=== PATIENT | male | born 1945 | race Caucasian/White ===

== ENCOUNTER 2019-11-21 10:11 | Outpatient (CLI) | payer MEDICARE, SELFPAY ==
--- NOTE | ~2019-11-21 | PE_ITS ---
EXAMINATION: PET skull to mid thigh DATE: 11/21/2019 12:42 INDICATION: Lung nodule. TECHNIQUE: 10.946 mCi of 18-fluorodeoxyglucose (18-FDG) was administered i.v. Low dose computed tomog noa (CT) images were acquired from the base of the brain to the proximal thighs for attenuation cor rection and anatomic localization. Automated exposure control was employed. Dose-length product (DLP) was 895 mGy-cm. Positron emission tomography (PET) images were acquired in the same distribution. COMPARISON: Chest 2 views 09/20/2008 FINDINGS: Head/neck: There are no pathologically enlarged lymph nodes. There is mucosal thickening in the paran adilia sinuses. Chest: There is mild emphysema. There is mild atelectasis in the lungs. There is mild elevation of le ft hemidiaphragm. A calcified left lung nodule and calcified left hilar lymph nodes are consistent wi th old granulomatous disease. There is a 12 mm nodule in left lung upper lobe with maximum SUV of 2.6 . No pleural effusion. The heart size is normal. There are coronary artery calcifications. No pericar dial effusion. Abdomen/pelvis/proximal thighs: The liver and spleen are normal. There are gallstones in the gallblad stephanie, which is normal in size. The pancreas and adrenal glands are normal. There are cysts in the kidn eys measuring up to 5.2 cm on the right. There are no dilated loops of bowel. There are no pathologic ally enlarged lymph nodes. There is no free intraperitoneal fluid. There is no osseous malignancy. IMPRESSION: 1. 12 mm nodule in left lung upper lobe with increased activity, consistent with primary bronchogenic carcinoma. Reviewed, dictated and finalized at location A. I PRACTITIONER IMPRESSION: 1. 12 mm nodule in left lung upper lobe with increased activity, consistent wit h primary bronchogenic carcinoma.
[2019-11-21 10:35] LABS: Glucose Point of Care 120 (65-105)
== END 2019-11-21 10:12 | disposition home or self-care (01) ==
LOC: ANHIMG 10:14
PROVIDERS: PCP Internal Medicine; Visit Provider Nurse Practitioner
DX: R93.89 Abnormal findings on diagnostic imaging of other specified body structures (principal); R91.8 Other nonspecific abnormal finding of lung field
CPT/HCPCS: 78815; A9552

== ENCOUNTER 2020-01-02 09:43 | Outpatient (CLI) | payer MEDICARE, SELFPAY ==
--- NOTE | 2020-01-11 15:31 | P.PCNPFT_ITS ---
PFT Interpretation PFT Interpretation: DOS: 01/02/2020 REQUESTING: Dr. Gomez REASON FOR TESTING: Non-small cell cancer left lung PULMONARY FUNCTION TESTS The patient had 2 of 3 attempts that were reproducible. Spirometry: FEV1 is mildly reduced 77% predicted. FVC is normal 101%. the FEV1/ FVC ratio is reduced consistent with airflow obstruction. No bronchodilator was given. Lung volumes: Increased TLC 141% consistent with moderate hyperinflation. increased residual volume 179% consistent with severe air trapping. Increased airway resistance 294% Diffusion: DLCO normal 88%. Flow volume loop: Scooping of the expiratory limb. IMPRESSION: Mild obstructive ventilatory impairment, moderate hyperinflation, s evere air trapping consistent without bronchodilator administration. Kat Reddy MD
== END 2020-01-02 09:44 | disposition home or self-care (01) ==
PROVIDERS: PCP Internal Medicine; Visit Provider Internal Medicine Hematology & Oncology
DX: C34.92 Malignant neoplasm of unspecified part of left bronchus or lung (principal)
CPT/HCPCS: 94375; 94726; 94729

== ENCOUNTER 2020-08-15 07:06 | Outpatient (CLI) | payer MEDICARE, SELFPAY ==
--- NOTE | ~2020-08-15 | CT_ITS ---
EXAMINATION: CT chest w con DATE: 08/15/2020 07:45 INDICATION: Non-small cell lung cancer TECHNIQUE: Computed tomography (CT) of the chest was performed without intravenous contrast. The dose -length product was 395.71 mGy-cm. Automated exposure control and iterative reconstruction technique were employed. COMPARISON: CT/PET scan dated 11/21/2019 FINDINGS: No significant pleural or pericardial effusion. Status post partial left upper lobectomy fo r removal of left upper lobe nodule. No thoracic lymphadenopathy. Fatty infiltration of the liver. There are left renal cysts. There is atherosclerosis of the aorta an d coronary arteries. There is right middle lobe atelectasis. No endobronchial lesions. No acute osseo us abnormality. IMPRESSION: 1. No evidence for residual/recurrent malignancy or metastatic disease. Reviewed, dictated and finalized at location A.
[2020-08-15 07:40] LABS: Estimated Glomerular Filt Rate > 60
[2020-08-15 09:19] LABS: Basophils Absolute Auto 0.1 K/mm3 (0.0-0.1); Basophils Percent Auto 0.6 % (0.2-1.2); Eosinophils Absolute Auto 0.2 K/mm3 (0-0.3); Eosinophils Percent Auto 1.3 % (0-4.4); Hematocrit 48.3 % (42.0-52.0); Hemoglobin 15.5 g/dL (14.0-18.0); Immature Granulocyte Absolute 0.08 K/mm3 (0.00-0.031); Immature Granulocyte Percent A 0.7 % (0-0.5); Lymphocytes Absolute Auto 1.44 K/mm3 (0.9-3.2); Lymphocytes Percent Auto 12.1 % (18.3-44.2); Mean Corpuscular HGB Conc 32.1 g/dl (32-36); Mean Corpuscular Hemoglobin 30.4 pg (26-34); Mean Corpuscular Volume 94.7 fl (80-100); Mean Platelet Volume 11.6 fl (7.4-10.4); Monocytes Absolute Auto 1.2 K/mm3 (0.1-0.6); Monocytes Percent Auto 10.3 % (2.6-8.5); Neutrophils Absolute Auto 8.9 K/mm3 (1.3-6.7); Platelet Count Result 214 k/mm3 (150-375); Red Cell Distribution Width 16.1 % (11.5-14.5); White Blood Count 11.9 K/mm3 (4.5-10.0)
[2020-08-15 09:34] LABS: Alanine Aminotransferase 30 U/L (4-50); Albumin Level 4.4 g/dL (3.5-5.1); Alkaline Phosphatase 80 U/L (38-126); Anion Gap 9 mmol/L (8-16); Aspartate Amino Transferase 28 U/L (17-59); Bilirubin,Total 0.3 mg/dL (0.2-1.3); Blood Urea Nitrogen 20 mg/dL (9-20); Calcium 9.1 mg/dL (8.4-10.2); Carbon Dioxide 28 mmol/L (22-30); Chloride 103 mmol/L (98-107); Estimated Glomerular Filt Rate > 60; Glucose 189 mg/dL (75-110); Potassium 4.3 mmol/L (3.4-5.0); Sodium 140 mmol/L (137-145)
== END 2020-08-15 07:07 | disposition home or self-care (01) ==
PROVIDERS: PCP Internal Medicine; Visit Provider Internal Medicine Hematology & Oncology
DX: C34.92 Malignant neoplasm of unspecified part of left bronchus or lung (principal)
CPT/HCPCS: 71260; 80053; 85025; Q9967

== ENCOUNTER 2021-02-10 07:17 | Outpatient (CLI) | payer MEDICARE, SELFPAY ==
--- NOTE | ~2021-02-10 | CT_ITS ---
EXAMINATION: CT diagnostic chest w con DATE: 02/10/2021 07:47 INDICATION: Lung cancer. Status post left lobectomy. Emphysema. History of smoking. TECHNIQUE: Computed tomography (CT) of the chest was performed with 75 cc Omnipaque 350 intravenous c ontrast. The dose-length product was 312.73 mGy-cm. Automated exposure control and iterative reconstr uction technique were employed. COMPARISON: CT dated 08/15/2020 and PET/CT dated 11/21/2019 FINDINGS: Status post left upper lobectomy. Developing mediastinal lymph nodes measuring up to 7 mm s hort axis, although they still do not meet CT criteria for pathologic enlargement. There is atheroscl erosis of the aorta and coronary arteries. Heart size is normal. No significant pleural or pericardia l effusion. Thyroid gland is unremarkable. There is evidence for chronic granulomatous disease. There is right middle lobe atelectasis. No endobronchial lesions. No suspicious pulmonary nodules or jossue s. Fatty infiltration of the liver. IMPRESSION: 1. Developing mediastinal lymph nodes measuring up to 7 mm short axis, although they still do not ric t CT criteria for pathologic enlargement. Recommend attention to these lymph nodes on subsequent exam ination. Reviewed, dictated and finalized at location B. IMPRESSION: 1. Developing mediastinal lymph nodes measuring up to 7 mm short axis, although they still do not meet CT criteria for pathologic enlargement. Recommend atten tion to these lymph nodes on subsequent examination.
[2021-02-10 07:40] LABS: Estimated Glomerular Filt Rate > 60
== END 2021-02-10 07:18 | disposition home or self-care (01) ==
PROVIDERS: PCP Internal Medicine; Visit Provider Internal Medicine Hematology & Oncology
DX: C34.92 Malignant neoplasm of unspecified part of left bronchus or lung (principal); R59.0 Localized enlarged lymph nodes
CPT/HCPCS: 71260; Q9967

== ENCOUNTER 2021-02-17 13:22 | Outpatient (CLI) | payer MEDICARE, SELFPAY ==
[2021-02-17 13:38] LABS: Basophils Absolute Auto 0.1 K/mm3 (0.0-0.1); Basophils Percent Auto 1.1 % (0.2-1.2); Eosinophils Absolute Auto 0.4 K/mm3 (0-0.3); Eosinophils Percent Auto 3.8 % (0-4.4); Hematocrit 47.7 % (42.0-52.0); Hemoglobin 15.5 g/dL (14.0-18.0); Immature Granulocyte Absolute 0.11 K/mm3 (0.00-0.031); Immature Granulocyte Percent A 1.2 % (0-0.5); Lymphocytes Absolute Auto 1.89 K/mm3 (0.9-3.2); Lymphocytes Percent Auto 19.9 % (18.3-44.2); Mean Corpuscular HGB Conc 32.5 g/dl (32-36); Mean Corpuscular Hemoglobin 29.7 pg (26-34); Mean Corpuscular Volume 91.4 fl (80-100); Mean Platelet Volume 11.6 fl (7.4-10.4); Monocytes Percent Auto 10.2 % (2.6-8.5); Neutrophils Absolute Auto 6.1 K/mm3 (1.3-6.7); Neutrophils Percent Auto 63.8 % (45.5-73.1); Platelet Count Result 239 k/mm3 (150-375); Red Blood Count 5.22 M/mm3 (4.6-6.20); Red Cell Distribution Width 13.9 % (11.5-14.5); White Blood Count 9.5 K/mm3 (4.5-10.0)
[2021-02-17 13:42] LABS: Blood Urea Nitrogen 19 mg/dL (8-26); Carbon Dioxide 28 mmol/L (22-30); Chloride 103 mmol/L (98-109); Estimated Glomerular Filt Rate > 60; Glucose 142 mg/dL (70-105); Potassium 4.4 mmol/L (3.5-4.9); Sodium 142 mmol/L (138-146)
[2021-02-17 16:43] LABS: Alanine Aminotransferase 29 U/L (4-50); Albumin Level 4.2 g/dL (3.5-5.1); Alkaline Phosphatase 77 U/L (38-126); Anion Gap 8 mmol/L (8-16); Aspartate Amino Transferase 29 U/L (17-59); Bilirubin,Total 0.2 mg/dL (0.2-1.3); Blood Urea Nitrogen 18 mg/dL (9-20); Calcium 9.2 mg/dL (8.4-10.2); Carbon Dioxide 25 mmol/L (22-30); Chloride 107 mmol/L (98-107); Estimated Glomerular Filt Rate > 60; Glucose 142 mg/dL (75-110); Potassium 4.7 mmol/L (3.4-5.0); Sodium 140 mmol/L (137-145)
== END 2021-02-17 13:23 | disposition home or self-care (01) ==
LOC: ANHLAB 13:24
PROVIDERS: PCP Internal Medicine; Visit Provider Internal Medicine Hematology & Oncology
DX: C34.92 Malignant neoplasm of unspecified part of left bronchus or lung (principal)
CPT/HCPCS: 36415; 80048; 80053; 85025

== ENCOUNTER 2021-05-19 08:04 | Outpatient (CLI) | payer MEDICARE, SELFPAY ==
--- NOTE | ~2021-05-19 | CT_ITS ---
EXAMINATION: CT diagnostic chest w con DATE: 05/19/2021 08:48 INDICATION: Non-small cell cancer of the left lung TECHNIQUE: Transaxial computed tomographic images of the chest were obtained after the administration of 75 cc of Omnipaque 350 intravenous contrast. The dose-length product (DLP) was 317.75 mGy-cm. Ite rative reconstruction was used. COMPARISON: 02/10/2021 FINDINGS: There is mild emphysema. Changes of left upper lobectomy are noted. There are no acute airs pace opacities. No pleural effusion or pneumothorax is identified. The heart size is normal. There ar e no pathologically enlarged thoracic lymph nodes. The previously described mediastinal lymph nodes h ave decreased in size. Calcified coronary artery atherosclerosis is noted. There are cysts of the rig ht kidney. There is mild thoracic spondylosis. IMPRESSION: 1. Changes of left upper lobectomy without evidence of recurrent or metastatic disease. No lymphadeno forrest. Reviewed, dictated and finalized at location A. IMPRESSION: 1. Changes of left upper lobectomy without evidence of recurrent or metastatic disease. No lymphadenopathy.
[2021-05-19 08:42] LABS: Estimated Glomerular Filt Rate > 60
== END 2021-05-19 08:05 | disposition home or self-care (01) ==
PROVIDERS: PCP Internal Medicine; Visit Provider Internal Medicine Hematology & Oncology
DX: C34.92 Malignant neoplasm of unspecified part of left bronchus or lung (principal); Z90.2 Acquired absence of lung [part of]
CPT/HCPCS: 71260; Q9967

== ENCOUNTER 2021-05-26 10:50 | Outpatient (CLI) | payer MEDICARE, SELFPAY ==
[2021-05-26 11:03] LABS: Basophils Absolute Auto 0.1 K/mm3 (0.0-0.1); Basophils Percent Auto 0.7 % (0.2-1.2); Eosinophils Absolute Auto 0.3 K/mm3 (0-0.3); Eosinophils Percent Auto 3.1 % (0-4.4); Hematocrit 45.9 % (42.0-52.0); Hemoglobin 14.9 g/dL (14.0-18.0); Immature Granulocyte Absolute 0.08 K/mm3 (0.00-0.031); Immature Granulocyte Percent A 0.7 % (0-0.5); Lymphocytes Absolute Auto 1.67 K/mm3 (0.9-3.2); Lymphocytes Percent Auto 15.4 % (18.3-44.2); Mean Corpuscular HGB Conc 32.5 g/dl (32-36); Mean Corpuscular Hemoglobin 29.1 pg (26-34); Mean Corpuscular Volume 89.6 fl (80-100); Mean Platelet Volume 10.7 fl (7.4-10.4); Monocytes Absolute Auto 1.1 K/mm3 (0.1-0.6); Monocytes Percent Auto 9.8 % (2.6-8.5); Neutrophils Absolute Auto 7.6 K/mm3 (1.3-6.7); Neutrophils Percent Auto 70.3 % (45.5-73.1); Platelet Count Result 253 k/mm3 (150-375); Red Blood Count 5.12 M/mm3 (4.6-6.20); Red Cell Distribution Width 13.5 % (11.5-14.5); White Blood Count 10.9 K/mm3 (4.5-10.0)
[2021-05-26 11:08] LABS: Blood Urea Nitrogen 16 mg/dL (8-26); Carbon Dioxide 25 mmol/L (22-30); Chloride 100 mmol/L (98-109); Estimated Glomerular Filt Rate > 60; Glucose 183 mg/dL (70-105); Potassium 4.3 mmol/L (3.5-4.9); Sodium 140 mmol/L (138-146)
[2021-05-26 12:38] LABS: Alanine Aminotransferase 25 U/L (4-50); Albumin Level 4.1 g/dL (3.5-5.1); Alkaline Phosphatase 70 U/L (38-126); Anion Gap 8 mmol/L (8-16); Aspartate Amino Transferase 24 U/L (17-59); Bilirubin,Total 0.4 mg/dL (0.2-1.3); Blood Urea Nitrogen 17 mg/dL (9-20); Calcium 10.1 mg/dL (8.4-10.2); Carbon Dioxide 27 mmol/L (22-30); Chloride 103 mmol/L (98-107); Estimated Glomerular Filt Rate > 60; Glucose 170 mg/dL (65-110); Potassium 4.6 mmol/L (3.4-5.0); Sodium 138 mmol/L (137-145)
== END 2021-05-26 10:51 | disposition home or self-care (01) ==
LOC: ANHLAB 10:52
PROVIDERS: PCP Internal Medicine; Visit Provider Internal Medicine Hematology & Oncology
DX: C34.92 Malignant neoplasm of unspecified part of left bronchus or lung (principal)
CPT/HCPCS: 36415; 80048; 80053; 85025

== ENCOUNTER 2021-09-24 14:23 | Outpatient (CLI) | payer MEDICARE, SELFPAY ==
--- NOTE | ~2021-09-24 | XR_ITS ---
EXAMINATION: XR chest 2V EXAM DATE: 09/24/2021 14:38 INDICATION: Non Small Cell Cancer Of Left Lung, Follow-Up. TECHNIQUE: Frontal and lateral projections of the chest obtained and reviewed. Comparison is made to prior examination from 09/20/2008. FINDINGS: Left hilar prominence likely pulmonary artery, correlating with a prior chest CT demonstrat ing partial left pneumonectomy. The lungs are clear. There are no pleural effusions. The cardiomedi astinal silhouette is within normal limits. There is no pneumothorax suspected. The bones and soft tissues are unremarkable. IMPRESSION: Partial left pneumonectomy. Reviewed, dictated and finalized at location A. S APPOINTMENT COORDINATOR IMPRESSION: Partial left pneumonectomy.
== END 2021-09-24 14:24 | disposition home or self-care (01) ==
PROVIDERS: PCP Internal Medicine; Visit Provider Internal Medicine Hematology & Oncology
DX: C34.92 Malignant neoplasm of unspecified part of left bronchus or lung (principal); Z90.2 Acquired absence of lung [part of]
CPT/HCPCS: 71046

== ENCOUNTER 2021-09-30 11:19 | Outpatient (CLI) | payer MEDICARE, SELFPAY ==
[2021-09-30 11:33] LABS: Basophils Absolute Auto 0.1 K/mm3 (0.0-0.1); Basophils Percent Auto 0.8 % (0.2-1.2); Eosinophils Absolute Auto 0.5 K/mm3 (0-0.3); Eosinophils Percent Auto 4.7 % (0-4.4); Hematocrit 47.4 % (42.0-52.0); Hemoglobin 15.2 g/dL (14.0-18.0); Immature Granulocyte Absolute 0.09 K/mm3 (0.00-0.031); Immature Granulocyte Percent A 0.9 % (0-0.5); Lymphocytes Absolute Auto 1.92 K/mm3 (0.9-3.2); Lymphocytes Percent Auto 19.9 % (18.3-44.2); Mean Corpuscular HGB Conc 32.1 g/dl (32-36); Mean Corpuscular Hemoglobin 29.5 pg (26-34); Neutrophils Absolute Auto 6.1 K/mm3 (1.3-6.7); Neutrophils Percent Auto 63.7 % (45.5-73.1); Platelet Count Result 252 k/mm3 (150-375); Red Blood Count 5.15 M/mm3 (4.6-6.20); Red Cell Distribution Width 13.8 % (11.5-14.5); White Blood Count 9.6 K/mm3 (4.5-10.0)
[2021-09-30 11:37] LABS: Blood Urea Nitrogen 17 mg/dL (8-26); Carbon Dioxide 27 mmol/L (22-30); Chloride 100 mmol/L (98-109); Estimated Glomerular Filt Rate > 60; Glucose 134 mg/dL (70-105); Potassium 4.1 mmol/L (3.5-4.9); Sodium 140 mmol/L (138-146)
[2021-09-30 12:21] LABS: Alanine Aminotransferase 30 U/L (4-50); Albumin Level 4.6 g/dL (3.5-5.1); Alkaline Phosphatase 73 U/L (38-126); Anion Gap 9 mmol/L (8-16); Aspartate Amino Transferase 55 U/L (17-59); Bilirubin,Total 0.4 mg/dL (0.2-1.3); Blood Urea Nitrogen 17 mg/dL (9-20); Carbon Dioxide 27 mmol/L (22-30); Chloride 100 mmol/L (98-107); Estimated Glomerular Filt Rate > 60; Glucose 135 mg/dL (65-110); Potassium 4.3 mmol/L (3.4-5.0); Sodium 136 mmol/L (137-145)
== END 2021-09-30 11:20 | disposition home or self-care (01) ==
LOC: ANHLAB 11:21
PROVIDERS: PCP Internal Medicine; Visit Provider Internal Medicine Hematology & Oncology
DX: C34.92 Malignant neoplasm of unspecified part of left bronchus or lung (principal)
CPT/HCPCS: 36415; 80053; 82374; 82435; 82565; 82947; 84132; 84295; 84520; 85025

== ENCOUNTER 2022-01-21 14:27 | Outpatient (CLI) | payer MEDICARE, SELFPAY ==
--- NOTE | ~2022-01-21 | CT_ITS ---
EXAMINATION:CT diagnostic chest w con DATE: 01/21/2022 14:47 INDICATION: Non-small cell lung cancer in left lung. TECHNIQUE: Computed tomography (CT) of the chest was performed with 75 mL Omnipaque 350 intravenous c ontrast. Automated exposure control and iterative reconstruction technique were employed. The dose-le ngth product (DLP) was 316.92 mGy-cm. COMPARISON: Chest CT 05/19/2021 FINDINGS: There is mild emphysema. There is mild atelectasis bilaterally. There are changes of left u pper lobectomy. Calcified left lung nodules and calcified left hilar lymph nodes are consistent with old granulomatous disease. No pleural effusion. The heart size is normal. There are coronary artery c alcifications. No pericardial effusion. Calcifications in the spleen are consistent with old granulom atous disease. There are cysts in left kidney measuring up to 3.0 cm. There is mild thoracic spondylo sis. There is mild chronic anterior wedging of T7-T10 vertebral bodies. IMPRESSION: 1. No evidence of metastatic disease. Reviewed, dictated and finalized at location A.
[2022-01-21 14:44] LABS: Estimated Glomerular Filt Rate > 60
== END 2022-01-21 14:28 | disposition home or self-care (01) ==
LOC: ANHIMG 14:29
PROVIDERS: PCP Internal Medicine; Visit Provider Internal Medicine Hematology & Oncology
DX: C34.92 Malignant neoplasm of unspecified part of left bronchus or lung (principal)
CPT/HCPCS: 71260; Q9967

== ENCOUNTER 2022-01-27 10:49 | Outpatient (CLI) | payer MEDICARE, SELFPAY ==
[2022-01-27 11:01] LABS: Basophils Absolute Auto 0.1 K/mm3 (0.0-0.1); Eosinophils Absolute Auto 0.4 K/mm3 (0-0.3); Eosinophils Percent Auto 4.7 % (0-4.4); Hematocrit 47.6 % (42.0-52.0); Hemoglobin 14.9 g/dL (14.0-18.0); Immature Granulocyte Absolute 0.08 K/mm3 (0.00-0.031); Immature Granulocyte Percent A 0.9 % (0-0.5); Lymphocytes Absolute Auto 1.89 K/mm3 (0.9-3.2); Mean Corpuscular HGB Conc 31.3 g/dl (32-36); Mean Corpuscular Hemoglobin 29.3 pg (26-34); Mean Corpuscular Volume 93.7 fl (80-100); Mean Platelet Volume 11.5 fl (7.4-10.4); Neutrophils Absolute Auto 5.6 K/mm3 (1.3-6.7); Neutrophils Percent Auto 61.4 % (45.5-73.1); Platelet Count Result 219 k/mm3 (150-375); Red Blood Count 5.08 M/mm3 (4.6-6.20); Red Cell Distribution Width 13.8 % (11.5-14.5)
[2022-01-27 11:04] LABS: Blood Urea Nitrogen 19 mg/dL (8-26); Carbon Dioxide 24 mmol/L (22-30); Chloride 103 mmol/L (98-109); Estimated Glomerular Filt Rate > 60; Glucose 131 mg/dL (70-105); Potassium 4.3 mmol/L (3.5-4.9); Sodium 140 mmol/L (138-146)
[2022-01-27 12:07] LABS: Alanine Aminotransferase 27 U/L (4-50); Albumin Level 4.5 g/dL (3.5-5.1); Alkaline Phosphatase 60 U/L (38-126); Anion Gap 9 mmol/L (8-16); Aspartate Amino Transferase 26 U/L (17-59); Bilirubin,Total 0.5 mg/dL (0.2-1.3); Blood Urea Nitrogen 18 mg/dL (9-20); Calcium 9.5 mg/dL (8.4-10.2); Carbon Dioxide 24 mmol/L (22-30); Chloride 105 mmol/L (98-107); Estimated Glomerular Filt Rate > 60; Glucose 133 mg/dL (65-110); Potassium 4.2 mmol/L (3.4-5.0); Sodium 138 mmol/L (137-145)
== END 2022-01-27 10:50 | disposition home or self-care (01) ==
LOC: ANHLAB 10:50
PROVIDERS: PCP Internal Medicine; Visit Provider Internal Medicine Hematology & Oncology
DX: C34.92 Malignant neoplasm of unspecified part of left bronchus or lung (principal)
CPT/HCPCS: 36415; 80053; 85025

== ENCOUNTER 2022-07-21 10:13 | Outpatient (CLI) | payer MEDICARE, SELFPAY ==
--- NOTE | ~2022-07-21 | CT_ITS ---
EXAMINATION:CT diagnostic chest wo con DATE: 07/21/2022 10:36 INDICATION: Non-small cell cancer of left lung. TECHNIQUE: Computed tomography (CT) of the chest was performed without intravenous contrast. Automate d exposure control and iterative reconstruction technique were employed. The dose-length product (DLP ) was 315.37 mGy-cm. COMPARISON: Chest CT 01/21/2022 FINDINGS: There are changes of left upper lobectomy. A calcified left lung nodule and calcified left hilar lymph nodes are consistent with old granulomatous disease. There is mild atelectasis in right m iddle lobe. No pleural effusion. There is mucous in the trachea. The heart size is normal. There are coronary artery calcifications. No pericardial effusion. There is diffuse hepatic steatosis. There is a 16 mm cyst in left kidney. There is mild thoracic spondylosis. There is mild chronic anterior wedg ing of multiple vertebral bodies. IMPRESSION: 1. No evidence of metastatic disease. Reviewed, dictated and finalized at location A.
== END 2022-07-21 10:14 | disposition home or self-care (01) ==
PROVIDERS: PCP Internal Medicine; Visit Provider Internal Medicine Hematology & Oncology
DX: C34.92 Malignant neoplasm of unspecified part of left bronchus or lung (principal)
CPT/HCPCS: 71250

== ENCOUNTER 2022-07-28 09:32 | Outpatient (CLI) | payer MEDICARE, SELFPAY ==
[2022-07-28 09:43] LABS: Basophils Absolute Auto 0.1 K/mm3 (0.0-0.1); Basophils Percent Auto 0.9 % (0.2-1.2); Eosinophils Absolute Auto 0.3 K/mm3 (0-0.3); Eosinophils Percent Auto 3.7 % (0-4.4); Hematocrit 46.2 % (42.0-52.0); Hemoglobin 14.7 g/dL (14.0-18.0); Immature Granulocyte Absolute 0.06 K/mm3 (0.00-0.031); Immature Granulocyte Percent A 0.7 % (0-0.5); Lymphocytes Percent Auto 16.8 % (18.3-44.2); Mean Corpuscular HGB Conc 31.8 g/dl (32-36); Mean Corpuscular Hemoglobin 29.1 pg (26-34); Mean Corpuscular Volume 91.5 fl (80-100); Mean Platelet Volume 10.8 fl (7.4-10.4); Monocytes Percent Auto 11.3 % (2.6-8.5); Neutrophils Percent Auto 66.6 % (45.5-73.1); Platelet Count Result 255 k/mm3 (150-375); Red Blood Count 5.05 M/mm3 (4.6-6.20); White Blood Count 8.9 K/mm3 (4.5-10.0)
[2022-07-28 09:46] LABS: Blood Urea Nitrogen 21 mg/dL (8-26); Carbon Dioxide 29 mmol/L (22-30); Chloride 100 mmol/L (98-109); Estimated Glomerular Filt Rate > 60; Glucose 158 mg/dL (70-105); Ionized Calcium (POC) 1.31 mmol/L (1.11-1.31); Potassium 4.3 mmol/L (3.5-4.9); Sodium 142 mmol/L (138-146)
[2022-07-28 12:05] LABS: Alanine Aminotransferase 28 U/L (6-50); Albumin Level 4.7 g/dL (3.5-5.1); Alkaline Phosphatase 71 U/L (38-126); Anion Gap 10 mmol/L (8-16); Aspartate Amino Transferase 27 U/L (17-59); Bilirubin,Total 0.4 mg/dL (0.2-1.3); Blood Urea Nitrogen 21 mg/dL (9-20); Calcium 9.6 mg/dL (8.4-10.2); Carbon Dioxide 28 mmol/L (22-30); Chloride 101 mmol/L (98-107); Estimated Glomerular Filt Rate > 60; Glucose 151 mg/dL (65-110); Potassium 4.2 mmol/L (3.4-5.0); Sodium 139 mmol/L (137-145)
== END 2022-07-28 09:33 | disposition home or self-care (01) ==
LOC: ANHLAB 09:33
PROVIDERS: PCP Internal Medicine; Visit Provider Internal Medicine Hematology & Oncology
DX: C34.92 Malignant neoplasm of unspecified part of left bronchus or lung (principal)
CPT/HCPCS: 36415; 80047; 80053; 85025

== ENCOUNTER 2022-11-06 13:10 | Outpatient (CLI) | payer MEDICARE, SELFPAY ==
--- NOTE | ~2022-11-06 | CT_ITS ---
CT Scan of the Chest without Contrast: Clinical Indication: Lung cancer Technique: Contiguous sections were acquired throughout the chest without intravenous contrast. Dose reduction technique was used on this scan by utilizing automated exposure control and iterative recon struction technique. The dose-length product (DLP) was 436.00 mGy-cm. COMPARISON: 07/21/2022 Findings: Stable mildly prominent lymph node between the origins of the right brachiocephalic and left common c arotid arteries at the superior mediastinum. Stable mildly prominent prevascular lymph nodes at the l evel of the aortic arch.. The mediastinal soft tissues appear normal. There is no evidence of pleural or pericardial effusion. Patient is status post left upper lobectomy. Stable linear scarring right middle lobe. No suspicious pulmonary nodule seen. Calcified left upper lobe granuloma present. Images through the upper abdomen reveal cholelithiasis. Impression: No evidence for active malignancy or metastatic disease. No change from prior exam. Status post left upper lobectomy. Stable linear right middle lobe scarring. Stable minimally prominent lymph nodes in the mediastinum, as above, nonspecific. Reviewed, dictated and finalized at [facility]. S COMMISSIONS ANALYST Impression: No evidence for active malignancy or metastatic disease. No change from prior e xam. Status post left upper lobectomy. Stable linear right middle lobe scarring. Stable minimally prominent lymph nodes in the mediastinum, as above, nonspecifi c.
== END 2022-11-06 13:11 | disposition home or self-care (01) ==
PROVIDERS: PCP Internal Medicine; Referring Provider Nurse Practitioner; Visit Provider Internal Medicine Hematology & Oncology
DX: C34.92 Malignant neoplasm of unspecified part of left bronchus or lung (principal); Z90.2 Acquired absence of lung [part of]
CPT/HCPCS: 71250

== ENCOUNTER 2023-01-14 10:37 | Outpatient (CLI) | payer MEDICARE, SELFPAY ==
[2023-01-14 10:49] LABS: Basophils Absolute Auto 0.1 K/mm3 (0.0-0.1); Basophils Percent Auto 0.9 % (0.2-1.2); Eosinophils Absolute Auto 0.4 K/mm3 (0-0.3); Eosinophils Percent Auto 4.5 % (0-4.4); Hematocrit 45.6 % (42.0-52.0); Hemoglobin 14.7 g/dL (14.0-18.0); Immature Granulocyte Absolute 0.05 K/mm3 (0.00-0.031); Immature Granulocyte Percent A 0.6 % (0-0.5); Lymphocytes Absolute Auto 1.87 K/mm3 (0.9-3.2); Lymphocytes Percent Auto 21.3 % (18.3-44.2); Mean Corpuscular HGB Conc 32.2 g/dl (32-36); Mean Corpuscular Hemoglobin 29.6 pg (26-34); Mean Corpuscular Volume 91.8 fl (80-100); Mean Platelet Volume 11.5 fl (7.4-10.4); Monocytes Absolute Auto 0.8 K/mm3 (0.1-0.6); Monocytes Percent Auto 9.4 % (2.6-8.5); Neutrophils Absolute Auto 5.6 K/mm3 (1.3-6.7); Neutrophils Percent Auto 63.3 % (45.5-73.1); Platelet Count Result 225 k/mm3 (150-375); Red Blood Count 4.97 M/mm3 (4.6-6.20); White Blood Count 8.8 K/mm3 (4.5-10.0)
[2023-01-14 10:54] LABS: Blood Urea Nitrogen 21 mg/dL (8-26); Carbon Dioxide 30 mmol/L (22-30); Chloride 101 mmol/L (98-109); Estimated Glomerular Filt Rate > 60; Glucose 150 mg/dL (70-105); Ionized Calcium (POC) 1.21 mmol/L (1.11-1.31); Potassium 4.3 mmol/L (3.5-4.9); Sodium 140 mmol/L (138-146)
[2023-01-14 12:40] LABS: Alanine Aminotransferase 28 U/L (6-50); Albumin Level 4.5 g/dL (3.5-5.1); Alkaline Phosphatase 66 U/L (38-126); Anion Gap 8 mmol/L (8-16); Aspartate Amino Transferase 25 U/L (17-59); Bilirubin,Total 0.5 mg/dL (0.2-1.3); Blood Urea Nitrogen 20 mg/dL (9-20); Calcium 8.9 mg/dL (8.4-10.2); Carbon Dioxide 28 mmol/L (22-30); Chloride 101 mmol/L (98-107); Estimated Glomerular Filt Rate > 60; Glucose 145 mg/dL (65-110); Potassium 4.4 mmol/L (3.4-5.0); Sodium 137 mmol/L (137-145)
== END 2023-01-14 10:38 | disposition home or self-care (01) ==
LOC: ANHLAB 10:39
PROVIDERS: PCP Internal Medicine; Visit Provider Internal Medicine Hematology & Oncology
DX: C34.92 Malignant neoplasm of unspecified part of left bronchus or lung (principal)
CPT/HCPCS: 36415; 80047; 80053; 85025

== ENCOUNTER 2023-09-21 13:13 | Outpatient (CLI) | payer MEDICARE, SELFPAY ==
[2023-09-21 13:24] LABS: Basophils Absolute Auto 0.1 K/mm3 (0.0-0.1); Basophils Percent Auto 0.7 % (0.2-1.2); Eosinophils Absolute Auto 0.4 K/mm3 (0-0.3); Eosinophils Percent Auto 3.7 % (0-4.4); Hematocrit 46.2 % (42.0-52.0); Hemoglobin 14.6 g/dL (14.0-18.0); Immature Granulocyte Absolute 0.06 K/mm3 (0.00-0.031); Immature Granulocyte Percent A 0.6 % (0-0.5); Lymphocytes Absolute Auto 1.56 K/mm3 (0.9-3.2); Lymphocytes Percent Auto 16.6 % (18.3-44.2); Mean Corpuscular HGB Conc 31.6 g/dl (32-36); Mean Corpuscular Hemoglobin 28.6 pg (26-34); Mean Corpuscular Volume 90.4 fl (80-100); Mean Platelet Volume 10.8 fl (7.4-10.4); Monocytes Absolute Auto 0.9 K/mm3 (0.1-0.6); Monocytes Percent Auto 9.7 % (2.6-8.5); Neutrophils Absolute Auto 6.4 K/mm3 (1.3-6.7); Neutrophils Percent Auto 68.7 % (45.5-73.1); Platelet Count Result 280 k/mm3 (150-375); Red Blood Count 5.11 M/mm3 (4.6-6.20); Red Cell Distribution Width 15.2 % (11.5-14.5); White Blood Count 9.4 K/mm3 (4.5-10.0)
[2023-09-21 13:50] LABS: Alanine Aminotransferase 21 U/L (6-50); Alkaline Phosphatase 72 U/L (38-126); Anion Gap 9 mmol/L (8-16); Aspartate Amino Transferase 29 U/L (17-59); Bilirubin,Total 0.4 mg/dL (0.2-1.3); Blood Urea Nitrogen 17 mg/dL (9-20); Calcium 9.2 mg/dL (8.4-10.2); Carbon Dioxide 27 mmol/L (22-30); Chloride 103 mmol/L (98-107); Estimated Glomerular Filt Rate > 60; Glucose 159 mg/dL (65-110); Potassium 4.3 mmol/L (3.4-5.0); Sodium 139 mmol/L (137-145)
== END 2023-09-21 13:14 | disposition home or self-care (01) ==
LOC: ANHLAB 13:14
PROVIDERS: PCP Internal Medicine; Visit Provider Internal Medicine Hematology & Oncology
DX: C34.92 Malignant neoplasm of unspecified part of left bronchus or lung (principal)
CPT/HCPCS: 36415; 80053; 85025

== ENCOUNTER 2023-09-28 13:14 | Outpatient (CLI) | payer MEDICARE, SELFPAY ==
--- NOTE | ~2023-09-28 | PE_ITS ---
EXAMINATION: PET skull to mid thigh DATE: 09/28/2023 15:28 INDICATION: Non-small cell cancer of the left lung TECHNIQUE: Blood glucose level was 86 mg/dL. 10.495 mCi of 18-fluorodeoxyglucose (18-FDG) was adminis tered i.v. Low dose computed tomography (CT) images were acquired from the base of the brain to the p roximal thighs for attenuation correction and anatomic localization. Positron emission tomography (PE T) images were acquired in the same distribution beginning 54 minutes after injection. The dose-lengt h product (DLP) was 1224.46 mGy-cm. COMPARISON: 11/21/2019; CT, 11/06/2022 FINDINGS: Head/neck: No abnormal FDG uptake is identified. There is mild mucosal thickening of the paranasal si nuses. Chest: There are changes of partial left pneumonectomy. There are normal-sized left hilar and aortico pulmonary window lymph nodes with increased abnormal FDG uptake. For instance, a 6 mm aortopulmonary window lymph node demonstrates an SUV max of 3.9. There is mild dependent atelectasis. The heart size is normal. There is a new 5 mm nodule of the right middle lobe. No definite associated FDG uptake is identified. No pleural effusion or pneumothorax. The heart size is normal. Calcified coronary artery atherosclerosis is noted. Abdomen/pelvis/proximal thighs: There is a 5.7 x 2.7 cm mass situated between the left scrotum and me dial left thigh with an SUV max of 28.5. There is a 1.3 cm left inguinal lymph node with SUV max of 1 8.3. There is an ill-defined soft tissue density mass involving the abdominal musculature and subcuta neous tissues of the right lower quadrant which measures approximately 4.8 x 1.9 cm and demonstrates abnormal FDG uptake and SUV max of 6.5. Punctate calcifications in an otherwise normal spleen likely represent healed granulomatous disease. The liver, pancreas, and adrenal glands are normal. Stones are present in the nondistended gallbladde r. Cysts of the kidneys measure up to 6.3 cm on the right. No free intraperitoneal gas or evidence of bowel obstruction. There is calcified atherosclerosis of the aorta and many of the other arteries. A small right hydrocele is noted. Musculoskeletal: No abnormal FDG uptake is identified. IMPRESSION: 1. Left groin mass with abnormal FDG uptake consistent with metastatic disease versus primary maligna ncy. Biopsy is recommended. 2. Left inguinal lymph node with abnormal FDG uptake consistent with metastatic disease. 3. Normal-sized left hilar and aorticopulmonary window lymph nodes with abnormal FDG uptake, consiste nt with metastatic disease. 4. New 5 mm nodule of the right middle lobe. Although no definite associated FDG uptake is identified , finding could be due to small size. Metastatic disease is a concern. 5. Ill-defined soft tissue mass of the right lower quadrant abdominal wall, consistent with metastati c disease or possibly trauma. Reviewed, dictated and finalized at location B. TIC PHYSIOTHERAPIST IMPRESSION: 1. Left groin mass with abnormal FDG uptake consistent with metastatic disease versus primary malignancy. Biopsy is recommended. 2. Left inguinal lymph node with abnormal FDG uptake consistent with metastatic disease. 3. Normal-sized left hilar and aorticopulmonary window lymph nodes with abnorma l FDG uptake, consistent with metastatic disease. 4. New 5 mm nodule of the right middle lobe. Although no definite associated FD G uptake is identified, finding could be due to small size. Metastatic disease is a concern. 5. Ill-defined soft tissue mass of the right lower quadrant abdominal wall, con sistent with metastatic disease or possibly trauma.
[2023-09-28 14:03] LABS: Glucose Point of Care 86 mg/dl (65-105)
== END 2023-09-28 13:15 | disposition home or self-care (01) ==
PROVIDERS: PCP Internal Medicine; Visit Provider Internal Medicine Hematology & Oncology
DX: C34.12 Malignant neoplasm of upper lobe, left bronchus or lung (principal); R19.03 Right lower quadrant abdominal swelling, mass and lump; R19.09 Other intra-abdominal and pelvic swelling, mass and lump; R59.0 Localized enlarged lymph nodes; R91.1 Solitary pulmonary nodule
CPT/HCPCS: 78815; A9552

== ENCOUNTER 2023-10-06 10:25 | Outpatient (CLI) | payer MEDICARE, SELFPAY ==
[2023-10-06 10:36] LABS: Kit Draw Collected
== END 2023-10-06 10:26 | disposition home or self-care (01) ==
LOC: ANHLAB 10:29
PROVIDERS: PCP Internal Medicine; Visit Provider Internal Medicine Hematology & Oncology
DX: C34.92 Malignant neoplasm of unspecified part of left bronchus or lung (principal)
CPT/HCPCS: 36415

== ENCOUNTER 2023-10-12 10:25 | Outpatient (CLI) | payer MEDICARE, SELFPAY ==
[2023-10-12 10:58] LABS: INR 0.9; Prothrombin Time 12.6 Seconds (11.1-14.7)
[2023-10-12 10:59] LABS: Partial Thromboplastin Time 36.5 SECONDS (22.3-36.8)
== END 2023-10-12 10:26 | disposition home or self-care (01) ==
LOC: ANHSURGERY 10:28
PROVIDERS: PCP Internal Medicine; Visit Provider Surgery
DX: Z01.818 Encounter for other preprocedural examination (principal); C34.90 Malignant neoplasm of unspecified part of unspecified bronchus or lung
CPT/HCPCS: 36415; 85610; 85730

== ENCOUNTER 2023-10-14 01:24 | Day surgery (SDC) | payer MEDICARE, SELFPAY ==
[2023-10-08 10:50] VITALS: BMI 29.5
--- NOTE | 2023-10-08 11:07 | PC.NURSE ---
PRE-OP INSTRUCTIONS, PLEASE READ CAREFULLY Report to the Outpatient Waiting Room, entrance under the green pavilion located off [facility], at time _1130_ on date _10/14/23_. Planned Procedure Time: _3:30 PM_. Time changes happen often and if your time is changed the preop area will call you the afternoon before. - You and your visitor will be asked to self-screen and do not enter if you have any COVID symptoms. - A mask is optional within the hospital at this time. Patients may have clear liquids (water, carbonated beverages, clear teas, apple juice) until 3 hours prior to surgery (1030 AM) with a maximum of 20 ounces. - No food from midnight until time of surgery Take the following medications with a SIP of water the morning of surgery: _METOPROLOL, INHALERS_ DO NOT STOP ANY OF YOUR OTHER PRESCRIPTION MEDICATIONS PRIOR TO SURGERY ?EXCEPT THE FOLLOWING Medications to discontinue per ANESTHESIA - _MULTIVITAMIN & SUPPLEMENTS 3 DAYS PRIOR TO SURGERY, Date to take last dose 10/10/23_ Please no make-up, nail hungarian, hairspray, perfume, deodorant, or body powder the day of surgery. No jewelry (including any body piercings) or valuables the day of surgery, leave them at home. Please take a shower or bath the night before, or the morning of, surgery with an antibacterial soap. Wear comfortable, loose fitting clothing. - Jewelry must be removed prior to entering the operating room. Rings and piercings that are not removed may be cut off. - The hospital will not accept responsibility for valuables. - Please leave all valuables, including medications, at home the day of surgery. If you are going home after surgery, a licensed tow truck driver must drive you home. - NO public transportation without another adult if you receive anesthesia. - We recommend that an adult stay with you for 24 hours following discharge. - We also recommend that you do not drive, make important decision, drink alcoholic beverages, or take any drugs that were not prescribed by your health care provider for at least 24 hours after your discharge time. Follow any additional instructions given to you from your surgeon. If you or anyone in your household have experienced Covid symptoms in the past week, please notify your surgeon or the nurse liaison at the phone number below for possible testing. Telephone instructions given to _PATIENT_and asked if any additional questions and then verbalized understanding. Patient advised to call surgeon office or pre surgery nurse liaison [phone] if any additional questions.
--- NOTE | ~2023-10-14 | XR_ITS ---
XR chest port-a-cath/central DATE: 10/14/2023 14:48 INDICATION: Port-A-Cath insertion TECHNIQUE: Portable AP chest on 10/06/2023 at 1443 hours COMPARISON: 10/06/2021 PA and lateral chest FINDINGS: Interval placement of left Port-A-Cath catheter via subclavian vein, with distal tip overly ing caudal aspect of the superior vena cava. There is no evidence of pneumothorax. Chronic left lung volume loss and bilateral pulmonary compared to 09/24/2021. No interval pulmonary in filtrate or consolidation, pleural effusion or pulmonary vascular congestion or pneumothorax is evide nt. Normal heart size. Aortic arch calcification, mild aortic unfolding. Stable prominence of the left hi lum. IMPRESSION: Interval left Port-A-Cath placement, distal tip in lower superior vena cava Reviewed, dictated and finalized at [facility]. Reviewed, dictated and finalized at location A. [facility] COMMUNITY RELATIONS COORDINATOR IMPRESSION: Interval left Port-A-Cath placement, distal tip in lower superior v david cava
--- NOTE | ~2023-10-14 | XR_ITS ---
EXAMINATION: XR fl guide central line place DATE: 10/14/2023 13:45 FACILITIES LOCATOR INDICATION: INSERT AGUSTIN CATH . TECHNIQUE: 2 fluoroscopic images of the chest were obtained during Port-A-Cath placement performed by the surgeon. I was not present in the operating room. Fluoroscopy exposure time was 1 minute and 3.6 seconds. Air Kerma 12.241 mGy. DAP 0.2427 mGym2. COMPARISON: None FINDINGS: Left chest subclavian implanted port, tip terminating in the distal SVC. IMPRESSION: Fluoroscopic documentation of Port-A-Cath placement. Please refer to the operative note for complete procedural details . Reviewed, dictated and finalized at location K. LITIES LOCATOR IMPRESSION: Fluoroscopic documentation of Port-A-Cath placement. Please refer to the operat chandu note for complete procedural details .
--- NOTE | 2023-10-14 12:02 | WPDHPUPDATE1 ---
History and Physical Update Update Date/Time: 10/14/23 12:02 History and Physical has been reviewed, including an updated exam of the patient. There are NO changes in the patient's condition. Risks, benefits, and alternatives have been discussed and questions answered. Patient agrees to proceed with procedure.
[2023-10-14 12:18] VITALS: BP 137/75; PULSE 80; RESP 18; TEMP 36.1; O2SAT 95
[2023-10-14] MEDS: LACTATED RINGERS 1,000 ML 30 ML IV CONT (12:25)
[2023-10-14 12:30] LABS: Glucose Point of Care 147 mg/dl (65-105)
[2023-10-14] MEDS: KETOROLAC 15 MG/ML VIAL (*BKC) IV PUSH (12:30)
--- NOTE | 2023-10-14 12:36 | WPDANESEPPF ---
Anes - Initial Pre Proc Eval Procedure: Operation Date: 10/14/23 13:30 Proposed Procedures p Insertion Juancarlos Cath - Tristen Baum MD Date/Time: 10/14/23 12:36 Surgeon: Tristen Baum MD Pre Op Diagnosis: non small cell Left lung cancer Patient Data Age: 77 Gender: M Height: 1.78 m Weight: 88.6 kg Last Vital Signs Temp 96.9 F L 10/14/23 12:18 Pulse 80 10/14/23 12:18 Resp 18 10/14/23 12:18 BP 137/75 10/14/23 12:18 Pulse Ox 95 10/14/23 12:18 O2 Del Method Room Air 10/14/23 12:18 Allergies Allergy/AdvReac Type Severity Reaction Status Date / Time hydrocodone [From Vicodin] AdvReac Itching Verified 10/08/23 10:45 morphine AdvReac VIOLENT Verified 10/14/23 12:29 TREMORS Home Medications Medication Instructions Recorded Confirmed Type ascorbic acid (vitamin C) 1,000 mg 1,000 mg PO DAILY 10/08/23 10/08/23 History tablet,extended release (Vitamin C ER) diphenhydramine HCl 12.5 mg/5 mL 12.5 mg PO QAM 10/08/23 10/08/23 History oral liquid (Benadryl Allergy) empagliflozin 10 mg tablet 10 mg DAILY 10/08/23 10/08/23 History (Jardiance) famotidine 20 mg tablet (Pepcid) 20 mg PO DAILY 10/08/23 10/08/23 History fenofibrate nanocrystallized 145 145 mg PO DAILY 10/08/23 10/08/23 History mg tablet fluticasone 250 mcg-salmeterol 50 1 inh inhalation Q12H 10/08/23 10/08/23 History mcg/dose blistr powdr for inhalation (Wixela Inhub) glimepiride 4 mg tablet 4 mg BID 10/08/23 10/08/23 History hydrochlorothiazide 25 mg tablet 25 mg DAILY 10/08/23 10/08/23 History metformin 500 mg tablet,extended 1,000 mg PO BID 10/08/23 10/08/23 History release 24 hr metoprolol tartrate 50 mg tablet 50 mg BID 10/08/23 10/08/23 History multivitamin 1 tablet DAILY 10/08/23 10/08/23 History simvastatin 20 mg tablet 20 mg DAILY 10/08/23 10/08/23 History tiotropium bromide 2.5 puff inhalation QAM 10/08/23 History mcg/actuation mist for inhalation (Spiriva Respimat) Laboratory Tests 10/14/23 12:07 POC Capillary Glucose 147 H mg/dl (65-105) Patient hx anesthesia problems: none Family hx anesthesia problems: none Results Review: All pre-operative results and documents have been reviewed as part of the pre-operative evaluation. [facility] Social History Social History Smoking status: Former smoker Tobacco type: cigarettes Second hand tobacco smoke exposure: No Additional smoking assessment comments: STATES SMOKED 1PK/DAY/30-40YRS/QUIT 2010~ Alcohol intake: current Alcohol use details: STATES DRINKS 3 OZ/NIGHT, (21 OZ/WEEK) Substance use: never Substance use type: does not use Living arrangements: with family Spiritual care concerns: No Anes - Eval Final PreProcedure Day of Procedure 10/14/23 12:36 Patient weight: normal Heart: regular rate and rhythm Lungs: clear to auscultation Airway: Mallampati scale class II Neurological: alert and oriented Last oral intake: >/= 8 hours ASA classification: III Emergent: no Anesthetic plan: proceed Anesthesia type and monitoring: general GIVS and standard monitoring Results Review: All pre-operative results and documents have been reviewed as part of the pre-operative evaluation. Informed Consent: The patient's anesthetic plan and its attendant risks and benefits were discussed with the patient/family/POA. Questions were solicited and answers provided to the satisfaction of the patient/family/POA.
--- NOTE | 2023-10-14 13:22 | PM.SD2 ---
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 He is in need of a Port-A-Cath for chemotherapy administration. He is taken to the operating room today for that purpose. [facility] Social History Social History Smoking status: Former smoker Tobacco type: cigarettes Second hand tobacco smoke exposure: No Additional smoking assessment comments: STATES SMOKED 1PK/DAY/30-40YRS/QUIT 2010~ Alcohol intake: current Alcohol use details: STATES DRINKS 3 OZ/NIGHT, (21 OZ/WEEK) Substance use: never Substance use type: does not use Living arrangements: with family Spiritual care concerns: No Same Day Admit/Disch: Med Pre-admit Medications Home Medications Medication Instructions Recorded Confirmed Type ascorbic acid (vitamin C) 1,000 mg 1,000 mg PO DAILY 10/08/23 10/08/23 History tablet,extended release (Vitamin C ER) diphenhydramine HCl 12.5 mg/5 mL 12.5 mg PO QAM 10/08/23 10/08/23 History oral liquid (Benadryl Allergy) empagliflozin 10 mg tablet 10 mg DAILY 10/08/23 10/08/23 History (Jardiance) famotidine 20 mg tablet (Pepcid) 20 mg PO DAILY 10/08/23 10/08/23 History fenofibrate nanocrystallized 145 145 mg PO DAILY 10/08/23 10/08/23 History mg tablet fluticasone 250 mcg-salmeterol 50 1 inh inhalation Q12H 10/08/23 10/08/23 History mcg/dose blistr powdr for inhalation (Wixela Inhub) glimepiride 4 mg tablet 4 mg BID 10/08/23 10/08/23 History hydrochlorothiazide 25 mg tablet 25 mg DAILY 10/08/23 10/08/23 History metformin 500 mg tablet,extended 1,000 mg PO BID 10/08/23 10/08/23 History release 24 hr metoprolol tartrate 50 mg tablet 50 mg BID 10/08/23 10/08/23 History multivitamin 1 tablet DAILY 10/08/23 10/08/23 History simvastatin 20 mg tablet 20 mg DAILY 10/08/23 10/08/23 History tiotropium bromide 2.5 puff inhalation QAM 10/08/23 History mcg/actuation mist for inhalation (Spiriva Respimat) ibuprofen 600 mg tablet 600 mg PO Q6H PRN pain #14 tabs 10/14/23 Rx oxycodone-acetaminophen 5 mg-325 0.5 - 1 tablet PO Q6H PRN pain #10 10/14/23 Rx mg tablet tabs Review of Systems Review of Systems All systems reviewed & are unremarkable except as noted in HPI and below (HPI and those items noted below) Constitutional Constitutional: Denies chills and Denies fever(s) Cardiovascular Cardiovascular: Denies chest pain, Denies diaphoresis, Denies dyspnea and Denies paroxysmal nocturnal dyspnea Respiratory Respiratory: Denies chest congestion, Denies cough and Denies dyspnea Integumentary/Breasts Skin/Breast: Denies lesions and Denies rash Exam Const: General: comfortable, no acute distress, alert and awake HENMT: Head: normocephalic and atraumatic Mouth: Yes Normal oral and palatal mucosa present Eyes: Conjunctivae: conjunctivae normal Pupils: Equal, round and reactive pupils present EOM: EOMs intact bilaterally Neck: Neck: normal visual inspection, no lymphadenopathy and nontender Chest: Chest palpation & inspection: normal inspection of the chest, normal palpation of entire chest wall (Left side), no masses, no tenderness and No rash Resp: Effort & Inspection: normal respiratory effort Auscultation: clear to auscultation bilaterally Cardio: Rate: regular rate Rhythm: regular rhythm Heart sounds: no gallops, no murmurs and no rubs GI: Inspection: non-distended GI Palp: Yes Soft to palpation, No Tenderness to palpation present (GI), No Hepatomegaly present and No Splenomegaly present Skin: Lesions: no lesions Rashes: no rashes Neuro: General: no focal motor deficits and CN's II-XI intact bilaterally Cranial nerves: Yes Equal, round and reactive pupils present, Yes Bilaterally intact EOM present, Yes facial symmetry and Yes Midline tongue present Spee
[2023-10-14] MEDS: ceFAZolin 2 GM/D5W 50 ML 2 GM/50 ML BAG IVPB (13:40)
[2023-10-14] MEDS: BUPIVACAINE/EPINEPHRINE 0.5% 50 ML VIAL 30 ML INFILTRATE (14:05)
[2023-10-14] MEDS: HEPARIN SODIUM 1,000 UNITS/ML VIAL 1000 UNITS IV PUSH (14:06)
[2023-10-14 14:36] VITALS: BP 102/56; PULSE 82; RESP 16; O2SAT 94
[2023-10-14 15:06] VITALS: BP 115/57; PULSE 81; RESP 16
[2023-10-14 15:30] VITALS: BP 132/63; PULSE 73; RESP 16
--- NOTE | 2023-10-15 08:57 | W.PM.PROC2 ---
Procedure Note - Detailed Date of Procedure 10/14/23 Pre-op Diagnosis Inadequate venous access, metastatic lung cancer Post-op Diagnosis Same Procedure Performed Placement left subclavian vortex Port-A-Cath under fluoroscopy Surgeon Tristen Baum MD Anesthesia MAC and Local Indications Patient is in need of a Port-A-Cath for chemotherapy Findings Tip of the Port-A-Cath was in the distal SVC right atrial junction Description of Procedure Patient was taken to surgery and placed in a supine position. The left subclavian left neck areas were prepped and draped. The proposed incision was marked under left clavicle. Local was infiltrated into the area of the anticipated incision as well as into the subcutaneous. Incision was made and dissection was carried through the subcutaneous and through the pectoralis major fascia. A subfascial pocket was created caudally from the incision for the reservoir. I infiltrated local under the left clavicle as well. A single puncture was used to cannulate the left subclavian vein. Guidewire passed readily into the superior vena cava. Fluoroscopy confirmed the position of the guidewire. I then used fluoroscopy to estimate the length of the Port-A-Cath tubing that would be needed. I cut the tubing to that length. I then placed the dilator and sheath over the guidewire and, under fluoroscopy, passed them through into the superior vena cava. I removed the guidewire and the introducer. The Port-A-Cath tubing moved through the sheath without difficulty. Before removing the sheath, I checked the position of the Port-A-Cath. It seemed to be about 1 cm too long. I then pulled the Port-A-Cath out of the sheath and cut it about 1-1.5 cm shorter. I then replaced the Port-A-Cath in the sheath. Its position looked more appropriate under fluoroscopy. I removed the sheath. We placed the Port-A-Cath in the pocket. I then cannulated the Port-A-Cath with a Joseph needle and was able to easily aspirate blood and flush it with heparin. I did this at least twice and possibly 3 times. I then used 3-0 silk to suture the Port-A-Cath securely to the pectoralis muscle. I then recheck the Port-A-Cath by aspirating blood and flushing it again. All was working nicely. The wound was closed with running layered closure of 2-0 Vicryl. The skin was closed with running subcuticular 4-0 Monocryl skin suture. The wound was dressed with Exofin surgical adhesive. Sponge needle counts were correct x2. Implants Vortex Port-A-Cath Estimated Blood Loss -5 Pathology None sent Complications No immediate complications Condition Stable Disposition Same day [facility] Billing Surgery - Charge Forward: Surgery Billing (Placement Port-A-Cath left subclavian position under fluoroscopy)
== END 2023-10-14 15:35 | disposition home or self-care (01) ==
PROVIDERS: PCP Internal Medicine; Visit Provider Surgery
PROC: (CPT 36561; principal; 2023-10-14 13:30)
DX: C34.92 Malignant neoplasm of unspecified part of left bronchus or lung (principal); Z87.891 Personal history of nicotine dependence; C79.9 Secondary malignant neoplasm of unspecified site
CPT/HCPCS: 36561; 36415; 77001; 82948; 85610; 85730; C1788; J0690; J1644; J1885; J2371; J2405; J2704; J3010; J7030; J7120

== ENCOUNTER 2023-10-22 10:27 | Outpatient (CLI) | payer MEDICARE, SELFPAY ==
[2023-10-22 17:00] LABS: Hepatitis B Surface Antigen Negative (Negative)
[2023-10-25 12:38] LABS: NIL 0.02 IU/mL; Quantiferon TB Plus, 1T NEGATIVE (NEGATIVE); TB2-NIL <0.00 IU/mL
== END 2023-10-22 10:28 | disposition home or self-care (01) ==
LOC: ANHLAB 10:29
PROVIDERS: PCP Internal Medicine; Visit Provider Internal Medicine Hematology & Oncology
DX: Z11.59 Encounter for screening for other viral diseases (principal)
CPT/HCPCS: 36415; 86480; 87340

== ENCOUNTER 2024-01-20 07:52 | Outpatient (CLI) | payer MEDICARE, SELFPAY ==
--- NOTE | ~2024-01-20 | CT_ITS ---
EXAMINATION: CT chest abdomen pelvis w con DATE: 01/20/2024 08:16 INDICATION: Non-small cell cancer of left lung restaging TECHNIQUE: Computed tomography (CT) of the chest, abdomen, and pelvis was performed with 100 CC Omnip aque 350 intravenous contrast. Automated exposure control and iterative reconstruction technique were employed. Exam dose: 634.34 mGy-cm total exam DLP. COMPARISON: The reports but not the images are available from PACS for the following prior examinatio ns: 09/28/2023 PET/CT scan 11/06/2022 CT chest FINDINGS: CHEST CT: Left Port-A-Cath catheter tip in superior vena cava near superior cavoatrial junction. Status post left partial pneumonectomy. 4 mm middle lobe nodule (series 4 image 79). Minimal discoid atelectasis or scarring. No other pulmonary mass lesion is evident. No pulmonary infiltrate or consolidation. There is old pulmonary granulomatous disease on the left benign calcified pulmonary granuloma and richard cified left hilar lymph node. There are several calcified hepatic granulomas and a couple of calcifie d splenic granulomas. No enlarged hilar or mediastinal lymph nodes. There is prominent atheromatous plaque and calcification of the thoracic aorta and great vessel calci fication in addition to prominent coronary artery calcification. Normal heart size. Trace pericardial fluid. No pleural effusion. ABDOMEN/PELVIS CT: There is prominent thickening of the gallbladder wall and multiple intraluminal gallstones. The findi ngs may be consistent with chronic or acute cholecystitis.. No hepatic space-occupying mass lesion. No pancreatic mass lesion or calcification. No bile duct or pancreatic duct dilatation. Duodenal diverticulum. Normal morphology of the adrenal glands. Numerous bilateral renal cysts, the largest situated on the right, a 7 cm. 3.4 x 6 mm calculus or contiguous calculi and lower pole of right kidney. No other urinary tract calc ulus or hydroureteronephrosis is detected. There is extensive atheromatous change and calcification of the abdominal aorta but no abdominal aort ic aneurysm. There is prominent calcification of the origin of the superior mesenteric artery calcifi cations at the origins of the renal arteries. There is extensive calcification of the iliac and femor al arteries. No intraperitoneal or retroperitoneal or pelvic mass lesion or adenopathy or ascites is detected. The urinary bladder and prostate gland are unremarkable. No bowel obstruction, bowel wall thickening, pneumatosis or intraperitoneal free air. Small fat-containing umbilical hernia. There is an approximately 1.2 cm left inguinal lymph node; a 1.3 cm FDG-positive left inguinal lymph node was noted on 09/28/2020. PET/CT examination. On the lowermost image there is an at least 1.3 x 1.9 cm soft tissue mass within the left scrotum the medial left thigh; this mass is likely larger than these measurements, as only the upper portion of this mass is included in this examination. A 5.7 x 2.7 cm FDG positive mass was reported at this loca tion on 09/28/2023 PET/CT scan. There is diminished subcutaneous adipose tissue and some apparent thickening of the abdominal wall mu sculature, possibly due to scarring, along the anterolateral lower right abdominal wall, possibly pos toperative change. FDG uptake was reported at this area on prior PET scan. Small fat-containing umbilical hernia. Prominent degenerative disc disease at C5-6 and C6-7. No suspicious osteolytic or osteoblastic lesions are noted. IMPRESSION: 4 mm middle lobe nodule, not enlarged since 09/28/2023 Stable or slightly diminished left inguinal lymph nodes since 09/28/2023 Previously reported soft tissue mass between the scrotum and medial left thigh is only partially incl uded in this examination, preventing size comparison with the 09/28/2023 examination. Consider follow -up PET/CT imaging. Reviewed, dictated and finalized at
== END 2024-01-20 07:53 | disposition home or self-care (01) ==
LOC: ANHIMG 07:53
PROVIDERS: PCP Internal Medicine; Visit Provider Internal Medicine Hematology & Oncology
DX: C34.92 Malignant neoplasm of unspecified part of left bronchus or lung (principal); M50.323 Other cervical disc degeneration at C6-C7 level
CPT/HCPCS: 71260; 74177; Q9967

== ENCOUNTER 2024-04-24 08:14 | Outpatient (CLI) | payer MEDICARE, SELFPAY ==
--- NOTE | ~2024-04-24 | CT_ITS ---
Clinical Indication: Lung cancer CT Scan of the Chest, Abdomen, and Pelvis with Contrast: Technique: Contiguous sections were acquired throughout the chest, abdomen, and pelvis after intraven ous administration of 100 cc of Omnipaque 350. Dose reduction technique was used on this scan by collin razoing automated exposure control and iterative reconstruction technique. The dose-length product (DL P) was 773.54 mGy-cm. COMPARISON: 01/20/2024, PET/CT dated 09/28/2023 Findings: There is no evidence of any significant mediastinal, hilar or axillary lymphadenopathy. There are ext ensive arthroscopic calcifications aorta and coronary arteries. No central pulmonary embolus. No aort ic aneurysm or dissection.. There is no evidence of pleural or pericardial effusion. Stable 4 mm right middle lobe pulmonary nodule (axial image 70). Status post left upper lobectomy. St able calcified granulomas in the left lung. The liver, spleen, pancreas, and adrenal glands are within normal limits. Gallbladder relatively cont racted, with small stones and pneumobilia. Multiple bilateral renal cysts are present. Small nonobstr ucting right renal stones are present, measuring 3 mm in size. There are extensive atherosclerotic ca lcifications of the aorta and iliac vessels. No retroperitoneal lymphadenopathy. No bowel obstruction or bowel wall thickening. There is no evidence to suggest acute appendicitis. Urinary bladder is unremarkable. Prostate gland and seminal vesicles are unremarkable. No ascites. 12 mm left inguinal lymph node is essentially stable from prior PET/CT (axial image 262). There is a partially imaged mass in the left scrotum measuring 7.4 x 5.2 cm in transverse dimensions, which part ially included in the [id number], but increased in size since 09/28/2023. Additional 2.5 x 2.2 cm mass in the midline in the perineum is similar to most recent prior exam (axial image 271). Probable additional small midline mass in the posterior perineum measuring 1.5 cm in diameter (axial image 287 ). Impression: 7.4 x 5.2 cm mass at the left scrotal region is only partially imaged the [id number], but definite ly increased in size since 09/28/2023, compatible with interval progression of neoplastic/metastatic lesion. Additional smaller metastatic lesions in the perineum and minimally prominent left inguinal lymph nod e (which was hypermetabolic on prior PET/CT) are essentially stable from prior PET/CT, as detailed ab ove. Stable 4 mm right middle lobe pulmonary nodule. Probable cholelithiasis and pneumobilia. Reviewed, dictated and finalized at location M. Impression: 7.4 x 5.2 cm mass at the left scrotal region is only partially imaged the field -of-view, but definitely increased in size since 09/28/2023, compatible with in terval progression of neoplastic/metastatic lesion. Additional smaller metastatic lesions in the perineum and minimally prominent l eft inguinal lymph node (which was hypermetabolic on prior PET/CT) are essentia lly stable from prior PET/CT, as detailed above. Stable 4 mm right middle lobe pulmonary nodule. Probable cholelithiasis and pneumobilia.
== END 2024-04-24 08:15 | disposition home or self-care (01) ==
LOC: ANHIMG 08:18
PROVIDERS: PCP Internal Medicine; Visit Provider Internal Medicine Hematology & Oncology
DX: C34.92 Malignant neoplasm of unspecified part of left bronchus or lung (principal); N50.89 Other specified disorders of the male genital organs; R91.1 Solitary pulmonary nodule
CPT/HCPCS: 71260; 74177; 77386; Q9967

== ENCOUNTER 2024-07-17 08:04 | Outpatient (CLI) | payer MEDICARE, SELFPAY ==
--- NOTE | ~2024-07-17 | CT_ITS ---
Clinical Indication: Lung cancer CT Scan of the Chest, Abdomen, and Pelvis with Contrast: Technique: Contiguous sections were acquired throughout the chest, abdomen, and pelvis after intraven ous administration of 100 cc of Omnipaque 350. Dose reduction technique was used on this scan by collin riggs automated exposure control and iterative reconstruction technique. The dose-length product (DL P) was 864.95 mGy-cm. Comparison: 04/24/2024 Findings: There is no evidence of any significant mediastinal, hilar or axillary lymphadenopathy. Shotty medias tinal lymph nodes are similar to prior exam. No aortic aneurysm or dissection. No pulmonary embolus e vident. There are probable extensive coronary artery calcifications. There is no evidence of pleural or pericardial effusion. Status post left upper lobectomy. There is minimal scarring/distortion bilaterally. Stable 4 mm right middle lobe pulmonary nodule (axial image 70). The liver, spleen, pancreas, and adrenal glands are within normal limits. Bilateral renal cysts are p resent. 5 mm nonobstructing right renal stone present. Small gallstones are present. There are extens chandu atherosclerotic calcifications of the aorta and iliac vessels. No lymphadenopathy. No bowel obstruction or bowel wall thickening. There is no evidence to suggest acute appendicitis. Urinary bladder is unremarkable. No pelvic mass seen. No ascites. Previously partially imaged left sc rotal region mass is nonvisualized on the current exam. Midline perineal mass seen on prior exam is m arkedly decreased, now measuring 0.9 cm. Impression: Previously identified left scrotal mass no longer visualized, possibly resolved or resected. Correlat e with physical exam. Midline perineum mass seen on prior exam is markedly decreased, as detailed abo ve. Status post left upper lobectomy. Cholelithiasis.. Stable 4 mm right middle lobe pulmonary nodule. Reviewed, dictated and finalized at location M. Impression: Previously identified left scrotal mass no longer visualized, possibly resolved or resected. Correlate with physical exam. Midline perineum mass seen on prior exam is markedly decreased, as detailed above. Status post left upper lobectomy. Cholelithiasis.. Stable 4 mm right middle lobe pulmonary nodule.
== END 2024-07-17 08:05 | disposition home or self-care (01) ==
PROVIDERS: PCP Internal Medicine; Visit Provider Internal Medicine Hematology & Oncology
DX: C34.92 Malignant neoplasm of unspecified part of left bronchus or lung (principal); Z90.2 Acquired absence of lung [part of]; R91.1 Solitary pulmonary nodule; K80.20 Calculus of gallbladder without cholecystitis without obstruction
CPT/HCPCS: 71260; 74177; Q9967

== ENCOUNTER 2024-11-22 07:58 | Outpatient (CLI) | payer MEDICARE, SELFPAY ==
--- NOTE | ~2024-11-22 | CT_ITS ---
Clinical Indication: Lung cancer CT Scan of the Chest, Abdomen, and Pelvis with Contrast: Technique: Contiguous sections were acquired throughout the chest, abdomen, and pelvis after intraven ous administration of 100 cc of Omnipaque 350. Dose reduction technique was used on this scan by uti lizing automated exposure control and iterative reconstruction technique. The dose-length product (DL P) was 982.53 mGy-cm. Comparison: 07/17/2024 Findings: Mediastinal lymphadenopathy, overall mild in degree, is however significantly progressed from prior e xam. Largest node is along the right paratracheal stripe, measuring 2.0 x 1.5 cm. Multiple superior m ediastinal lymph nodes are increased in size from prior exam (axial image 30 for example). There is no evidence of pleural or pericardial effusion. Status post left upper lobectomy. Possible mild post radiation change of the left hilar region. Right lung essentially clear. No suspicious pulmonary nodule seen. There is diffuse hepatic steatosis. Cholelithiasis present. The spleen, pancreas, and adrenal glands are within normal limits. Bilateral renal cysts are present. There are atherosclerotic calcifications of the aorta. No lymphadenopathy. No bowel obstruction or bowel wall thickening. Duodenal diverticulum present. Urinary bladder is unremarkable. No intraperitoneal pelvic mass seen. No ascites. There is a 1.8 cm o void mass in the midline at the inferior perineum, increased in size from prior exam (axial image 276 ), just anterior to the anus. Impression: Progression/increase in mediastinal lymphadenopathy, suspicious for worsening metastatic disease. 1.8 cm perineal mass, as detailed above, increased from prior exam. This could reflect metastatic/franci plastic lesion. Status post left upper lobectomy with possible posttreatment changes at the left hilar region. Additional chronic findings, including hepatic steatosis and cholelithiasis. Reviewed, dictated and finalized at location M. [facility] TECHNICIAN PROGRAM DIRECTOR Impression: Progression/increase in mediastinal lymphadenopathy, suspicious for worsening m etastatic disease. 1.8 cm perineal mass, as detailed above, increased from prior exam. This could reflect metastatic/neoplastic lesion. Status post left upper lobectomy with possible posttreatment changes at the lef t hilar region. Additional chronic findings, including hepatic steatosis and cholelithiasis.
--- OUTSIDE RECORDS SUMMARY | 2024-11-22 08:02 | XMS_ITS | Clinical Summary ---
Author Organization [facility] Address [address] [place] [address] Care Team Providers Care Typing Element Machine Operator Name Role Phone Fabiana Bergman APRN-DAVE Primary Care Prov ider Unavailable Source Comments [facility],non-owned Affiliates and Associated Physician Practices is amultiple site organization consisting of ambulatory clinics and hospital sitesin [place], [place], [place] and [place]. This disclosure is being madepursuant to the Care Everywhere program and may not contain all information available regarding this patient. Last updated 18.[facility] Allergies Active Allergy Reactions Criticality Noted Date Comments Hydrocodone-Acetaminophen Rash Medium 12/08/2019 Reports itching and rash Medications * Be aware that medications may not be up to date on this document. Alwaysverify current medications with the patient. Medication Sig Dispensed Refills Start Date End Date Status metoprolol tartrate (LOPRESSOR) 50 MG tabletIndications:Hyp ertension Take 50 mg by mouth 2 times daily Reasons: High Blood Pressure Disorder 12/12/2009 Active metFORMIN (GLUCOPHAGE) 500 MG tablet Take 500 mg by mouth 2 times daily with morning and evening meal Active glimepiride (AMARYL) 2 MG tablet Take 2 mg by mouth daily with breakfast Active glimepiride (AMARYL) 1 MG tablet Take 1 mg by mouth daily with breakfast Active fluticasone-salmetero l (ADVAIR/WIXELA) 250-50 MCG/DOSE inhaler Inhale 1 puff by mouth 2 times daily Active tiotropium (SPIRIVA) 18 MCG inhalation capsule Inhale by mouth once daily Active simvastatin (ZOCOR) 5 MG tablet Take 5 mg by mouth at bedtime Active fenofibrate micronized (LOFIBRA) 200 MG capsule Take 200 mg by mouth once daily Take with largest meal of the day. Active multivitamin daily tablet Take 1 tablet by mouth daily with food Active Social History Tobacco Use Types Packs/Day Years Used Date Smoking Tobacco: Never Assessed Sex and Gender Information Value Date Recorded Sex Assigned at Not on file Gender Identity Not on file Sexual Orientation Not on file Last Filed Vital Signs Vital Sign Reading Time Taken Comments Blood Pressure 138/67 12/12/2019 2:30 PM RADIO NEWS WRITER Pulse 84 12/12/2019 2:30 PM RADIO NEWS WRITER Temperature 36.6 ??C (97.8 ??F) 12/12/2019 9:38 AM CS T Respiratory Rate 22 12/12/2019 2:30 PM RADIO NEWS WRITER Oxygen Saturation 95% 12/12/2019 3:00 PM RADIO NEWS WRITER Inhaled Oxygen Concentration - - Weight 97.5 kg (215 lb) 12/12/2019 9:38 AM RADIO NEWS WRITER Height 177.8 cm (5' 10 ) 12/12/2019 9:54 AM RADIO NEWS WRITER Body Mass Index 30.85 12/12/2019 9:38 AM RADIO NEWS WRITER Plan of Treatment Health Maintenance Due Date Last Done Comments HEPATITIS C SCREENING 11/25/1963 DTAP/TDAP/TD VACCINES (1 - Tdap) 1965 PNEUMOCOCCAL VACCINE 50+ (1 of 1 - PCV) 1996 ZOSTER VACCINE (1 of 2) 1996 Respiratory Syncytial Virus (RSV) Vaccine Pt: or over 60 yrs (1 - 1-dose 75+ series) 2021 COVID-19 VACCINE (1 - 2023- season) 2024 INFLUENZA VACCINE (#1) 2024 0, 08/07/2019, 07/26/2019, Additional history exists DEPRESSION SCREENING 10/18/2024 HEPATITIS B VACCINE Aged Out No longe r eligible based on patient's age to complete this topic HIB VACCINE Aged Out No longer eligi ble based on patient's age to complete this topic HPV VACCINE Aged Out No longer eligi ble based on patient's age to complete this topic MENINGOCOCCAL (Group B) VACCINE Aged Out No longer eligible based on patient's age to complete this topic MENINGOCOCCAL VACCINE Aged Out No maxwell lotus eligible based on patient's age to complete this topic Care Teams Typing Element Machine Operator Relationship Specialty Start Date End Date Fabiana Bergman APRN-DAVE Update Information PCP - General Nurse Practitioner 12/12/19
--- OUTSIDE RECORDS SUMMARY | 2024-11-22 08:02 | XMS_ITS | Clinical Summary ---
Author Organization [facility] Address [address] [place] [address] Phone Care Team Providers Care Senior Resident Care Director Name Role Phone Gamaliel Hinojosa MD Primary Care Provider [phone] Allergies Active Allergy Reactions Criticality Noted Date Comments Codeine Other (see Comments) High 05/08/2022 pt reports side effect of shaking Morphine Other (see Comments) 05/13/2022 Shakes he could not control Medications fenofibrate micronized (LOFIBRA) 200 MG Capsule Take 200 mg by mouth daily. Active glimepiride (AMARYL) 4 MG Tablet Take 4 mg by mouth 2 times daily. 2 Active hydroCHLOROthiaz evelyne 25 MG Tablet Take 25 mg by mouth daily. 2 Active metFORMIN (GLUCOPHAGE) 500 MG Tablet Take 500 mg by mouth 2 times daily. Active simvastatin (ZOCOR) 20 MG Tablet Take 20 mg by mouth nightly. Active metoprolol tartrate (LOPRESSOR) 50 MG Tablet Take 50 mg by mouth 2 times daily. 0 Active fluticasone (FLONASE) 50 MCG/ACT Suspension 2 Sprays by Nasal route daily. Active tiotropium (SPIRIVA) 18 MCG Capsule take 18 mcg by inhalation daily. Active Multiple Vitamin (One Daily Multivitamin Adult) Tablet Take 1 Tablet by mouth daily. Active albuterol (PROVENTIL, VENTOLIN) (5 MG/ML) 0.5% Nebulizer Soln 0.5 mL by Nebulization route every 4 hours as needed for Wheezing or Shortness of Breath. 20 mL 2 Active ondansetron (ZOFRAN-ODT) 4 MG TABLET DISPERSIBLE Take 1 Tablet by mouth every 6 hours as needed for Nausea - 1st line. 10 Tablet 2 Active Additional Information Patient not taking.Reported on 05/13/2022 montelukast (SINGULAIR) 10 MG Tablet Take 10 mg by mouth as needed for Other (seasonal allergies). 2 Active Coenzyme Q10 100 MG Capsule Take 100 mg by mouth daily. 2 Active Misc Natural Products (NEURIVA PO) Take 100 mg by mouth daily. 2 Active fluticasone-salm eterol (ADVAIR) 250-50 MCG/ACT AEROSOL POWDER, BREATH ACTIVATED take 1 Puff by inhalation 2 times daily. 0 Active Active Problems Problem Noted Date Diagnosed Date Acute appendicitis 05/01/2022 Diabetes mellitus COPD (chronic obstructive pulmonary disease) Hypertension Family History Medical History Relation Name Comments Asthma Mother Congestive Heart Failure Mother Heart Attack Mother Hypertension Mother Seizures Mother Stroke Mother Relation Name Status Comments Father Mother Social History Tobacco Use Types Packs/Day Years Used Date Smoking Tobacco: Former Cigarettes Smokeless Tobacco: Never Alcohol Use Standard Drinks/Week Comments Yes 2 (1 standard drink = 0.6 oz pur e alcohol) Sex and Gender Information Value Date Recorded Sex Assigned at Not on file Legal Sex Male 4:47 AM CDT Gender Identity Not on file Sexual Orientation Not on file Last Filed Vital Signs Vital Sign Reading Time Taken Comments Blood Pressure 118/70 05/13/2022 12:50 PM CDT Pulse 92 05/13/2022 12:50 PM CDT Temperature 36.1 ??C (97 ??F) 05/13/2022 12:50 PM CDT Respiratory Rate 18 05/08/2022 12:14 PM CDT Oxygen Saturation 97% 05/13/2022 12:50 PM CDT Inhaled Oxygen Concentration - - Weight 86.6 kg (191 lb) 05/13/2022 12:50 PM CDT Height 177.8 cm (5' 10 ) 05/13/2022 12:50 PM CDT Body Mass Index 27.41 05/13/2022 12:50 PM CDT Plan of Treatment Health Maintenance Due Date Last Done Comments Diabetes: Eye Exam 1945 Diabetes: Foot Exam 1945 Hepatitis C Virus (HCV) Screening 1945 TdaP Immunization 1945 Zoster Immunization (2 of 3) 06/05/2013 04/10/2013 Respiratory Syncytial Virus (RSV) Immunization (Adult) (1 - 1-dose 75+ series) 2021 Diabetes: Hemoglobin A1c 11/03/2022 05/03/2022, 04/17 Diabetes: Nephropathy Screening 05/02/2023 05/02/2022, 05/01/2022, 05/01/2022 Influenza Immunization (#1) 06/18/202407/19, 08/01/2021, 07/29/2020, Additional history exists SARS-COV-2 Immunization ( season) 2024 01/16/2022, 06/03/2021, 12/27/2020, Additional history exists Pneumococcal Immunization (50+ years) Completed 03/25/2016, 07/27/2014, 03/29/2013, Additional history exists Hepatitis B Immunization Aged Out No longer eligible based on patient's age to complete this topic Meningococcal Immunization (ACWY) Aged Out No longer eligible based on patient's age to complete this topic Rotavirus Immunization Aged Out No lo nger eligible based on patient's age to complete this topic Procedures Procedure Name Priority Date/Time Associated Diagnosis Comments HEMOGLOBIN A1C W/ ESTIMATED GLUCOSE Routine 05/03/2022 4:11 AM CDT CMP (COMPREHENSIVE METABOLIC PANEL) Routine 05/02/2022 4:04 AM CDT from Last 3 Months or Most Recently Relevant to Health Maintenance Results * (ABNORMAL) Hemoglobin A1C w/ Estimated Glucose (05/03/2022 4:11 AM CDT) HGB-A1C 7.2(H) 4.0 - 6.0 % 05/03/2022 4:39 AM CDT [facility] Est Average Glucose 159.9 mg/dL 05/03/2022 4:39 AM CDT [facility] Blood Venipuncture / Unknown 05/03/2022 4:11 AM CDT 05/03/2022 4:11 AM CDT Narrative [facility] - 05/03/2022 4:39 AM CDT HEMOGLOBIN A1C: DIABETIC PATIENTS: WELL-CONTROLLED: ?? 6.2 - 7.0 INTERMEDIATE WELL-CONTROLLED: ??7.0 - 9.0 POORLY-CONTROLLED: ??>9.0 us Doretha Reeves MD CHEMISTRY ORDERABLES Final Result [facility] [address] [place] [address] * (ABNORMAL) Comprehensive Metabolic Panel (CMP) (05/02/2022 4:04 AM CDT) SODIUM 137 136 - 144 mmol/L 05/02/2022 4:34 AM CDT [facility] POTASSIUM 3.9 3.5 - 5.1 mmol/L 05/02/2022 4:34 AM CDT [facility] CHLORIDE 102 100 - 110 mmol/L 05/02/2022 4:34 AM CDT [facility] CO2, VENOUS 21(L) 22 - 32 mmol/L 05/02/2022 4:34 AM CDT [facility] ANION GAP 17.9 8.0 - 20.0 mmol/L 05/02/2022 4:34 AM CDT [facility] GLUCOSE 180(H) 70 - 99 mg/dL 05/02/2022 4:34 AM CDT [facility] BUN 21 8 - 23 mg/dL 05/02/2022 4:34 AM CDT [facility] CREATININE, BLOOD 0.90 0.80 - 1.30 mg/dL 05/02/2022 4:34 AM CDT [facility] BUN/CREATININE RATIO 23(H) 12 - 20 ratio 05/02/2022 4:34 AM CDT [facility] TOTAL PROTEIN 6.6 6.0 - 8.3 g/dL 05/02/2022 4:34 AM CDT [facility] ALBUMIN 3.6 3.5 - 5.2 g/dL 05/02/2022 4:34 AM CDT [facility] Comment: The colormetric methods used for the determination of Albumin may lead to falsely elevated test results in patients suffering from renal failure or insufficiency due to interference with other proteins. A/G RATIO 1.2 1.0 - 2.0 05/02/2022 4:34 AM CDT [facility] CALCIUM 9.0 8.9 - 10.3 mg/dL 05/02/2022 4:34 AM CDT [facility] T BILI 0.7 <=1.2 mg/dL 05/02/2022 4:34 AM CDT [facility] SGOT (AST) 17 <=40 U/L 05/02/2022 4:34 AM CDT [facility] SGPT (ALT) 16 <=41 U/L 05/02/2022 4:34 AM CDT [facility] ALKALINE PHOSPHATASE 55 40 - 130 U/L 05/02/2022 4:34 AM CDT [facility] GFR, EST. NONAFRICAN >60 >=60 05/02/2022 4:34 AM CDT [facility] GFR, EST. >60 >=60 022 4:34 AM CDT [facility] Comment: Creatinine Clearance is the preferred criteria for selecting drug dose adjustments in renally impaired patients. ??The GFR is provided as additional pertinent clinical information. GFR is reported in mL/min/1.73 sq m. Blood Venipuncture / Unknown 05/02/2022 4:04 AM CDT 05/02/2022 4:04 AM CDT us Dale Morrison MD CHEMISTRY ORDERABLES Final Result [facility] [address] [place] [address] from Last 3 Months or Most Recently Relevant to Health Maintenance Insurance MEDICARE C [employer] Advance Directives * Full Code (Latest Code Status on File) Date Activated Date Inactivated Comments 05/18/2022 12:09 PM * Full Code Date Activated Date Inactivated Comments 05/04/2022 12:17 PM 05/05/2022 4:47 PM CPR-Full Tr eatment: FULL ARREST: Attempt Resuscitation/CPR wit intubation and mechanical ventilation. PRE-ARREST: Use entire range of life support measures to stabilize the patient. * Full Code Date Activated Date Inactivated Comments 05/01/2022 9:29 AM 05/01/2022 1:33 PM CPR-Full [place] atment: FULL ARREST: Attempt Resuscitation/CPR wit intubation and mechanical ventilation. PRE-ARREST: Use entire range of life support measures to stabilize the patient. Care Teams Senior Resident Care Director Relationship Specialty Start Date End Date Gamaliel Hinojosa MD PCP - General Internal Medicine 05/01/22
--- OUTSIDE RECORDS SUMMARY | 2024-11-22 08:02 | XMS_ITS | Data Portability ---
Author Organization [facility] [employer] [employer], Main Office Address [address] [place] [address] Care Team Providers Care Pharmaceutical Representative Name Role Phone YANIRA TUCKER Primary Care Provider [phone] Assessment No assessment recorded. Plan of Treatment Reminders Order Date Submit Date Provider Last Modified By Organization Details Last Modified Time Details Appointments Any 15 2024 09:15A Lisandro Tucker MD Not available Not available Not available Medicare Wellness 15 2024 08:15A Lisandro Tucker MD Not available Not available Not available Lab PSA, total, serum or plasma 2023 024 [facility], [address] [place], [address], 06/13/2024 21:16:58 CMP, serum or plasma [email or web address] [place] [address] Outpatient Lab, [address] [place], [address], 06/20/2024 10:10:03 glycohemo globin, total, blood 2023 024 [facility], [address] [place], [address], 06/13/2024 21:06:01 microalbu min, urine 2023 024 [facility], [address] [place], [address], 06/13/2024 21:02:23 lipid panel, serum 2023 024 [facility], [address] [place], [address], 06/13/2024 20:25:09 Referral None recorded. Procedures None recorded. Surgeries None recorded. Imaging None recorded. Medication Orders None recorded. Patient TargetsNo targets recorded. Patient Instructions Encounter Date Encounter Id Patient Instructions Last Modified By Organization Details Last Modified Time 06/13/2024 [id number] dementia rating scale-2* Not available 06/13/2024 13:23:22 alcohol misuse* Not available 06/13/2024 13:23:21 depression screening* Not available 06/13/2024 13:23:21 Timed Up and Go test (TUG)* Not available 06/13/2024 13:23:22 multi-dimensiona l health assessment questionnaire* Not available 06/13/2024 13:23:22 advance care planning: care instructions Not available 06/13/2024 13:23:22 advance directiv es: care instructions Not available 06/13/2024 13:23:21 [place] Advance Directives Not available 06/13/2024 13:23:22 Personalized [facility] lt Plan and Screening Recommendations Advance Directives - Do you have one? No You have indicated that you are capable of preparing your advance care directive Advance Directives - Do we have your advance directive on file in your health record? No, please bring in a copy at your earliest convenience Primary Prevention/Interven tion (prevents or decreases the chance of common diseases from occurring) Smoking Risk: Non Smoker Alcohol Misuse Screening: Negative Weight: Appropriate Overwei ght continue your current weight loss efforts try to lose 5% of your body weight try to lose 10% of your body weight Physical activity: Need more exercise/physical activity minimum of 10-20 minutes of activity that causes mild breathlessness/day minimum of 20-30 minutes activity that causes mild breathlessness/day Nutrition: Good Average Refer to attached handout Heart-Healthy Diet: After Your Visit Refer to attached handout DASH Diet: After Your Visit Fall Risk (screened today): Low Vaccines Pneumococcal: Ordered Recommended today Recommended today, but you have declined No further needed Influenza: Your next one in the fall of this year Chronic Disease Risks Stroke: Low Risk Intermediate Risk I have no recommendations Act yina diagnosis, Continue current treatment plan Heart Attack: Low risk Intermediate Risk I have no recommendations Act yina diagnosis, Continue current treatment plan Clogging of the Arteries: Low risk Intermediate Risk I have no recommendations Act yina diagnosis, Continue current treatment plan Diabetes: Low Risk Intermediate Risk Active diagnosis, Continue current treatment plan Secondary Prevention/Interven tion (detects treatable diseases before they may cause symptoms, disability, or ) Prostate Cancer Screening: Colon Cancer Screening: Colonoscopy Date Screening Last Performed: __ Eye Disease Screening: No Eye exam necessary Dementia Risk: Low I have no recommendations Depression Screening: Negative Positive [id number] Not available 06/13/2024 12:05:44 Reason for Referral None Reported. Results Created Date Observation Date Name Description Value Unit Range Abnormal Flag Note LastModifiedBy Organization Detail LastModifiedTime 02/09/20 24 02/09/2024 COMPR EHENS YINA METAB OLIC PANEL sodium 138 mmol/ L 137-14 5 Not Available [facility] (Lab) [address] [place], [address], 02/09/2024 21:24:41 02/09/20 24 02/09/2024 COMPR EHENS YINA METAB OLIC PANEL potassium 4.2 mmol/ L 3.5-5. 1 Not Available [facility] (Lab) [address] [place], [address], 02/09/2024 21:24:41 02/09/20 24 02/09/2024 COMPR EHENS YINA METAB OLIC PANEL chloride 100 mmol/ L 98-107 Not Available [facility] (Lab) [address] [place], [address], 02/09/2024 21:24:41 02/09/20 24 02/09/2024 COMPR EHENS YINA METAB OLIC PANEL carbon dioxide 30 mmol/ L 22-30 Not Available [facility] (Lab) [address] [place], [address], 02/09/2024 21:24:41 02/09/20 24 02/09/2024 COMPR EHENS YINA METAB OLIC PANEL anion gap 12.2 mmol/ L 14-22 low Not Available [facility] (Lab) [address] [place], [address], 02/09/2024 21:24:41 02/09/20 24 02/09/2024 COMPR EHENS YINA METAB OLIC PANEL glucose 129 mg/dL 70-99 high Not Available [facility] (Lab) [address] [place], [address], 02/09/2024 21:24:41 02/09/20 24 02/09/2024 COMPR EHENS YINA METAB OLIC PANEL BUN 24 mg/dL 8-19 high Not Available [facility] (Lab) [address] [place], [address], 02/09/2024 21:24:41 02/09/20 24 02/09/2024 COMPR EHENS YINA METAB OLIC PANEL creatinine 0.80 mg/dL 0.66-1 .25 Not Available [facility] (Lab) [address] [place], [address], 02/09/2024 21:24:41 02/09/20 24 02/09/2024 COMPR EHENS YINA METAB OLIC PANEL GFR >60 Refer ence Range : [place] GFR Healt hy Adult : >60 mL/mi n/1.7 3 m2 Chron ic Kidne y Disea se: 15-60 mL/mi n/1.7 3 m2 Kidne y Failu re: <15/m L/min /1.73 m2 www.n iddk. nih.g ov The MDRD study equat ion has not been valid ated in child ysabel <18 years of age; pregn ant women ; the elder ly >85 years of age; or in some racia l or ethni c subgr oups, such as Hispa nics. Outsi de the valid ated kalia eters , estim ated GFR is less accur ate, requi ring clini richard judgm ent on a case- by-ca se basis . Clini richard inter preta tion for other races and ages must be made by the clini gloria. The MDRD study equat ion has not been valid ated for the evalu ation of serum creat inine relat ed to nutri mansi l statu s or medic ation usage . For perso ns <18 years of age, a pedia tric GFR calcu lator is avail able on the [facility] websi te: https ://ww w.kid mercedez.o rg/pr ofess ional s/kdo qi/gf r_cal culat or Not Available [facility] (Lab) [address] [place], [address], 02/09/2024 21:24:41 02/09/20 24 02/09/2024 COMPR EHENS YINA METAB OLIC PANEL alkaline phosphatase 80 U/L 38-126 Not Available [facility] (Lab) [address] [place], [address], 02/09/2024 21:24:41 02/09/20 24 02/09/2024 COMPR EHENS YINA METAB OLIC PANEL alanine aminotransfe rase 21 U/L 0-50 Not Available [facility] (Lab) [address] [place], [address], 02/09/2024 21:24:41 02/09/20 24 02/09/2024 COMPR EHENS YINA METAB OLIC PANEL aspartate aminotransfe rase 29 U/L 15-46 Not Available [facility] (Lab) [address] [place], [address], 02/09/2024 21:24:41 02/09/20 24 02/09/2024 COMPR EHENS YINA METAB OLIC PANEL bilirubin, total 0.40 mg/dL 0.20-1 .30 Not Available [facility] (Lab) [address] [place], [address], 02/09/2024 21:24:41 02/09/20 24 02/09/2024 COMPR EHENS YINA METAB OLIC PANEL calcium 9.8 mg/dL 8.4-10 .2 Not Available [facility] (Lab) [address] [place], [address], 02/09/2024 21:24:41 02/09/20 24 02/09/2024 COMPR EHENS YINA METAB OLIC PANEL total protein 6.9 g/dL 6.3-8. 2 Not Available [facility] (Lab) [address] [place], [address], 02/09/2024 21:24:41 02/09/20 24 02/09/2024 COMPR EHENS YINA METAB OLIC PANEL albumin 4.3 g/dL 3.0-4. 4 Not Available [facility] (Lab) [address] [place], [address], 02/09/2024 21:24:41 02/09/20 24 02/09/2024 COMPR EHENS YINA METAB OLIC PANEL globulin 2.6 g/dL 2.6-4. 2 Not Available [facility] (Lab) [address] [place], [address], 02/09/2024 21:24:41 02/09/20 24 02/09/2024 COMPR EHENS YINA METAB OLIC PANEL A/G ratio 1.7 ratio 1.0-2. 0 Not Available [facility] (Lab) [address] [place], [address], 02/09/2024 21:24:41 02/09/20 24 02/09/2024 HEMOG LOBIN A1C HA1C 5.7 % 4.0-6. 0 Diabe jazlyn Scree catalina Crite karol: <5.7% Consi stent with absen ce of diabe jazlyn 5.7-6 .4% Consi stent with incre ased risk for diabe jazlyn (pred iabet es) >OR=6 .5% Consi stent with diabe jazlyn REFER ENCE: Diabe jazlyn Care 2016, 39(Montesinos ppl.1 ):s13 -s22 Not Available [facility] (Lab) [address] [place], [address], 02/09/2024 22:14:22 06/13/2006/13/2024 LIPID PANEL cholesterol 106 mg/dL 140-19 9 low NIH ELYSSA NSUS RECOM MENDA TION FOR DEX STERO L: ADULT CHILD LOW RISK: <200 <170 BORDE RLINE : <200- 239 ----- HIGH RISK: >240 >200 Not Available [facility] (Lab) [address] [place], [address], 06/13/2024 20:25:09 06/13/2006/13/2024 LIPID PANEL triglyceride s 182 mg/dL 0-150 high NIH ELYSSA NSUS REPOR T RECOM MENDA TION FOR TRIGL YCERI SILVIA: ADULT CHILD LOW RISK: <150 ----- BODER LINE: 150-1 99 ----- HIGH RISK: >200 ----- Not Available [facility] (Lab) [address] [place], [address], 06/13/2024 20:25:09 06/13/2006/13/2024 LIPID PANEL HDL cholesterol 29 mg/dL 40- low Not Available [facility] (Lab) [address] [place], [address], 06/13/2024 20:25:09 06/13/2006/13/2024 LIPID PANEL LDL cholesterol, calculated 41 mg/dL 0-130 NIH ELYSSA NSUS REPOR T RECOM MENDA TIONS FOR LDL: ADULT CHILD LOW RISK <130 <110 (OPTI MAL LDL) <100 ----- BORDE RLINE : 130-1 59 ----- HIGH RISK: >160 >130 A TRIGL YCERI DE RESUL T >400 INVAL IDATE S THE CALCU LATIO N FOR LDL FRACT IONAT ION - THE LDL RESUL T WILL NOT BE REPOR AURELIA. Not Available [facility] (Lab) [address] [place], [address], 06/13/2024 20:25:09 06/13/20 24 06/13/2024 MICRO ALBUM IN RANDO M URINE microalbumin , urine 19.7 mg/L 0.0-16 .6 high Not Available [facility] (Lab) [address] [place], [address], 06/13/2024 21:02:23 06/13/20 24 06/13/2024 HEMOG LOBIN A1C HA1C 6.9 % 4.0-6. 0 high Diabe jazlyn Scree catalina Crite karol: <5.7% Consi stent with absen ce of diabe jazlyn 5.7-6 .4% Consi stent with incre ased risk for diabe jazlyn (pred iabet es) >OR=6 .5% Consi stent with diabe jazlyn REFER ENCE: Diabe jazlyn Care 2016, 39(Montesinos ppl.1 ):s13 -s22 Not Available [facility] (Lab) [address] [place], [address], 06/13/2024 21:06:01 06/13/20 24 06/13/2024 PSA SCREE N PSA medicare screen 0.90 NG/mL 0.00-4 .00 Not Available [facility] (Lab) [address] [place], [address], 06/13/2024 21:16:58 04/24/20 24 04/24/2024 CT, abdom en + pelvi s, w/ contr ast No observ ation record ed. [facility] ([facility] Sched[facility]) [address] [place], [address], 04/24/2024 17:57:10 Result Notes None recorded. Problems Name Problem SNOMED Code Status Onset Date Resolution Date Notes Provider Name and Address Organization Details Recorded Time Chronic obstructi ve pulmonary disease 84940785 Active Not Available [facility] 3 16:29:39 Hearing loss 65264817 Active 2020 Not Available [facility] 3 16:29:39 Blood glucose outside reference range 611948863 Completed Not Available [facility] 3 05:19:23 Acute exacerbat ion of chronic obstructi ve pulmonary disease 268689254 Completed 201601/10/2019 Not Available [facility] 3 05:19:23 Asthma 619052921 Active 2017 Not Available [facility] 3 16:29:39 Non-small cell lung cancer 866747960 Active 2020 Not Available [facility] 3 16:29:39 Fever with chills 069479782 Completed 202101/26/2023 BERTO Brooks null, [employer] 3 10:44:22 Acute perforate d appendici tis 727070758 Active 2021 Not Available [facility] 3 16:29:39 Hypertrig lyceridem ia 703426954 Active Not Available [facility] 3 16:29:39 Type 2 diabetes mellitus without complicat ion 212177889 Completed 202101/26/2023 Susana Haro LPN null, [employer] 3 15:08:08 Malignant tumor of lung 557987368 Active 2019 Not Available [facility] 3 16:29:40 Umbilical hernia 042109242 Completed Not Available [facility] 3 05:19:23 Former heavy tobacco smoker 03138291561 4100 Active 2017 Not Available [facility] 3 16:29:40 Chill 33992618 Completed 202101/26/2023 BERTO Brooks null, [employer] 3 10:44:31 Hyperlipi demia 91157881 Active Not Available [facility] 3 16:29:40 Essential hypertens ion 09585165 Active Not Available [facility] 3 16:29:40 Allergic rhinitis 38813910 Active Not Available [facility] 3 16:29:40 Diabetes mellitus 63947395 Active Not Available [facility] 3 16:29:40 Nodule of lung 142602063 Completed 201912/26/2019 Not Available [facility] 3 05:19:24 Ex-smoker 8272391 Active Not Available [facility] 3 16:29:40 Hernia of anterior abdominal wall 602154157 Active 2022 Not Available [facility] 3 16:29:40 Lower abdominal pain 25897166 Active 2022 Not Available [facility] 3 16:29:40 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 91581509135 386240 Active 2022 Not Available [facility] 3 16:29:39 Chronic cough 73024874 Active 2022 Not Available [facility] 3 16:29:40 Dyspnea on exertion 60290579 Active 2022 Not Available [facility] 3 16:29:40 Environme ntal allergy 242864219 Active 2022 Not Available [facility] 3 16:29:40 Incisiona l hernia 464839871 Active 2022 Not Available [facility] 3 16:29:39 Groin mass 361474896 Active 2022 Not Available [facility] 3 16:29:39 Type 2 diabetes mellitus without complicat ion 641909487 Active 2022 Not Available [facility] 3 16:29:40 Ventral incisiona l hernia 000342712 Active 2022 Not Available [facility] 3 16:29:40 Mass of soft tissue 112410646 Active 2022 Not Available [facility] 3 16:29:40 Problem Notes None recorded. Procedures Surgical History Date Name Laterality Status Provider Name and Address Organization Details Recorded Time 09/20/20 24 Medicare Wellness CPT Code, subsequent completed BERTO Sim [employer] [facility] 09/20/2024 10:17:25 09/20/20 24 Advanced Care Planning completed Bettie Perdomo [facility] 09/20/2024 10:17:25 06/13/20 24 Medicare Wellness CPT Code, subsequent completed Bettie Perdomo, [facility] 06/13/2024 10:27:30 06/13/20 24 Advanced Care Planning completed Kimmy Diana RN [facility] [employer] [facility] 06/13/2024 11:59:03 05/22/20 24 Chronic care management services completed Alyce Baker [facility] 05/22/2024 18:15:55 04/19/20 Chronic care management services completed Alyce Baker [facility] 04/19/2024 15:32:32 03/07/20 24 Chronic care management services completed Rohini Delgado, [facility] 03/07/2024 15:12:01 02/07/20 24 Medicare Wellness CPT Code, subsequent completed Bettie Perdomo [facility] 02/07/2024 14:28:19 05/25/20 23 Medicare Wellness CPT Code, subsequent completed Megan Bravo RN [facility] 05/25/2023 10:39:42 05/10/20 17 Rpr umbil debbie reduc < 5 yr completed Not Available [facility] 12/16/2022 05:14:05 lobectomy of lung completed Not Available [facility] 12/16/2022 05:14:05 other completed Not Available [facility] 10/2022 05:14:05 nasal polypectomy completed Not Available [facility] 12/16/2022 05:14:05 Imaging Results Imaging Date Name Status LastModified by Organiz ation Details LastModified Time 04/24/2024 CT, abdomen + pelvis, w/ contrast completed [facility] ([facility] Sched[facility]) [address] [place], [address], 04/24/2024 17:57:10 Procedure Notes None recorded. Medical Equipment None Reported. Allergies Allergen ID Allergen Name Allergen Category Reaction Reaction Severity Criticality Documentation Date Start Date Code Code System Note Provider Name and Address Organization Details Recorded Time 68941 fluticaso ne Not available Not available Not available Not available 05/22/2024 41568 RxNorm Other react ions and sever ities : 'Adve rse react ion to subst ance' . Alyce Baker, [facility] null, [place] [facility] [place] [employer] [facility] 4 18:12:56 9681 acetamino phen / hydrocodo ne medicatio n rash Not available Not available 12/16/2022 84857 2 RxNorm Not Available [facility] 3 05:26:56 Medications Name Sig Start Date Stop Date Status Note LastModified by Organization Details LastModified Time metformin 500 mg tablet TAKE 1 TABLET TWICE DAILY 07/15 completed Not Available Not Available Not Available megestrol 400 mg/10 mL (40 mg/mL) oral suspensio n TAKE 5 ML BY MOUTH DAILY. 03/07 completed Not Available Not Available Not Available fluticaso ne 250 mcg-salme terol 50 mcg/dose blistr powdr for inhalatio n INHALE 1 PUFF TWICE DAILY DIRECTED 2024 active Not Available Not Available Not Avai lable prednison e 10 mg tablet 5 tablets daily for 3 days, 4 tablets daily for 3 days, 3 tablets daily for 3 days, 2 tablets daily for 3 days, 1 tablet daily for 3 days. Will stay on 1 tablet daily x 2 weeks after taper active Not Available Not Available No t Available doxycycli ne hyclate 100 mg capsule Take 1 capsule twice a day by oral route for 7 days. active Not Available Not Available No t Available ipratropi um 0.5 mg-albute rol 3 mg (2.5 mg base)/3 mL nebulizat ion soln Inhale 3 mL 4 times a day by nebuliza tion route for 30 days. 01/27 completed Not Available Not Available Not Available albuterol sulfate 2.5 mg/3 mL (0.083 %) solution for nebulizat ion Inhale 3 mL 4 times a day by nebuliza tion route as directed for 90 days. 07/14 completed Fabiana Bergman Not Available Not Available Not Available azithromy elaine 250 mg tablet TAKE 2 TABLETS (500 MG) BY ORAL ROUTE ONCE DAILY FOR 1 DAY THEN 1 TABLET (250 MG) BY ORAL ROUTE ONCE DAILY FOR 4 DAYS active Not Available Not Available No t Available glyburide 5 mg tablet Take 1 tablet twice a day by oral route for 30 days. 01/28 completed Not Available Not Available Not Available prednison e 20 mg tablet Take 2 mg every day by oral route in the morning for 5 days. 11/24 completed Not Available Not Available Not Available Advair Diskus 100 mcg-50 mcg/dose powder for inhalatio n Inhale 1 puff twice a day by inhalati on route for 90 days. 08/26 completed Not Available Not Available Not Available levofloxa elaine 250 mg tablet Take 2 tablets every day by oral route as directed for 10 days. active Not Available Not Available No t Available sulfameth oxazole 800 mg-trimet hoprim 160 mg tablet TAKE 1 TABLET BY MOUTH TWICE A DAY FOR 7 DAYS 03/07 completed Not Available Not Available Not Available tramadol 50 mg tablet 11/04 completed Not Available Not Available Not Available ondansetr on 8 mg disintegr ating tablet DISSOLVE 1 TABLET BY MOUTH EVERY 8 HOURS NEEDED FOR NAUSEA OR VOMITING 04/19 completed Not Available Not Available Not Available lidocaine -prilocai ne 2.5 %-2.5 % topical cream APPLY TO AFFECTED AREA DIRCTED ON PACKAGE 03/07 completed Not Available Not Available Not Available Kenalog 40 mg/mL suspensio n for injection Take 1 mL as needed by injectio n route. 04/22 completed Not Available Not Available Not Available oxycodone -acetamin ophen 5 mg-325 mg tablet TAKE 1/2-1 TABLET BY MOUTH EVERY 6 HOURS NEEDED FOR PAIN active Not Available Not Available No t Available benzonata te 100 mg capsule TAKE 1 CAPSULE BY MOUTH ONCE EVERY 4 HOURS NEEDED FOR COUGH FOR UP TO 10 DAYS 05/26 completed Not Available Not Available Not Available simvastat in 20 mg tablet TAKE 1 TABLET EVERY DAY active Not Available Not Available No t Available dexametha sone 4 mg tablet TAKE 1 TABLET BY MOUTH TWICE A DAY, DAY BEFORE TREATMEN T, DAY OF TREATMEN T, AND DAY AFTER TREATMEN T. 03/07 completed Not Available Not Available Not Available glimepiri de 4 mg tablet TAKE 1 TABLET TWICE DAILY active Not Available Not Available No t Available triamcino lone acetonide 55 mcg nasal spray aerosol USE 2 SPRAYS NASALLY DAILY 01/27 completed Not Available Not Available Not Available metoprolo l tartrate 50 mg tablet TAKE 1 TABLET TWICE DAILY 2024 active [facility] 09/20/24 01/16/25 ok to rf Not Available Not Available Not Available monteluka st 10 mg tablet TAKE 1 TABLET BY MOUTH EVERYDAY AT BEDTIME 10/06 completed Not Available Not Available Not Available hydrochlo rothiazid e 25 mg tablet TAKE 1 TABLET EVERY DAY active Not Available Not Available No t Available ibuprofen 600 mg tablet TAKE 1 TABLET BY MOUTH EVERY 6 HOURS NEEDED FOR PAIN 04/19 completed Not Available Not Available Not Available levofloxa elaine 500 mg tablet Take 1 tablet every 24 hours by oral route for 7 days. 08/26 completed Not Available Not Available Not Available methylpre dnisolone 4 mg tablets in a dose pack take as directed 06/30 completed Not Available Not Available Not Available albuterol sulfate HFA 90 mcg/actua tion aerosol inhaler Inhale 2 puffs every 4-6 hours by inhalati on route for 30 days. active Not Available Not Available No t Available ondansetr on 4 mg disintegr ating tablet DISSOLVE 1 TABLET ON THE TONGUE ONCE EVERY 6 HOURS NEEDED FOR NAUSEA 01/26 completed Not Available Not Available Not Available fluticaso ne propionat e 50 mcg/actua tion nasal spray,umm pension USE 2 SPRAYS NASALLY TWICE A DAY DIRECTED . 2023 active MUMTAZ 09/20/24 01/16/25 ok to rf Not Available Not Available Not Available metformin ER 500 mg tablet,ex tended release 24 hr TAKE 2 TABLETS TWICE A DAY active Not Available Not Available No t Available amoxicill in 875 mg-potass ium clavulana te 125 mg tablet Take 1 tablet twice a day by oral route for 7 days. 01/27 completed Not Available Not Available Not Available oxycodone -acetamin ophen 7.5 mg-500 mg tablet 07/26 completed Not Available Not Available Not Available Spiriva with [employer] r 18 mcg and inhalatio n capsules Inhale 1 capsule every day by inhalati on route as directed for 30 days. 03/20 completed Not Available Not Available Not Available Zostavax (PF) 19,400 unit/0.65 mL subcutane ous suspensio n 11/29 completed Not Available Not Available Not Available fenofibra te nanocryst allized 145 mg tablet TAKE 1 TABLET EVERY DAY 2023 active Not Available Not Available Not Avai lable Symbicort 160 mcg-4.5 mcg/actua tion HFA aerosol inhaler 2 puffs INH BID active Not Available Not Available No t Available peg 3350-elec trolytes 236 gram-22.7 4 gram-6.74 gram-5.86 gram solution 11/24 completed Not Available Not Available Not Available Dulera 200 mcg-5 mcg/actua tion HFA aerosol inhaler Inhale 2 puffs twice a day by inhalati on route. 08/26 completed Not Available Not Available Not Available Aerochamb er Plus Flow-Vu 08/26 completed Not Available Not Available Not Available TRUEplus Lancets 33 gauge active Not Available Not Available Not Available Breo Ellipta 100 mcg-25 mcg/dose powder for inhalatio n Inhale 1 puff every day by inhalati on route for 30 days. 08/26 completed Not Available Not Available Not Available Jardiance 10 mg tablet TAKE 1 TABLET EVERY DAY 2024 active [facility] 09/20/24 NOV 01/16/25 ok to rf Not Available Not Available Not Available True Metrix Glucose Test Strip TEST BLOOD SUGAR TWICE DAILY active Not Available Not Available No t Available True Metrix Level 1 solution 05/25 completed Not Available Not Available Not Available Keytruda active Not Available Not Avai lable Not Available Spiriva Respimat 2.5 mcg/actua tion solution for inhalatio n INHALE 2 PUFFS EVERY DAY DIRECTED active Not Available Not Available No t Available Incruse Ellipta 62.5 mcg/actua tion powder for inhalatio n INHALE 1 PUFF DAILY active Not Available Not Available No t Available Spiriva Respimat 1.25 mcg/actua tion solution for inhalatio n Inhale 2 puffs every day by inhalati on route. active Not Available Not Available No t Available Fluzone High-Dose (PF) 180 mcg/0.5 mL intramusc ular syringe active Not Available Not Available Not Available Fluad Quad [id number] (65yr up)(PF) 60 mcg (15 mcg x 4)/0.5mL IM syringe PHARMACY ADMINIST ERED active Not Available Not Available No t Available True Metrix Glucose Meter kit 05/25 completed Not Available Not Available Not Available Vitals Date Recorded Body height Provider Name an d Address Organization Details Last Updated DateTime 03/07/2024 177.8 cm Rohinidouglas Delgado [facility] [employer] [facility] 03/07/2024 14:35:36 Date Recorded Body height Provider Name an d Address Organization Details Last Updated DateTime 04/19/2024 177.8 cm Alyce Baker [facility] [employer] [facility] 04/19/2024 15:28:37 Date Recorded Body height Provider Name an d Address Organization Details Last Updated DateTime 05/22/2024 177.8 cm Alyce Samuel [facility] [employer] [facility] 05/22/2024 18:12:44 Date Recorded Body height Body mass index (BMI) Body weight Body temperature Heart rate Oxygen saturation Oxygen saturation in Arterial blood by Pulse oximetry Systolic blood pressure Diastolic blood pressure Provider Name and Address Organization Details Last Updated DateTime 4 177.8 cm 28.1 kg/m2 00556.1 g 96.8 [degF] 88 /min 93 % 93 % 124 mm[Hg] 62 mm[Hg] BERTO Quinones [facility] [employer] [facility] 10:26:37 Date Recorded Pain severity - 0-10 verbal numeric rating [Score] - Reported Provider Name and Address Organization Details Last Updated DateTime 06/13/2024 0 Kimmy Diana RN [facility] [employer] [facility] 06/13/2024 11:56:09 Date Recorded Body height Body mass index (BMI) Body weight Body temperature Heart rate Oxygen saturation Oxygen saturation in Arterial blood by Pulse oximetry Systolic blood pressure Diastolic blood pressure Provider Name and Address Organization Details Last Updated DateTime 177.8 cm 28 kg/m2 65855.5 1 g 97.6 [degF] 88 /min 94 % 94 % 136 mm[Hg] 74 mm[Hg] BERTO Quinones [facility] [employer] [facility] 4 10:16:02 Social History Question Answer Notes LastModified by Organization Details LastModified Time Tobacco Smoking Status Former Smoker quit age 60 Not Available [facility] 12/16/2022 05:12:17 Do You Have An Advance Directive? Yes States Has A Living Will, Provided Papers As He Is Unsure If He And His Both Have This [email or web address] Information not available 06/13/2024 What Is Your Level Of Alcohol Consumption? Moderate Three Oz Rum Per Day [email or web address] Information not available 05/25/2023 How Many Years Have You Consumed Alcohol? 58 Since 19 Years Old [email or web address] Information not available 06/13/2024 Are You Blind Or Do You Have Difficulty Seeing? Yes States Has Focus Difficulties Since Starting Chemo [email or web address] Information not available 06/13/2024 Is Blood Transfusion Acceptable In An Emergency? Yes [email or web address] Information not available 06/13/2024 What Is Your Level Of Caffeine Consumption? Moderate Coffee Everyday One Cup Per Day MIGRATION.184 [id number] Information not available 12/16/2022 In The 14 Days Before Symptom Onset, Have You Had Close Contact With A Laboratory-conf irmed COVID-19 While That Case Was Ill? No Not Applicable [email or web address] Information not available 06/13/2024 In The 14 Days Before Symptom Onset, Have You Had Close Contact With A Person Who Is Under Investigation For COVID-19 While That Person Was Ill? No Not Applicable [email or web address] Information not available 06/13/2024 Are You Currently Employed? No Information not available 03/07/2024 Are You Deaf Or Do You Have Serious Difficulty Hearing? Yes Has Hearing Aids, Does Not Wear Them. [email or web address] Information not available 06/13/2024 What Type Of Diet Are You Following? DIABETIC Not Strictly [email or web address] Information not available 06/13/2024 Do You Or Have You Ever Used E-cigarettes Or Vape? Never Used Electronic Cigarettes MIGRATION.384 [id number] Information not available 12/16/2022 What Is The Highest Grade Or Level Of School You Have Completed Or The Highest Degree You Have Received? [id number] [email or web address] Information not available 06/13/2024 What Is Your Occupation? Retired Information not available 03/07/2024 How Many Days Of Moderate To Strenuous Exercise, Like A Brisk Walk, Did You Do In The Last 7 Days? 7 Walking Information not available 03/07/2024 On Those Days That You Engage In Moderate To Strenuous Exercise, How Many Minutes, On Average, Do You Exercise? 60 Information not available 03/07/2024 Have There Been Any Changes To Your Family Or Social Situation? No [email or web address] Information not available 03/07/2024 What Is The Fluoride Status Of Your Home? Fluoridated MIGRATION.750 [id number] Information not available 12/16/2022 When Did You Quit Smoking? 11-15yearssincelas tcigarette MIGRATION.825 [id number] Information not available 12/16/2022 Are There Any Guns Present In Your Home? No [email or web address] Information not available 03/07/2024 Do You Use Insect Repellent Routinely? No [email or web address] Information not available 03/07/2024 [email or web address] Information not available 06/13/2024 Presence Of Domestic Violence No [email or web address] Information not available 05/25/2023 Guns Present In The Home? No [email or web address] Information not available 03/07/2024 Are You Able To Care For Yourself? Yes [email or web address] Information not available 05/25/2023 Are You Blind Or Do Yo Have Difficulty Seeing? No [email or web address] Information not available 05/25/2023 Are You Deaf Or Do You Have Serious Difficulty Hearing? Yes Low Tones. Doesn't Wear Hearing Aids Often [email or web address] Information not available 05/25/2023 General Stress Level? Low [email or web address] Information not available 03/07/2024 Live Alone Of With Others? With Others [email or web address] Information not available 05/25/2023 Are You Following A Low Salt Diet? Yes [email or web address] Information not available 06/13/2024 Do You Have A Medical Power Of Tree Climber? No [email or web address] Information not available 06/13/2024 What Was The Date Of Your Most Recent Tobacco Screening? 06/13/2024 [email or web address] Information not available 06/13/2024 How Many Children Do You Have? 1 [email or web address] Information not available 06/13/2024 What Is Your Current Pack Years? 30ormorepackyears [email or web address] Information not available 06/13/2024 Have You Ever Been Counseled For Unhealthy Alcohol Use? No MIGRATION.079 [id number] Information not available 12/16/2022 Do You Have Any Pets? No Dog Passed July 2023 [email or web address] Information not available 03/07/2024 What Is Your Relationship Status? Information not available 03/07/2024 Do You Use Your Seat Belt Or Car Seat Routinely? Yes MIGRATION.422 [id number] Information not available 12/16/2022 Are You Sexually Active? No [email or web address] Information not available 06/13/2024 Do You Have Smoke And Carbon Monoxide Detectors In Your Home? Yes MIGRATION.683 [id number] Information not available 12/16/2022 At What Age Did You Start Smoking Tobacco? 13 MIGRATION.326 [id number] Information not available 12/16/2022 Are You Passively Exposed To Smoke? No [email or web address] Information not available 03/07/2024 Do You Or Have You Ever Used Smokeless Tobacco? Never Used Smokeless Tobacco MIGRATION.556 [id number] Information not available 12/16/2022 Are There Any Smokers In Your House? No [email or web address] Information not available 03/07/2024 How Much Tobacco Do You Smoke? 1 PPD MIGRATION.749 [id number] Information not available 12/16/2022 What Types Of Sporting Activities Do You Participate In? None [email or web address] Information not available 06/13/2024 Do You Feel Stressed (tense, Restless, Nervous, Or Anxious, Or Unable To Sleep At Night)? [id number] [email or web address] Information not available 05/22/2024 Do You Use Any Illicit Or Recreational Drugs? No MIGRATION.804 [id number] Information not available 12/16/2022 Do You Use Sunscreen Routinely? No MIGRATION.666 [id number] Information not available 12/16/2022 How Many Years Have You Smoked Tobacco? 50 MIGRATION.042 4953251 Information not available 12/16/2022 Have You Recently Traveled Abroad? No [email or web address] Information not available 03/07/2024 Do You Have Any Dietary Restrictions? Yes Supposed To Avoid Sugars [email or web address] Information not available 06/13/2024 Do You Or Have You Ever Used Any Other Forms Of Tobacco Or Nicotine? Yes Pipe MIGRATION.574 8198731 Information not available 12/16/2022 How Many Days In The Past Year Have You Consumed 5 Or More Drinks? 0 Never [email or web address] Information not available 06/13/2024 Sex: Unknown Functional Status Question Answer Note LastModified by Organizat ion Details LastModified Time Do you have difficulty walking or climbing stairs? Yes Chemotherapy affecting walking abilities [email or web address] Information not available 03/07/2024 Do you have transportation difficulties? No MIGRATION.04965 [id number] Information not available 12/16/2022 Are you able to walk? YESASSIST Uses cane at times [email or web address] Information not available 03/07/2024 Do you have difficulty doing errands alone? No MIGRATION.50293 97217 Information not available 12/16/2022 Are you able to care for yourself? Yes MIGRATION.25284 15790 Information not available 12/16/2022 Do you have difficulty dressing or bathing? Yes [email or web address] Information not available 03/07/2024 What is your exercise level? Moderate MIGRATION.29856 71556 Information not available 12/16/2022 Mental Status Question Answer Note LastModified by Organizat ion Details LastModified Time Do you have difficulty concentrating, remembering or making decisions? Yes states since starting chemo has more difficulty wiith memory [email or web address] Information not available 06/13/2024 Family History Relationship Description Onset Age of this Age Resolved Age Notes LastModified by Organization Details LastModified Time Brother Hypertensive disorder MIGRATION.323 [id number] Not available 12/16/2022 05:14:06 Brother Hypertensive disorder MIGRATION.078 [id number] Not available 12/16/2022 05:14:06 Brother Hypertensive disorder MIGRATION.326 [id number] Not available 12/16/2022 05:14:06 Father Hypertensive disorder MIGRATION.316 [id number] Not available 12/16/2022 05:14:06 Sister Hypertensive disorder MIGRATION.776 [id number] Not available 12/16/2022 05:14:06 Sister Hypertensive disorder MIGRATION.940 [id number] Not available 12/16/2022 05:14:06 Mother Hypertensive disorder MIGRATION.239 [id number] Not available 12/16/2022 05:14:06 Medical History Condition Response DIABETES, TYPE Y COPD Y HYPERTENSION Y HIGH CHOLESTEROL / HYPERLIPIDEMIA Y Immunizations Vaccine Type Date Status Note Provider Nam e and Address Organization Details Recorded Time Influenza, split virus, trivalent, preservative 4 completed Not Available [facility] 06/29/2023 05:27:22 Influenza, split virus, trivalent, PF 3 completed Not Available [facility] 06/29/2023 05:27:22 COVID-19, mRNA, LNP-S, PF, 30 mcg/0.3 mL dose 1 completed Not Available [facility] 06/29/2023 05:27:22 COVID-19, mRNA, LNP-S, PF, 30 mcg/0.3 mL dose 1 completed Not Available [facility] 06/29/2023 05:27:22 Influenza, high-dose, trivalent, PF 1 completed Not Available [facility] 06/29/2023 05:27:22 SARS-COV-2 (COVID-19) vaccine, UNSPECIFIED 1 completed Not Available [facility] 06/29/2023 05:27:22 Influenza, split virus, quadrivalent, preservative 0 completed Not Available [facility] 06/29/2023 05:27:22 influenza, unspecified formulation 8 completed Not Available [facility] 06/29/2023 05:27:22 Influenza, high-dose, trivalent, PF 9 completed Not Available [facility] 06/29/2023 05:27:22 zoster live 3 completed Not Available [facility] 06/29/2023 05:27:22 pneumococcal polysaccharide PPV23 3 completed Not Available [facility] 06/29/2023 05:27:22 pneumococcal conjugate PCV 7 6 completed Not Available [facility] 06/29/2023 05:27:22 Influenza, high-dose, trivalent, PF 7 completed Not Available [facility] 06/29/2023 05:27:22 Influenza, high-dose, trivalent, PF 6 completed Not Available [facility] 06/29/2023 05:27:22 Pneumococcal conjugate PCV 13 6 completed Not Available [facility] 06/29/2023 05:27:22 Influenza, split virus, trivalent, preservative 5 completed Not Available [facility] 06/29/2023 05:27:22 pneumococcal polysaccharide PPV23 4 completed Not Available [facility] 06/29/2023 05:27:22 Past Encounters Encounter ID Performer Location Encounter Start Date Encounter Closed Date Diagnosis/Indication Diagnosis SNOMED-CT Code Diagnosis ICD10 Code Diagnosis Note [id number] [facility] [address] [facility] [place] [place] [address] 03/03/2021 00:00:00 03/03/2021 10:43:41 [id number] [facility] [place] [address] [facility] [place] [address] 05/12/2021 00:00:00 05/12/2021 13:45:43 [id number] [facility] Internal Med [facility] [address] [facility] [place] [place] [address] 07/14/2021 00:00:00 07/14/2021 10:50:48 [id number] [facility] Internal Med [facility] [address] [facility] [place] [place] [address] 10/06/2021 00:00:00 10/06/2021 10:32:34 [id number] [facility] [place] [address] [place] [address] 11/10/2021 00:00:00 11/10/2021 13:33:05 [id number] [facility] [address] [facility] [place] [place] [address] 02/03/2022 00:00:00 02/03/2022 12:55:07 [id number] [facility] [place] [address] [place] [address] 04/13/2022 00:00:00 04/13/2022 10:27:08 [id number] [facility] Internal Med [address] [place] [address] 05/26/2022 00:00:00 05/26/2022 16:50:29 [id number] [facility] [place] [address] [place] [address]. [place] [address] 09/29/2022 00:00:00 09/29/2022 11:44:[id number] [facility] Pul[facility] [place] [address] [place] [address] 11/03/2022 00:00:00 11/03/2022 16:49:19 [id number] Yanira Tucker MD [facility] [address] [place] [address] 01/26/2023 10:39:28 01/26/2023 11:29:17 Essential hypertension 63688220 I10 Under control Diabetes mellitus 626504 09 E11.9 Keep watching diet, under control Chronic ob structive pulmonary disease 02155216 J44.9 Under control with meds Hyperlipidemia 37259633 E78.5 Labs good Hearing loss 50076687 H9 1.93 Hearing aids help Malignant tumor of lung 915781394 C34.90 no recurrence Adult heal th examination 515534876 Z00.00 Colonoscop y- 08/05/2016 PSA- 03/08Pneumo vax- 07/27/2014 Tepdlur08- 03/25/2016 Eye exam-yearl yInfluenza Vacc- 07/2021, 08/08COVID Vacc- 12/06/20 & 12/27/20, 06/03/21, 08/08 Hernia of anterior abdominal wall 763757565 K43.9 [id number] E[address] [facility] General Surgery [address] [address] 02/02/2023 10:46:22 02/02/2023 12:33:55 Lower abdominal pain 13273995 R10.30 [id number] Ezek[address] bridges [address] [facility] General Surgery [address] [facility] [address] [place] [address] 03/02/2023 10:24:53 03/17/2023 13:30:14 Lower abdominal pain 56060852 R10.30 [id number] Fabiana Bergman, [facility] [place] [facility] [place] [address] [place] [address] 03/09/2023 09:49:22 03/09/2023 10:29:43 Asthma-chronic obstructive pulmonary disease overlap syndrome 8678540227 8012987 J44.9 CAT 12ACT 24Overlap syndrome.P FT 09/21/17 with FEV1 55%.Flow volume loop with significan t expiratory coving.41% increase in FEV1 post-[facility] hodilator. He had repeat study prior to lung resection, I do not have these resultsOrd er to repeatChec k six minute walk testIGE 2018 = 186Eosinop hils WNL at that timeContin ue Wixela (or generic fluticason e 250 mcg-salmet bonnie 50 mcg) and Spiriva Respimat 2.5Instruc aurelia on technique todayConti nue these as they provide best clinical benefitDis cussed reportable signs and symptomsCu rrent on COVID19 vaccines and boostersCu rrent on pneumococc al vaccineRTC in 6 months, PRN for concerns Chronic cough 16199677 R 05.3 Multifacto ralLabs as above Environmental allergy 42 4669717 T78.49XD Saline nasal rinsesCont inue flonase and allergy pill Dyspnea on exertion 6084 5006 R06.09 Check labs Non-small cell lung cancer 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 C34.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 N0M0 stage 1A adenocarci noma S/P FLAQUITA lobectomy on 02/01/20Fo llows with Dr Lilly chest 01/2022 through oncology with no evidence of metastatic disease, no new nodule or mass, old granulomat ous diseaseCT chest 10/2022 reviewed, no new nodule, mass, adenopathy Ex-smoker 6358935 Z87.[address] currently through oncology - recommend at least yearly [id number] Ezekiel bridges MD [facility] General Surgery [address] [place] [address] 03/23/2023 11:25:48 04/13/2023 07:57:06 Incisional hernia 573964518 K43.2 [id number] Yanira Tucker MD [facility] Internal [address] [facility] [place] [place] [address] 05/25/2023 10:10:33 05/25/2023 11:13:06 Essential hypertension 08536125 I10 watch Diabetes mellitus 022625 09 E11.9 Keep watching diet, under control Chronic ob structive pulmonary disease 86250700 J44.9 Under control with meds Hyperlipidemia 01811337 E78.5 Labs good Hearing loss 35558545 H9 1.93 Hearing aids help Malignant tumor of lung 151887116 C34.90 no recurrence Adult heal th examination 236847586 Z00.00 Colonoscop y- 08/05/2016 PSA- 02/20/22Pne umovax- 07/27/2014 Yvsijot84- 03/25/2016 Eye exam-yearl yInfluenza Vacc- 07/2021, 08/08COVID Vacc- 12/06/20 & 12/27/20, 06/03/21, 08/08 Hernia of anterior abdominal wall 640056438 K43.9 needs surgery Screening for disorder 371964004 Z13.9 Ex-smoker 6228059 Z87.89 1 Groin mass 535587699 R19 .00 Screening for malignant neoplasm of prostate 780643622 Z12.5 [id number] E[address] [facility] General Surgery [address] [address] 06/10/2023 10:36:09 06/10/2023 14:51:20 Ventral incisional hernia 570155232 K43.2 Mass of soft tissue 4449 78680 R22.9 Left inguinal [id number] Yanira Tucker MD [facility] [address] [place] [address] 06/25/2023 10:55:06 06/25/2023 11:36:52 Diabetes mellitus 02743525 E11.9 Keep watching diet, ^ the jardianc eto 25 mg qd, samples, may not afford it [id number] Ezekiel bridges MD [facility] General Surgery [address] [address] 07/13/2023 10:21:29 07/13/2023 12:23:42 [id number] [address] [facility] General Surgery [address] [address] 07/20/2023 10:17:49 07/20/2023 14:28:17 [id number] Ezekiel bridges MD [facility] General Surgery [address] [place] [address] 07/27/2023 10:15:30 07/27/2023 16:33:47 [id number] Fabiana Madalyn, [employer] [address] [place] [address] 09/07/2023 09:52:16 09/07/2023 10:54:40 Asthma-chronic obstructive pulmonary disease overlap syndrome 1294058680 8471305 J44.9 Overlap syndrome.P FT 09/21/17 with FEV1 55%.Flow volume loop with significan t expiratory coving.41% increase in FEV1 post-bronc hodilator. He had repeat study 04/2023.Ra marlen 59%IGE 2018 = 186Eosinop hils WNL at that timeContin ue Wixela (or generic fluticason e 250 mcg-salmet bonnie 50 mcg) and Spiriva Respimat 2.5Continu e these as they provide best clinical benefitDis cussed reportable signs and symptomsAd vised vaccines this fallHe should follow up in 4-6 months Dyspnea on exertion 6084 5006 R06.09 Multifacto ralIncreas e excercise Chronic cough 96254517 R 05.3 Multifacto ralIGGS, IGE normalRast with multiple positives. Quantifero n GOLD negative Environmental allergy 42 9953922 T78.49XD Saline nasal rinsesCont inue flonase and allergy pill Non-small cell lung cancer 401505049 C34.90 T1b N0M0 stage 1A adenocarci noma S/P FLAQUITA lobectomy on 02/01/20Fo katia with Dr Lilly chest 01/2022 through oncology with no evidence of metastatic disease, no new nodule or mass, old granulomat ous diseaseCT chest 10/2022 reviewed, no new nodule, mass, adenopathy [facility] Ex-smoker 4180904 Z87.[address] currently through oncology - recommend at least yearly [id number] Yanira Tucker MD [facility] Internal [facility] [address] [facility] [place] [place] [address] 09/16/2023 16:23:18 09/16/2023 20:07:58 Groin mass 771760299 R19.[address] need to see oncology Dr Gomez soon to make planuse pieces of gauge to prevent rubbing and bleeding [id number] Yanira Tucker MD [facility] Internal [facility] [address] [place] [address] 02/07/2024 14:03:15 02/07/2024 15:07:12 Essential hypertension 83394386 I10 under control Diabetes mellitus 194436 09 E11.9 Keep watching diet, Chronic ob structive pulmonary disease 27657985 J44.9 Under control with meds Hyperlipidemia 72147985 E78.5 Labs good Hearing loss 10331696 H9 1.93 TO USE Hearing aids Malignant tumor of lung 231552592 C34.90 no recurrence Hernia of anterior abdominal wall 939339780 K43.9 s/p surgery Adult heal th examination 616510795 Z00.00 Colonoscop y- 08/05/2016 PSA- 02/20/22Pne umovax- 07/27/2014 Gpmdknt43- 03/25/2016 Eye exam-yearl yInfluenza Vacc- 07/2021, 08/08COVID Vacc- 12/06/20 & 12/27/20, 06/03/21, 08/08 Ex-smoker 3565003 Z87.[id number] [facility] Internal [facility] [address] [facility] [place] [place] [address] 03/07/2024 14:31:05 06/26/2024 13:28:04 Type 2 diabetes mellitus without complication 963821583 E11.9 Essential hypertension 93320480 I10 [id number] [address]ilee Patel [facility] Internal [facility] [address] [facility] [place] [place] [address] 04/19/2024 15:27:12 06/28/2024 17:32:16 Chronic obstructive pulmonary disease 58570417 J44.9 Type 2 graciela betes mellitus without complication 285013635 E11.9 Hyperlipidemia 65940296 E78.5 Malignant tumor of lung 287258890 C34.90 [id number] Bailee Patel [facility] Internal [address] [facility] [place] [place] [address] 05/22/2024 18:11:19 07/04/2024 12:28:49 Type 2 diabetes mellitus without complication 665699215 E11.9 Ex-smoker 3601516 Z87.89 1 Essential hypertension 95911897 I10 Hyperlipidemia 91791746 E78.5 [id number] Yanira Tucker MD [facility] Internal [address] [facility] [place] [place] [address] 06/13/2024 10:22:13 06/13/2024 11:37:35 Essential hypertension 99473151 I10 under control Diabetes mellitus 681347 09 E11.9 UNDER CONTROL Chronic ob structive pulmonary disease 87302549 J44.9 Under control with meds Hyperlipidemia 28103386 E78.5 Labs today Hearing loss 51673999 H9 1.93 TO USE Hearing aids Malignant tumor of lung 277053012 C34.90 metastatic , getting chemo Hernia of anterior abdominal wall 408803273 K43.9 s/p surgery Adult heal th examination 375975542 Z00.00 Colonoscop y- 08/05/2016 PSA- 05/25/23- DUEPneumov ax- 07/27/2014 Jdjoujl95- 03/25/2016 Eye exam-yearl y- DUEInfluen za Vacc- 07/2021, 2022 (per pt)RSV- 2022 [employer]OV ID Vacc- 12/06/20 & 12/27/20, 06/03/21, 08/08 Ex-smoker 4817315 Z87.89 1 PET- 09/28/23 Screening for malignant neoplasm of prostate 887296970 Z12.5 Groin mass 312152197 R19 .00 metastatic lung cancer, Screening for disorder 686346896 Z13.9 [id number] [facility] Internal [address] [facility] [place] [place] [address] 09/20/2024 09:49:49 09/20/2024 10:41:14 Essential hypertension 12545530 I10 under control Diabetes mellitus 211042 09 E11.9 under control Chronic ob structive pulmonary disease 84264604 J44.9 Under control with meds Hyperlipidemia 59599959 E78.5 under control Hearing loss [id number] H9 1.93 TO USE Hearing aids, discussed Malignant tumor of lung [id number] C34.90 metastatic , Hernia of anterior abdominal wall [id number] K43.9 s/p surgery Adult heal th examination [id number] Z00.00 Colonoscop y- 08/05/2016 PSA- 06/13/2024 Pneumovax- 07/27/2014 Qwweonc23- 03/25/2016 Eye exam-yearl y- DUEInfluen za Vacc- 07/2021, 08/08, 2022, 2023(per pt)RSV- 2022 [employer] ID Vacc- 12/06/20 & 12/27/20, 06/03/21, 08/08 Ex-smoker [id number] Z87.89 1 PET- 09/28/23 Groin mass [id number] R19 .00 metastatic lung cancer, on treatment and getting better Goals Section Goal Description Progress Status Start Date LastModified by Organization Details LastModified Time Blood Pressure Maintains blood pressure goal as defined by care team improving active 2023 Alyce Baker CCM Information not available 05/22/2024 22:19:11 Diet Adherenc e Follows prescribed or recommended diet worsening active 2023 Alyce Baker CCM Information not available 05/22/2024 22:19:24 Hemoglob in A1C Lowers or maintains hemoglobin A1C (HbA1c) as per care team recommendation (s) [TARGET: less than or equal to 7%] NoChange active 2023 Rohini Delgado CCM Information not available 03/07/2024 19:05:17 Blood Glucose Maintains blood glucose within target range NoChange active 2023 Rohini Delgado CCM Information not available 03/07/2024 19:05:17 Activiti es of Daily Living Performs activities of daily living independently or with minimal assistance NoChange active 2023 Rohini Delgado CCM Information not available 03/07/2024 19:04:24 Lipid Levels Maintains normal lipid levels as defined by care team NoCrebeccage active 2023 Rohini Delgado CCM Information not available 03/07/2024 19:04:24 Follow-u p Appointm ent(s) Attends referral and/or follow-up appointment(s) as per care team recommendation (s) sustaining active 2023 Alyce Baker CCM Information not available 05/22/2024 22:19:41 Recreati onal Activiti es Participates in recreational activities NoChange active 2023 Rohini Delgado CCM Information not available 03/07/2024 19:04:24 Medicati on Regimen Follows medication regimen as per care team recommendation (s) sustaining active 2023 Alyce Baker CCM Information not available 05/22/2024 22:19:51 Exercise Regularl y Follows a regular exercise regimen or instructed exercise plan as per care team recommendation (s) NoChange active 2023 Rohinidouglas Delgado CCM Information not available 03/07/2024 19:05:17 Health Concerns Section Related Observation LastModified by Organization Detai ls LastModified Time None Recorded Concern Status LastModified by Organization Details LastModified Time Essential hypertension Active Rohinidouglas Delgado CCM Not Available 03/07/2024 19 :05:34 Type 2 diabetes mellitus without complication Active Rohinidouglas Delgado CCM Not Available 03/07/2024 19 :05:17 Malignant tumor of lung Active Rohinidouglas Delgado CCM Not Available 03/07/2024 19 :05:51 Chronic obstructive pulmonary disease Active Alyce Baker CCM Not Available 04/19/2024 19 :39:15 Advance Directives Directive Y: states has a living will, provided papers as he is unsure if he and his both have this Payers Encounter Date Sequence Insurance Name Policy Number Policy Correia Covered Member ID Correia Member ID Guarantor Name 03/07/2024 1 [employer] (MEDICARE REPLACEMENT/ ADVANTAGE - PPO) Forrest Otoole [id number] Forrest Otoole 04/19/2024 1 [employer] (MEDICARE REPLACEMENT/ ADVANTAGE - PPO) Forrest Otoole [id number] Forrest Otoole 05/22/2024 1 [employer] (MEDICARE REPLACEMENT/ ADVANTAGE - PPO) Forrest Otoole [id number] Forrest Otoole 06/13/2024 1 [employer] (MEDICARE REPLACEMENT/ ADVANTAGE - PPO) Forrest Otoole [id number] Forrest Friend Xiang 09/20/2024 1 [employer] (MEDICARE REPLACEMENT/ ADVANTAGE - PPO) Forrest Friend Xiang [id number] Forrest Friend Xiang Notes Date Note Type Note Provider Name and Address Organization Details Recorded Time 06/13/2024 text/html Here for routine f/u, compliant to meds HEARING LOSS, NOT USING HEARING AIDS PT IS FASTING Left groin mass due to metastatic lung cancert- Seeing Oncology, on Keytruda, Just finished radiation about 2 weeks ago, getting chemo and getting anothe scan COPD- under control, was seeing pulm, on nebs and inhalers,Meds-Albu terol neb and Albuterol 90 inhaler 2 puffs 24-6h, Spiriva qd, Fluticasone 250 mcg/Salmeterol 50 mcg 1 puff BIDDM-under [id number] 5.7No hypoglycemia., No neuropathyDM eye exam- 03/2023 (in chart) - DUEMeds- Glimepiride 4 mg bid, Metformin 500 mg 2 tab bid, Jardiance 10 mg qdHTN- under control with meds ,Meds- Metoprolol 50 mg bid, HCTZ 25 mg qdHyperlipidemia- controlling diet, Trig were high,Meds- Fenofibrate 145 mg qd, Simvastatin 20 mg qdHearing loss- NOT using hearing aidsAll rhinitis- otc Zyrtecs/p umbilical hernia repairEx- smoker- quit few yrs agoLung Cancer metastatic - Left lobectomy done 02/01/2020, seeing oncology dr Patricia Tucker MD [address] [facility], [facility] [address], [place], [address], [place] - [facility] [employer] 06/13/2024 13:23:27 09/20/2024 text/html Here for routine f/u, compliant to medsPT IS FASTING ( [employer] ) HEARING LOSS, NOT USING HEARING AIDS Left groin mass due to metastatic lung cancer- Seeing Oncology, on Keytruda, S/P RT and chemo COPD- under control, was seeing pulm, on nebs and inhalers,Meds-Albu terol neb and Albuterol 90 inhaler 2 puffs 24-6h,Spiriva qd,Fluticasone 250 mcg/Salmeterol 50 mcg 1 puff BIDDM-under control Accu checks reviewed, under [id number] 6.9 (06/13/24)No hypoglycemia.,No neuropathyDM eye exam- 03/2023 (in chart) - DUEMeds- Glimepiride 4 mg bid, Metformin 500 mg 2 tab bid, Jardiance 10 mg qdHTN- under control with meds ,Meds- Metoprolol 50 mg bid, HCTZ 25 mg qdHyperlipidemia- controlling diet, Trig were high, lipids good 06/10Meds- Fenofibrate 145 mg qd, Simvastatin 20 mg qdHearing loss- NOT using hearing aidsAll rhinitis- otc Zyrtecs/p umbilical hernia repairEx- smoker- quit few yrs agoLung Cancer metastatic - Left lobectomy done 02/01/2020, seeing oncology dr Patricia Tucker MD [address] [facility], [facility] [address], [place], [address], [place] [facility] [employer] 09/20/2024 13:02:29
--- OUTSIDE RECORDS SUMMARY | 2024-11-22 08:02 | XMS_ITS | Patient Health Summary ---
Author Organization [facility] Address [address] [place] [address] Care Team Providers Care Photoengraving Supervisor Name Role Phone Fabiana Bergman APRN-DAVE Primary Care Prov ider Unavailable Note from [facility],non-owned Affiliates and Associated Physician Practices is amultiple site organization consisting of ambulatory clinics and hospital sitesin [place], [place], [place] and [place]. This disclosure is being madepursuant to the Care Everywhere program and may not contain all information available regarding this patient. Last updated 18.[facility] Allergies * Hydrocodone-Acetaminophen(Rash) -Medium Criticality Medications * Be aware that medications may not be up to date on this document. Alwaysverify current medications with the patient. * metoprolol tartrate (LOPRESSOR) 50 MG tablet(Started 12/12/2009) Take 50 mg by mouth 2 times daily Reasons: High Blood Pressure Disorder * metFORMIN (GLUCOPHAGE) 500 MG tablet Take 500 mg by mouth 2 times daily with morning and evening meal * glimepiride (AMARYL) 2 MG tablet Take 2 mg by mouth daily with breakfast * glimepiride (AMARYL) 1 MG tablet Take 1 mg by mouth daily with breakfast * fluticasone-salmeterol (ADVAIR/WIXELA) 250-50 MCG/DOSE inhaler Inhale 1 puff by mouth 2 times daily * tiotropium (SPIRIVA) 18 MCG inhalation capsule Inhale by mouth once daily * simvastatin (ZOCOR) 5 MG tablet Take 5 mg by mouth at bedtime * fenofibrate micronized (LOFIBRA) 200 MG capsule Take 200 mg by mouth once daily Take with largest meal of the day. * multivitamin daily tablet Take 1 tablet by mouth daily with food Social History Tobacco Use Types Packs/Day Years Used Date Smoking Tobacco: Never Assessed Sex and Gender Information Value Date Recorded Sex Assigned at Not on file Gender Identity Not on file Sexual Orientation Not on file Last Filed Vital Signs Vital Sign Reading Time Taken Comments Blood Pressure 138/67 12/12/2019 2:30 PM [employer]LYST Pulse 84 12/12/2019 2:30 PM [employer] Temperature 36.6 ??C (97.8 ??F) 12/12/2019 9:38 AM CS T Respiratory Rate 22 12/12/2019 2:30 PM [employer] Oxygen Saturation 95% 12/12/2019 3:00 PM [employer] Inhaled Oxygen Concentration - - Weight 97.5 kg (215 lb) 12/12/2019 9:38 AM [employer] Height 177.8 cm (5' 10 ) 12/12/2019 9:54 AM [employer] Body Mass Index 30.85 12/12/2019 9:38 AM [employer] Procedures * XR CHEST 2VW INSPIR EXPIRATION(Performed 12/12/2019) Performed for Nodule of upper lobe of left lung * XR CHEST 2VW INSPIR EXPIRATION(Performed 12/12/2019) Performed for Nodule of upper lobe of left lung * CT GUIDED NEEDLE PLACEMENT(Performed 12/12/2019) Performed for Nodule of upper lobe of left lung * PATHOLOGY TISSUE(Performed 12/12/2019) Performed for Lung mass, Nodule of upper lobe of left lung * BASIC METABOLIC PANEL (CALCIUM TOTAL)(Performed 12/12/2019) Performed for Lung mass, Nodule of upper lobe of left lung * PT-INR [facility](Performed 12/12/2019) Performed for Lung mass, Nodule of upper lobe of left lung * CBC W AUTO DIFFERENTIAL(Performed 12/12/2019) Performed for Lung mass, Nodule of upper lobe of left lung Results * XR CHEST 2VW INSPIR EXPIRATION (12/12/2019 2:05 PM [employer]OUSING [employer]NALYST) Only the most recent of2 resultswithin the time period is included. Anatomical Region Laterality Modality Chest Radiographic Iris ging 12/12/2019 2:05 PM [employer]LY[employer] Impressions 12/12/2019 4:18 PM [employer]NALYST FINDINGS/IMPRESSION: There is a small left apical pneumothorax. There is mild bibasilar atelectasis. There is no pleural effusion. The cardiac silhouette is normal. The aorta is atherosclerotic. Dictated by Alyce Olguin MD (vice president of advertising). Dr. LISA Elise M.D. have personally reviewed and interpreted this examination/study. This report was electronically signed by LISA FELDMAN M.D. ??on 12/12/2019 4:18 PM . Narrative 12/12/2019 4:18 PM [employer] EXAMINATION: XR CHEST 2VW INSPIR EXPIRATION HISTORY: R91.1: Nodule of upper lobe of left lung COMPARISON: Comparison is made with a portable AP chest radiograph from earlier same day 12/12/2019. Procedure Note Lisa Feldman MD - 12/12/2019 EXAMINATION: XR CHEST 2VW INSPIR EXPIRATION HISTORY: R91.1: Nodule of upper lobe of left lung COMPARISON: Comparison is made with a portable AP chest radiograph from earlier same day 12/12/2019. FINDINGS/IMPRESSION: There is a small left apical pneumothorax. There is mild bibasilar atelectasis. There is no pleural effusion. The cardiac silhouette is normal. The aorta is atherosclerotic. Dictated by Alyce Olguin MD (vice president of advertising). Dr. LISA Elise M.D. have personally reviewed and interpreted this examination/study. This report was electronically signed by LISA FELDMAN M.D. on 12/12/2019 4:18 PM . Annamarie Mckeon MD DIAGNOSTIC IMAGING O RDERABLES * CT GUIDED NEEDLE BIOPSY LUNG (11470) (12/12/2019 10:50 AM [employer]) Anatomical Region Laterality Modality Abdomen Computed Tomogra phy 12/12/2019 11:0 1 AM [employer] Impressions 12/12/2019 11:23 AM [employer] Impression: CT-guided core biopsy of left upper lobe nodule, as described above. The pathology report is pending at the time of this dictation. Dr. Henao performed/was present throughout the procedure and provided the moderate sedation service. Please see the nursing sedation flowsheet. This report was approved ??by Annamarie Mckeon M.D. ?? on 12/12/2019 11:[address] CABRERA Elise M.D. have personally reviewed and interpreted this examination/study. This report was electronically signed by CABRERA LAZARO M.D. ??on 12/12/2019 4:42 PM . Narrative 12/12/2019 11:23 AM [employer]NALY[employer] History: 74 year oldmalepatient with recent CT chest imaging performed at OSH showing a 1.4 cm left upper lobe lung lesion concerning for neoplasm. IR consulted for image guided percutaneous left upper lobe lung lesion core biopsy. Operators: 1.Dr. Henao, Attending Physician 2.Dr. Mckeon, Resident Physician Anesthesia: 1.Local anesthesia - 10 mL of 1% lidocaine Procedure: 1.Limited non-contrast CT of the chest. 2.CT-guided core biopsy of left upper lobe nodule. 3.Post-biopsy limited non-contrast CT of the chest. Procedure in detail: The procedure, risks, and possible complications were explained to the patient in detail, and informed consent was obtained. The patient was placed in a supine position on the CT table and a radio-opaque grid was placed over the region of interest. Limited non-contrast CT of the chest showed a left upper lobe nodule. A percutaneous entry site was marked on the skin to access the nodule. The marked site and skin around the region was prepped and draped in sterile fashion. Local anesthesia was provided with 1% Lidocaine. A 17-gauge co-axial needle system was advanced in stages under CT guidance. With the needle tip at the edge of the lesion, 3 core samples were acquired with an 18-gauge biopsy gun. The samples were sent to the pathology service. Post-procedure limited non-contrast CT did not show any immediate complications such as major hemorrhage. The patient tolerated the procedure well and was transferred to the holding area in stable condition. Procedure Note Cabrera Lazaro MD - 12/12/2019 History: 74 year oldmalepatient with recent CT chest imaging performedat OSH showing a 1.4 cm left upper lobe lung lesion concerning forneoplasm. IR consulted for image guided percutaneous left upper lobe lung lesion core biopsy. Operators: 1.Dr. Henao, Attending Physician 2.Dr. Mckeon, Resident Physician Anesthesia: 1.Local anesthesia - 10 mL of 1% lidocaine Procedure: 1.Limited non-contrast CT of the chest. 2.CT-guided core biopsy of left upper lobe nodule. 3.Post-biopsy limited non-contrast CT of the chest. Procedure in detail: The procedure, risks, and possible complications were explained to the patient in detail, and informed consent was obtained. The patient was placed in a supine position on the CT table and a radio-opaque grid was placed over the region of interest. Limited non-contrast CT of the chest showed a left upper lobe nodule. A percutaneous entry site was marked on the skin to access the nodule. The marked site and skin around the region was prepped and draped in sterile fashion. Local anesthesia was provided with 1% Lidocaine. A 17-gauge co-axial needle system was advanced in stages under CTguidance. With the needle tip at the edge of the lesion, 3 core samples were acquired with an 18-gauge biopsy gun. The samples were sent to the pathology service. Post-procedure limited non-contrast CT did not show any immediate complications such as major hemorrhage. The patient tolerated the procedure well and was transferred to the holding area in stable condition. Impression: CT-guided core biopsy of left upper lobe nodule, asdescribed above. The pathology report is pending at the time of this dictation. Dr. Henao performed/was present throughout the procedure and providedthe moderate sedation service. Please see the nursing sedation flowsheet. This report was approved by Annamarie Mckeon M.D. on 12/12/2019 11:03 AM. I, Dr. CABRERA LAZARO M.D. have personally reviewed and interpreted this examination/study. This report was electronically signed by CABRERA LAZARO M.D. on 12/12/2019 4:42 PM . Fabiana Bergman SODA FOUNTAIN CLERK-GENERAL SURGEON CT ORDERAB LES * PATHOLOGY TISSUE (12/12/2019 10:47 AM [employer]LY[employer]) Case Report Surgical Pathology Report ? Case: [id number] ? Authorizing Provider: ??aFbiana Bergman, ? Collected: ? 12/12/2019 10:47 AM ? SODA FOUNTAIN CLERK-GENERAL SURGEON ? Ordering Location: ? [facility] CAT SCAN ? Received: ?12/12/2019 03:34 PM ? Pathologist: ? Prashant Carver MD ? Specimen: ?Lung, Left Upper Lobe ? 12/13/2019 1:32 PM [facility] Final Diagnosis Lung, left upper lobe, percutaneous core biopsy (A): - Adenocarcinoma - Sufficient tumor cells present for molecular testing if clinically indicated 12/13/2019 1:32 PM [facility] Microscopic Description and Comment Tumor cells form glandular structures and nests with necrosis. The cells have scant to moderate amount of cytoplasm with moderate nuclear atypia. 12/13/2019 1:32 PM [facility] Clinical History 12/13/2019 1:32 PM [facility] Gross Description The requisition and specimen(s) are labeled with the patient's name, Forrest Otoole. Received in formalin, specimen A , are multiple white frazier tissue cores measuring 0.1-1.0 cm in length with a diameter of less than 0.1 cm. Submitted in toto in cassette A1. KK 12/13/2019 1:32 PM [facility] Disclaimer The performance characteristics of all immunohistochemical and indirect immunofluorescence stains (if any) cited in this report were determined by the Histopathology Laboratory of [facility]. Some of these tests were developed by our own laboratory and have not been cleared or approved by the US Food and Drug Administration. The FDA does not require this test to go through premarket FDA review. These tests are used for clinical purposes. They should not be regarded as investigational or for research. This laboratory is certified under the Clinical Laboratory Improvement Amendments (CLIA) as qualified to perform high complexity clinical laboratory testing. This case has been personally reviewed and interpreted by the attending (teaching) pathologist. 12/13/2019 1:32 PM [facility] Embedded Images 12/13/2019 1:32 PM [facility] Biopsy, Excision (Lung, Left Upper Lobe) 12/12/2019 10:47 AM [employer] 12/12/2019 3:34 PM [employer] Fabiana Bergman APRN-GENERAL SURGEON LAB - PATH OLOGY/CYTOLOGY ORDERABLES [facility] [address] [phone] * PT-INR [facility] (12/12/2019 10:10 AM [employer]LY[employer]) PT 12.1 12.1 - 14.8 Seconds 12/12/2019 10:31 AM [facility] INR 0.9 See Comment 12/12/2019 10:31 AM [facility] Comment:The suggested therap eutic range for standard coumadin (warfarin) therapy is an INR of 2.0-3.0. For high-risk patients (Mechanical Mitral Valve Prosthesis, etc.), the suggested prophylactic therapeutic range is an INR of 2.5-3.5. Blood BLOOD SPECIMEN / Unknown Venipuncture / Unknown 12/12/2019 10:10 AM [employer] 12/12/2019 10:18 AM [employer] Cabrera Lazaro MD LAB - COAGULATIO N ORDERABLES [facility] [address] [phone] * (ABNORMAL) CBC W AUTO DIFFERENTIAL (12/12/2019 10:10 AM [facility]) WBC 8.5 3.5 - 10.5 10? 3 /uL 12/12/2019 10:23 AM [facility] RBC 5.21 4.30 - 5.70 10? 6 /uL 12/12/2019 10:23 AM [facility] Hemoglobin 15.4 13.5 - 17.5 g/dL 12/12/2019 10:23 AM [facility] Hematocrit 46.9 39.0 - 50.0 % 12/12/2019 10:23 AM [facility] MCV 90.0 81.0 - 97.0 fL 12/12/2019 10:23 AM [facility] MCH 29.6 28.0 - 34.0 pg 12/12/2019 10:23 AM [facility] MCHC 32.8 32.0 - 36.0 g/dL 12/12/2019 10:23 AM [facility] Platelet Count 232 150 - 400 10? 3 /uL 12/12/2019 10:23 AM [facility] RDW-SD 45.4 36.0 - 50.0 fL 12/12/2019 10:23 AM [facility] RDW-CV 13.7 11.2 - 14.8 % 12/12/2019 10:23 AM [facility] MPV 11.4 9.3 - 12.8 fL 12/12/2019 10:23 AM [facility] nRBC Absolute 0.00 0 10? 3 /uL 12/12/2019 10:23 AM [facility] nRBC Auto 0.0 0 /100 WBC 12/12/2019 10:23 AM [facility] Neutrophils % 68.7 35.0 - 70.0 % 12/12/2019 10:23 AM [facility] Lymphocytes % 17.4(L) 19.7 - 55.1 % 12/12/2019 10:23 AM [facility] Monocytes % 9.3 3.0 - 15.0 % 12/12/2019 10:23 AM [facility] Eosinophils % 3.1 0.0 - 6.0 % 12/12/2019 10:23 AM [facility] Basophil % 0.9 0.0 - 1.5 % 12/12/2019 10:23 AM [facility] Neutrophils Absolute 5.8 1.6 - 7.0 10? 3 /uL 12/12/2019 10:23 AM [facility] Lymphocyte Absolute 1.5 0.8 - 2.9 10? 3 /uL 12/12/2019 10:23 AM [facility] Monocytes Absolute 0.79(H) 0.14 - 0.66 10? 3 /uL 12/12/2019 10:23 AM [facility] Eosinophils Absolute 0.26 0.00 - 0.45 10? 3 /uL 12/12/2019 10:23 AM [facility] Basophils Absolute 0.08(H) 0.00 - 0.06 10? 3 /uL 12/12/2019 10:23 AM [facility] Immature Granulocytes % 0.6 0.0 - 1.0 % 12/12/2019 10:23 AM [facility] Blood BLOOD SPECIMEN / Unknown Venipuncture / Unknown 12/12/2019 10:10 AM [facility] 12/12/2019 10:18 AM [facility] Cabrera Lazaro MD LAB - HEMATOLOGY ORDERABLES Performing Organization Address [facility]/State/[facility] Co de Phone Number [address] [phone] * (ABNORMAL) BASIC METABOLIC PANEL (CALCIUM TOTAL) (12/12/2019 10:10 AM [facility]) BUN 20 7 - 26 mg/dL 12/12/2019 10:48 AM [facility] Creatinine 0.9 0.6 - 1.2 mg/dL 12/12/2019 10:48 AM [facility] Sodium 138 136 - 145 mmol/L 12/12/2019 10:48 AM [facility] Potassium 4.0 3.5 - 4.5 mmol/L 12/12/2019 10:48 AM [facility] Chloride 104 98 - 107 mmol/L 12/12/2019 10:48 AM [facility] CO2 24 22 - 29 mmol/L 12/12/2019 10:48 AM [facility] Glucose 152(H) 70 - 115 mg/dL 12/12/2019 10:48 AM [facility] Calcium 9.6 8.4 - 10.2 mg/dL 12/12/2019 10:48 AM [facility] Anion Gap 14 8 - 18 12/12/2019 10:48 AM [facility] BUN/Creatinine Ratio 22 7 - 23 12/12/2019 10:48 AM [facility] Osmolality Calculated 292 270 - 300 mOsm/kg 12/12/2019 10:48 AM [facility] eGFR >60 >60 mL/min/1.7 3 m2 12/12/2019 10:48 AM [facility] Blood BLOOD SPECIMEN / Unknown Venipuncture / Unknown 12/12/2019 10:10 AM [facility] 12/12/2019 10:18 AM [facility] Cabrera Lazaro MD LAB - CHEMISTRY ORDERABLES [facility] [address] [phone] Care Teams Photoengraving Supervisor Relationship Specialty Start Date End Date Fabiana Bergman APRN-DAVE Update Information PCP - General Nurse Practitioner 12/12/19
--- OUTSIDE RECORDS SUMMARY | 2024-11-22 08:02 | XMS_ITS | Referral Summary ---
Author Organization [facility] [employer] Address [address] [place] [address] Care Team Providers Care Pressure Supervisor Name Role Phone Fabiana Bergman APRN-DAVE Primary Care Prov ider Unavailable Source Comments [facility] [employer],non-owned Affiliates and Associated Physician Practices is amultiple site organization consisting of ambulatory clinics and hospital sitesin [place], [place], [place] and [place]. This disclosure is being madepursuant to the Care Everywhere program and may not contain all information available regarding this patient. Last updated 18.[facility] [employer] Allergies Active Allergy Reactions Criticality Noted Date [...] Comments Blood Pressure 138/67 12/12/2019 2:30 PM ROOFING PLANT SUPERVISOR Pulse 84 12/12/2019 2:30 PM ROOFING PLANT SUPERVISOR Temperature 36.6 ??C (97.8 ??F) 12/12/2019 9:38 AM CS T Respiratory Rate 22 12/12/2019 2:30 PM ROOFING PLANT SUPERVISOR Oxygen Saturation 95% 12/12/2019 3:00 PM ROOFING PLANT SUPERVISOR Inhaled Oxygen Concentration - - Weight 97.5 kg (215 lb) 12/12/2019 9:38 AM ROOFING PLANT SUPERVISOR Height 177.8 cm (5' 10 ) 12/12/2019 9:54 AM ROOFING PLANT SUPERVISOR Body Mass Index 30.85 12/12/2019 9:38 AM ROOFING PLANT SUPERVISOR Plan of Treatment Not on file Care Teams Pressure Supervisor Relationship Specialty Start Date End Date Fabiana Bergman APRN-DAVE Update Information PCP - General Nurse Practitioner 12/12/19
--- OUTSIDE RECORDS SUMMARY | 2024-11-22 08:02 | XMS_ITS | CONTINUITY OF CARE DOCUMENT ---
Author Name darciechristalrosie Address Unknown Organization [facility] Address [address] [place] [address] Phone [phone] Care Team Providers Care Retail Coordinator Name Role Phone Anastasia Hilton MD Unavailable [phone] Gamaliel Hinojosa MD Unavailable Gamaliel Hinojosa MD Unavailable [phone] INSURANCE PROVIDERS Payer name Policy type / Coverage type [place] red libertarian ID HUMANA O O [id number]
== END 2024-11-22 07:59 | disposition home or self-care (01) ==
PROVIDERS: PCP Internal Medicine; Visit Provider Internal Medicine Hematology & Oncology
DX: R59.0 Localized enlarged lymph nodes (principal); Z90.2 Acquired absence of lung [part of]; K76.0 Fatty (change of) liver, not elsewhere classified; K80.20 Calculus of gallbladder without cholecystitis without obstruction
CPT/HCPCS: 71260; 74177; Q9967

== ENCOUNTER 2024-12-28 09:37 | Outpatient (CLI) | payer MEDICARE, SELFPAY ==
--- NOTE | ~2024-12-28 | CT_ITS ---
Clinical Indication: Lung cancer CT Scan of the Chest, Abdomen, and Pelvis with Contrast: Technique: Contiguous sections were acquired throughout the chest, abdomen, and pelvis after intraven ous administration of 100 cc of Omnipaque 350. Dose reduction technique was used on this scan by collin riggs automated exposure control and iterative reconstruction technique. The dose-length product (DL P) was 827.47 mGy-cm. Comparison: 11/22/2024 Findings: Mediastinal lymphadenopathy similar to prior exam, largest node at the right paratracheal region sam uring 1.5 cm in short axis.. The mediastinal soft tissues appear normal. There is no evidence of pleural or pericardial effusion. Status post left upper lobectomy with mild postoperative distortion/scarring of left lung. Calcified left lower lobe granuloma present. Right lung essentially clear aside for right middle lobe linear sc arring. There is mild diffuse hepatic steatosis. Gallbladder contracted with small gallstones present. The sp ervin, pancreas, and adrenal glands are within normal limits. Multiple bilateral renal cysts are prese nt, as well as small nonobstructing right lower pole renal stones. There is extensive atherosclerotic calcification of the aorta and iliac vessels.. No lymphadenopathy. No bowel obstruction or bowel wall thickening. There is no evidence to suggest acute appendicitis. Urinary bladder is unremarkable. Stable 1.8 cm mass at the perineum in the midline (axial image [id number]) . No ascites. Impression: Stable 1.8 cm mass at the perineum in the midline, which could reflect metastatic lesion. Stable mediastinal lymphadenopathy. Additional chronic findings, as detailed above. Reviewed, dictated and finalized at [facility]. Impression: Stable 1.8 cm mass at the perineum in the midline, which could reflect metastat ic lesion. Stable mediastinal lymphadenopathy. Additional chronic findings, as detailed above.
--- OUTSIDE RECORDS SUMMARY | 2024-12-28 11:03 | XMS_ITS | Patient Health Summary ---
Author Organization [facility] Address [address] [place] [address] Care Team Providers Care Remittance Clerk Name Role Phone Fabiana Bergman APRN-DAVE Primary Care Prov ider Unavailable Note from Formerly named [facility],non-owned Affiliates and Associated Physician Practices is amultiple site organization consisting of ambulatory clinics and hospital sitesin [place], [place], [place] and [place]. This disclosure is being madepursuant to the Care Everywhere program and may not contain all information available regarding this patient. Last updated 18.[facility] Allergies * Hydrocodone-Acetaminophen(Rash) -Medium Criticality Medications [...] Comments Blood Pressure 138/67 12/12/2019 2:30 PM BRIDGE CLUB MANAGER Pulse 84 12/12/2019 2:30 PM BRIDGE CLUB MANAGER Temperature 36.6 C (97.8 F) 12/12/2019 9:38 AM BRIDGE CLUB MANAGER Respiratory Rate 22 12/12/2019 2:30 PM BRIDGE CLUB MANAGER Oxygen Saturation 95% 12/12/2019 3:00 PM BRIDGE CLUB MANAGER Inhaled Oxygen Concentration - - Weight 97.5 kg (215 lb) 12/12/2019 9:38 AM BRIDGE CLUB MANAGER Height 177.8 cm (5' 10 ) 12/12/2019 9:54 AM BRIDGE CLUB MANAGER Body Mass Index 30.85 12/12/2019 9:38 AM BRIDGE CLUB MANAGER Procedures * XR CHEST 2VW INSPIR EXPIRATION(Performed [...] CHEST 2VW INSPIR EXPIRATION (12/12/2019 2:05 PM BRIDGE CLUB MANAGER) Only the most recent of2 resultswithin the time period is included. Anatomical Region Laterality Modality Chest Radiographic Iris ging 12/12/2019 2:05 PM BRIDGE CLUB MANAGER Impressions 12/12/2019 4:18 PM BRIDGE CLUB MANAGER FINDINGS/IMPRESSION: There is a small left apical pneumothorax. There is mild bibasilar atelectasis. There is no pleural effusion. The cardiac silhouette is normal. The aorta is atherosclerotic. Dictated by Alyce Olguin MD (orthodontist vice president). Dr. LISA Elise M.D. have personally reviewed and interpreted this examination/study. This report was electronically signed by LISA FELDMAN M.D. on 12/12/2019 4:18 PM . Narrative 12/12/2019 4:18 PM BRIDGE CLUB MANAGER EXAMINATION: XR CHEST 2VW INSPIR EXPIRATION HISTORY: [...] is atherosclerotic. Dictated by Alyce Olguin MD (orthodontist vice president). Dr. LISA Elise M.D. have personally reviewed and interpreted this examination/study. This report was electronically signed by LISA FELDMAN M.D. on 12/12/2019 4:18 PM . Annamarie Mckeon MD DIAGNOSTIC IMAGING O RDERABLES * CT GUIDED NEEDLE BIOPSY LUNG (31000) (12/12/2019 10:50 AM BRIDGE CLUB MANAGER) Anatomical Region Laterality Modality Abdomen Computed Tomogra phy 12/12/2019 11:0 1 AM BRIDGE CLUB MANAGER Impressions 12/12/2019 11:23 AM BRIDGE CLUB MANAGER Impression: CT-guided core biopsy of left upper lobe nodule, as described above. The pathology report is pending at the time of this dictation. Dr. Henao performed/was present throughout the procedure and provided the moderate sedation service. Please see the nursing sedation flowsheet. This report was approved by Annamarie Mckeon M.D. on 12/12/2019 11:[address] CABRERA Elise M.D. have personally reviewed and interpreted this examination/study. This report was electronically signed by CABRERA LAZARO M.D. on 12/12/2019 4:42 PM . Narrative 12/12/2019 11:23 AM BRIDGE CLUB MANAGER History: 74 year oldmalepatient with recent CT [...] on 12/12/2019 4:42 PM . Fabiana Bergman PAYMENT MANAGER-SENIOR RECRUITER CT ORDERAB LES * PATHOLOGY TISSUE (12/12/2019 10:47 AM BRIDGE CLUB MANAGER) Case Report Surgical Pathology Report Case: [id number] Authorizing Provider: Fabiana Bergman, Collected: 12/12/2019 10:47 AM PAYMENT MANAGER-SENIOR RECRUITER Ordering Location: [facility] CAT SCAN Received: 12/12/2019 03:34 PM Pathologist: Prashant Carver MD Specimen: Lung, Left Upper Lobe 12/13/2019 1:32 PM BRIDGE CLUB MANAGER [facility] Final Diagnosis Lung, left upper lobe, percutaneous core biopsy (A): - Adenocarcinoma - Sufficient tumor cells present for molecular testing if clinically indicated 12/13/2019 1:32 PM [facility] Microscopic Description and Comment Tumor cells form glandular structures and nests with necrosis. The cells have scant to moderate amount of cytoplasm with moderate nuclear atypia. 12/13/2019 1:32 PM [facility] Clinical History 12/13/2019 1:32 PM [facility] Gross Description The requisition and specimen(s) are labeled with the patient's name, Forrest Otoole. Received in formalin, specimen A , are multiple white frazier tissue cores measuring 0.1-1.0 cm in length with a diameter of less than 0.1 cm. Submitted in toto in cassette A1. KK 12/13/2019 1:32 PM [facility] Disclaimer The performance characteristics of all immunohistochemical and indirect immunofluorescence stains (if any) cited in this report were determined by the Histopathology Laboratory of [facility]. Some of these tests were developed by [...] the attending (teaching) pathologist. 12/13/2019 1:32 PM [facility] Embedded Images 12/13/2019 1:32 PM [facility] Biopsy, Excision (Lung, Left Upper Lobe) 12/12/2019 10:47 AM BRIDGE CLUB MANAGER 12/12/2019 3:34 PM BRIDGE CLUB MANAGER Fabiana Bergman PAYMENT MANAGER-SENIOR RECRUITER LAB - PATH OLOGY/CYTOLOGY ORDERABLES [facility] [address] [place] [address], [facility] [phone] * PT-INR [facility] (12/12/2019 10:10 AM BRIDGE CLUB MANAGER) PT 12.1 12.1 - 14.8 Seconds 12/12/2019 10:31 AM [facility] INR 0.9 See Comment 12/12/2019 10:31 AM [facility] Comment:The suggested therap eutic range for standard coumadin (warfarin) therapy is an INR of 2.0-3.0. For high-risk patients (Mechanical Mitral Valve Prosthesis, etc.), the suggested prophylactic therapeutic range is an INR of 2.5-3.5. Blood BLOOD SPECIMEN / Unknown Venipuncture / Unknown 12/12/2019 10:10 AM BRIDGE CLUB MANAGER 12/12/2019 10:18 AM [facility] Cabrera Lazaro MD LAB - COAGULATIO N ORDERABLES Performing Organization Address City/State/[facility] Co de Phone Number [facility] [address] [place] [address] * (ABNORMAL) CBC W AUTO DIFFERENTIAL (12/12/2019 10:10 AM [facility]) WBC 8.5 3.5 - 10.5 10 3/uL 12/12/2019 10:23 AM [facility] RBC 5.21 4.30 - 5.70 10 6/uL 12/12/2019 10:23 AM [facility] Hemoglobin 15.4 13.5 - 17.5 g/dL 12/12/2019 10:23 AM [facility] Hematocrit 46.9 39.0 - 50.0 % 12/12/2019 10:23 AM [facility] MCV 90.0 81.0 - 97.0 fL 12/12/2019 10:23 AM [facility] MCH 29.6 28.0 - 34.0 pg 12/12/2019 10:23 AM [facility] MCHC 32.8 32.0 - 36.0 g/dL 12/12/2019 10:23 AM [facility] Platelet Count 232 150 - 400 10 3/uL 12/12/2019 10:23 AM [facility] RDW-SD 45.4 36.0 - 50.0 fL 12/12/2019 10:23 AM [facility] RDW-CV 13.7 11.2 - 14.8 % 12/12/2019 10:23 AM [facility] MPV 11.4 9.3 - 12.8 fL 12/12/2019 10:23 AM [facility] nRBC Absolute 0.00 0 10 3/uL 12/12/2019 10:23 AM [facility] nRBC Auto 0.0 0 /100 WBC 12/12/2019 10:23 AM [facility] Neutrophils % 68.7 35.0 - 70.0 % 12/12/2019 10:23 AM [facility] Lymphocytes % 17.4(L) 19.7 - 55.1 % 12/12/2019 10:23 AM [facility] Monocytes % 9.3 3.0 - 15.0 % 12/12/2019 10:23 AM [facility] Eosinophils % 3.1 0.0 - 6.0 % 12/12/2019 10:23 AM [facility] Basophil % 0.9 0.0 - 1.5 % 12/12/2019 10:23 AM [facility] Neutrophils Absolute 5.8 1.6 - 7.0 10 3/uL 12/12/2019 10:23 AM [facility] Lymphocyte Absolute 1.5 0.8 - 2.9 10 3/uL 12/12/2019 10:23 AM [facility] Monocytes Absolute 0.79(H) 0.14 - 0.66 10 3/uL 12/12/2019 10:23 AM [facility] Eosinophils Absolute 0.26 0.00 - 0.45 10 3/uL 12/12/2019 10:23 AM [facility] Basophils Absolute 0.08(H) 0.00 - 0.06 10 3/uL 12/12/2019 10:23 AM [facility] Immature Granulocytes % 0.6 0.0 - 1.0 % 12/12/2019 10:23 AM [facility] Blood BLOOD SPECIMEN / Unknown Venipuncture / Unknown 12/12/2019 10:10 AM [facility] 12/12/2019 10:18 AM [facility] Cabrera Lazaro MD LAB - HEMATOLOGY ORDERABLES [facility] [address] [place] [address] * (ABNORMAL) BASIC METABOLIC PANEL (CALCIUM TOTAL) (12/12/2019 10:10 AM [facility]) BUN 20 7 - 26 mg/dL 12/12/2019 10:48 AM [facility] Creatinine 0.9 0.6 - 1.2 mg/dL 12/12/2019 10:48 AM [facility] Sodium 138 136 - 145 mmol/L 12/12/2019 10:48 AM [facility] Potassium 4.0 3.5 - 4.5 mmol/L 12/12/2019 10:48 AM [facility] Chloride 104 98 - 107 mmol/L 12/12/2019 10:48 AM [facility] CO2 24 22 - 29 mmol/L 12/12/2019 10:48 AM [facility] Glucose 152(H) 70 - 115 mg/dL 12/12/2019 10:48 AM [facility] Calcium 9.6 8.4 - 10.2 mg/dL 12/12/2019 10:48 AM [facility] Anion Gap 14 8 - 18 12/12/2019 10:48 AM [facility] BUN/Creatinine Ratio 22 7 - 23 12/12/2019 10:48 AM [facility] Osmolality Calculated 292 270 - 300 mOsm/kg 12/12/2019 10:48 AM [facility] eGFR >60 >60 mL/min/1.7 3 m2 12/12/2019 10:48 AM [facility] Blood BLOOD SPECIMEN / Unknown Venipuncture / Unknown 12/12/2019 10:10 AM [facility] 12/12/2019 10:18 AM [facility] Cabrera Lazaro MD LAB - CHEMISTRY ORDERABLES [address] [phone] Care Teams Remittance Clerk Relationship Specialty Start Date End Date Fabiana Bergman APRN-DAVE Update Information PCP - General Nurse Practitioner 12/12/19
--- OUTSIDE RECORDS SUMMARY | 2024-12-28 11:03 | XMS_ITS | Encounter Summary ---
Author Organization [facility] [employer] Address [address] [place] [address] Care Team Providers Care Author'S Agent Name Role Phone Gaamliel Hinojosa MD Primary Care Provider [phone] Encounter Details Date Type Department Care Team (Late Contact Info) Description 12/25/2024 Orders Only [facility] Oncology and Hematology - Chaitanya [address] [place] [address] Mario Alberto Gomez MD [facility] [employer] [address] [place] [phone] Non-small cell cancer of left lung (CMS/HCC); Benign hypertension Social History Tobacco Use Types Packs/Day Years Used Date Smoking Tobacco: Former Cigarettes 1 25 0 12/26/1980 - 12/26/2005 Smokeless Tobacco: Never Alcohol Use Standard Drinks/Week Comments Yes 0 (1 standard drink = 0.6 oz pur e alcohol) 3oz hard liquor nightly Sex and Gender Information Value Date Recorded Sex Assigned at Not on file Legal Sex Male 2:25 PM CDT Gender Identity Not on file Sexual Orientation Not on file documented as of this encounter Plan of Treatment Upcoming Encounters Date Type Department Care Team (Late Contact Info) Description 01/11/2025 8:30 AM CDT Office Visit [facility] Oncology and Hematology - Chaitanya [address] [place] [address] Mario Alberto Gomez MD [address] [place] [phone] documented as of this encounter Visit Diagnoses Diagnosis Non-small cell cancer of left lung (CMS/HCC) Benign hypertension Essential hypertension, benign documented in this encounter Care Teams Author'S Agent Relationship Specialty Start Date End Date Gamaliel Hinojosa MD [address] [address] PCP - General Internal Medicine 12/27/19 documented as of this encounter
--- OUTSIDE RECORDS SUMMARY | 2024-12-28 11:03 | XMS_ITS | Clinical Summary ---
Author Organization [facility] Address [address] [place] [address] Phone Care Team Providers Care Land Measurer Name Role Phone Gamaliel Hinojosa MD Primary Care Provider [phone] Allergies Active Allergy Reactions Criticality Noted Date [...] 92 05/13/2022 12:50 PM CDT Temperature 36.1 C (97 F) 05/13/2022 12:50 PM CDT Respiratory Rate 18 [...] 6.0 % 05/03/2022 4:39 AM CDT [facility] Est Average Glucose 159.9 mg/dL 05/03/2022 4:39 AM CDT [facility] Blood Venipuncture / Unknown 05/03/2022 4:11 AM CDT 05/03/2022 4:11 AM CDT Narrative [facility] - 05/03/2022 4:39 AM CDT HEMOGLOBIN A1C: DIABETIC PATIENTS: WELL-CONTROLLED: 6.2 - 7.0 INTERMEDIATE WELL-CONTROLLED: 7.0 - 9.0 POORLY-CONTROLLED: >9.0 us Doretha Reeves MD CHEMISTRY ORDERABLES Final Result [facility] [address] [place] [address] * (ABNORMAL) Comprehensive Metabolic Panel (CMP) (05/02/2022 4:04 AM CDT) SODIUM 137 136 - 144 mmol/L 05/02/2022 4:34 AM CDT [facility] POTASSIUM 3.9 3.5 - 5.1 mmol/L 05/02/2022 4:34 AM CDT [facility] CHLORIDE 102 100 - 110 mmol/L 05/02/2022 4:34 AM CDT [facility] CO2, VENOUS 21(L) 22 - 32 mmol/L 05/02/2022 4:34 AM CDT [facility] ANION GAP 17.9 8.0 - 20.0 mmol/L 05/02/2022 4:34 AM CDT [facility] GLUCOSE 180(H) 70 - 99 mg/dL 05/02/2022 4:34 AM CDT [facility] BUN 21 8 - 23 mg/dL 05/02/2022 4:34 AM CDT [facility] CREATININE, BLOOD 0.90 0.80 - 1.30 mg/dL 05/02/2022 4:34 AM CDT [facility] BUN/CREATININE RATIO 23(H) 12 - 20 ratio 05/02/2022 4:34 AM CDT [facility] TOTAL PROTEIN 6.6 6.0 - 8.3 g/dL 05/02/2022 4:34 AM CDT [facility] ALBUMIN 3.6 3.5 - 5.2 g/dL 05/02/2022 4:34 AM CDT [facility] Comment: The colormetric methods used for the determination of Albumin may lead to falsely elevated test results in patients suffering from renal failure or insufficiency due to interference with other proteins. A/G RATIO 1.2 1.0 - 2.0 05/02/2022 4:34 AM CDT [facility] CALCIUM 9.0 8.9 - 10.3 mg/dL 05/02/2022 4:34 AM CDT [facility] T BILI 0.7 <=1.2 mg/dL 05/02/2022 4:34 AM CDT [facility] SGOT (AST) 17 <=40 U/L 05/02/2022 4:34 AM CDT [facility] SGPT (ALT) 16 <=41 U/L 05/02/2022 4:34 AM CDT [facility] ALKALINE PHOSPHATASE 55 40 - 130 U/L 05/02/2022 4:34 AM CDT [facility] GFR, EST. NONAFRICAN >60 >=60 05/02/2022 4:34 AM CDT [facility] GFR, EST. >60 >=60 022 4:34 AM CDT [facility] Comment: Creatinine Clearance is the preferred criteria for selecting drug dose adjustments in renally impaired patients. The GFR is provided as additional pertinent clinical information. GFR is reported in mL/min/1.73 sq m. Blood Venipuncture / Unknown 05/02/2022 4:04 AM CDT 05/02/2022 4:04 AM CDT Dale Morrison MD CHEMISTRY ORDERABLES Final Result [facility] [address] [place] [address] from Last 3 Months or Most Recently [...] measures to stabilize the patient. Care Teams Land Measurer Relationship Specialty Start Date End Date Gamaliel Hinojosa MD PCP - General Internal Medicine 05/01/22
--- OUTSIDE RECORDS SUMMARY | 2024-12-28 11:03 | XMS_ITS | Clinical Summary ---
Author Organization [facility] [employer] Address [address] [place] [address] Care Team Providers Care Manager Retirement Name Role Phone Fabiana Bergman APRN-DAVE Primary Care Prov ider Unavailable Source Comments [facility] [employer],non-owned Affiliates and Associated Physician Practices is amultiple site organization consisting of ambulatory clinics and hospital sitesin [place], [place], [place] and [place]. This disclosure is being madepursuant to the Care Everywhere program and may not contain all information available regarding this patient. Last updated 18.[facility] [employer] Allergies Active Allergy Reactions Criticality Noted Date [...] Comments Blood Pressure 138/67 12/12/2019 2:30 PM FINAL CANOE INSPECTOR Pulse 84 12/12/2019 2:30 PM FINAL CANOE INSPECTOR Temperature 36.6 C (97.8 F) 12/12/2019 9:38 AM FINAL CANOE INSPECTOR Respiratory Rate 22 12/12/2019 2:30 PM FINAL CANOE INSPECTOR Oxygen Saturation 95% 12/12/2019 3:00 PM FINAL CANOE INSPECTOR Inhaled Oxygen Concentration - - Weight 97.5 kg (215 lb) 12/12/2019 9:38 AM FINAL CANOE INSPECTOR Height 177.8 cm (5' 10 ) 12/12/2019 9:54 AM FINAL CANOE INSPECTOR Body Mass Index 30.85 12/12/2019 9:38 AM FINAL CANOE INSPECTOR Plan of Treatment Health Maintenance Due Date [...] complete this topic MENINGOCOCCAL (Group B) VACCINE SHARED DECISION-MAKING Aged Out No longer eligible based on patient's age to complete this topic MENINGOCOCCAL GROUPS A/C/Y/W VACCINE Aged Out No longer eligible based on patient's age to complete this topic Care Teams Manager Retirement Relationship Specialty Start Date End Date Fabiana Bergman, BRIAN-DAVE Update Information PCP - General Nurse Practitioner 12/12/19
--- OUTSIDE RECORDS SUMMARY | 2024-12-28 11:03 | XMS_ITS | CONTINUITY OF CARE DOCUMENT ---
Author Name darciechristalrosie Address Unknown Organization [facility] Address [address] [place] [address] Phone [phone] Care Team Providers Care Women'S Soccer Coach Name Role Phone Anastasia Hilton MD Unavailable Gamaliel Hinojosa MD Unavailable Gamaliel Hinojosa MD Unavailable [phone] INSURANCE PROVIDERS Payer name Policy type / Coverage type [place] red libertarian ID HUMANA O O [id number]
--- OUTSIDE RECORDS SUMMARY | 2024-12-28 11:03 | XMS_ITS | Referral Summary ---
Author Organization [facility] [employer] Address [address] [place] [address] Care Team Providers Care Personnel Recruiter Name Role Phone Fabiana Bergman APRN-DAVE Primary Care Prov ider Unavailable Source Comments [facility] [employer],non-owned Affiliates and Associated Physician Practices is amultiple site organization consisting of ambulatory clinics and hospital sitesin [place], [place], [place] and [place]. This disclosure is being madepursuant to the Care Everywhere program and may not contain all information available regarding this patient. Last updated 18.[facility] [employer] Allergies Active Allergy Reactions Criticality Noted Date [...] Comments Blood Pressure 138/67 12/12/2019 2:30 PM LITERATURE TEACHER Pulse 84 12/12/2019 2:30 PM LITERATURE TEACHER Temperature 36.6 C (97.8 F) 12/12/2019 9:38 AM LITERATURE TEACHER Respiratory Rate 22 12/12/2019 2:30 PM LITERATURE TEACHER Oxygen Saturation 95% 12/12/2019 3:00 PM LITERATURE TEACHER Inhaled Oxygen Concentration - - Weight 97.5 kg (215 lb) 12/12/2019 9:38 AM LITERATURE TEACHER Height 177.8 cm (5' 10 ) 12/12/2019 9:54 AM LITERATURE TEACHER Body Mass Index 30.85 12/12/2019 9:38 AM LITERATURE TEACHER Plan of Treatment Not on file Care Teams Personnel Recruiter Relationship Specialty Start Date End Date Fabiana Bergman, ENGINEER ASSISTANT-DAVE Update Information PCP - General Nurse Practitioner 12/12/19
--- OUTSIDE RECORDS SUMMARY | 2024-12-28 11:04 | XMS_ITS | Data Portability ---
Author Organization 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 Plan of Treatment Reminders Order Date Submit Date Provider Last Modified By Organization Details Last Modified Time Details Appointments Any 15 2024 09:15A Lisandro Tucker MD Not available Not available Not available Medicare Wellness 15 2024 08:15A Lisandro Tucker MD Not available Not available Not available Lab PSA, total, serum or plasma 2023 024 [facility] Outpatient Lab, [address] [place], [address], 06/13/2024 21:16:58 CMP, serum or plasma [email or web address] [place] [address] Outpatient Lab, [address] [place], [address], 06/20/2024 10:10:03 glycohemo globin, total, blood 2023 024 [facility] Outpatient Lab, [address] [place], [address], 06/13/2024 21:06:01 microalbu min, urine 2023 024 [facility] Outpatient Lab, [address] [place], [address], 06/13/2024 21:02:23 lipid panel, serum 2023 024 [facility] Outpatient Lab, [address] [place], [address], 06/13/2024 20:25:09 Referral None recorded. Procedures None recorded. Surgeries None recorded. Imaging None recorded. Medication Orders None recorded. Patient TargetsNo targets recorded. Patient Instructions Encounter Date Encounter Id Patient Instructions Last Modified By Organization Details Last Modified Time 06/13/2024 [id number] dementia rating scale-2* Not available 06/13/2024 13:23:22 alcohol misuse* Not available 06/13/2024 13:23:21 depression screening* Not available 06/13/2024 13:23:21 Timed Up and Go test (TUG)* Not available 06/13/2024 13:23:22 multi-dimensiona l health assessment questionnaire* Not available 06/13/2024 13:23:22 advance care planning: care instructions Not available 06/13/2024 13:23:22 advance directiv es: care instructions Not available 06/13/2024 13:23:21 [place] Advance Directives Not available 06/13/2024 13:23:22 Personalized [facility] lt Plan and Screening Recommendations Advance Directives [...] have no recommendations Depression Screening: Negative Positive [email or web address] Not available 06/13/2024 12:05:44 Reason for Referral None Reported. Results Created Date Observation Date Name Description Value Unit Range Abnormal Flag Note LastModifiedBy Organization Detail LastModifiedTime 02/09/20 24 02/09/2024 COMPR EHENS YINA METAB OLIC PANEL sodium 138 mmol/ L 137-14 5 Not Available [facility] (Lab) [address] [place], [address], 02/09/2024 21:24:41 02/09/20 24 02/09/2024 COMPR EHENS YINA METAB OLIC PANEL potassium 4.2 mmol/ L 3.5-5. 1 Not Available [facility] (Lab) [address] [place], [address], 02/09/2024 21:24:41 02/09/20 24 02/09/2024 COMPR EHENS YINA METAB OLIC PANEL chloride 100 mmol/ L 98-107 Not Available [facility] (Lab) [address] [place], [address], 02/09/2024 21:24:41 02/09/20 24 02/09/2024 COMPR EHENS YINA METAB OLIC PANEL carbon dioxide 30 mmol/ L 22-30 Not Available [facility] (Lab) [address] [place], [address], 02/09/2024 21:24:41 02/09/20 24 02/09/2024 COMPR EHENS YINA METAB OLIC PANEL anion gap 12.2 mmol/ L 14-22 low Not Available [facility] (Lab) [address] [place], [address], 02/09/2024 21:24:41 02/09/20 24 02/09/2024 COMPR EHENS YINA METAB OLIC PANEL glucose 129 mg/dL 70-99 high Not Available [facility] (Lab) [address] [place], [address], 02/09/2024 21:24:41 02/09/20 24 02/09/2024 COMPR EHENS YINA METAB OLIC PANEL BUN 24 mg/dL 8-19 high Not Available [facility] (Lab) [address] [place], [address], 02/09/2024 21:24:41 02/09/20 24 02/09/2024 COMPR EHENS YINA METAB OLIC PANEL creatinine 0.80 mg/dL 0.66-1 .25 Not Available [facility] (Lab) [address] [place], [address], 02/09/2024 21:24:41 02/09/20 24 02/09/2024 COMPR EHENS YINA METAB OLIC PANEL GFR >60 Refer ence Range : Darien ge GFR Healt hy Adult : >60 [...] calcu lator is avail able on the [facility] websi te: https ://ww w.kid mercedez.o rg/pr ofess ional s/kdo qi/gf r_cal culat or Not Available [facility] (Lab) [address] [place], [address], 02/09/2024 21:24:41 02/09/20 24 02/09/2024 COMPR EHENS YINA METAB OLIC PANEL alkaline phosphatase 80 U/L 38-126 Not Available [facility] (Lab) [address] [place], [address], 02/09/2024 21:24:41 02/09/20 24 02/09/2024 COMPR EHENS YINA METAB OLIC PANEL alanine aminotransfe rase 21 U/L 0-[address] [facility] (Lab) [address] [place], [address], 02/09/2024 21:24:41 02/09/20 24 02/09/2024 COMPR EHENS YINA METAB OLIC PANEL aspartate aminotransfe rase 29 U/L 15-[address] [facility] (Lab) [address] [place], [address], 02/09/2024 21:24:41 02/09/20 24 02/09/2024 COMPR EHENS YINA METAB OLIC PANEL bilirubin, total 0.40 mg/dL 0.20-1 .30 Not Available [facility] (Lab) [address] [place], [address], 02/09/2024 21:24:41 02/09/20 24 02/09/2024 COMPR EHENS YINA METAB OLIC PANEL calcium 9.8 mg/dL 8.4-10 .2 Not Available [facility] (Lab) [address] [place], [address], 02/09/2024 21:24:41 02/09/20 24 02/09/2024 COMPR EHENS YINA METAB OLIC PANEL total protein 6.9 g/dL 6.3-8. 2 Not Available [facility] (Lab) [address] [place], [address], 02/09/2024 21:24:41 02/09/20 24 02/09/2024 COMPR EHENS YINA METAB OLIC PANEL albumin 4.3 g/dL 3.0-4. 4 Not Available [facility] (Lab) [address] [place], [address], 02/09/2024 21:24:41 02/09/20 24 02/09/2024 COMPR EHENS YINA METAB OLIC PANEL globulin 2.6 g/dL 2.6-4. 2 Not Available [facility] (Lab) [address] [place], [address], 02/09/2024 21:24:41 02/09/20 24 02/09/2024 COMPR EHENS YINA METAB OLIC PANEL A/G ratio 1.7 ratio 1.0-2. 0 Not Available [facility] (Lab) [address] [place], [address], 02/09/2024 21:24:41 02/09/20 24 02/09/2024 HEMOG LOBIN A1C HA1C 5.7 % 4.0-6. 0 Diabe jazlyn Scree catalina Crite karol: <5.7% Consi stent with absen ce of diabe jazlyn 5.7-6 .4% Consi stent with incre ased risk for diabe jazlyn (pred iabet es) >OR=6 .5% Consi stent with diabe jazlyn REFER ENCE: Diabe jazlyn Care 2016, 39(Montesinos ppl.1 ):s13 -s22 Not Available [facility] (Lab) [address] [place], [address], 02/09/2024 22:14:22 06/13/2006/13/2024 LIPID PANEL cholesterol 106 mg/dL 140-19 9 low NIH ELYSSA NSUS RECOM MENDA TION FOR DEX STERO L: ADULT CHILD LOW RISK: <200 <170 BORDE RLINE : <200- 239 ----- HIGH RISK: >240 >200 Not Available [facility] (Lab) [address] [place], [address], 06/13/2024 20:25:09 06/13/2006/13/2024 LIPID PANEL triglyceride s 182 mg/dL 0-150 high NIH ELYSSA NSUS REPOR T RECOM MENDA TION FOR TRIGL YCERI SILVIA: ADULT CHILD LOW RISK: <150 ----- BODER LINE: 150-1 99 ----- HIGH RISK: >200 ----- Not Available [facility] (Lab) [address] [place], [address], 06/13/2024 20:25:09 06/13/2006/13/2024 LIPID PANEL HDL cholesterol 29 mg/dL 40- low Not Available [facility] (Lab) [address] [place], [address], 06/13/2024 20:25:09 06/13/2006/13/2024 LIPID PANEL LDL cholesterol, [...] WILL NOT BE REPOR AURELIA. Not Available [facility] (Lab) [address] [place], [address], 06/13/2024 20:25:09 06/13/20 24 06/13/2024 MICRO ALBUM IN RANDO M URINE microalbumin , urine 19.7 mg/L 0.0-16 .6 high Not Available [facility] (Lab) [address] [place], [address], 06/13/2024 21:02:23 06/13/20 24 06/13/2024 HEMOG LOBIN A1C HA1C 6.9 % 4.0-6. 0 high Diabe jazlyn Scree catalina Crite karol: <5.7% Consi stent with absen ce of diabe jazlyn 5.7-6 .4% Consi stent with incre ased risk for diabe jazlyn (pred iabet es) >OR=6 .5% Consi stent with diabe jazlyn REFER ENCE: Diabe jazlyn Care 2016, 39(Montesinos ppl.1 ):s13 -s22 Not Available [facility] (Lab) [address] [place], [address], 06/13/2024 21:06:01 06/13/20 24 06/13/2024 PSA SCREE N PSA medicare screen 0.90 NG/mL 0.00-4 .00 Not Available [facility] (Lab) [address] [place], [address], 06/13/2024 21:16:58 04/24/20 24 04/24/2024 CT, abdom en + pelvi s, w/ contr ast No observ ation record ed. [facility] ([facility] Sched[facility]) [address] [place], [address], 04/24/2024 17:57:10 Result Notes None recorded. Problems Name Problem SNOMED Code Status Onset Date Resolution Date Notes Provider Name and Address Organization Details Recorded Time Chronic obstructi ve pulmonary disease 03700031 Active Not Available [facility] 3 16:29:39 Hearing loss 23574408 Active 2020 Not Available [employer] 3 16:29:39 Blood glucose outside reference range 088986574 Completed Not Available [facility] 3 05:19:23 Acute exacerbat ion of chronic obstructi ve pulmonary disease 954170112 Completed 201601/10/2019 Not Available [facility] 3 05:19:23 Asthma 957747904 Active 2017 Not Available [facility] 3 16:29:39 Non-small cell lung cancer 977749798 Active 2020 Not Available [facility] 3 16:29:39 Fever with chills 384685683 Completed 202101/26/2023 BERTO Brooks null, [employer] 3 10:44:22 Acute perforate d appendici tis 340601280 Active 2021 Not Available [facility] 3 16:29:39 Hypertrig lyceridem ia 861378274 Active Not Available [facility] 3 16:29:39 Type 2 diabetes mellitus without complicat ion 352108901 Completed 202101/26/2023 Susana Haro LPN null, [facility] 3 15:08:08 Malignant tumor of lung 206364427 Active 2019 Not Available [facility] 3 16:29:40 Umbilical hernia 281548001 Completed Not Available [facility] 3 05:19:23 Former heavy tobacco smoker 71528354629 4100 Active 2017 Not Available [facility] 3 16:29:40 Chill 22570235 Completed 202101/26/2023 BERTO Brooks null, [facility] 3 10:44:31 Hyperlipi demia 63186868 Active Not Available [facility] 3 16:29:40 Essential hypertens ion 70584392 Active Not Available [facility] 3 16:29:40 Allergic rhinitis 88805791 Active Not Available [facility] 3 16:29:40 Diabetes mellitus 80459242 Active Not Available [facility] 3 16:29:40 Nodule of lung 804091567 Completed 201912/26/2019 Not Available [facility] 3 05:19:24 Ex-smoker 1133249 Active Not Available [facility] 3 16:29:40 Hernia of anterior abdominal wall 293733929 Active 2022 Not Available [facility] 3 16:29:40 Lower abdominal pain 61831100 Active 2022 Not Available [facility] 3 16:29:40 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 77090829500 858130 Active 2022 Not Available [facility] 3 16:29:39 Chronic cough 23720966 Active 2022 Not Available [facility] 3 16:29:40 Dyspnea on exertion 42798934 Active 2022 Not Available [facility] 3 16:29:40 Environme ntal allergy 541588687 Active 2022 Not Available [facility] 3 16:29:40 Incisiona l hernia 161884913 Active 2022 Not Available [facility] 3 16:29:39 Groin mass 442291189 Active 2022 Not Available [facility] 3 16:29:39 Type 2 diabetes mellitus without complicat ion 101521731 Active 2022 Not Available [facility] 3 16:29:40 Ventral incisiona l hernia 727681407 Active 2022 Not Available [facility] 3 16:29:40 Mass of soft tissue 037225141 Active 2022 Not Available [facility] 3 16:29:40 Problem Notes None recorded. Procedures Surgical History Date Name Laterality Status Provider Name and Address Organization Details Recorded Time 09/20/20 24 Medicare Wellness CPT Code, subsequent completed BERTO Sim [facility] 09/20/2024 10:17:25 09/20/20 24 Advanced Care Planning completed Bettie Perdomo [facility] 09/20/2024 10:17:25 06/13/20 24 Medicare Wellness CPT Code, subsequent completed Bettie Perdomo, [facility] 06/13/2024 10:27:30 06/13/20 24 Advanced Care Planning completed Kimmy Diana RN [facility] 06/13/2024 11:59:03 05/22/20 24 Chronic care management services completed Alyce Baker [facility] 05/22/2024 18:15:55 04/19/20 Chronic care management services completed Alyce Baker [facility] 04/19/2024 15:32:32 03/07/20 24 Chronic care management services completed Rohini Delgado, [facility] 03/07/2024 15:12:01 02/07/20 24 Medicare Wellness CPT Code, subsequent completed Bettie Perdomo [facility] 02/07/2024 14:28:19 05/25/20 23 Medicare Wellness CPT Code, subsequent completed Megan Bravo RN [facility] 05/25/2023 10:39:42 05/10/20 17 Rpr umbil debbie reduc < 5 yr completed Not Available [facility] 12/16/2022 05:14:05 lobectomy of lung completed Not Available [facility] 12/16/2022 05:14:05 other completed Not Available [facility] 10/2022 05:14:05 nasal polypectomy completed Not Available [facility] 12/16/2022 05:14:05 Imaging Results Imaging Date Name Status LastModified by Organiz ation Details LastModified Time 04/24/2024 CT, abdomen + pelvis, w/ contrast completed [facility] ([facility] Sched[facility]) [address] [place], [address], 04/24/2024 17:57:10 Procedure Notes None recorded. Medical Equipment None Reported. Allergies Allergen ID Allergen Name Allergen Category Reaction Reaction Severity Criticality Documentation Date Start Date Code Code System Note Provider Name and Address Organization Details Recorded Time 73944 [email or web address] ne Not available Not available Not available Not available 05/22/2024 15223 RxNorm Other react ions and sever ities : 'Adve rse react ion to subst ance' . Alyce Baker, [facility] null, [place] [facility] [place] [facility] [facility] 4 18:12:56 9681 acetamino phen / hydrocodo ne medicatio n rash Not available Not available 12/16/2022 03478 2 RxNorm Not Available [facility] 3 05:26:56 Medications Name Sig Start Date [...] rf Not Available Not Available Not Available triamcino lone acetonide 55 mcg nasal spray aerosol USE 2 SPRAYS NASALLY DAILY 01/27 completed Not Available Not Available Not Available metoprolo l tartrate 50 mg tablet TAKE 1 TABLET TWICE DAILY 2024 active [facility] 09/20/24 NOV 01/16/25 ok [...] hr TAKE 2 TABLETS TWICE A DAY 2024 active [facility] 09/20/24 NOV 01/16/25 ok to rf Not Available Not Available Not Available amoxicill in 875 mg-potass ium clavulana [...] Not Available No t Available Fluzone High-Dose 2019-20 (PF) 180 mcg/0.5 mL intramusc ular syringe active Not Available Not Available Not Available Fluad Quad (65yr up)(PF) 60 mcg (15 mcg x 4)/0.5mL IM syringe PHARMACY ADMINIST ERED active Not Available Not Available No t Available True Metrix Glucose Meter kit 05/25 completed Not Available Not Available Not Available Vitals Date Recorded Body height Provider Name an d Address Organization Details Last Updated DateTime 03/07/2024 177.8 cm Rohini Delgado, [facility] 03/07/2024 14:35:36 Date Recorded Body height Provider Name an d Address Organization Details Last Updated DateTime 04/19/2024 177.8 cm Alyce Baker [facility] 04/19/2024 15:28:37 Date Recorded Body height Provider Name an d Address Organization Details Last Updated DateTime 05/22/2024 177.8 cm Alyce Baker [facility] 05/22/2024 18:12:44 Date Recorded Body height Body mass index (BMI) Body weight Body temperature Heart rate Oxygen saturation Oxygen saturation in Arterial blood by Pulse oximetry Systolic blood pressure Diastolic blood pressure Provider Name and Address Organization Details Last Updated DateTime 4 177.8 cm 28.1 kg/m2 69485.1 g 96.8 [degF] 88 /min 93 % 93 % 124 mm[Hg] 62 mm[Hg] BERTO Quinones [facility] 10:26:37 Date Recorded Pain severity - 0-10 verbal numeric rating [Score] - Reported Provider Name and Address Organization Details Last Updated DateTime 06/13/2024 0 Kimmy Diana RN [facility] I L [facility] 06/13/2024 11:56:09 Date Recorded Body height Body mass index (BMI) Body weight Body temperature Heart rate Oxygen saturation Oxygen saturation in Arterial blood by Pulse oximetry Systolic blood pressure Diastolic blood pressure Provider Name and Address Organization Details Last Updated DateTime 4 177.8 cm 28 kg/m2 88206.5 1 g 97.6 [degF] 88 /min 94 % 94 % 136 mm[Hg] 74 mm[Hg] Bettie zhu, [facility] [place] [facility] 10:16:02 Social History Question Answer Notes LastModified by Organization Details LastModified Time Tobacco Smoking Status Former Smoker quit age 60 Not Available [facility] 12/16/2022 05:12:17 Do You Have An Advance Directive? Yes States Has A Living Will, Provided Papers As He Is Unsure If He And His Both Have This [email or web address] Information not available 06/13/2024 What Is Your Level Of Alcohol Consumption? Moderate Three Oz Rum Per Day [email or web address] Information not available 05/25/2023 How Many Years Have You Consumed Alcohol? 58 Since 19 Years Old [email or web address] Information not available 06/13/2024 Are You Blind Or Do You Have Difficulty Seeing? Yes States Has Focus Difficulties Since Starting Chemo [email or web address] Information not available 06/13/2024 Is Blood Transfusion Acceptable In An Emergency? Yes [email or web address] Information not available 06/13/2024 What Is Your Level Of Caffeine Consumption? Moderate Coffee Everyday One Cup Per Day MIGRATION.823 [id number] Information not available 12/16/2022 In The 14 Days Before Symptom Onset, Have You Had Close Contact With A Laboratory-conf irmed COVID-19 While That Case Was Ill? No Not Applicable [email or web address] Information not available 06/13/2024 In The 14 Days Before Symptom Onset, Have You Had Close Contact With A Person Who Is Under Investigation For COVID-19 While That Person Was Ill? No Not Applicable [email or web address] Information not available 06/13/2024 Are You Currently Employed? No Information not available 03/07/2024 Are You Deaf Or Do You Have Serious Difficulty Hearing? Yes Has Hearing Aids, Does Not Wear Them. [email or web address] Information not available 06/13/2024 What Type Of Diet Are You Following? DIABETIC Not Strictly [email or web address] Information not available 06/13/2024 Do You Or Have You Ever Used E-cigarettes Or Vape? Never Used Electronic Cigarettes MIGRATION.962 [id number] Information not available 12/16/2022 What Is The Highest Grade Or Level Of School You Have Completed Or The Highest Degree You Have Received? BG97178-5 [email or web address] Information not available 06/13/2024 What Is Your Occupation? Retired [email or web address] Information not available 03/07/2024 How Many Days Of Moderate To Strenuous Exercise, Like A Brisk Walk, Did You Do In The Last 7 Days? 7 Walking [email or web address] Information not available 03/07/2024 On Those Days That You Engage In Moderate To Strenuous Exercise, How Many Minutes, On Average, Do You Exercise? 60 Information not available 03/07/2024 Have There Been Any Changes To Your Family Or Social Situation? No [email or web address] Information not available 03/07/2024 What Is The Fluoride Status Of Your Home? Fluoridated MIGRATION.536 [id number] Information not available 12/16/2022 When Did You Quit Smoking? 11-15yearssincelas tcigarette MIGRATION.215 [id number] Information not available 12/16/2022 Are There Any Guns Present In Your Home? No [email or web address] Information not available 03/07/2024 Do You Use Insect Repellent Routinely? No Information not available 03/07/2024 Where Do You Live? SingleLevelHouse [email or web address] Information not available 06/13/2024 Presence Of Domestic Violence No [email or web address] Information not available 05/25/2023 Guns Present In The Home? No Information not available 03/07/2024 Are You Able To Care For Yourself? Yes [email or web address] Information not available 05/25/2023 Are You Blind Or Do Yo Have Difficulty Seeing? No [email or web address] Information not available 05/25/2023 Are You Deaf Or Do You Have Serious Difficulty Hearing? Yes Low Tones. Doesn't Wear Hearing Aids Often [email or web address] Information not available 05/25/2023 General Stress Level? Low Information not available 03/07/2024 Live Alone Of With Others? With Others Information not available 05/25/2023 Are You Following A Low Salt Diet? Yes [email or web address] Information not available 06/13/2024 Do You Have A Medical Power Of Engineer/Conductor? No [email or web address] Information not available 06/13/2024 What Was The Date Of Your Most Recent Tobacco Screening? 06/13/2024 [email or web address] Information not available 06/13/2024 How Many Children Do You Have? 1 [email or web address] Information not available 06/13/2024 What Is Your Current Pack Years? [email or web address] Information not available 06/13/2024 Have You Ever Been Counseled For Unhealthy Alcohol Use? No MIGRATION.668 [id number] Information not available 12/16/2022 Do You Have Any Pets? No Dog Passed July 2023 [email or web address] Information not available 03/07/2024 What Is Your Relationship Status? [email or web address] Information not available 03/07/2024 Do You Use Your Seat Belt Or Car Seat Routinely? Yes MIGRATION.738 [id number] Information not available 12/16/2022 Are You Sexually Active? No [email or web address] Information not available 06/13/2024 Do You Have Smoke And Carbon Monoxide Detectors In Your Home? Yes MIGRATION.459 [id number] Information not available 12/16/2022 At What Age Did You Start Smoking Tobacco? 13 MIGRATION.880 [id number] Information not available 12/16/2022 Are You Passively Exposed To Smoke? No Information not available 03/07/2024 Do You Or Have You Ever Used Smokeless Tobacco? Never Used Smokeless Tobacco MIGRATION.292 [id number] Information not available 12/16/2022 Are There Any Smokers In Your House? No Information not available 03/07/2024 How Much Tobacco Do You Smoke? 1 PPD MIGRATION.897 [id number] Information not available 12/16/2022 What Types Of Sporting Activities Do You Participate In? None [email or web address] Information not available 06/13/2024 Do You Feel Stressed (tense, Restless, Nervous, Or Anxious, Or Unable To Sleep At Night)? [id number] [email or web address] Information not available 05/22/2024 Do You Use Any Illicit Or Recreational Drugs? No MIGRATION.089 [id number] Information not available 12/16/2022 Do You Use Sunscreen Routinely? No MIGRATION.694 [id number] Information not available 12/16/2022 How Many Years Have You Smoked Tobacco? 50 MIGRATION.723 [id number] Information not available 12/16/2022 Have You Recently Traveled Abroad? No [email or web address] Information not available 03/07/2024 Do You Have Any Dietary Restrictions? Yes Supposed To Avoid Sugars [email or web address] Information not available 06/13/2024 Do You Or Have You Ever Used Any Other Forms Of Tobacco Or Nicotine? Yes Pipe MIGRATION.112 [id number] Information not available 12/16/2022 How Many Days In The Past Year Have You Consumed 5 Or More Drinks? 0 Never [email or web address] Information not available 06/13/2024 Sex: Unknown Functional Status Question Answer Note LastModified by Organizat QCoefficient Details LastModified Time Do you have difficulty walking or climbing stairs? Yes Chemotherapy affecting walking abilities [email or web address] Information not available 03/07/2024 Do you have transportation difficulties? No MIGRATION.55742 93467 Information not available 12/16/2022 Are you able to walk? YESASSIST Uses cane at times [email or web address] Information not available 03/07/2024 Do you have difficulty doing errands alone? No MIGRATION.61854 19804 Information not available 12/16/2022 Are you able to care for yourself? Yes MIGRATION.41132 21905 Information not available 12/16/2022 Do you have difficulty dressing or bathing? Yes [email or web address] Information not available 03/07/2024 What is your exercise level? Moderate MIGRATION.12038 32798 Information not available 12/16/2022 Mental Status Question Answer Note LastModified by Organizat QCoefficient Details LastModified Time Do you have difficulty concentrating, remembering or making decisions? Yes states since starting chemo has more difficulty wiith memory [email or web address] Information not available 06/13/2024 Family History Relationship Description Onset Age of this Age Resolved Age Notes LastModified by Organization Details LastModified Time Brother Hypertensive disorder [id number] Not available 12/16/2022 05:14:06 Brother Hypertensive disorder [id number] Not available 12/16/2022 05:14:06 Brother Hypertensive disorder [id number] Not available 12/16/2022 05:14:06 Father Hypertensive disorder [id number] Not available 12/16/2022 05:14:06 Sister Hypertensive disorder [id number] Not available 12/16/2022 05:14:06 Sister Hypertensive disorder [id number] Not available 12/16/2022 05:14:06 Mother Hypertensive disorder [id number] Not available 12/16/2022 05:14:06 Medical History Condition Response COPD Y HIGH CHOLESTEROL / HYPERLIPIDEMIA Y DIABETES, TYPE Y HYPERTENSION Y Immunizations Vaccine Type Date Status Note Provider Nam e and Address Organization Details Recorded Time Influenza, split virus, trivalent, preservative 4 completed Not Available [facility] 06/29/2023 05:27:22 Influenza, split virus, trivalent, PF 3 completed Not Available [facility] 06/29/2023 05:27:22 COVID-19, mRNA, LNP-S, PF, 30 mcg/0.3 mL dose 1 completed Not Available [facility] 06/29/2023 05:27:22 COVID-19, mRNA, LNP-S, PF, 30 mcg/0.3 mL dose 1 completed Not Available [facility] 06/29/2023 05:27:22 Influenza, high-dose, trivalent, PF 1 completed Not Available [facility] 06/29/2023 05:27:22 SARS-COV-2 (COVID-19) vaccine, UNSPECIFIED 1 completed Not Available [facility] 06/29/2023 05:27:22 Influenza, split virus, quadrivalent, preservative 0 completed Not Available [facility] 06/29/2023 05:27:22 influenza, unspecified formulation 8 completed Not Available [facility] 06/29/2023 05:27:22 Influenza, high-dose, trivalent, PF 9 completed Not Available [facility] 06/29/2023 05:27:22 zoster live 3 completed Not Available [facility] 06/29/2023 05:27:22 pneumococcal polysaccharide PPV23 3 completed Not Available [facility] 06/29/2023 05:27:22 pneumococcal conjugate PCV 7 6 completed Not Available [facility] 06/29/2023 05:27:22 Influenza, high-dose, trivalent, PF 7 completed Not Available [facility] 06/29/2023 05:27:22 Influenza, high-dose, trivalent, PF 6 completed Not Available [facility] 06/29/2023 05:27:22 Pneumococcal conjugate PCV 13 6 completed Not Available [facility] 06/29/2023 05:27:22 Influenza, split virus, trivalent, preservative 5 completed Not Available [facility] 06/29/2023 05:27:22 pneumococcal polysaccharide PPV23 4 completed Not Available [facility] 06/29/2023 05:27:22 Past Encounters Encounter ID Performer Location Encounter Start Date Encounter Closed Date Diagnosis/Indication Diagnosis SNOMED-CT Code Diagnosis ICD10 Code Diagnosis Note [id number] [facility] [address] [facility] [place] [address] 03/03/2021 00:00:00 03/03/2021 10:43:41 [id number] [facility] [place] [address] [place] [address] 05/12/2021 00:00:00 05/12/2021 13:45:43 [id number] [facility] [address] [facility] [place] [address] 07/14/2021 00:00:00 07/14/2021 10:50:48 [id number] [facility] [address] [facility] [place] [address] 10/06/2021 00:00:00 10/06/2021 10:32:34 [id number] [facility] [place] [address] [place] [address] 11/10/2021 00:00:00 11/10/2021 13:33:05 [id number] [facility] [address] [facility] [place] [address] 02/03/2022 00:00:00 02/03/2022 12:55:07 [id number] [facility] [place] [address] [place] [address] 04/13/2022 00:00:00 04/13/2022 10:27:08 [id number] [facility] [address] [facility] [place] [address] 05/26/2022 00:00:00 05/26/2022 16:50:29 [id number] [facility] [address] [place] [address] 09/29/2022 00:00:00 09/29/2022 11:44:22 [id number] [facility] [place] [address] [place] [address] 11/03/2022 00:00:00 11/03/2022 16:49:19 [id number] Yanira Tucker MD [facility] Internal [address] [place] [address] 01/26/2023 10:39:28 01/26/2023 11:29:17 Essential hypertension 85280554 I10 Under control Diabetes mellitus 885913 09 E11.9 Keep watching diet, under control Chronic ob structive pulmonary disease 07644637 J44.9 Under control with meds Hyperlipidemia 37066073 E78.5 Labs good Hearing loss 29312321 H9 1.93 Hearing aids help Malignant tumor of lung 333328934 C34.90 no recurrence Adult heal th examination 968179894 Z00.00 Colonoscop y- 08/05/2016 PSA- 03/08Pneumo vax- 07/27/2014 Ksajnmc14- 03/25/2016 Eye exam-yearl yInfluenza Vacc- 07/2021, 08/08COVID Vacc- 12/06/20 & 12/27/20, 06/03/21, 08/08 Hernia of anterior abdominal wall 735995339 K43.9 [id number] Ezekiel bridges MD [facility] General Surgery [address] [address] 02/02/2023 10:46:22 02/02/2023 12:33:55 Lower abdominal pain 01300872 R10.30 [id number] Ezekiel bridges MD [facility] General Surgery [address] [address] 03/02/2023 10:24:53 03/17/2023 13:30:14 Lower abdominal pain 58894931 R10.30 [id number] [facility] [place] [address] [place] [address] 03/09/2023 09:49:22 03/09/2023 10:29:43 Asthma-chronic obstructive pulmonary disease overlap syndrome [id number] 2389609 J44.9 CAT 12ACT 24Overlap syndrome.P FT 09/21/17 with FEV1 55%.Flow volume loop with significan t expiratory coving.41% increase in FEV1 post-[facility] hodilator. He had repeat study prior to [...] 6 months, PRN for concerns Chronic cough 76627570 R 05.3 Multifacto ralLabs as above Environmental allergy 42 3833001 T78.49XD Saline nasal rinsesCont inue flonase and allergy pill Dyspnea on exertion 6084 5006 R06.09 Check labs Non-small cell lung cancer 564375203 C34.90 T1b N0M0 stage 1A adenocarci noma S/P FLAQUITA lobectomy on 02/01/20Fo llows with Dr Lilly chest 01/2022 through oncology with no evidence of metastatic disease, no new nodule or mass, old granulomat ous diseaseCT chest 10/2022 reviewed, no new nodule, mass, adenopathy Ex-smoker 8879481 Z87.[address] currently through oncology - recommend at least yearly [id number] Ezekiel bridges MD [facility] General Surgery [address] [place] [address] 03/23/2023 11:25:48 04/13/2023 07:57:06 Incisional hernia 299110129 K43.2 [id number] Yanira Tucker MD [facility] Internal [address] [facility] [place] [address] 05/25/2023 10:10:33 05/25/2023 11:13:06 Essential hypertension 89903403 I10 watch Diabetes mellitus 364414 09 E11.9 Keep watching diet, under control Chronic ob structive pulmonary disease 61810123 J44.9 Under control with meds Hyperlipidemia 41112552 E78.5 Labs good Hearing loss 86322980 H9 1.93 Hearing aids help Malignant tumor of lung 465828810 C34.90 no recurrence Adult heal th examination 898193027 Z00.00 Colonoscop y- 08/05/2016 PSA- 02/20/22Pne umovax- 07/27/2014 Akkfduz11- 03/25/2016 Eye exam-yearl yInfluenza Vacc- 07/2021, 08/08COVID Vacc- 12/06/20 & 12/27/20, 06/03/21, 08/08 Hernia of anterior abdominal wall 905083489 K43.9 needs surgery Screening for disorder 213430624 Z13.9 Ex-smoker 4756466 Z87.89 1 Groin mass 447820842 R19 .00 Screening for malignant neoplasm of prostate 200672491 Z12.5 [id number] Ezekiel bridges MD [facility] General Surgery [address] [address] 06/10/2023 10:36:09 06/10/2023 14:51:20 Ventral incisional hernia 195068238 K43.2 Mass of soft tissue 4449 36268 R22.9 Left inguinal [id number] Yanira Tucker MD [facility] Internal [address] [facility] [place] [address] 06/25/2023 10:55:06 06/25/2023 11:36:52 Diabetes mellitus 18713097 E11.9 Keep watching diet, ^ the jardianc eto 25 mg qd, samples, may not afford it [id number] Ezekiel bridges MD [facility] General Surgery [address] [address] 07/13/2023 10:21:29 07/13/2023 12:23:42 [id number] Ezekiel bridges MD [facility] General Surgery [address] [place] [address] 07/20/2023 10:17:49 07/20/2023 14:28:17 [id number] Ezekiel bridges MD [facility] General Surgery [address] [place] [address] 07/27/2023 10:15:30 07/27/2023 16:33:47 [id number] Fabiana Bergman, [facility] [address] [place] [address] 09/07/2023 09:52:16 09/07/2023 10:54:40 Asthma-chronic obstructive pulmonary disease overlap syndrome [id number] 2401332 J44.9 Overlap syndrome.P FT 09/21/17 with FEV1 55%.Flow volume loop with significan t expiratory coving.41% increase in FEV1 post-[facility] hodilator. He had repeat study 04/2023.Ra marlen [...] R06.09 Multifacto ralIncreas e excercise Chronic cough 95402767 R 05.3 Multifacto ralIGGS, IGE normalRast with multiple positives. Quantifero n GOLD negative Environmental allergy 42 8387418 T78.49XD Saline nasal rinsesCont inue flonase and allergy pill Non-small cell lung cancer 901245622 C34.90 T1b N0M0 stage 1A adenocarci noma S/P FLAQUITA lobectomy on 02/01/20Fo llows with Dr Lilly chest 01/2022 through oncology with no evidence of metastatic disease, no new nodule or mass, old granulomat ous diseaseCT chest 10/2022 reviewed, no new nodule, mass, adenopathy [facility]23 Ex-smoker 8245644 Z87.[address] currently through oncology - recommend at least yearly [id number] Yainra Tucker MD [facility] Internal [address] [place] [address] 09/16/2023 16:23:18 09/16/2023 20:07:58 Groin mass 078692086 R19.[address] oncology Dr Gomez soon to make planuse pieces of gauge to prevent rubbing and bleeding [id number] Yanira Tucker MD [facility] Internal [address] [place] [address] 02/07/2024 14:03:15 02/07/2024 15:07:12 Essential hypertension 27500629 I10 under control Diabetes mellitus 732760 09 E11.9 Keep watching diet, Chronic ob structive pulmonary disease 52312162 J44.9 Under control with meds Hyperlipidemia 20815869 E78.5 Labs good Hearing loss 71206165 H9 1.93 TO USE Hearing aids Malignant tumor of lung 043948370 C34.90 no recurrence Hernia of anterior abdominal wall 580822308 K43.9 s/p surgery Adult heal th examination 143453523 Z00.00 Colonoscop y- 08/05/2016 PSA- 02/20/22Pne umovax- 07/27/2014 Ntdipzm49- 03/25/2016 Eye exam-yearl yInfluenza Vacc- 07/2021, 08/08COVID Vacc- 12/06/20 & 12/27/20, 06/03/21, 08/08 Ex-smoker 4065977 Z87.89 1 [id number] Bailee Patel [facility] Internal Med [address] [facility] [place] [address] 03/07/2024 14:31:05 06/26/2024 13:28:04 Type 2 diabetes mellitus without complication 170238419 E11.9 Essential hypertension 99122553 I10 [id number] Bailee Patel [facility] Internal [address] [place] [address] 04/19/2024 15:27:12 06/28/2024 17:32:16 Chronic obstructive pulmonary disease 38828468 J44.9 Type 2 graciela betes mellitus without complication 404342792 E11.9 Hyperlipidemia 23373588 E78.5 Malignant tumor of lung 111865249 C34.90 [id number] Bailee Patel [facility] Internal Med [facility] [address] [facility] [place] [address] 05/22/2024 18:11:19 07/04/2024 12:28:49 Type 2 diabetes mellitus without complication 124708849 E11.9 Ex-smoker 8993123 Z87.89 1 Essential hypertension 41977933 I10 Hyperlipidemia 51127226 E78.5 [id number] Yanira Tucker MD [facility] Internal Med [facility] [address] [place] [address] 06/13/2024 10:22:13 06/13/2024 11:37:35 Essential hypertension 76699511 I10 under control Diabetes mellitus 073381 09 E11.9 UNDER CONTROL Chronic ob structive pulmonary disease 85654222 J44.9 Under control with meds Hyperlipidemia 86602118 E78.5 Labs today Hearing loss 26307607 H9 1.93 TO USE Hearing aids Malignant tumor of lung 547197510 C34.90 metastatic , getting chemo Hernia of anterior abdominal wall 643626431 K43.9 s/p surgery Adult heal th examination 874172366 Z00.00 Colonoscop y- 08/05/2016 PSA- 05/25/23- DUEPneumov ax- 07/27/2014 Ypauwwj69- 03/25/2016 Eye exam-yearl y- DUEInfluen za Vacc- 07/2021, 2022 (per pt)RSV- 2022 [employer] Vacc- 12/06/20 & 12/27/20, 06/03/21, 08/08 Ex-smoker 5168034 Z87.89 1 PET- 09/28/23 Screening for malignant neoplasm of prostate 272613018 Z12.5 Groin mass 373864071 R19 .00 metastatic lung cancer, Screening for disorder 633779246 Z13.9 [id number] Yanira Tucker MD [facility] Internal Med [facility] [address] [place] [address] 09/20/2024 09:49:49 09/20/2024 10:41:14 Essential hypertension 48714133 I10 under control Diabetes mellitus 986957 09 E11.9 under control Chronic ob structive pulmonary disease 14639570 J44.9 Under control with meds Hyperlipidemia 45151665 E78.5 under control Hearing loss 27953292 H9 1.93 TO USE Hearing aids, discussed Malignant tumor of lung 937853152 C34.90 metastatic , Hernia of anterior abdominal wall 633243359 K43.9 s/p surgery Adult heal th examination 341012555 Z00.00 Colonoscop y- 08/05/2016 PSA- 06/13/2024 Pneumovax- 07/27/2014 Rkgjzna45- 03/25/2016 Eye exam-yearl y- DUEInfluen za Vacc- 07/2021, 08/08, 2022, 2023(per pt)RSV- 2022 [employer]OV ID Vacc- 12/06/20 & 12/27/20, 06/03/21, 08/08 Ex-smoker 2778850 Z87.89 1 PET- 09/28/23 Groin mass 705076778 R19 .00 metastatic lung cancer, on treatment [...] with minimal assistance NoChange active 2023 Rohini Delgado, CCM Information not available 03/07/2024 19:04:24 Lipid Levels Maintains normal lipid levels as defined by care team NoClisa active 2023 Rohini Delgado CCM Information not [...] plan as per care team recommendation (s) NoClisa active 2023 Rohini Delgado CCM Information not available 03/07/2024 19:05:17 Health Concerns Section Related Observation LastModified by Organization Detai ls LastModified Time None Recorded Concern Status LastModified by Organization Details LastModified Time Essential hypertension Active Rohini Delgado CCM Not Available 03/07/2024 19 :05:34 Type 2 diabetes mellitus without complication Active Rohini Delgado CCM Not Available 03/07/2024 19 :05:17 Malignant tumor of lung Active Rohini Delgado CCM Not Available 03/07/2024 19 :05:51 [...] (MEDICARE REPLACEMENT/ ADVANTAGE - PPO) Forrest Otoole [id number] Forrest Otoole 04/19/2024 1 [employer] (MEDICARE REPLACEMENT/ ADVANTAGE - PPO) Forrest Otoole [id number] Forrest Otoole 05/22/2024 1 [employer] (MEDICARE REPLACEMENT/ ADVANTAGE - PPO) Forrest Friend Xiang [id number] Forrest Friend Xiang 06/13/2024 1 [employer] (MEDICARE REPLACEMENT/ ADVANTAGE - PPO) Forrest Friend Xiang [id number] Forrest Friend Xiang 09/20/2024 1 [employer] (MEDICARE REPLACEMENT/ ADVANTAGE - PPO) Forrest Friend Xiang [id number] Forrest Friend Xiang Notes Date Note Type [...] 250 mcg/Salmeterol 50 mcg 1 puff BIDDM-under [id number] 5.7No hypoglycemia., No neuropathyDM eye exam- 03/2023 [...] seeing oncology dr Patricia Tucker MD [address] [facility] [facility] [address], [place], [address], [place] [facility] [employer] 06/13/2024 13:23:27 09/20/2024 text/html Here for routine [...] puff BIDDM-under control Accu checks reviewed, under [id number] 6.9 (06/13/24)No hypoglycemia.,No neuropathyDM eye exam- 03/2023 [...] seeing oncology dr Patricia Tucker MD [address] [facility], [facility] [address], [place], [address], [place] [facility] [employer] [facility] 09/20/2024 13:02:29
--- OUTSIDE RECORDS SUMMARY | 2024-12-28 11:04 | XMS_ITS | Clinical Summary ---
Author Organization [facility] Conchita ly Zistephaniepreet Address [address] [place] [address] Care Team Providers Care Operating Room Specialist Name Role Phone Gamaliel Hinojosa MD Primary Care Provider [phone] Allergies Active Allergy Reactions Criticality Noted Date Comments Hydrocodone-Acetaminophe n Rash,Itching Medium 12/08/2019 Reports itching and rash Medications blood sugar diagnostic (Contour Next Test Strips) Strip Contour Next Test Strips USE 1 STRIP 3 TIMES DAILY Active Vit B Comp & C-Vit E-FA-Altagracia-Zn (Adult One Daily Multivitamin) 0.4 mg Tablet Take 1 Tablet by mouth. Active fenofibrate micronized (LOFIBRA) 200 mg Capsule Take 200 mg by mouth daily. Active fluticasone propionate (FLONASE) 50 mcg/spray [place], Suspension nasal inhaler fluticasone propionate 50 mcg/actuation nasal spray,suspension Active glimepiride (AMARYL) 4 mg tablet glimepiride 4 mg tablet TAKE 1 TABLET BY MOUTH TWICE A DAY Active hydroCHLOROthia zide 25 mg tablet hydrochlorothiazide 25 mg tablet Active metoprolol tartrate (LOPRESSOR) 50 mg tablet metoprolol tartrate 50 mg tablet TAKE 1 TABLET BY MOUTH TWICE A DAY 010 Active montelukast (SINGULAIR) 10 mg tablet Take 10 mg by mouth daily at bedtime. Active simvastatin (ZOCOR) 20 mg tablet simvastatin 20 mg tablet Active metFORMIN (GLUCOPHAGE) 500 mg tablet Take 500 mg by mouth 2 times daily with meals. Active fluticasone propion-salmete roL (ADVAIR DISKUS,WIXELA INHUB) 250-50 mcg/dose disk inhaler Take 1 Puff by inhalation 2 times daily. Active flu vaccine quadrivalent MF59C (65 yr+)(PF)(FLUAD QUAD) 60 mcg/0.5 mL IM syringe Fluad Quad (65yr up)(PF) 60 mcg (15 mcg x 4)/0.5mL IM syringe PHARMACY ADMINISTERED Act chandu tiotropium bromide (SPIRIVA RESPIMAT INHALATION) Take by inhalation. Active albuterol sulfate 90 mcg/Actuation inhaler albuterol sulfate HFA 90 mcg/actuation aerosol inhaler Active metFORMIN (GLUCOPHAGE XR) 500 mg Extended Release 24 hour tablet metformin ER 500 mg tablet,extended release 24 hr Active Jardiance 10 mg tablet Take 10 mg by mouth daily in the morning. 023 Active ondansetron (ZOFRAN ODT) 8 mg Tablet, Rapid DissolveIndicat ions:Non-small cell cancer of left lung (CMS/HCC) Dissolve 1 tablet on top of tongue then swallow with saliva every 8 hours as needed for nausea or vomiting 30 Tablet 1 024 Active lidocaine-prilo no (EMLA) 2.5-2.5 % CreamIndication s:Non-small cell cancer of left lung (CMS/HCC) Apply to affected area see administration instructions. 30 Gram 1 024 Active dexAMETHasone (DECADRON) 4 mg tabletIndicatio ns:Non-small cell cancer of left lung (CMS/HCC) Take 1 tablet by mouth BID day before treatment, day of treatment, and day after treatment. 6 Tablet 3 024 Active megestroL (MEGACE) 400 mg/10 mL (40 mg/mL) suspensionIndic ations:Non-smal l cell cancer of left lung (CMS/HCC) TAKE 5 ML BY MOUTH DAILY. 180 mL 024 Active Active Problems Problem Noted Date Diagnosed Date Non-small cell cancer of left lung 12/27/2019 Resolved Problems Problem Noted Date Diagnosed Date Resolved Date Protein-calorie malnutrition, moderate 02/08/2020 02/15/2020 Encounters Date Type Department Care Team Description 12/25/2024 Orders Only [facility] On[facility] and Hematology - [place] [address] [place] [id number] Mario Alberto Gomez MD Non-small cell cancer of left lung (CMS/HCC); Benign hypertension 12/22/2024 Orders Only [facility] On[facility] Hematology - [place] [address] [place] [address] Mario Alberto Gomez MD 12/21/2024 Orders Only [facility]ology - [place] [address] [place] [address] Mario Alberto Gomez MD 12/20/2024 External Device Data STL ABSTRACTION Provider, Abstract 12/11/2024 Orders Only [facility] On[facility] and Hematology - [place] [address] [place] [address] Mario Alberto Gomez MD Non-small cell cancer of left lung (CMS/HCC); Benign hypertension 12/06/2024 External Device Data STL ABSTRACTION Provider, Abstract 12/05/2024 External Device Data STL ABSTRACTION Provider, Abstract 2024 9:30 AM CREPE MAKER Office Visit [facility] Hematology - [place] [address] [place] [address] Mario Alberto Gomez MD Non-small cell cancer of left lung (CMS/HCC) (Primary Dx) 2024 Orders Only [facility] On[facility] and Hematology - [place] [address] [place] [address] Mario Alberto Gomez MD Non-small cell cancer of left lung (CMS/HCC) (Primary Dx); Benign hypertension 11/20/2024 Orders Only [facility] On[facility] Hematology - [place] [address] [place] [address] Mario Alberto Gomez MD 11/13/2024 Orders Only [facility] Oncology and Hematology - [place] [address] [place] [address] Mario Alberto Gomez MD Non-small cell cancer of left lung (CMS/HCC) 11/10/2024 Abstract [facility] On[facility] and Hematology - [place] [address] Mario Alberto Gomez MD 11/09/2024 8:30 AM CREPE MAKER Office Visit [facility] Oncology and Hematology - [place] [address] [place] [id number] Mario Alberto Gomez MD Non-small cell cancer of left lung (CMS/HCC) (Primary Dx) 11/07/2024 External Device Data STL ABSTRACTION Provider, Abstract 10/30/2024 Orders Only [facility] Oncology and Hematology - [place] [address] Mario Alberto Gomez MD Non-small cell cancer of left lung (CMS/HCC) 10/27/2024 Orders Only [facility] On[facility] and Hematology - [place] [address] [place] [address] Mario Alberto Gomez MD 10/23/2024 Orders Only [facility] Oncology and Hematology - [place] [address] [place] [id number] Mario Alberto Gomez MD Non-small cell cancer of left lung (CMS/HCC); Benign hypertension 10/16/2024 Orders Only [facility] Oncology and Hematology - [place] [address] [place] [id number] Mario Alberto Goemz MD Non-small cell cancer of left lung (CMS/HCC) 10/09/2024 Orders Only [facility] Oncology and Hematology - [place] [address] [place] [address] Mario Alberto Gomez MD Non-small cell cancer of left lung (CMS/HCC); Benign hypertension 10/04/2024 Orders Only [facility] Oncology and Hematology - [place] [address] [place] [address] Mario Alberto Gomez MD 10/03/2024 Orders Only [facility] Oncology and Hematology - [place] [address] [place] [address] Mario Alberto Gomez MD 10/02/2024 Orders Only [facility] Oncology and Hematology - [place] [address] [place] [address] Mario Alberto Gomez MD Non-small cell cancer of left lung (CMS/HCC) from Last 3 Months Immunizations Immunization Administration Dates Next Due Influenza Seasonal Unspecified Formulation IM Family History Medical History Relation Name Comments Diabetes Brother 1 Heart Disease Brother 1 Heart Disease Brother 2 Heart Disease Brother 3 Heart Disease Brother 4 Emphysema Father Cancer Sister 1 Relation Name Status Comments Brother 1 Alive Brother 2 Brother 3 Brother 4 Father Mother Sister 1 Alive Sister 2 Alive Son Alive Social History Tobacco Use Types Packs/Day Years Used Date Smoking Tobacco: Former Cigarettes 1 25 0 12/26/1980 - 12/26/2005 Smokeless Tobacco: Never Tobacco Cessation:Counseling Given: Not Answered Alcohol Use Standard Drinks/Week Comments Yes 0 (1 standard drink = 0.6 oz pur e alcohol) 3oz hard liquor nightly Sex and Gender Information Value Date Recorded Sex Assigned at Not on file Legal Sex Male 2:25 PM CDT Gender Identity Not on file Sexual Orientation Not on file Last Filed Vital Signs Vital Sign Reading Time Taken Comments Blood Pressure 150/81 2024 9:35 AM CREPE MAKER Pulse 82 2024 9:32 AM CREPE MAKER Temperature 35.7 C (96.2 F) 2024 9:32 AM CREPE MAKER Respiratory Rate 15 2024 9:32 AM CREPE MAKER Oxygen Saturation 94% 2024 9:32 AM CREPE MAKER Inhaled Oxygen Concentration - - Weight 88.5 kg (195 lb 3.2 oz) 2024 9:32 A M CREPE MAKER Height 177.8 cm (5' 10 ) 07/28/2022 9:55 AM CDT Body Mass Index 28.01 07/28/2022 9:55 AM CDT Plan of Treatment Upcoming Encounters Date Type Department Care Team (Late st Contact Info) Description 01/11/2025 8:30 AM CDT Office Visit [facility] Oncology and Hematology - [place] [address] [place] [address] Mario Alberto Gomez MD [address] [facility] [address] [place] [address] Health Maintenance Due Date Last Done Comments DIABETES ANNUAL FOOT EXAM 1964 DIABETES ANNUAL RETINAL EXAM 1964 DIABETES MICROALBUMIN ANNUAL SCREEN 1964 LDL CHOLESTEROL ANNUAL 1964 DTAP/TDAP/TD VACCINES (1 - Tdap) 1965 ZOSTER VACCINE (2 of 3) 06/05/2013 04/10/2013 RSV VACCINE (60+ or ) (1 - 1-dose 75+ series) 2021 DIABETES HBA1C Q 6 MONTHS 11/03/2022 05/03/2022, INFLUENZA VACCINE (#1) 2024 , 07/29/2020, 08/07/2019, Additional history exists COVID-19 Vaccine (3 - 2023-2 5 season) 2024 12/27/2020, 12/06/2020 [place] Preventative Visit/Annual Wellness Visit 10/18/2024 09/20/2024, 06/13/2024, 02/07/2024, Additional history exists PNEUMOCOCCAL VACCINE 50+ YEARS Completed 0 03/25/2016, 07/27/2014, 03/29/2013, Additional history exists Medical Devices Implanted Type Area Crop Nutrition Scientist Device Identifier Shelf Expiration Date Model / Serial / Lot Sealant Progel Pleural 4ml [id number] - [id number] Implanted:Qty : 1 on 02/01/2020 by Denis Garcia MD at [facility] Tissue Left: Lung [employer] [id number] 05/18/2021 [id number] / / [id number] Sealant Progel Pleural 4ml [id number] - [id number] Implanted:Qty : 1 on 02/01/2020 by Denis Garcia MD at [facility] Tissue Left: Lung [employer] [id number] 05/18/2021 [id number] / / [id number] Procedures Procedure Name Priority Date/Time Associated Diagnosis Comments BASIC METABOLIC PANEL Routine 12/21/2024 2:21 PM CREPE MAKER COMPREHENSIVE METABOLIC PANEL Routine 12/21/2024 8:53 AM CREPE MAKER COMPREHENSIVE METABOLIC PANEL Routine 11/09/2024 11:13 AM CREPE MAKER BASIC METABOLIC PANEL Routine 11/09/2024 10:01 AM CREPE MAKER BASIC METABOLIC PANEL Routine 10/20/2024 11:40 AM CREPE MAKER COMPREHENSIVE METABOLIC PANEL Routine 10/20/2024 11:07 AM CREPE MAKER COMPREHENSIVE METABOLIC PANEL Routine 10/20/2024 10:51 AM CREPE MAKER CBC WITH DIFFERENTIAL Routine 10/20/2024 10:23 AM CREPE MAKER QUANTIFERON TB CONFIRMATION Routine 10/03/2024 10:39 AM CREPE MAKER BASIC METABOLIC PANEL Routine 09/29/2024 11:17 AM CREPE MAKER COMPREHENSIVE METABOLIC PANEL Routine 09/29/2024 11:03 AM CREPE MAKER from Last 3 Months Results * BASIC METABOLIC PANEL (12/21/2024 2:21 PM CREPE MAKER) Only the most recent of4 resultswithin the time period is included. Blood us Mario Alberto Gomez MD CHEMISTRY ORDERABLES Final Resu lt * COMPREHENSIVE METABOLIC PANEL (12/21/2024 8:53 AM CREPE MAKER) Only the most recent of5 resultswithin the time period is included. Blood us Mario Alberto Gomez MD CHEMISTRY ORDERABLES Final Resu lt * CBC WITH DIFFERENTIAL (10/20/2024 10:23 AM CREPE MAKER) Blood us Mario Alberto Gomez MD HEMATOLOGY ORDERABLES Final Res ult * QUANTIFERON TB CONFIRMATION (10/03/2024 10:39 AM CREPE MAKER) Blood us Mario Alberto Gomez MD CHEMISTRY ORDERABLES Final Resu lt from Last 3 Months Insurance HU[employer] CHOICE PPO MCR HU[employer]NA CHOICE PPO MCR Advance Directives For more information, please contact: [phone] * Full Code (Latest Code Status on File) Date Activated Date Inactivated Comments 02/01/2020 5:32 AM 02/08/2020 6:20 PM Care Teams Operating Room Specialist Relationship Specialty Start Date End Date Gamaliel Hinojosa MD [address] [id number] PCP - General Internal Medicine 12/27/19
== END 2024-12-28 09:38 | disposition home or self-care (01) ==
PROVIDERS: PCP Internal Medicine; Visit Provider Internal Medicine Hematology & Oncology
DX: K66.8 Other specified disorders of peritoneum (principal); R59.0 Localized enlarged lymph nodes; C34.92 Malignant neoplasm of unspecified part of left bronchus or lung
CPT/HCPCS: 71260; 74177; Q9967

== ENCOUNTER 2025-03-29 08:48 | Outpatient (CLI) | payer MEDICARE, SELFPAY ==
--- NOTE | ~2025-03-29 | CT_ITS ---
Clinical Indication: Lung cancer CT Scan of the Chest, Abdomen, and Pelvis with Contrast: Technique: Contiguous sections were acquired throughout the chest, abdomen, and pelvis after intraven ous administration of 100 cc of Omnipaque 350. Dose reduction technique was used on this scan by uti lizing automated exposure control and iterative reconstruction technique. The dose-length product (DL P) was 885.17 mGy-cm. Comparison: 12/28/2024 Findings: There is been interval progression of metastatic lymphadenopathy in the superior mediastinum and righ t paratracheal stripe, largest node at the right paratracheal stripe now measuring 3.2 x 2.5 cm in si ze. Additional probable progressing adenopathy at the left hilar region (axial image 68). There is no evidence of pleural or pericardial effusion. Status post left upper lobectomy. No suspicious pulmonary lesion identified in the lungs. Calcified l eft lower lobe granuloma present. The liver, spleen, pancreas, and adrenal glands are within normal limits. Gallbladder is relatively c ontracted with small gallstones. Multiple bilateral renal cysts are present. Small nonobstructing rig ht renal stones are present. There are extensive atherosclerotic calcifications of the aorta and grace c vessels. No lymphadenopathy. No bowel obstruction or bowel wall thickening. There is no evidence to suggest acute appendicitis. Urinary bladder is unremarkable. Stable 1.7 cm mass at the perineum of the midline (axial image 277). . No ascites. Impression: Interval progression of metastatic lymphadenopathy in the mediastinum and left hilum, as detailed abo ve. Status post left upper lobectomy. Stable 1.7 cm mass in the perineum at the midline, as detailed above. Cholelithiasis. Right nephrolithiasis. Reviewed, dictated and finalized at [facility]. Impression: Interval progression of metastatic lymphadenopathy in the mediastinum and left hilum, as detailed above. Status post left upper lobectomy. Stable 1.7 cm mass in the perineum at the midline, as detailed above. Cholelithiasis. Right nephrolithiasis.
--- OUTSIDE RECORDS SUMMARY | 2025-03-29 09:09 | XMS_ITS | Clinical Summary ---
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 Phone Gamaliel Hinojosa MD Primary Care Provider [phone] Allergies Active Allergy Reactions Criticality Noted Date [...] 12:50 PM CDT Height 177.8 cm (5' 10) 05/13/2022 12:50 PM CDT Body Mass Index [...] Diabetes: Nephropathy Screening 05/02/2023 05/02/2022, 05/01/2022, 05/01/2022 SARS-COV-2 Immunization ( season) 2024 01/16/2022, 06/03/2021, 12/27/2020, Additional history exists Influenza Immunization (Season Ended) 2025 08/15/2021, 08/01/2021, 07/29/2020, Additional history exists Pneumococcal Immunization (50+ years) Completed 03/25/2016, 07/27/2014, 03/29/2013, Additional history exists Hepatitis B Immunization Aged Out No longer eligible based on patient's age to complete this topic Human Papillomavirus (HPV) Immunization Aged Out No longer eligible based [...] 6.0 % 05/03/2022 4:39 AM CDT [facility] Est Average Glucose 159.9 mg/dL 05/03/2022 4:39 AM CDT [facility] Blood Venipuncture / Unknown 05/03/2022 4:11 AM CDT 05/03/2022 4:11 AM CDT Narrative [facility] - 05/03/2022 4:39 AM CDT HEMOGLOBIN A1C: DIABETIC PATIENTS: WELL-CONTROLLED: 6.2 - 7.0 INTERMEDIATE WELL-CONTROLLED: 7.0 - 9.0 POORLY-CONTROLLED: >9.0 us Doretha Reeves MD CHEMISTRY ORDERABLES Final Result [facility] [address] [place] [address] * (ABNORMAL) Comprehensive Metabolic Panel (CMP) (05/02/2022 4:04 AM CDT) SODIUM 137 136 - 144 mmol/L 05/02/2022 4:34 AM CDT [facility] POTASSIUM 3.9 3.5 - 5.1 mmol/L 05/02/2022 4:34 AM CDT [facility] CHLORIDE 102 100 - 110 mmol/L 05/02/2022 4:34 AM CDT [facility] CO2, VENOUS 21(L) 22 - 32 mmol/L 05/02/2022 4:34 AM CDT [facility] ANION GAP 17.9 8.0 - 20.0 mmol/L 05/02/2022 4:34 AM CDT [facility] GLUCOSE 180(H) 70 - 99 mg/dL 05/02/2022 4:34 AM CDT [facility] BUN 21 8 - 23 mg/dL 05/02/2022 4:34 AM CDT [facility] CREATININE, BLOOD 0.90 0.80 - 1.30 mg/dL 05/02/2022 4:34 AM CDT [facility] BUN/CREATININE RATIO 23(H) 12 - 20 ratio 05/02/2022 4:34 AM CDT [facility] TOTAL PROTEIN 6.6 6.0 - 8.3 g/dL 05/02/2022 4:34 AM CDT [facility] ALBUMIN 3.6 3.5 - 5.2 g/dL 05/02/2022 4:34 AM CDT [facility] Comment: The colormetric methods used for the determination of Albumin may lead to falsely elevated test results in patients suffering from renal failure or insufficiency due to interference with other proteins. A/G RATIO 1.2 1.0 - 2.0 05/02/2022 4:34 AM CDT [facility] CALCIUM 9.0 8.9 - 10.3 mg/dL 05/02/2022 4:34 AM CDT [facility] T BILI 0.7 <=1.2 mg/dL 05/02/2022 4:34 AM CDT [facility] SGOT (AST) 17 <=40 U/L 05/02/2022 4:34 AM CDT [facility] SGPT (ALT) 16 <=41 U/L 05/02/2022 4:34 AM CDT [facility] ALKALINE PHOSPHATASE 55 40 - 130 U/L 05/02/2022 4:34 AM CDT [facility] GFR, EST. NONAFRICAN >60 >=60 05/02/2022 4:34 AM CDT [facility] GFR, EST. >60 >=60 022 4:34 AM CDT [facility] Comment: Creatinine Clearance is the preferred criteria for selecting drug dose adjustments in renally impaired patients. The GFR is provided as additional pertinent clinical information. GFR is reported in mL/min/1.73 sq m. Blood Venipuncture / Unknown 05/02/2022 4:04 AM CDT 05/02/2022 4:04 AM CDT Dale Morrison MD CHEMISTRY ORDERABLES Final Result [facility] [address] [place] [address] from Last 3 Months or Most Recently [...] measures to stabilize the patient. 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
--- OUTSIDE RECORDS SUMMARY | 2025-03-29 09:09 | XMS_ITS | Clinical Summary ---
Author Organization [facility] Address [address] [facility] [place] [address] Care Team Providers Care Engineering Director Name Role Phone Fabiana Bergman APRN-DAVE Primary Care Prov ider Unavailable Source Comments [facility],non-owned Affiliates and Associated Physician Practices is amultiple site organization consisting of ambulatory clinics and hospital sitesin [place], [place], [place] and [place]. This disclosure is being madepursuant to the Care Everywhere program and may not contain all information available regarding this patient. Last updated 18.[facility] Allergies Active Allergy Reactions Criticality Noted Date Comments Hydrocodone-Acetaminophen Rash Medium 12/08/2019 Reports itching and rash Medications * Be aware that medications may not be up to date on this document. Alwaysverify current medications with the patient. metoprolol tartrate (LOPRESSOR) 50 MG tabletIndicatio ns:Hypertension Take 50 mg by mouth 2 times daily Reasons: High Blood Pressure Disorder 0 Active metFORMIN (GLUCOPHAGE) 500 MG tablet Take 500 mg by mouth 2 times daily with morning and evening meal Active glimepiride (AMARYL) 2 MG tablet Take 2 mg by mouth daily with breakfast Active glimepiride (AMARYL) 1 MG tablet Take 1 mg by mouth daily with breakfast Active fluticasone-serafin meterol (ADVAIR/WIXELA) 250-50 MCG/DOSE inhaler Inhale 1 puff [...] at Not on file Legal Sex Male 3:33 PM [employer]CK [employer] Gender Identity Not on file Sexual Orientation Not on file Last Filed Vital Signs Vital Sign Reading Time Taken Comments Blood Pressure 138/67 12/12/2019 2:30 PM [employer]ING Pulse 84 12/12/2019 2:30 PM [employer] Temperature 36.6 C (97.8 F) 12/12/2019 9:38 AM [employer]ING Respiratory Rate 22 12/12/2019 2:30 PM MUCK [employer]ER [employer]ING Oxygen Saturation 95% 12/12/2019 3:00 PM [employer]ING Inhaled Oxygen Concentration - - Weight 97.5 kg (215 lb) 12/12/2019 9:38 AM [employer]ING Height 177.8 cm (5' 10) 12/12/2019 9:54 AM [employer]ING Body Mass Index 30.85 12/12/2019 9:38 AM [employer]ER BLASTING Plan of Treatment Health Maintenance Due Date Last Done Comments HEPATITIS C SCREENING 11/25/1963 DTAP/TDAP/TD VACCINES (1 - Tdap) 1965 PNEUMOCOCCAL VACCINE 50+ (1 of 1 - PCV) 1996 ZOSTER VACCINE (1 of 2) 1996 Respiratory Syncytial Virus (RSV) Vaccine Pt: or over 60 yrs (1 - 1-dose 75+ series) 2021 COVID-19 VACCINE ( - season) 2024 DEPRESSION SCREENING 10/18/2024 INFLUENZA VACCINE (Season Ended) 2025 07/29/2020, 08/07/2019, 07/26/2019, Additional history exists HEPATITIS B VACCINE Aged Out No longe [...] on patient's age to complete this topic Insurance [employer] Care Teams Engineering Director Relationship Specialty Start Date End Date Fabiana Bergman APRN-DAVE Update Information PCP - General Nurse Practitioner 12/12/19
--- OUTSIDE RECORDS SUMMARY | 2025-03-29 09:09 | XMS_ITS | Data Portability ---
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 Plan of Treatment Reminders Order Date Submit Date Provider Last Modified By Organization Details Last Modified Time Details Appointments Any 2024 09:30A Lisandro Tucker MD Not available Not available Not available Medicare Wellness 2024 08:15A Lisandro Tucker MD Not available Not available Not available Lab glycohemo globin, total, blood 2024 025 [facility], [address] [place], [address], 01/16/2025 20:55:37 CMP, serum or plasma 2024 025 [facility], [address] [place], [address], 01/16/2025 20:46:19 PSA, total, serum or plasma 2023 024 [facility], [address] [place], [address], 06/13/2024 21:16:58 CMP, serum or plasma [email or web address] [facility], [address] [place], [address], 06/20/2024 10:10:03 glycohemo globin, total, blood 2023 024 [facility], [address] [place], [address], 06/13/2024 21:06:01 microalbu min, urine 2023 024 [facility], [address] [place], [address], 06/13/2024 21:02:23 lipid panel, serum 2023 024 [facility], [address] [place], [address], 06/13/2024 20:25:09 Referral None recorded. Procedures None recorded. Surgeries None recorded. Imaging None recorded. Medication Orders None recorded. Patient TargetsNo targets recorded. Patient Instructions Encounter Date Encounter Id Patient Instructions Last Modified By Organization Details Last Modified Time 06/13/2024 [id number] dementia rating scale-2* Not available 06/13/2024 13:23:22 alcohol misuse* Not available 06/13/2024 13:23:21 depression screening* Not available 06/13/2024 13:23:21 Timed Up and Go test (TUG)* Not available 06/13/2024 13:23:22 multi-dimensiona l health assessment questionnaire* Not available 06/13/2024 13:23:22 advance care planning: care instructions Not available 06/13/2024 13:23:22 advance directiv es: care instructions Not available 06/13/2024 13:23:21 [place] Advance Directives Not available 06/13/2024 13:23:22 Personalized [place] [facility] Plan and Screening Recommendations Advance Directives - [...] Non Smoker Alcohol Misuse Screening: Negative Weight: Overweight try to lose 10% of your body weight Physical activity: Need more exercise/physical activity minimum of 20-30 minutes activity that causes mild breathlessness/day Nutrition: Average Refer to attached handout DASH Diet: After Your Visit Fall Risk (screened today): Low Vaccines Pneumococcal: No further needed Influenza: Your next one in the fall of this year Chronic Disease Risks Stroke: Intermediate Risk Active diagnosis, Continue current treatment plan Heart Attack: Intermediate Risk Active diagnosis, Continue current treatment plan Clogging of the Arteries: Intermediate Risk Active diagnosis, Continue current treatment plan Diabetes: Intermediate Risk Active diagnosis, Continue current treatment plan Secondary Prevention/Interven tion (detects treatable diseases before they may cause symptoms, disability, or ) Prostate Cancer Screening: Your next PSA ordered Colon Cancer Screening: Colonoscopy Date Screening Last Performed: __ Eye Disease Screening: No Eye exam necessary Dementia Risk: Low I have no recommendations Depression Screening: Positive I have no recommendations [email or web address] Not available 06/13/2024 12:05:44 Reason for Referral None Reported. Results Created Date Observation Date Name Description Value Unit Range Abnormal Flag Note LastModifiedBy Organization Detail LastModifiedTime 06/13/20 24 06/13/2024 LIPID PANEL cholesterol 106 mg/dL 140-19 9 low NIH ELYSSA NSUS RECOM MENDA TION FOR DEX STERO L: ADULT CHILD LOW RISK: <200 <170 BORDE RLINE : <200- 239 ----- HIGH RISK: >240 >200 Not Available [facility] (Lab) [address] [place], [address], 06/13/2024 20:25:09 06/13/20 24 06/13/2024 LIPID PANEL triglyceride s 182 mg/dL 0-150 high NIH ELYSSA NSUS REPOR T RECOM MENDA TION FOR TRIGL YCERI SILVIA: ADULT CHILD LOW RISK: <150 ----- BODER LINE: 150-1 99 ----- HIGH RISK: >200 ----- Not Available [facility] (Lab) [address] [place], [address], 06/13/2024 20:25:09 06/13/20 24 06/13/2024 LIPID PANEL HDL cholesterol 29 mg/dL 40- low Not Available [facility] (Lab) [address] [place], [address], 06/13/2024 20:25:09 06/13/20 24 06/13/2024 LIPID PANEL LDL cholesterol, calculated 41 mg/dL [...] WILL NOT BE REPOR AURELIA. Not Available [facility] (Lab) [address] [place], [address], 06/13/2024 20:25:09 06/13/20 24 06/13/2024 MICRO ALBUM IN RANDO M URINE microalbumin , urine 19.7 mg/L 0.0-16 .6 high Not Available [facility] (Lab) [address] [place], [address], 06/13/2024 21:02:23 06/13/20 24 06/13/2024 HEMOG LOBIN A1C HA1C 6.9 % 4.0-6. 0 high Diabe jazlyn Scree catalina Crite karol: <5.7% Consi stent with absen ce of diabe jazlyn 5.7-6 .4% Consi stent with incre ased risk for diabe jazlyn (pred iabet es) >OR=6 .5% Consi stent with diabe jazlyn REFER ENCE: Diabe jazlyn Care 2016, 39(Montesinos ppl.1 ):s13 -s22 Not Available [facility] (Lab) [address] [place], [address], 06/13/2024 21:06:01 06/13/20 24 06/13/2024 PSA SCREE N PSA medicare screen 0.90 NG/mL 0.00-4 .00 Not Available [facility] (Lab) [address] [place], [address], 06/13/2024 21:16:58 01/17/20 25 01/16/2025 COMPR EHENS YINA METAB OLIC PANEL sodium 138 mmol/ L 137-14 5 Not Available [facility] (Lab) [address] [place], [address], 01/16/2025 20:46:19 01/17/20 25 01/16/2025 COMPR EHENS YINA METAB OLIC PANEL potassium 4.4 mmol/ L 3.5-5. 1 Not Available [facility] (Lab) [address] [place], [address], 01/16/2025 20:46:19 01/17/20 25 01/16/2025 COMPR EHENS YINA METAB OLIC PANEL chloride 105 mmol/ L 98-107 Not Available [facility] (Lab) [address] [place], [address], 01/16/2025 20:46:19 01/17/20 25 01/16/2025 COMPR EHENS YINA METAB OLIC PANEL carbon dioxide 26 mmol/ L 22-30 Not Available [facility] (Lab) [address] [place], [address], 01/16/2025 20:46:19 01/17/20 25 01/16/2025 COMPR EHENS YINA METAB OLIC PANEL anion gap 11.4 mmol/ L 14-22 low Not Available [facility] (Lab) [address] [place], [address], 01/16/2025 20:46:19 01/17/20 25 01/16/2025 COMPR EHENS YINA METAB OLIC PANEL glucose 158 mg/dL 70-99 high Not Available [facility] (Lab) [address] [place], [address], 01/16/2025 20:46:19 01/17/20 25 01/16/2025 COMPR EHENS YINA METAB OLIC PANEL BUN 29 mg/dL 8-19 high Not Available [facility] (Lab) [address] [place], [address], 01/16/2025 20:46:19 01/17/20 25 01/16/2025 COMPR EHENS YINA METAB OLIC PANEL creatinine 0.87 mg/dL 0.66-1 .25 Not Available [facility] (Lab) [address] [place], [address], 01/16/2025 20:46:19 01/17/20 25 01/16/2025 COMPR EHENS YINA METAB OLIC PANEL GFR >60 Refer ence Range : Hunter ge GFR Healt hy Adult : >60 [...] calcu lator is avail able on the NKF websi te: https ://liz newsome.samantha reyes/pr claudia augustinal s/kdo qi/gf r_cal culat or Not Available [facility] (Lab) [address] [place], [address], 01/16/2025 20:46:19 01/17/20 25 01/16/2025 COMPR EHENS YINA METAB OLIC PANEL alkaline phosphatase 104 U/L 38-126 Not Available [facility] (Lab) [address] [place], [address], 01/16/2025 20:46:19 01/17/20 25 01/16/2025 COMPR EHENS YINA METAB OLIC PANEL alanine aminotransfe rase 27 U/L 0-50 Not Available [facility] (Lab) [address] [place], [address], 01/16/2025 20:46:19 01/17/20 25 01/16/2025 COMPR EHENS YINA METAB OLIC PANEL aspartate aminotransfe rase 32 U/L 15-46 Not Available [facility] (Lab) [address] [place], [address], 01/16/2025 20:46:19 01/17/20 25 01/16/2025 COMPR EHENS YINA METAB OLIC PANEL bilirubin, total 0.40 mg/dL 0.20-1 .30 Not Available [facility] (Lab) [address] [place], [address], 01/16/2025 20:46:19 01/17/20 25 01/16/2025 COMPR EHENS YINA METAB OLIC PANEL calcium 10.1 mg/dL 8.4-10 .2 Not Available [facility] (Lab) [address] [place], [address], 01/16/2025 20:46:19 01/17/20 25 01/16/2025 COMPR EHENS YINA METAB OLIC PANEL total protein 7.0 g/dL 6.3-8. 2 Not Available [facility] (Lab) [address] [place], [address], 01/16/2025 20:46:19 01/17/20 25 01/16/2025 COMPR EHENS YINA METAB OLIC PANEL albumin 4.5 g/dL 3.0-4. 4 high Not Available [facility] (Lab) [address] [place], [address], 01/16/2025 20:46:19 01/17/20 25 01/16/2025 COMPR EHENS IYNA METAB OLIC PANEL globulin 2.5 g/dL 2.6-4. 2 low Not Available [facility] (Lab) [address] [place], [address], 01/16/2025 20:46:19 01/17/20 25 01/16/2025 COMPR EHENS YINA METAB OLIC PANEL A/G ratio 1.8 ratio 1.0-2. 0 Not Available [facility] (Lab) [address] [place], [address], 01/16/2025 20:46:19 01/17/20 25 01/16/2025 HEMOG LOBIN A1C HA1C 6.7 % 4.0-6. 0 high Diabe jazlyn Scree catalina Crite karol: <5.7% Consi stent with absen ce of diabe jazlyn 5.7-6 .4% Consi stent with incre ased risk for diabe jazlyn (pred iabet es) >OR=6 .5% Consi stent with diabe jazlyn REFER ENCE: Diabe jazlyn Care 2016, 39(Montesinos ppl.1 ):s13 -s22 Not Available [facility] (Lab) [address] [place], [address], 01/16/2025 20:55:37 04/24/20 24 04/24/2024 CT, abdom en + pelvi s, w/ contr ast No observ ation record ed. [facility] ([facility]) [address] [place], [address], 04/24/2024 17:57:10 Result Notes None recorded. Problems Name Problem SNOMED Code Status Onset Date Resolution Date Notes Provider Name and Address Organization Details Recorded Time Chronic obstructi ve pulmonary disease 27155399 Active Not Available [facility] 3 16:29:39 Hearing loss 92193337 Active 2020 Not Available [facility] 3 16:29:39 Blood glucose outside reference range 224198296 Completed Not Available [facility] 3 05:19:23 Acute exacerbat ion of chronic obstructi ve pulmonary disease 340691928 Completed 201601/10/2019 Not Available [facility] 3 05:19:23 Asthma 164907178 Active 2017 Not Available [facility] 3 16:29:39 Non-small cell lung cancer 563841069 Active 2020 Not Available [facility] 3 16:29:39 Fever with chills 533391534 Completed 202101/26/2023 BERTO Brooks null, [facility] 3 10:44:22 Acute perforate d appendici tis 604529923 Active 2021 Not Available [facility] 3 16:29:39 Hypertrig lyceridem ia 103826849 Active Not Available [facility] 3 16:29:39 Type 2 diabetes mellitus without complicat ion 427274672 Completed 202101/26/2023 Susana Haro LPN null, [facility] 3 15:08:08 Malignant neoplasm of lung 390190767 Active 2019 Not Available [facility] 3 16:29:40 Umbilical hernia 037024161 Completed Not Available [facility] 3 05:19:23 Former heavy tobacco smoker 01401128236 4100 Active 2017 Not Available [facility] 3 16:29:40 Chill 96401095 Completed 202101/26/2023 REYES BrooksA null, [facility] 3 10:44:31 Hyperlipi demia 14294872 Active Not Available [facility] 3 16:29:40 Essential hypertens ion 49839305 Active Not Available [facility] 3 16:29:40 Allergic rhinitis 17307520 Active Not Available [facility] 3 16:29:40 Diabetes mellitus 08854475 Active Not Available [facility] 3 16:29:40 Nodule of lung 618853733 Completed 201912/26/2019 Not Available [facility] 3 05:19:24 Ex-smoker 3839537 Active Not Available [facility] 3 16:29:40 Hernia of anterior abdominal wall 228228449 Active 2022 Not Available [facility] 3 16:29:40 Lower abdominal pain 01830802 Active 2022 Not Available [facility] 3 16:29:40 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 13570765577 413055 Active 2022 Not Available [facility] 3 16:29:39 Chronic cough 74673973 Active 2022 Not Available [facility] 3 16:29:40 Dyspnea on exertion 25465815 Active 2022 Not Available [facility] 3 16:29:40 Environme ntal allergy 924841916 Active 2022 Not Available [facility] 3 16:29:40 Incisiona l hernia 206811681 Active 2022 Not Available [facility] 3 16:29:39 Groin mass 422406926 Active 2022 Not Available [facility] 3 16:29:39 Type 2 diabetes mellitus without complicat ion 429453255 Active 2022 Not Available [facility] 3 16:29:40 Ventral incisiona l hernia 999273204 Active 2022 Not Available [facility] 3 16:29:40 Mass of soft tissue 275079350 Active 2022 Not Available [facility] 3 16:29:40 Problem Notes None recorded. Procedures Surgical History Date Name Laterality Status Provider Name and Address Organization Details Recorded Time 01/17/20 Medicare Wellness CPT Code, subsequent completed Bettie Farrellleluz elena, [facility] 01/16/2025 10:05:53 01/17/20 Advanced Care Planning completed Bettei Aaronbean, [facility] 01/16/2025 10:05:53 09/20/20 Medicare Wellness CPT Code, subsequent completed Bettie Aaronbean, [facility] 09/20/2024 10:17:25 09/20/20 24 Advanced Care Planning completed Bettie Perdomo, [facility] 09/20/2024 10:17:25 06/13/20 24 Medicare Wellness CPT Code, subsequent completed Bettie Perdomo, [facility] 06/13/2024 10:27:30 06/13/20 24 Advanced Care Planning completed Kimmy Diana RN [facility] 06/13/2024 11:59:03 05/22/20 24 Chronic care management services completed Alyce Baker [facility] 05/22/2024 18:15:55 04/19/20 24 Chronic care management services completed Alyce Baker [facility] 04/19/2024 15:32:32 03/07/20 24 Chronic care management services completed Rohini Delgado [facility] 03/07/2024 15:12:01 02/07/20 24 Medicare Wellness CPT Code, subsequent completed Bettie Perdomo, [facility] 02/07/2024 14:28:19 05/25/20 23 Medicare Wellness CPT Code, subsequent completed Megan Bravo RN [facility] 05/25/2023 10:39:42 05/10/20 17 Rpr umbil debbie reduc < 5 yr completed Not Available [facility] 12/16/2022 05:14:05 lobectomy of lung completed Not Available [facility] 12/16/2022 05:14:05 other completed Not Available [facility] 10/2022 05:14:05 nasal polypectomy completed Not Available [facility] 12/16/2022 05:14:05 Imaging Results None recorded. Procedure Notes None recorded. Medical Equipment None Reported. Allergies Allergen ID Allergen Name Allergen Category Reaction Reaction Severity Criticality Documentation Date Start Date Code Code System Note Provider Name and Address Organization Details Recorded Time 35722 [email or web address] ne Not available Not available Not available Not available 05/22/2024 39997 RxNorm Other react ions and sever ities : 'Adve rse react ion to subst ance' . Alyce Baker, KATH null, [place] [facility] 4 18:12:56 9681 acetamino phen / hydrocodo ne medicatio n rash Not available Not available 12/16/2022 94828 2 RxNorm Not Available [facility] 3 05:26:56 Medications Name Sig Start Date [...] directed for 90 days. 07/14 completed Fabiana Madalyn Not Available Not Available Not Available azithromy [...] TAKE 1 TABLET TWICE DAILY 2024 active Not Available Not Available Not Avai lable triamcino lone acetonide 55 mcg nasal spray aerosol USE 2 SPRAYS NASALLY DAILY 01/27 completed Not Available Not Available Not Available metoprolo l tartrate 50 mg tablet TAKE 1 TABLET TWICE DAILY 2024 active [facility] 01/16/25 NOV 05/21/25 ok to rf Not Available Not Available Not Available monteluka st 10 mg tablet TAKE 1 TABLET BY MOUTH EVERYDAY AT BEDTIME 10/06 completed Not Available Not Available Not Available hydrochlo rothiazid e 25 mg tablet TAKE 1 TABLET EVERY DAY 2024 active [facility] 09/20/24 01/16/25 ok to rf Not Available Not Available Not Available ibuprofen 600 mg tablet TAKE 1 [...] TWICE A DAY 2024 active [facility] 09/20/24 01/16/25 ok to [...] TAKE 1 TABLET EVERY DAY 2024 active Not Available Not Available Not [...] 1 TABLET EVERY DAY 2024 active [facility] 01/16/25 NOV 05/21/25 ok to rf Not Available Not Available Not Available True Metrix Glucose Test Strip TEST BLOOD SUGAR TWICE DAILY active Not Available Not Available No t Available True Metrix Level 1 solution 05/25 completed Not Available Not Available Not Available Keytruda active Oncologi st Not Available Not Available Not Available Spiriva Respimat 2.5 mcg/actua tion solution for inhalatio n INHALE 2 PUFFS EVERY DAY DIRECTED 2024 active [facility] 09/20/24 NOV 01/16/25 ok to rf Not Available Not Available Not Available Incruse Ellipta 62.5 mcg/actua tion powder [...] Not Available Vitals Date Recorded Body height Body mass index (BMI) Body weight Body temperature Heart rate Oxygen saturation Oxygen saturation in Arterial blood by Pulse oximetry Systolic blood pressure Diastolic blood pressure Provider Name and Address Organization Details Last Updated DateTime 5 177.8 cm 28.4 kg/m2 49981.2 9 g 96.7 [degF] 81 /min 93 % 93 % 130 mm[Hg] 72 mm[Hg] BERTO Quinones [employer] 5 10:05:17 Date Recorded Body height Provider Name an d Address Organization Details Last Updated DateTime 04/19/2024 177.8 cm Alyce Baker [facility] Kwanji [facility] 04/19/2024 15:28:37 Date Recorded Body height Provider Name an d Address Organization Details Last Updated DateTime 05/22/2024 177.8 cm Alyce Baker [facility] [employer] [facility] Elance [facility] 05/22/2024 18:12:44 Date Recorded Body height Body mass index (BMI) Body weight Body temperature Heart rate Oxygen saturation Oxygen saturation in Arterial blood by Pulse oximetry Systolic blood pressure Diastolic blood pressure Provider Name and Address Organization Details Last Updated DateTime 4 177.8 cm 28.1 kg/m2 13956.1 g 96.8 [degF] 88 /min 93 % 93 % 124 mm[Hg] 62 mm[Hg] BERTO Quinones [employer] [facility] 4 10:26:37 Date Recorded Body height Body mass index (BMI) Body weight Body temperature Heart rate Oxygen saturation Oxygen saturation in Arterial blood by Pulse oximetry Systolic blood pressure Diastolic blood pressure Provider Name and Address Organization Details Last Updated DateTime 4 177.8 cm 28 kg/m2 74701.5 1 g 97.6 [degF] 88 /min 94 % 94 % 136 mm[Hg] 74 mm[Hg] BERTO Quinones [place] [facility] [place] [employer] 4 10:16:02 Social History Question Answer Notes LastModified by Organization Details LastModified Time Tobacco Smoking Status Former Smoker quit age 60 Not Available [facility] 12/16/2022 05:12:17 Do You Have An Advance Directive? Yes States Has A Living Will, Provided Papers As He Is Unsure If He And His Both Have This [email or web address] Information not available 06/13/2024 How Many Years Have You Consumed Alcohol? 59 Since 19 Years Old [email or web address] Information not available 06/13/2024 Are You Blind Or Do You Have Difficulty Seeing? Yes States Has Focus Difficulties Since Starting Chemo [email or web address] Information not available 06/13/2024 Is Blood Transfusion Acceptable In An Emergency? Yes [email or web address] Information not available 06/13/2024 What Is Your Level Of Caffeine Consumption? Moderate Coffee Everyday One Cup Per Day [id number] Information not available 12/16/2022 In The 14 Days Before Symptom Onset, Have You Had Close Contact With A Laboratory-conf irmed COVID-19 While That Case Was Ill? No Not Applicable [email or web address] Information not available 06/13/2024 In The 14 Days Before Symptom Onset, Have You Had Close Contact With A Person Who Is Under Investigation For COVID-19 While That Person Was Ill? No Not Applicable [email or web address] Information not available 06/13/2024 Are You Deaf Or Do You Have Serious Difficulty Hearing? Yes Has Hearing Aids, Does Not Wear Them. [email or web address] Information not available 06/13/2024 What Type Of Diet Are You Following? DIABETIC Not Strictly [email or web address] Information not available 06/13/2024 What Is The Highest Grade Or Level Of School You Have Completed Or The Highest Degree You Have Received? [id number] [email or web address] Information not available 06/13/2024 How Many Days Of Moderate To Strenuous Exercise, Like A Brisk Walk, Did You Do In The Last 7 Days? 7 Walking Information not available 03/07/2024 On Those Days That You Engage In Moderate To Strenuous Exercise, How Many Minutes, On Average, Do You Exercise? 60 [email or web address] Information not available 03/07/2024 Have There Been Any Changes To Your Family Or Social Situation? No [email or web address] Information not available 03/07/2024 What Is The Fluoride Status Of Your Home? Fluoridated [id number] [id number] Information not available 12/16/2022 When Did You Quit Smoking? 11-15yearssincelas tcigarette MIGRATION.592 [id number] Information not available 12/16/2022 Are There Any Guns Present In Your Home? No Information not available 03/07/2024 Do You Use Insect Repellent Routinely? No Information not available 03/07/2024 Where Do You Live? SingleLevelHouse [email or web address] Information not available 06/13/2024 Presence Of Domestic Violence No Information not available 05/25/2023 Guns Present In The Home? No [email or web address] Information not available 03/07/2024 Are You Able To Care For Yourself? Yes [email or web address] Information not available 05/25/2023 Are You Blind Or Do Yo Have Difficulty Seeing? No [email or web address] Information not available 05/25/2023 Are You Deaf Or Do You Have Serious Difficulty Hearing? Yes Low Tones. Doesn't Wear Hearing Aids Often [email or web address] Information not available 05/25/2023 General Stress Level? Low Information not available 03/07/2024 Live Alone Of With Others? With Others Information not available 05/25/2023 Are You Following A Low Salt Diet? Yes [email or web address] Information not available 06/13/2024 Do You Have A Medical Power Of Sexton Helper? No [email or web address] Information not available 06/13/2024 What Was The Date Of Your Most Recent Tobacco Screening? 06/13/2024 [email or web address] Information not available 06/13/2024 How Many Children Do You Have? 1 [email or web address] Information not available 06/13/2024 What Is Your Current Pack Years? [email or web address] Information not available 06/13/2024 Have You Ever Been Counseled For Unhealthy Alcohol Use? No [email or web address].138 [id number] Information not available 12/16/2022 Do You Have Any Pets? No Dog Passed July 2023 [email or web address] Information not available 03/07/2024 What Is Your Relationship Status? [email or web address] Information not available 03/07/2024 Do You Use Your Seat Belt Or Car Seat Routinely? Yes [email or web address].750 [id number] Information not available 12/16/2022 Are You Sexually Active? No [email or web address] Information not available 06/13/2024 Do You Have Smoke And Carbon Monoxide Detectors In Your Home? Yes [email or web address].755 [id number] Information not available 12/16/2022 At What Age Did You Start Smoking Tobacco? 13 MIGRATION.767 [id number] Information not available 12/16/2022 Are You Passively Exposed To Smoke? No Information not available 03/07/2024 Are There Any Smokers In Your House? No [email or web address] Information not available 03/07/2024 How Much Tobacco Do You Smoke? 1 PPD MIGRATION.778 [id number] Information not available 12/16/2022 What Types Of Sporting Activities Do You Participate In? None [email or web address] Information not available 06/13/2024 Do You Use Sunscreen Routinely? No [email or web address].627 [id number] Information not available 12/16/2022 How Many Years Have You Smoked Tobacco? 50 MIGRATION.671 [id number] Information not available 12/16/2022 Have You Recently Traveled Abroad? No [email or web address] Information not available 03/07/2024 Do You Have Difficulty Walking Or Climbing Stairs? Yes Chemotherapy Affecting Walking Abilities [email or web address] Information not available 03/07/2024 Do You Have Any Dietary Restrictions? Yes Supposed To Avoid Sugars [email or web address] Information not available 06/13/2024 How Many Days In The Past Year Have You Consumed 5 Or More Drinks? 0 Never [email or web address] Information not available 06/13/2024 Sex: Unknown Functional Status Question Answer Note LastModified by Organizat ion Details LastModified Time Do you or have you ever used smokeless tobacco? Never used smokeless tobacco [id number] Information not available 12/16/2022 Are you currently employed? No [email or web address] Information not available 03/07/2024 Do you have transportation difficulties? No MIGRATION.23082 [id number] Information not available 12/16/2022 Are you able to care for yourself? Yes MIGRATION.37352 [id number] Information not available 12/16/2022 Do you have difficulty dressing or bathing? Yes [email or web address] Information not available 03/07/2024 Do you or have you ever used e-cigarettes or vape? Never used electronic cigarettes MIGRATION.59107 [id number] Information not available 12/16/2022 What is your exercise level? Moderate MIGRATION.[id number] [id number] Information not available 12/16/2022 Do you use any illicit or recreational drugs? No MIGRATION.44709 19581 Information not available 12/16/2022 Do you or have you ever used any other forms of tobacco or nicotine? Yes pipe MIGRATION.04240 [id number] Information not available 12/16/2022 What is your level of alcohol consumption? Moderate three oz rum per day Information not available 05/25/2023 Are you able to walk? YESASSIST Uses cane at times Information not available 03/07/2024 Do you have difficulty doing errands alone? No MIGRATION.23918 17490 Information not available 12/16/2022 What is your occupation? Retired Information not available 03/07/2024 Mental Status Question Answer Note LastModified by Organizat ion Details LastModified Time Do you feel stressed (tense, restless, nervous, or anxious, or unable to sleep at night)? [id number] [email or web address] Information not available 05/22/2024 Do you have difficulty concentrating, remembering or making decisions? Yes states since starting chemo has more difficulty wiith memory [email or web address] Information not available 06/13/2024 Family History Relationship Description Onset Age of this Age Resolved Age Notes LastModified by Organization Details LastModified Time Brother Hypertensive disorder [id number] Not available 12/16/2022 05:14:06 Brother Hypertensive disorder [id number].786 [id number] Not available 12/16/2022 05:14:06 Brother Hypertensive disorder [id number].669 [id number] Not available 12/16/2022 05:14:06 Father Hypertensive disorder [id number].681 [id number] Not available 12/16/2022 05:14:06 Sister Hypertensive disorder MIGRATION.688 [id number] Not available 12/16/2022 05:14:06 Sister Hypertensive disorder MIGRATION.509 [id number] Not available 12/16/2022 05:14:06 Mother Hypertensive disorder [id number].259 [id number] Not available 12/16/2022 05:14:06 Medical History Condition Response DIABETES, TYPE Y COPD Y HYPERTENSION Y HIGH CHOLESTEROL / HYPERLIPIDEMIA Y Immunizations Vaccine Type Date Status Note Provider Nam e and Address Organization Details Recorded Time Influenza, split virus, trivalent, preservative 4 completed Not Available [facility] 06/29/2023 05:27:22 Influenza, split virus, trivalent, PF 3 completed Not Available [facility] 06/29/2023 05:27:22 COVID-19, mRNA, LNP-S, PF, 30 mcg/0.3 mL dose 1 completed Not Available [facility] 06/29/2023 05:27:22 COVID-19, mRNA, LNP-S, PF, 30 mcg/0.3 mL dose 1 completed Not Available [facility] 06/29/2023 05:27:22 Influenza, high-dose, trivalent, PF 1 completed Not Available [facility] 06/29/2023 05:27:22 SARS-COV-2 (COVID-19) vaccine, UNSPECIFIED 1 completed Not Available [facility] 06/29/2023 05:27:22 Influenza, split virus, quadrivalent, preservative 0 completed Not Available [facility] 06/29/2023 05:27:22 influenza, unspecified formulation 8 completed Not Available [facility] 06/29/2023 05:27:22 Influenza, high-dose, trivalent, PF 9 completed Not Available [facility] 06/29/2023 05:27:22 zoster live 3 completed Not Available [facility] 06/29/2023 05:27:22 pneumococcal polysaccharide PPV23 3 completed Not Available [facility] 06/29/2023 05:27:22 pneumococcal conjugate PCV 7 6 completed Not Available [facility] 06/29/2023 05:27:22 Influenza, high-dose, trivalent, PF 7 completed Not Available [facility] 06/29/2023 05:27:22 Influenza, high-dose, trivalent, PF 6 completed Not Available [facility] 06/29/2023 05:27:22 Pneumococcal conjugate PCV 13 6 completed Not Available [facility] 06/29/2023 05:27:22 Influenza, split virus, trivalent, preservative 5 completed Not Available [facility] 06/29/2023 05:27:22 pneumococcal polysaccharide PPV23 4 completed Not Available [facility] 06/29/2023 05:27:22 Past Encounters Encounter ID Performer Location Encounter Start Date Encounter Closed Date Diagnosis/Indication Diagnosis SNOMED-CT Code Diagnosis ICD10 Code Diagnosis Note [id number] Yanira Tucker MD S[facility] Internal Med [address] [facility] [place] [address] 03/03/2021 00:00:00 03/03/2021 10:43:41 [id number] S_[facility] Pulmon[facility] [place] [address] [place] [address] 05/12/2021 00:00:00 05/12/2021 13:45:43 [id number] Yanira Tucker MD [facility] Internal Med [address] [address] 07/14/2021 00:00:00 07/14/2021 10:50:48 [id number] Yanira Tucker MD [facility] Internal Med [address] [facility] [place] [address] 10/06/2021 00:00:00 10/06/2021 10:32:34 [id number] S_Histor ic[facility] [place] [address] [place] [address] 11/10/2021 00:00:00 11/10/2021 13:33:05 [id number] Yanira Tucker MD S[facility] Internal Med [address] [place] [address] 02/03/2022 00:00:00 02/03/2022 12:55:07 [id number] JEANINE Groves [facility] Pulmonolo gy [place] [address] [place] [address] 04/13/2022 00:00:00 04/13/2022 10:27:08 [id number] [facility] Internal Med [address] [facility] [place] [address] 05/26/2022 00:00:00 05/26/2022 16:50:29 [id number] Yanira Tucker [facility] Internal Med [address] [facility] [place] [address] 09/29/2022 00:00:00 09/29/2022 11:44:22 [id number] JEANINE Groves JanToñito Pulmonolo gy [place] [address] [place] [address] 11/03/2022 00:00:00 11/03/2022 16:49:19 [id number] Yanira Tucker [facility] Internal Med [address] [facility] [place] [address] 01/26/2023 10:39:28 01/26/2023 11:29:17 Essential hypertension 68161208 I10 Under control Diabetes mellitus 442839 09 E11.9 Keep watching diet, under control Chronic ob structive pulmonary disease 51159917 J44.9 Under control with meds Hyperlipidemia 38084134 E78.5 Labs good Hearing loss 90088417 H9 1.93 Hearing aids help Malignant neoplasm of lung 948096757 C34.90 no recurrence Adult heal th examination 176568113 Z00.00 Colonoscop y- 08/05/2016 PSA- 03/08Pneumo vax- 07/27/2014 Hmgarjw35- 03/25/2016 Eye exam-yearl yInfluenza Vacc- 07/2021, 08/08COVID Vacc- 12/06/20 & 12/27/20, 06/03/21, 08/08 Hernia of anterior abdominal wall 400132245 K43.9 [id number] E[address] [facility] General Surgery [address] [place] [address] 02/02/2023 10:46:22 02/02/2023 12:33:55 Lower abdominal pain 64310892 R10.30 [id number] Ezekile bridges MD [facility] General Surgery [address] [place] [address] 03/02/2023 10:24:53 03/17/2023 13:30:14 Lower abdominal pain 22935478 R10.30 [id number] Fabiana Madalyn, WIG COMBER-BC [facility] Pulmonolo [address] [place] [address] 03/09/2023 09:49:22 03/09/2023 10:29:43 Asthma-chronic obstructive pulmonary disease overlap syndrome 6359236222 9882731 J44.9 CAT 12ACT 24Overlap syndrome.P FT 09/21/17 with FEV1 55%.Flow volume loop with significan t expiratory coving.41% increase in FEV1 [facility] hodilator. He had repeat study prior to lung resection, I do not have these resultsOrd [facility] testIGE 2018 = [...] 6 months, PRN for concerns Chronic cough 56962651 R 05.3 Multifacto ralLabs as above Environmental allergy 42 3784797 T78.49XD Saline nasal rinsesCont inue flonase and allergy pill Dyspnea on exertion 6084 5006 R06.09 Check labs Non-small cell lung cancer 168509839 C34.90 T1b N0M0 stage 1A adenocarci noma S/P FLAQUITA lobectomy on 02/01/20Fo llows with Dr Lilly chest 01/2022 through oncology with no evidence of metastatic disease, no new nodule or mass, old granulomat ous diseaseCT chest 10/2022 reviewed, no new nodule, mass, adenopathy Ex-smoker 2101364 Z87.[address] currently through oncology - recommend at least yearly [id number] Ezekiel bridges MD [facility] General Surgery [address] [place] [address] 03/23/2023 11:25:48 04/13/2023 07:57:06 Incisional hernia 745900827 K43.2 [id number] [facility] Internal Med [address] [place] [address] 05/25/2023 10:10:33 05/25/2023 11:13:06 Essential hypertension 17965001 I10 watch Diabetes mellitus 585660 09 E11.9 Keep watching diet, under control Chronic ob structive pulmonary disease 00449541 J44.9 Under control with meds Hyperlipidemia 74885929 E78.5 Labs good Hearing loss 18467922 H9 1.93 Hearing aids help Malignant neoplasm of lung 733662684 C34.90 no recurrence Adult heal th examination 118458134 Z00.00 Colonoscop y- 08/05/2016 PSA- 02/20/22Pne umovax- 07/27/2014 Ntwlrfm16- 03/25/2016 Eye exam-yearl yInfluenza Vacc- 07/2021, 08/08COVID Vacc- 12/06/20 & 12/27/20, 06/03/21, 08/08 Hernia of anterior abdominal wall 471549365 K43.9 needs surgery Screening for disorder 324914053 Z13.9 Ex-smoker 5005205 Z87.89 1 Groin mass 147165775 R19 .00 Screening for malignant neoplasm of prostate 535251882 Z12.5 [id number] Ezekiel bridges MD [facility] General Surgery [address] [place] [address] 06/10/2023 10:36:09 06/10/2023 14:51:20 Ventral incisional hernia 405437972 K43.2 Mass of soft tissue 4449 03251 R22.9 Left inguinal [id number] Yanira Tucker MD [facility] Internal Med [address] [place] [address] 06/25/2023 10:55:06 06/25/2023 11:36:52 Diabetes mellitus 78611388 E11.9 Keep watching diet, ^ the jardianc eto 25 mg qd, samples, may not afford it [id number] Ezekiel bridges MD [facility] General Surgery [address] [address] 07/13/2023 10:21:29 07/13/2023 12:23:42 [id number] E[address] [facility] General Surgery [address] [address] 07/20/2023 10:17:49 07/20/2023 14:28:17 [id number] E[address] [facility] General Surgery [address] [address] 07/27/2023 10:15:30 07/27/2023 16:33:47 [id number] Fabiana Bergman, WIG COMBER-BC [facility] Pulmonolo gy [place] [address] [place] [address] 09/07/2023 09:52:16 09/07/2023 10:54:40 Asthma-chronic obstructive pulmonary disease overlap syndrome 7492169917 9286741 J44.9 Overlap syndrome.P FT 09/21/17 with FEV1 55%.Flow volume loop with significan t expiratory coving.41% increase in FEV1 [facility] hodilator. He had repeat study 04/2023.Ra marlen [...] R06.09 Multifacto ralIncreas e excercise Chronic cough 26835427 R 05.3 Multifacto ralIGGS, IGE normalRast with multiple positives. Quantifero n GOLD negative Environmental allergy 42 0609616 T78.49XD Saline nasal rinsesCont inue flonase and allergy pill Non-small cell lung cancer 042322464 C34.90 T1b N0M0 stage 1A adenocarci noma S/P FLAQUITA lobectomy on 02/01/20Fo llows with Dr Lilly chest 01/2022 through oncology with no evidence of metastatic disease, no new nodule or mass, old granulomat ous diseaseCT chest 10/2022 reviewed, no new nodule, mass, adenopathy [facility] is [facility] 10/2023 Ex-smoker 2078358 Z87.[address] currently through oncology - recommend at least yearly [id number] Yanira Tucker MD [facility] Internal Med [facility] [address] [facility] [place] [address] 09/16/2023 16:23:18 09/16/2023 20:07:58 Groin mass 040045338 R19.[address] oncology Dr Gomez soon to make planuse pieces of gauge to prevent rubbing and bleeding [id number] Yanira Tucker MD [facility] Internal Med [facility] [address] [facility] [place] [address] 02/07/2024 14:03:15 02/07/2024 15:07:12 Essential hypertension 17721254 I10 under control Diabetes mellitus 274014 09 E11.9 Keep watching diet, Chronic ob structive pulmonary disease 18889445 J44.9 Under control with meds Hyperlipidemia 64934222 E78.5 Labs good Hearing loss 92024202 H9 1.93 TO USE Hearing aids Malignant neoplasm of lung 363111640 C34.90 no recurrence Hernia of anterior abdominal wall 445655131 K43.9 s/p surgery Adult heal th examination 549709757 Z00.00 Colonoscop y- 08/05/2016 PSA- 02/20/22Pne umovax- 07/27/2014 Bbupkus89- 03/25/2016 Eye exam-yearl yInfluenza Vacc- 07/2021, 08/08COVID Vacc- 12/06/20 & 12/27/20, 06/03/21, 08/08 Ex-smoker 2199744 Z87.89 [id number] [facility] Internal [place] [address] [facility] [place] [address] 03/07/2024 14:31:05 06/26/2024 13:28:04 Type 2 diabetes mellitus without complication 777171349 E11.9 Essential hypertension 53248855 I10 [id number] Yanira Tucker MD [facility] Internal [place] [address] [facility] [place] [address] 04/19/2024 15:27:12 06/28/2024 17:32:16 Chronic obstructive pulmonary disease 14429897 J44.9 Type 2 graciela betes mellitus without complication 626260329 E11.9 Hyperlipidemia 67655334 E78.5 Malignant neoplasm of lung 490695004 C34.90 [id number] [facility] Internal [address] [place] [address] 05/22/2024 18:11:19 07/04/2024 12:28:49 Type 2 diabetes mellitus without complication 025105652 E11.9 Ex-smoker 6677925 Z87.89 1 Essential hypertension 91326131 I10 Hyperlipidemia 53825640 E78.5 [id number] [address] [facility] Internal [place] [address] [facility] [place] [address] 06/13/2024 10:22:13 06/13/2024 11:37:35 Essential hypertension 25995564 I10 under control Diabetes mellitus 970386 09 E11.9 UNDER CONTROL Chronic ob structive pulmonary disease 39029262 J44.9 Under control with meds Hyperlipidemia 58156571 E78.5 Labs today Hearing loss 04569599 H9 1.93 TO USE Hearing aids Malignant neoplasm of lung 027722503 C34.90 metastatic , getting chemo Hernia of anterior abdominal wall 932096983 K43.9 s/p surgery Adult heal th examination 921625950 Z00.00 Colonoscop y- 08/05/2016 PSA- 05/25/23- DUEPneumov ax- 07/27/2014 Tlehqik87- 03/25/2016 Eye exam-yearl y- DUEInfluen za Vacc- 07/2021, 2022 (per pt)RSV- 2022 [employer]OV ID Vacc- 12/06/20 & 12/27/20, 06/03/21, 08/08 Ex-smoker 9569540 Z87.89 1 PET- 09/28/23 Screening for malignant neoplasm of prostate 721639936 Z12.5 Groin mass 103723512 R19 .00 metastatic lung cancer, Screening for disorder 284235662 Z13.9 [id number] Yanira Tucker MD [facility] Internal Med [address] [facility] [place] [address] 09/20/2024 09:49:49 09/20/2024 10:41:14 Essential hypertension 89280794 I10 under control Diabetes mellitus 131299 09 E11.9 under control Chronic ob structive pulmonary disease 79008503 J44.9 Under control with meds Hyperlipidemia 37297905 E78.5 under control Hearing loss 80169557 H9 1.93 TO USE Hearing aids, discussed Malignant neoplasm of lung 293056565 C34.90 metastatic , Hernia of anterior abdominal wall 826467371 K43.9 s/p surgery Adult heal th examination 890095556 Z00.00 Colonoscop y- 08/05/2016 PSA- 06/13/2024 Pneumovax- 07/27/2014 Rdhgqau74- 03/25/2016 Eye exam-yearl y- DUEInfluen za Vacc- 07/2021, 08/08, 2022, 2023(per pt)RSV- 2022 [employer]OV ID Vacc- 12/06/20 & 12/27/20, 06/03/21, 08/08 Ex-smoker 8048632 Z87.89 1 PET- 09/28/23 Groin mass 638081648 R19 .00 metastatic lung cancer, on treatment and getting better [id number] Yanira Tucker MD [facility] Internal Med [address] [facility] [place] [address] 01/16/2025 09:58:49 01/16/2025 10:34:20 Essential hypertension 83873027 I10 under control Diabetes mellitus 677626 09 E11.9 under control Chronic ob structive pulmonary disease 29651965 J44.9 Under control with meds Hyperlipidemia 25865423 E78.5 under control Hearing loss 56405049 H9 1.93 TO USE Hearing aids, discussed Malignant neoplasm of lung 131418206 C34.90 metastatic , Hernia of anterior abdominal wall 336733615 K43.9 s/p surgery Adult heal th examination 120570605 Z00.00 Colonoscop y- 08/05/2016 PSA- 06/13/2024 Pneumovax- 07/27/2014 Rprjbmo59- 03/25/2016 Eye exam-yearl y- DUEInfluen za Vacc- 07/2021, 08/08, 2022, 2023(per pt)RSV- 2022 [employer]COV ID Vacc- 12/06/20 & 12/27/20, 06/03/21, 08/08 Ex-smoker 2094338 Z87.89 1 PET- 09/28/23 Groin mass 682857587 R19 .00 metastatic lung cancer, Goals Section Goal Description Progress Status Start [...] glucose within target range NoChange active 2023 Rohiin Delgado CCM Information not available 03/07/2024 19:05:17 [...] care team recommendation (s) NoChange active 2023 Rohini Delgado CCM Information [...] he and his both have this Payers Insurance Date Sequence Insurance Name Policy Number Policy Correia Covered Member ID Correia Member ID Guarantor Name 01/16/2025 1 [employer] (MEDICARE REPLACEMENT/ ADVANTAGE - PPO) Forrest Otoole [id number] Forrest Otoole Notes Date Note Type Note Provider Name [...] 250 mcg/Salmeterol 50 mcg 1 puff BIDDM-under hxjucxeP0w 5.7No hypoglycemia., No neuropathyDM eye exam- 03/2023 [...] seeing oncology dr Patricia Tucker MD [address] [facility], [facility] [address], [place], [address], [facility] [employer] 06/13/2024 13:23:27 09/20/2024 text/html Here for routine [...] puff BIDDM-under control Accu checks reviewed, under jdizkkiP1c 6.9 (06/13/24)No hypoglycemia.,No neuropathyDM eye exam- 03/2023 [...] seeing oncology dr Patricia Tucker MD [address] [facility], [place], [address], [facility] [employer] [facility] [employer] 09/20/2024 13:02:29 01/16/2025 text/html Here for routine f/u, compliant to medsPT IS NOT FASTING ( [employer] ) HEARING LOSS, NOT USING HEARING AIDS Left groin mass due to metastatic lung cancer- Seeing Oncology, on Keytruda, S/P RT and chemo COPD- under control, was seeing pulm, on nebs and inhalers, no symptomsMeds-Albut bonnie neb and Albuterol 90 inhaler 2 puffs 24-6h,Spiriva qd,Fluticasone 250 mcg/Salmeterol 50 mcg 1 puff BIDDM-under control Accu checks reviewed 80-140, under pxbipffD0p 6.9 (06/13/24),No hypoglycemia,No neuropathy related to DMFeet Exam-DM eye exam- 03/2023 (in chart) - DUE, discussed againMeds- Glimepiride 4 mg bid, Metformin 500 mg 2 tab bid, Jardiance 10 mg qdHTN- under control with meds ,Meds- Metoprolol 50 mg bid, HCTZ 25 mg qdHyperlipidemia- controlling diet, Trig were high 182,Meds- Fenofibrate 145 mg qd, Simvastatin 20 mg qdHearing loss- NOT using hearing aidsAll rhinitis- otc Zyrtecs/p umbilical hernia repairEx- smoker- quit few yrs agoLung Cancer metastatic - Left lobectomy done 02/01/2020, seeing oncology dr Gomez, recently had PET, no reportMeds- Keytrefrain Tucker MD [address], [place], [address], [employer] [facility] [employer] 01/16/2025 10:30:39
== END 2025-03-29 08:49 | disposition home or self-care (01) ==
PROVIDERS: PCP Internal Medicine; Visit Provider Internal Medicine Hematology & Oncology
DX: C34.92 Malignant neoplasm of unspecified part of left bronchus or lung (principal); C77.1 Secondary and unspecified malignant neoplasm of intrathoracic lymph nodes; K80.20 Calculus of gallbladder without cholecystitis without obstruction; N20.0 Calculus of kidney; K66.9 Disorder of peritoneum, unspecified
CPT/HCPCS: 71260; 74177; Q9967

== ENCOUNTER 2025-04-12 11:32 | Outpatient (CLI) | payer MEDICARE, SELFPAY ==
--- NOTE | ~2025-04-12 | PE_ITS ---
EXAMINATION: PET skull to mid thigh DATE: 04/12/2025 16:07 INDICATION: Non-small cell lung cancer in the left lung TECHNIQUE: Blood glucose level was 78 mg/dL. 10.383 mCi of 18-fluorodeoxyglucose (18-FDG) was adminis tered i.v. Low dose computed tomography (CT) images were acquired from the base of the brain to the p roximal thighs for attenuation correction and anatomic localization. Positron emission tomography (PE T) images were acquired in the same distribution beginning 61 minutes after injection. Images includi ng fused PET/CT images were reconstructed in axial, coronal, and sagittal planes. Automated exposure control technique was employed. The dose-length product was 1191.76mGy-cm. COMPARISON: None FINDINGS: Head/neck: There is symmetric increased activity in the nares, oral cavity, palatine tonsils, parotid glands, s ubmandibular glands, cervical spinal cord, laryngeal muscles and ocular muscles without CT correlate, likely physiologic. There is a focus of mild increased uptake with maximal SUV of 4.4 cm located in the soft tissues dorsal to the tip of the C6 spinous process without radiologic correlate. No patholo gically enlarged cervical lymphadenopathy or other suspicious foci of increased FDG uptake in the vis ualized head or neck. Chest: Postoperative change of prior left upper lobectomy including the lingula. There is increased FDG upta ke with maximal SUV of 8.7 associated with a 2.6 x 10 1.9 cm nodule fissuring along the suture line a t the left hilum along the inferior margin of the left lower lobar pulmonary artery suspicious for ei ther locally recurrent disease or metastatic hilar lymphadenopathy. There are multiple additional FDG avid enlarged and normal-sized left hilar and mediastinal lymph nodes consistent with metastatic dis ease. For reference the largest inferior right paratracheal lymph node measures 3.1 x 2.4 cm with max imal SUV of 8.7. Discoid atelectasis at the right middle lobe. No suspicious pulmonary nodules, pulmo nary edema or pleural effusion. Heart size normal. Atherosclerotic coronary artery calcification. No pericardial effusion. Thoracic aorta is normal in caliber. There is enlargement of the central pulmon diana arteries consistent with pulmonary arterial hypertension. Abdomen/pelvis/proximal thighs: Physiologic renal accumulation and excretion of FDG activity in the kidneys, bladder and along portio ns of ureters. There are photopenic defects associated with multiple bilateral renal cysts the larges t on the right measuring up to 7.7 cm. Normal degree and heterogenous pattern of increased uptake thr oughout the liver without radiologic correlate or dominant FDG avid lesion. Several small gallstones within the decompressed gallbladder. Pancreas, spleen and bilateral adrenal glands are normal. Extens chandu prominent uptake scattered throughout the bowels without radiologic correlate, also likely physio logic. There is a prominent uptake associated with a couple chronic FDG avid nodules situated along t he midline of the perineum the more cephalad measuring 1.6 cm with maximal SUV of 18.6 and the more c audal to the skin surface measuring 1.1 cm with maximal SUV of 21.5, both which have been present sin ce PET/CT dated 09/28/2023. A larger FDG avid mass at the junction of the medial left thigh and the b ase of the scrotum seen on the prior PET/CT and FDG avid left inguinal lymph node are no longer visua lized. No other abnormal foci of increased FDG uptake or pathologically enlarged lymphadenopathy in t he abdomen, pelvis or proximal thighs. Musculoskeletal: Mild likely physiologic synovial uptake at the bilateral chronic recurrent: Minimal joints without ra diologic correlate. No suspicious lytic, blastic or abnormally FDG avid bone lesions. IMPRESSION: 1. Enlarged and FDG avid nodule along the left hilar suture line post prior left upper lobectomy susp icious for locally recurrent disease versus metastatic left hilar lymphadenopathy. 2. Several additional FDG avid enlarged and normal-sized left hilar and mediastinal lymph nodes consi stent with metastatic disease. 3. 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 4. Indeterminate small focus of mild increased uptake in the soft tissues along the tip of the C6 spi nous process also suspicious for metastatic disease. 5. Cholelithiasis. Reviewed, dictated and finalized at location A. IMPRESSION: 1. Enlarged and FDG avid nodule along the left hilar suture line post prior lef t upper lobectomy suspicious for locally recurrent disease versus metastatic le ft hilar lymphadenopathy. 2. Several additional FDG avid enlarged and normal-sized left hilar and mediast inal lymph nodes consistent with metastatic disease. 3. Persistent FDG avid nodules along the midline of the perineum suspicious for metastatic disease with prior biopsy demonstrating metastatic squamous cell ca rcinoma of likely lung origin on prior biopsy of a left inguinal mass which is no longer visualized suggesting interval resection or treatment. 4. Indeterminate small focus of mild increased uptake in the soft tissues along the tip of the C6 spinous process also suspicious for metastatic disease. 5. Cholelithiasis.
[2025-04-12 12:24] LABS: Glucose Point of Care 78 mg/dl (65-105)
== END 2025-04-12 11:33 | disposition home or self-care (01) ==
PROVIDERS: PCP Internal Medicine; Visit Provider Internal Medicine Hematology & Oncology
DX: R91.8 Other nonspecific abnormal finding of lung field (principal); R59.0 Localized enlarged lymph nodes; K80.20 Calculus of gallbladder without cholecystitis without obstruction; Z90.2 Acquired absence of lung [part of]; C34.12 Malignant neoplasm of upper lobe, left bronchus or lung
CPT/HCPCS: 78815; A9552

== ENCOUNTER 2025-06-04 09:57 | Inpatient (IN) | payer MEDICARE, SELFPAY ==
[2025-06-04] VITALS (15 sets, daily range): BP systolic 115–149; BP diastolic 47–77; PULSE 92–134; RESP 16–26; TEMP 36.4–37.7; O2SAT 91–100; BMI 27.0
--- NOTE | ~2025-06-04 | XR_ITS ---
Exam: X-ray chest one view portable Clinical history: Shortness of breath. Lung cancer. Correlation: PET/CT 04/12/2025 TECHNIQUE: A single portable AP upright image of the chest was obtained. FINDINGS: The left hilum is prominent. Differential includes mass or adenopathy. There is a 1.2 cm nodular density projecting over the right lower lung possibly a pulmonary nodule. A left-sided Mediport catheter with its tip projecting over the right atrium. No pneumothorax. No pleural effusion. No free air in the diaphragm. Small opacities in the lower lungs. IMPRESSION: 1.The left hilum is prominent. Differential includes mass or adenopathy. A chest CT is recommended. 2.There is a 1.2 cm nodular density projecting over the right lower lung possibly a pulmonary nodule. A chest CT is recommended. 3. Small opacities in the lower lungs which represents atelectasis/scarring or infiltrates. Reviewed, dictated and finalized at location A. IMPRESSION: 1.The left hilum is prominent. Differential includes mass or adenopathy. A ches t CT is recommended. 2.There is a 1.2 cm nodular density projecting over the right lower lung possib ly a pulmonary nodule. A chest CT is recommended. 3. Small opacities in the lower lungs which represents atelectasis/scarring or infiltrates.
--- NOTE | ~2025-06-04 | CT_ITS ---
EXAMINATION: CTA chest PE protocol DATE: 06/06/2025 18:11 CDT INDICATION: A. Fib. Concern for pulmonary embolism. TECHNIQUE: Computed tomographic angiography (CTA) of the chest was performed with 100 mL Omnipaque-350 intravenous contrast. The dose-length product was 500.07 mGy-cm. Maximum intensity projection 3D-reconstructions of the aorta and other arteries were constructed by the technologist on a separate workstation. Automated exposure control and iterative reconstruction technique were employed. COMPARISON: None. FINDINGS: Enlarged pulmonary arteries consistent with pulmonary hypertension. Study technically adequate without evidence for pulmonary embolism. There is atherosclerosis and ectasia of the thoracic aorta without aneurysm or dissection. There is mediastinal lymphadenopathy, likely reactive. Patchy grou ndglass opacities. There is mucous plugging in the left lower lobe. No pneumothorax. There are gallstones. There are bilateral renal cysts. Calcified granulomas of the spleen. IMPRESSION: 1. Patchy groundglass with mucous plugging left lower lobe. Differential diagnosis includes infectious bronchiolitis or pneumonia. Consider aspiration pneumonitis 2: Mediastinal lymphadenopathy, likely reactive. 3: Gallstones. Reviewed, dictated and finalized at location A. IMPRESSION: 1. Patchy groundglass with mucous plugging left lower lobe. Differential diagno sis includes infectious bronchiolitis or pneumonia. Consider aspiration pneumon itis 2: Mediastinal lymphadenopathy, likely reactive. 3: Gallstones.
--- NOTE | ~2025-06-04 | CT_ITS ---
EXAMINATION: CT chest abdomen pelvis w con DATE: 06/04/2025 12:14 CDT INDICATION: Shortness of breath TECHNIQUE: Computed tomography (CT) of the chest, abdomen, and pelvis was performed with intravenous contrast. The dose-length product was 794.66 mGy-cm. COMPARISON: PET/CT 04/12/2025; CT chest abdomen pelvis 03/29/2025 FINDINGS: CHEST CT: Grossly stable enlarged mediastinal and left hilar lymph nodes as compared to the PET/CT study from . Heart is not enlarged. There are coronary artery calcifications. Thoracic aorta is not aneu rysmal. Moderate amount of atherosclerotic disease in the thoracic aorta. No enlarged axillary lymph nodes. Visualized tracheobronchial tree is patent. Lungs are grossly unchanged. Grossly stable left u pper lobectomy. ABDOMEN/PELVIS CT: Fatty liver. Cholelithiasis. Gallbladder is contracted. Spleen, adrenal glands and pancreas are unrem arkable. Bilateral renal cysts similar to the prior study. Abdominal aorta is not aneurysmal. Moderat e amount of this atherosclerotic disease in the abdominal aorta. Right nonobstructing renal stone, un changed No enlarged lymph nodes in the abdomen or pelvis. Bladder is grossly unchanged. Thickening of the wal ls of the descending and sigmoid colon. Osseous structures are grossly unchanged. IMPRESSION: 1. Grossly stable metastatic lymphadenopathy in the mediastinum and left hilum. 2. Status post left upper lobectomy 3. Thickening of the rivera of the descending and sigmoid colon. The findings are concerning for colit is. Reviewed, dictated and finalized at location A. IMPRESSION: 1. Grossly stable metastatic lymphadenopathy in the mediastinum and left hilum. 2. Status post left upper lobectomy 3. Thickening of the rivera of the descending and sigmoid colon. The findings ar e concerning for colitis.
--- NOTE | 2025-06-04 10:22 | ECG_ITS ---
Test Date: 2025-06-04 10:28:49 Measurements Intervals [place] Rate: 98 P: 8 OR: 148 QRS: -27 QRSD: 142 T: 38 QT: 389 QTc: 497 Interpretive Statements SINUS RHYTHM RIGHT BUNDLE BRANCH BLOCK CONSIDER INFERIOR INFARCT, AGE INDETERMINATE BASELINE ARTIFACT- I, II, III, AVR, AVL, AVF, V4-V6 ABNORMAL ECG No previous ECG available for comparison Electronically Signed On 06-04-2025 10:30:51 CDT by Cam Evans D.O.
--- NOTE | 2025-06-04 10:22 | ED.NAVMDI ---
HPI - Nausea/Vomiting/Diarrhea General Chief complaint: Nausea/Vomiting/Diarrhea <Fabiana Jacobo PA-C - Last Filed: 06/05/25 10:53> Stated complaint: n/v/d after cancer tx <Fabiana Jacobo PA-C - Last Filed: 06/05/25 10:53> Time Seen by Provider: 06/04/25 10:03 <Fabiana Jacobo PA-C - Last Filed: 06/05/25 10:53> Source: patient <Fabiana Jacobo PA-C - Last Filed: 06/05/25 10:53> Mode of arrival: ambulatory <Fabiana Jacobo PA-C - Last Filed: 06/05/25 10:53> Limitations: no limitations <Fabiana Jacobo PA-C - Last Filed: 06/05/25 10:53> History of Present Illness HPI Narrative: This is a 79 year old male that presents to the ER for nausea, vomiting, diarrhea. Reports he started a new chemo on Wednesday of last night. He had been having diarrhea since. Over the last couple of days he has also been experiencing nausea and vomiting. Reports lower abdominal pain. He also notes history of COPD, forgot to take his medication this morning. Reports wheezing, shortness of breath, cough. Denies fevers. <Fabiana Jacobo PA-C - Last Filed: 06/05/25 10:53> Related Data Home medications: Home Medications ?Medication ?Instructions ?Recorded ?Confirmed ?Last Taken ?Type ascorbic acid (vitamin C) 1,000 mg 1,000 mg PO DAILY 10/08/23 06/04/25 06/03/25 History tablet,extended release (Vitamin C ER) diphenhydramine HCl 12.5 mg/5 mL 12.5 mg PO QAM PRN allergy symptoms 10/08/23 06/04/25 Unknown History oral liquid (Benadryl Allergy) empagliflozin 10 mg tablet 10 mg PO DAILY 10/08/23 06/04/25 06/03/25 History (Jardiance) famotidine 20 mg tablet (Pepcid) 20 mg PO DAILY PRN acid reflux 10/08/23 06/04/25 Unknown History fenofibrate nanocrystallized 145 145 mg PO DAILY 10/08/23 06/04/25 06/03/25 History mg tablet fluticasone 250 mcg-salmeterol 50 1 inh inhalation Q12H 10/08/23 06/04/25 06/03/25 History mcg/dose blistr powdr for inhalation (Wixela Inhub) glimepiride 4 mg tablet 4 mg PO BID 10/08/23 06/04/25 06/03/25 History hydrochlorothiazide 25 mg tablet 25 mg PO DAILY 10/08/23 06/04/25 06/03/25 History metformin 500 mg tablet,extended 1,000 mg PO BID 10/08/23 06/04/25 06/03/25 History release 24 hr metoprolol tartrate 50 mg tablet 50 mg PO BID 10/08/23 06/04/25 06/03/25 History multivitamin 1 tablet PO DAILY 10/08/23 06/04/25 06/03/25 History simvastatin 20 mg tablet 20 mg PO DAILY 10/08/23 06/04/25 06/03/25 History tiotropium bromide 2.5 2 puff inhalation QAM 10/08/23 06/04/25 06/03/25 History mcg/actuation mist for inhalation (Spiriva Respimat) <Fabiana Jacobo PA-C - Last Filed: 06/05/25 10:53> Allergies/Adverse reactions: Allergies Allergy/AdvReac Type Severity Reaction Status Date / Time hydrocodone (From Vicodin) AdvReac Itching Verified 06/04/25 10:16 morphine AdvReac VIOLENT Verified 06/04/25 10:16 TREMORS <Fabiana Jacobo PA-C - Last Filed: 06/05/25 10:53> Review of Systems Review of Systems: Gen.: Denies fevers or chills Eyes: Denies eye pain or visual change ENT: Denies congestion Respiratory: As per HPI CV: Denies chest pain or palpitations GI: Denies abdominal pain nausea, emesis or diarrhea denies burning, urgency, frequency or hematuria Musculoskeletal: Denies back pain or muscle pain Neuro: Denies numbness, tingling, weakness or focal weakness Skin: Denies rash Except as documented, all other systems reviewed and negative <Malachi Nguyen MD - Last Filed: 06/05/25 13:31> All systems reviewed & are unremarkable except as noted in HPI and below <Fabiana Jacobo PA-C - Last Filed: 06/05/25 10:53> PMFSH Past Medical History Medical History: Medical History DM2 (diabetes mellitus, type 2) Arthritis GERD (gastroesophageal reflux disease) HLD (hyperlipidemia) HTN (hypertension) COPD (chronic obstructive pulmonary disease) 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, including hip Lung cancer <Fabiana Jacobo PA-C - Last Filed: 06/05/25 10:53> Surgical History Surgical History: Surgical History History of inguinal hernia repair History of appendectomy <Fabiana Jacobo PA-C - Last Filed: 06/05/25 10:53> Social History Social History: Social History Smoking packs per day: 1 Smoking cigarettes per day: 20.0 Years smoked: 40 Smoking pack-years: 40.00 Smoking status: Former smoker Second hand tobacco smoke exposure: No Additional smoking assessment comments: STATES SMOKED 1PK/DAY/30-40YRS/QUIT 2010~ Alcohol intake: current Drinks per week: 7 Alcohol use details: STATES DRINKS 3 OZ/NIGHT, (21 OZ/WEEK) Substance use: never Substance use type: does not use Lack of Transportation: No Lack of Food: Never True Current Housing: I Have Housing Concerned About Future Housing: No Difficulty Paying Gas/Electric Bills: No Difficulty Paying for Meds: No Currently Unemployed: No Education: High School Diploma/GED Difficulty w/ Childcare or Family Care: No Living arrangements: with family Spiritual care concerns: No <SHALOM Gee Last Filed: 06/05/25 10:53> Exam Narrative: GENERAL: Well-appearing, well-nourished, and in no acute distress. HEAD: Normocephalic, atraumatic. EYES: EOMI. ENT: Nares clear, no rhinorrhea or epistaxis. Mucous membranes moist. CHEST: No respiratory distress. Diffuse expiratory wheezing. No rales or rhonchi HEART: Regular rate and rhythm. No murmur heard. Normal peripheral pulses. ABDOMEN: Soft, nontender, nondistended, normal active bowel sounds. EXTREMITIES: Normal range of motion. No edema. SKIN: Warm, dry, no rash. NEURO: No focal deficits. Alert and oriented x3. PSYCH: Normal mood and affect <SHALOM Gee Last Filed: 06/05/25 10:53> Course Consultations Consultation #1: Spoke with hospitalist about patient and workup who accepts admission <SHALOM Gee Last Filed: 06/05/25 10:53> Date: 06/04/25 <SHALOM Gee Last Filed: 06/05/25 10:53> Vital Signs Vital signs: Vital Signs Temperature 97.6 F 06/04/25 10:07 Pulse Rate 100 06/04/25 10:07 Respiratory Rate 22 H 06/04/25 10:07 Blood Pressure 115/59 L 06/04/25 10:07 Pulse Oximetry 97 06/04/25 10:07 Oxygen Delivery Room Air 06/04/25 10:07 Temperature 98.6 F 06/05/25 08:00 Pulse Rate 98 06/05/25 08:35 Respiratory Rate 25 H 06/05/25 08:13 Blood Pressure 106/83 06/05/25 08:00 Pulse Oximetry 96 06/05/25 08:35 Oxygen Delivery Nasal Cannula 06/05/25 08:35 Oxygen Flow Rate 3 06/05/25 08:35 Fraction of Inspired Oxygen 28 06/04/25 20:45 <SHALOM Gee Last Filed: 06/05/25 10:53> Vital Signs Temperature 97.6 F 06/04/25 10:07 Pulse Rate 100 06/04/25 10:07 Respiratory Rate 22 H 06/04/25 10:07 Blood Pressure 115/59 L 06/04/25 10:07 Pulse Oximetry 97 06/04/25 10:07 Oxygen Delivery Room Air 06/04/25 10:07 Temperature 98.6 F 06/05/25 08:00 Pulse Rate 98 06/05/25 08:35 Respiratory Rate 25 H 06/05/25 08:13 Blood Pressure 106/83 06/05/25 08:00 Pulse Oximetry 96 06/05/25 08:35 Oxygen Delivery Nasal Cannula 06/05/25 08:35 Oxygen Flow Rate 3 06/05/25 08:35 Fraction of Inspired Oxygen 28 06/04/25 20:45 <Malachi Nguyen MD - Last Filed: 06/05/25 13:31> MDM - Nausea/Vomiting/Diarrhea MDM Narrative Medical decision making narrative: Patient presents the emergency department for diarrhea, abdominal discomfort after starting new chemotherapy for metastatic lung cancer. Patient is afebrile and nontoxic appearing. Noted to be short of breath with wheezing upon arrival. Does report history of COPD. Given Solu-Medrol, magnesium, nebulizer treatment with improvement. CBC with white blood cell count of 1.2 absolute neutrophils 0.3. Metabolic panel with hyponatremia with sodium of 128. Urine without evidence of infection. Influenza, RSV and COVID screens are negative. CT chest/abdomen/pelvis obtained for further evaluation. Shows grossly stable metastatic lymphadenopathy. Status post left upper lobectomy. Colitis. Patient was updated on his workup and need for admission. Spoke with hospitalist about patient and workup who accepts admission. Consult be placed to Dr. Gomez for neutropenia <Fabiana Jacobo PA-C - Last Filed: 06/05/25 10:53> Differential Diagnosis Differential diagnosis: Likely food poisoning, gastroenteritis, drug-induced nausea and vomiting, dehydration and other (chemotherapy side effect, electrolyte derangement, COPD exacerbation) <Fabiana Jacobo PA-C - Last Filed: 06/05/25 10:53> Lab Data Attestation: I reviewed the patient's lab results. <Fabiana Jacobo PA-C - Last Filed: 06/05/25 10:53> Result diagrams: 06/05/25 04:53 06/05/25 04:53 <Fabiana Jacobo PA-C - Last Filed: 06/05/25 10:53> Labs: Lab Results 06/04/25 06/04/25 06/04/25 Range/Units 10:18 10:32 12:26 WBC 1.2 L* (4.5-10.0) K/mm3 RBC 5.20 (4.6-6.20) M/mm3 Hgb 14.9 (14.0-18.0) g/dL Hct 44.7 (42.0-52.0) % MCV 86.0 D (80-100) fl MCH 28.7 (26-34) pg MCHC 33.3 (32-36) g/dl RDW 14.8 H (11.5-14.5) % Plt Count 261 (150-375) k/mm3 MPV 11.4 H (7.4-10.4) fl Immature Gran % (Auto) 0.8 H (0-0.5) % Neut % (Auto) 24.6 L (45.5-73.1) % Lymph % (Auto) 40.7 (18.3-44.2) % [place] % (Auto) 29.7 H (2.6-8.5) % Eos % (Auto) 2.5 (0-4.4) % Baso % (Auto) 1.7 H (0.2-1.2) % Lymph # (Auto) 0.48 L (0.9-3.2) K/mm3 [place] # (Auto) 0.4 (0.1-0.6) K/mm3 Eos # (Auto) 0.0 (0-0.3) K/mm3 Baso # (Auto) 0.0 (0.0-0.1) K/mm3 Abs Immat Gran (auto) 0.01 (0.00-0.031) K/mm3 Absolute Neuts (auto) 0.3 L* (1.3-6.7) K/mm3 Absolute Nucleated RBC 0.000 (0.0-0.012) K/mm3 Band Neutrophils % Not Reportable Nucleated RBC % 0.0 (0.0-0.2) % Atypical Lymphocytes Present Platelet Estimate Adequate (Adequate) Schistocytes None seen Sodium 128 L (137-145) mmol/L Potassium 4.1 (3.4-5.0) mmol/L Chloride 96 L (98-107) mmol/L Carbon Dioxide 21 L (22-30) mmol/L Anion Gap 11 (4-12) mmol/L BUN 32 H (9-20) mg/dL Creatinine 1.13 (0.7-1.3) mg/dL Estim Creat Clear Calc 49 ml/min Estimated GFR > 60 (59 - ) Glucose 176 H (65-110) mg/dL POC Capillary Glucose (65-105) mg/dl Hemoglobin A1c (<5.7) % Calcium 8.7 (8.4-10.2) mg/dL Magnesium 2.2 (1.6-2.3) mg/dL Total Bilirubin 0.9 (0.2-1.3) mg/dL AST 44 (17-59) U/L ALT 24 (6-50) U/L Alkaline Phosphatase 57 (38-126) U/L Total Protein 6.5 (6.3-8.2) g/dL Albumin 3.6 (3.5-5.1) g/dL Lipase 29 (23-300) U/L Urine Color Yellow (Yellow) Urine Appearance Clear (Clear) Urine pH 6.0 (5.0-9.0) Ur Specific [place] 1.033 (1.001-1.035) Urine Protein Negative (Negative) mg/dL Urine Glucose (UA) 3+ H (Negative) mg/dL Urine Ketones Trace H (Negative) mg/dL Ur Blood (Man) Negative (Negative) Urine Nitrate Negative (Negative) Urine Bilirubin Negative (Negative) Urine Urobilinogen 0.2 (<2.0) mg/dL Leukocyte Esterase Rfl Negative (Negative) LIZABETH/UL Nasal MRSA (PCR) (NOT DETECTE) Influenza A (RT-PCR) Negative (Negative) Influenza B (RT-PCR) Negative (Negative) RSV (RT-PCR) Negative (Negative) SARS-CoV-2 RNA (RT-PCR) Negative (Negative) 06/04/25 06/04/25 06/04/25 Range/Units 14:33 16:57 18:45 WBC (4.5-10.0) K/mm3 RBC (4.6-6.20) M/mm3 Hgb (14.0-18.0) g/dL Hct (42.0-52.0) % MCV (80-100) fl MCH (26-34) pg MCHC (32-36) g/dl RDW (11.5-14.5) % Plt Count (150-375) k/mm3 MPV (7.4-10.4) fl Immature Gran % (Auto) (0-0.5) % Neut % (Auto) (45.5-73.1) % Lymph % (Auto) (18.3-44.2) % [place] % (Auto) (2.6-8.5) % Eos % (Auto) (0-4.4) % Baso % (Auto) (0.2-1.2) % Lymph # (Auto) (0.9-3.2) K/mm3 [place] # (Auto) (0.1-0.6) K/mm3 Eos # (Auto) (0-0.3) K/mm3 Baso # (Auto) (0.0-0.1) K/mm3 Abs Immat Gran (auto) (0.00-0.031) K/mm3 Absolute Neuts (auto) (1.3-6.7) K/mm3 Absolute Nucleated RBC (0.0-0.012) K/mm3 Band Neutrophils % Nucleated RBC % (0.0-0.2) % Atypical Lymphocytes Platelet Estimate (Adequate) Schistocytes Sodium 129 L (137-145) mmol/L Potassium 4.3 (3.4-5.0) mmol/L Chloride 99 (98-107) mmol/L Carbon Dioxide 22 (22-30) mmol/L Anion Gap 8 (4-12) mmol/L BUN 24 H (9-20) mg/dL Creatinine 0.89 (0.7-1.3) mg/dL Estim Creat Clear Calc 62 ml/min Estimated GFR > 60 (59 - ) Glucose 149 H (65-110) mg/dL POC Capillary Glucose 202 H 153 H (65-105) mg/dl Hemoglobin A1c (<5.7) % Calcium 8.2 L (8.4-10.2) mg/dL Magnesium (1.6-2.3) mg/dL Total Bilirubin (0.2-1.3) mg/dL AST (17-59) U/L ALT (6-50) U/L Alkaline Phosphatase (38-126) U/L Total Protein (6.3-8.2) g/dL Albumin (3.5-5.1) g/dL Lipase (23-300) U/L Urine Color (Yellow) Urine Appearance (Clear) Urine pH (5.0-9.0) Ur Specific [place] (1.001-1.035) Urine Protein (Negative) mg/dL Urine Glucose (UA) (Negative) mg/dL Urine Ketones (Negative) mg/dL Ur Blood (Man) (Negative) Urine Nitrate (Negative) Urine Bilirubin (Negative) Urine Urobilinogen (<2.0) mg/dL Leukocyte Esterase Rfl (Negative) LIZABETH/UL Nasal MRSA (PCR) (NOT DETECTE) Influenza A (RT-PCR) (Negative) Influenza B (RT-PCR) (Negative) RSV (RT-PCR) (Negative) SARS-CoV-2 RNA (RT-PCR) (Negative) 06/04/25 06/04/25 06/05/25 Range/Units 20:20 22:55 00:34 WBC (4.5-10.0) K/mm3 RBC (4.6-6.20) M/mm3 Hgb (14.0-18.0) g/dL Hct (42.0-52.0) % MCV (80-100) fl MCH (26-34) pg MCHC (32-36) g/dl RDW (11.5-14.5) % Plt Count (150-375) k/mm3 MPV (7.4-10.4) fl Immature Gran % (Auto) (0-0.5) % Neut % (Auto) (45.5-73.1) % Lymph % (Auto) (18.3-44.2) % [place] % (Auto) (2.6-8.5) % Eos % (Auto) (0-4.4) % Baso % (Auto) (0.2-1.2) % Lymph # (Auto) (0.9-3.2) K/mm3 [place] # (Auto) (0.1-0.6) K/mm3 Eos # (Auto) (0-0.3) K/mm3 Baso # (Auto) (0.0-0.1) K/mm3 Abs Immat Gran (auto) (0.00-0.031) K/mm3 Absolute Neuts (auto) (1.3-6.7) K/mm3 Absolute Nucleated RBC (0.0-0.012) K/mm3 Band Neutrophils % Nucleated RBC % (0.0-0.2) % Atypical Lymphocytes Platelet Estimate (Adequate) Schistocytes Sodium 131 L (137-145) mmol/L Potassium 3.9 (3.4-5.0) mmol/L Chloride 99 (98-107) mmol/L Carbon Dioxide 24 (22-30) mmol/L Anion Gap 8 (4-12) mmol/L BUN 25 H (9-20) mg/dL Creatinine 1.00 (0.7-1.3) mg/dL Estim Creat Clear Calc 56 ml/min Estimated GFR > 60 (59 - ) Glucose 181 H (65-110) mg/dL POC Capillary Glucose 174 H (65-105) mg/dl Hemoglobin A1c (<5.7) % Calcium 7.7 L (8.4-10.2) mg/dL Magnesium (1.6-2.3) mg/dL Total Bilirubin (0.2-1.3) mg/dL AST (17-59) U/L ALT (6-50) U/L Alkaline Phosphatase (38-126) U/L Total Protein (6.3-8.2) g/dL Albumin (3.5-5.1) g/dL Lipase (23-300) U/L Urine Color (Yellow) Urine Appearance (Clear) Urine pH (5.0-9.0) Ur Specific [place] (1.001-1.035) Urine Protein (Negative) mg/dL Urine Glucose (UA) (Negative) mg/dL Urine Ketones (Negative) mg/dL Ur Blood (Man) (Negative) Urine Nitrate (Negative) Urine Bilirubin (Negative) Urine Urobilinogen (<2.0) mg/dL Leukocyte Esterase Rfl (Negative) LIZABETH/UL Nasal MRSA (PCR) Not detected (NOT DETECTE) Influenza A (RT-PCR) (Negative) Influenza B (RT-PCR) (Negative) RSV (RT-PCR) (Negative) SARS-CoV-2 RNA (RT-PCR) (Negative) 06/05/25 06/05/25 06/05/25 Range/Units 00:34 03:19 04:53 WBC 1.2 L* (4.5-10.0) K/mm3 RBC 4.34 L (4.6-6.20) M/mm3 Hgb 12.7 L (14.0-18.0) g/dL Hct 38.6 L (42.0-52.0) % MCV 88.9 (80-100) fl MCH 29.3 (26-34) pg MCHC 32.9 (32-36) g/dl RDW 15.1 H (11.5-14.5) % Plt Count 177 (150-375) k/mm3 MPV 11.0 H (7.4-10.4) fl Immature Gran % (Auto) 0.8 H (0-0.5) % Neut % (Auto) 18.4 L (45.5-73.1) % Lymph % (Auto) 18.3 (18.3-44.2) % [place] % (Auto) 61.7 H (2.6-8.5) % Eos % (Auto) 0.0 (0-4.4) % Baso % (Auto) 0.8 (0.2-1.2) % Lymph # (Auto) 0.22 L (0.9-3.2) K/mm3 [place] # (Auto) 0.7 H (0.1-0.6) K/mm3 Eos # (Auto) 0.0 (0-0.3) K/mm3 Baso # (Auto) 0.0 (0.0-0.1) K/mm3 Abs Immat Gran (auto) 0.01 (0.00-0.031) K/mm3 Absolute Neuts (auto) 0.2 L* (1.3-6.7) K/mm3 Absolute Nucleated RBC 0.000 (0.0-0.012) K/mm3 Band Neutrophils % Not Reportable Nucleated RBC % 0.0 (0.0-0.2) % Atypical Lymphocytes Platelet Estimate Adequate (Adequate) Schistocytes None seen Sodium 131 L 131 L (137-145) mmol/L Potassium 4.1 4.2 (3.4-5.0) mmol/L Chloride 102 102 (98-107) mmol/L Carbon Dioxide 20 L 24 (22-30) mmol/L Anion Gap 9 5 (4-12) mmol/L BUN 23 H 22 H (9-20) mg/dL Creatinine 0.92 0.94 (0.7-1.3) mg/dL Estim Creat Clear Calc 60 59 ml/min Estimated GFR > 60 > 60 (59 - ) Glucose 178 H 177 H (65-110) mg/dL POC Capillary Glucose (65-105) mg/dl Hemoglobin A1c 7.0 H (<5.7) % Calcium 7.6 L 7.8 L (8.4-10.2) mg/dL Magnesium 2.6 H (1.6-2.3) mg/dL Total Bilirubin 0.5 (0.2-1.3) mg/dL AST 32 (17-59) U/L ALT 19 (6-50) U/L Alkaline Phosphatase 48 (38-126) U/L Total Protein 5.5 L (6.3-8.2) g/dL Albumin 2.9 L (3.5-5.1) g/dL Lipase (23-300) U/L Urine Color (Yellow) Urine Appearance (Clear) Urine pH (5.0-9.0) Ur Specific [place] (1.001-1.035) Urine Protein (Negative) mg/dL Urine Glucose (UA) (Negative) mg/dL Urine Ketones (Negative) mg/dL Ur Blood (Man) (Negative) Urine Nitrate (Negative) Urine Bilirubin (Negative) Urine Urobilinogen (<2.0) mg/dL Leukocyte Esterase Rfl (Negative) LIZABETH/UL Nasal MRSA (PCR) Cancelled (NOT DETECTE) Influenza A (RT-PCR) (Negative) Influenza B (RT-PCR) (Negative) RSV (RT-PCR) (Negative) SARS-CoV-2 RNA (RT-PCR) (Negative) 06/05/25 Range/Units 08:00 WBC (4.5-10.0) K/mm3 RBC (4.6-6.20) M/mm3 Hgb (14.0-18.0) g/dL Hct (42.0-52.0) % MCV (80-100) fl MCH (26-34) pg MCHC (32-36) g/dl RDW (11.5-14.5) % Plt Count (150-375) k/mm3 MPV (7.4-10.4) fl Immature Gran % (Auto) (0-0.5) % Neut % (Auto) (45.5-73.1) % Lymph % (Auto) (18.3-44.2) % [place] % (Auto) (2.6-8.5) % Eos % (Auto) (0-4.4) % Baso % (Auto) (0.2-1.2) % Lymph # (Auto) (0.9-3.2) K/mm3 [place] # (Auto) (0.1-0.6) K/mm3 Eos # (Auto) (0-0.3) K/mm3 Baso # (Auto) (0.0-0.1) K/mm3 Abs Immat Gran (auto) (0.00-0.031) K/mm3 Absolute Neuts (auto) (1.3-6.7) K/mm3 Absolute Nucleated RBC (0.0-0.012) K/mm3 Band Neutrophils % Nucleated RBC % (0.0-0.2) % Atypical Lymphocytes Platelet Estimate (Adequate) Schistocytes Sodium (137-145) mmol/L Potassium (3.4-5.0) mmol/L Chloride (98-107) mmol/L Carbon Dioxide (22-30) mmol/L Anion Gap (4-12) mmol/L BUN (9-20) mg/dL Creatinine (0.7-1.3) mg/dL Estim Creat Clear Calc ml/min Estimated GFR (59 - ) Glucose (65-110) mg/dL POC Capillary Glucose 177 H (65-105) mg/dl Hemoglobin A1c (<5.7) % Calcium (8.4-10.2) mg/dL Magnesium (1.6-2.3) mg/dL Total Bilirubin (0.2-1.3) mg/dL AST (17-59) U/L ALT (6-50) U/L Alkaline Phosphatase (38-126) U/L Total Protein (6.3-8.2) g/dL Albumin (3.5-5.1) g/dL Lipase (23-300) U/L Urine Color (Yellow) Urine Appearance (Clear) Urine pH (5.0-9.0) Ur Specific [place] (1.001-1.035) Urine Protein (Negative) mg/dL Urine Glucose (UA) (Negative) mg/dL Urine Ketones (Negative) mg/dL Ur Blood (Man) (Negative) Urine Nitrate (Negative) Urine Bilirubin (Negative) Urine Urobilinogen (<2.0) mg/dL Leukocyte Esterase Rfl (Negative) LIZABETH/UL Nasal MRSA (PCR) (NOT DETECTE) Influenza A (RT-PCR) (Negative) Influenza B (RT-PCR) (Negative) RSV (RT-PCR) (Negative) SARS-CoV-2 RNA (RT-PCR) (Negative) <Fabiana Jacobo PA-C - Last Filed: 06/05/25 10:53> Lab Results 06/04/25 06/04/25 06/04/25 Range/Units 10:18 10:32 12:26 WBC 1.2 L* (4.5-10.0) K/mm3 RBC 5.20 (4.6-6.20) M/mm3 Hgb 14.9 (14.0-18.0) g/dL Hct 44.7 (42.0-52.0) % MCV 86.0 D (80-100) fl MCH 28.7 (26-34) pg MCHC 33.3 (32-36) g/dl RDW 14.8 H (11.5-14.5) % Plt Count 261 (150-375) k/mm3 MPV 11.4 H (7.4-10.4) fl Immature Gran % (Auto) 0.8 H (0-0.5) % Neut % (Auto) 24.6 L (45.5-73.1) % Lymph % (Auto) 40.7 (18.3-44.2) % [place] % (Auto) 29.7 H (2.6-8.5) % Eos % (Auto) 2.5 (0-4.4) % Baso % (Auto) 1.7 H (0.2-1.2) % Lymph # (Auto) 0.48 L (0.9-3.2) K/mm3 [place] # (Auto) 0.4 (0.1-0.6) K/mm3 Eos # (Auto) 0.0 (0-0.3) K/mm3 Baso # (Auto) 0.0 (0.0-0.1) K/mm3 Abs Immat Gran (auto) 0.01 (0.00-0.031) K/mm3 Absolute Neuts (auto) 0.3 L* (1.3-6.7) K/mm3 Absolute Nucleated RBC 0.000 (0.0-0.012) K/mm3 Band Neutrophils % Not Reportable Nucleated RBC % 0.0 (0.0-0.2) % Atypical Lymphocytes Present Platelet Estimate Adequate (Adequate) Schistocytes None seen Sodium 128 L (137-145) mmol/L Potassium 4.1 (3.4-5.0) mmol/L Chloride 96 L (98-107) mmol/L Carbon Dioxide 21 L (22-30) mmol/L Anion Gap 11 (4-12) mmol/L BUN 32 H (9-20) mg/dL Creatinine 1.13 (0.7-1.3) mg/dL Estim Creat Clear Calc 49 ml/min Estimated GFR > 60 (59 - ) Glucose 176 H (65-110) mg/dL POC Capillary Glucose (65-105) mg/dl Hemoglobin A1c (<5.7) % Calcium 8.7 (8.4-10.2) mg/dL Magnesium 2.2 (1.6-2.3) mg/dL Total Bilirubin 0.9 (0.2-1.3) mg/dL AST 44 (17-59) U/L ALT 24 (6-50) U/L Alkaline Phosphatase 57 (38-126) U/L Total Protein 6.5 (6.3-8.2) g/dL Albumin 3.6 (3.5-5.1) g/dL Lipase 29 (23-300) U/L Urine Color Yellow (Yellow) Urine Appearance Clear (Clear) Urine pH 6.0 (5.0-9.0) Ur Specific [place] 1.033 (1.001-1.035) Urine Protein Negative (Negative) mg/dL Urine Glucose (UA) 3+ H (Negative) mg/dL Urine Ketones Trace H (Negative) mg/dL Ur Blood (Man) Negative (Negative) Urine Nitrate Negative (Negative) Urine Bilirubin Negative (Negative) Urine Urobilinogen 0.2 (<2.0) mg/dL Leukocyte Esterase Rfl Negative (Negative) LIZABETH/UL Nasal MRSA (PCR) (NOT DETECTE) Influenza A (RT-PCR) Negative (Negative) Influenza B (RT-PCR) Negative (Negative) RSV (RT-PCR) Negative (Negative) SARS-CoV-2 RNA (RT-PCR) Negative (Negative) 06/04/25 06/04/25 06/04/25 Range/Units 14:33 16:57 18:45 WBC (4.5-10.0) K/mm3 RBC (4.6-6.20) M/mm3 Hgb (14.0-18.0) g/dL Hct (42.0-52.0) % MCV (80-100) fl MCH (26-34) pg MCHC (32-36) g/dl RDW (11.5-14.5) % Plt Count (150-375) k/mm3 MPV (7.4-10.4) fl Immature Gran % (Auto) (0-0.5) % Neut % (Auto) (45.5-73.1) % Lymph % (Auto) (18.3-44.2) % [place] % (Auto) (2.6-8.5) % Eos % (Auto) (0-4.4) % Baso % (Auto) (0.2-1.2) % Lymph # (Auto) (0.9-3.2) K/mm3 [place] # (Auto) (0.1-0.6) K/mm3 Eos # (Auto) (0-0.3) K/mm3 Baso # (Auto) (0.0-0.1) K/mm3 Abs Immat Gran (auto) (0.00-0.031) K/mm3 Absolute Neuts (auto) (1.3-6.7) K/mm3 Absolute Nucleated RBC (0.0-0.012) K/mm3 Band Neutrophils % Nucleated RBC % (0.0-0.2) % Atypical Lymphocytes Platelet Estimate (Adequate) Schistocytes Sodium 129 L (137-145) mmol/L Potassium 4.3 (3.4-5.0) mmol/L Chloride 99 (98-107) mmol/L Carbon Dioxide 22 (22-30) mmol/L Anion Gap 8 (4-12) mmol/L BUN 24 H (9-20) mg/dL Creatinine 0.89 (0.7-1.3) mg/dL Estim Creat Clear Calc 62 ml/min Estimated GFR > 60 (59 - ) Glucose 149 H (65-110) mg/dL POC Capillary Glucose 202 H 153 H (65-105) mg/dl Hemoglobin A1c (<5.7) % Calcium 8.2 L (8.4-10.2) mg/dL Magnesium (1.6-2.3) mg/dL Total Bilirubin (0.2-1.3) mg/dL AST (17-59) U/L ALT (6-50) U/L Alkaline Phosphatase (38-126) U/L Total Protein (6.3-8.2) g/dL Albumin (3.5-5.1) g/dL Lipase (23-300) U/L Urine Color (Yellow) Urine Appearance (Clear) Urine pH (5.0-9.0) Ur Specific [place] (1.001-1.035) Urine Protein (Negative) mg/dL Urine Glucose (UA) (Negative) mg/dL Urine Ketones (Negative) mg/dL Ur Blood (Man) (Negative) Urine Nitrate (Negative) Urine Bilirubin (Negative) Urine Urobilinogen (<2.0) mg/dL Leukocyte Esterase Rfl (Negative) LIZABETH/UL Nasal MRSA (PCR) (NOT DETECTE) Influenza A (RT-PCR) (Negative) Influenza B (RT-PCR) (Negative) RSV (RT-PCR) (Negative) SARS-CoV-2 RNA (RT-PCR) (Negative) 06/04/25 06/04/25 06/05/25 Range/Units 20:20 22:55 00:34 WBC (4.5-10.0) K/mm3 RBC (4.6-6.20) M/mm3 Hgb (14.0-18.0) g/dL Hct (42.0-52.0) % MCV (80-100) fl MCH (26-34) pg MCHC (32-36) g/dl RDW (11.5-14.5) % Plt Count (150-375) k/mm3 MPV (7.4-10.4) fl Immature Gran % (Auto) (0-0.5) % Neut % (Auto) (45.5-73.1) % Lymph % (Auto) (18.3-44.2) % [place] % (Auto) (2.6-8.5) % Eos % (Auto) (0-4.4) % Baso % (Auto) (0.2-1.2) % Lymph # (Auto) (0.9-3.2) K/mm3 [place] # (Auto) (0.1-0.6) K/mm3 Eos # (Auto) (0-0.3) K/mm3 Baso # (Auto) (0.0-0.1) K/mm3 Abs Immat Gran (auto) (0.00-0.031) K/mm3 Absolute Neuts (auto) (1.3-6.7) K/mm3 Absolute Nucleated RBC (0.0-0.012) K/mm3 Band Neutrophils % Nucleated RBC % (0.0-0.2) % Atypical Lymphocytes Platelet Estimate (Adequate) Schistocytes Sodium 131 L (137-145) mmol/L Potassium 3.9 (3.4-5.0) mmol/L Chloride 99 (98-107) mmol/L Carbon Dioxide 24 (22-30) mmol/L Anion Gap 8 (4-12) mmol/L BUN 25 H (9-20) mg/dL Creatinine 1.00 (0.7-1.3) mg/dL Estim Creat Clear Calc 56 ml/min Estimated GFR > 60 (59 - ) Glucose 181 H (65-110) mg/dL POC Capillary Glucose 174 H (65-105) mg/dl Hemoglobin A1c (<5.7) % Calcium 7.7 L (8.4-10.2) mg/dL Magnesium (1.6-2.3) mg/dL Total Bilirubin (0.2-1.3) mg/dL AST (17-59) U/L ALT (6-50) U/L Alkaline Phosphatase (38-126) U/L Total Protein (6.3-8.2) g/dL Albumin (3.5-5.1) g/dL Lipase (23-300) U/L Urine Color (Yellow) Urine Appearance (Clear) Urine pH (5.0-9.0) Ur Specific [place] (1.001-1.035) Urine Protein (Negative) mg/dL Urine Glucose (UA) (Negative) mg/dL Urine Ketones (Negative) mg/dL Ur Blood (Man) (Negative) Urine Nitrate (Negative) Urine Bilirubin (Negative) Urine Urobilinogen (<2.0) mg/dL Leukocyte Esterase Rfl (Negative) LIZABETH/UL Nasal MRSA (PCR) Not detected (NOT DETECTE) Influenza A (RT-PCR) (Negative) Influenza B (RT-PCR) (Negative) RSV (RT-PCR) (Negative) SARS-CoV-2 RNA (RT-PCR) (Negative) 06/05/25 06/05/25 06/05/25 Range/Units 00:34 03:19 04:53 WBC 1.2 L* (4.5-10.0) K/mm3 RBC 4.34 L (4.6-6.20) M/mm3 Hgb 12.7 L (14.0-18.0) g/dL Hct 38.6 L (42.0-52.0) % MCV 88.9 (80-100) fl MCH 29.3 (26-34) pg MCHC 32.9 (32-36) g/dl RDW 15.1 H (11.5-14.5) % Plt Count 177 (150-375) k/mm3 MPV 11.0 H (7.4-10.4) fl Immature Gran % (Auto) 0.8 H (0-0.5) % Neut % (Auto) 18.4 L (45.5-73.1) % Lymph % (Auto) 18.3 (18.3-44.2) % [place] % (Auto) 61.7 H (2.6-8.5) % Eos % (Auto) 0.0 (0-4.4) % Baso % (Auto) 0.8 (0.2-1.2) % Lymph # (Auto) 0.22 L (0.9-3.2) K/mm3 [place] # (Auto) 0.7 H (0.1-0.6) K/mm3 Eos # (Auto) 0.0 (0-0.3) K/mm3 Baso # (Auto) 0.0 (0.0-0.1) K/mm3 Abs Immat Gran (auto) 0.01 (0.00-0.031) K/mm3 Absolute Neuts (auto) 0.2 L* (1.3-6.7) K/mm3 Absolute Nucleated RBC 0.000 (0.0-0.012) K/mm3 Band Neutrophils % Not Reportable Nucleated RBC % 0.0 (0.0-0.2) % Atypical Lymphocytes Platelet Estimate Adequate (Adequate) Schistocytes None seen Sodium 131 L 131 L (137-145) mmol/L Potassium 4.1 4.2 (3.4-5.0) mmol/L Chloride 102 102 (98-107) mmol/L Carbon Dioxide 20 L 24 (22-30) mmol/L Anion Gap 9 5 (4-12) mmol/L BUN 23 H 22 H (9-20) mg/dL Creatinine 0.92 0.94 (0.7-1.3) mg/dL Estim Creat Clear Calc 60 59 ml/min Estimated GFR > 60 > 60 (59 - ) Glucose 178 H 177 H (65-110) mg/dL POC Capillary Glucose (65-105) mg/dl Hemoglobin A1c 7.0 H (<5.7) % Calcium 7.6 L 7.8 L (8.4-10.2) mg/dL Magnesium 2.6 H (1.6-2.3) mg/dL Total Bilirubin 0.5 (0.2-1.3) mg/dL AST 32 (17-59) U/L ALT 19 (6-50) U/L Alkaline Phosphatase 48 (38-126) U/L Total Protein 5.5 L (6.3-8.2) g/dL Albumin 2.9 L (3.5-5.1) g/dL Lipase (23-300) U/L Urine Color (Yellow) Urine Appearance (Clear) Urine pH (5.0-9.0) Ur Specific [place] (1.001-1.035) Urine Protein (Negative) mg/dL Urine Glucose (UA) (Negative) mg/dL Urine Ketones (Negative) mg/dL Ur Blood (Man) (Negative) Urine Nitrate (Negative) Urine Bilirubin (Negative) Urine Urobilinogen (<2.0) mg/dL Leukocyte Esterase Rfl (Negative) LIZABETH/UL Nasal MRSA (PCR) Cancelled (NOT DETECTE) Influenza A (RT-PCR) (Negative) Influenza B (RT-PCR) (Negative) RSV (RT-PCR) (Negative) SARS-CoV-2 RNA (RT-PCR) (Negative) 06/05/25 Range/Units 08:00 WBC (4.5-10.0) K/mm3 RBC (4.6-6.20) M/mm3 Hgb (14.0-18.0) g/dL Hct (42.0-52.0) % MCV (80-100) fl MCH (26-34) pg MCHC (32-36) g/dl RDW (11.5-14.5) % Plt Count (150-375) k/mm3 MPV (7.4-10.4) fl Immature Gran % (Auto) (0-0.5) % Neut % (Auto) (45.5-73.1) % Lymph % (Auto) (18.3-44.2) % [place] % (Auto) (2.6-8.5) % Eos % (Auto) (0-4.4) % Baso % (Auto) (0.2-1.2) % Lymph # (Auto) (0.9-3.2) K/mm3 [place] # (Auto) (0.1-0.6) K/mm3 Eos # (Auto) (0-0.3) K/mm3 Baso # (Auto) (0.0-0.1) K/mm3 Abs Immat Gran (auto) (0.00-0.031) K/mm3 Absolute Neuts (auto) (1.3-6.7) K/mm3 Absolute Nucleated RBC (0.0-0.012) K/mm3 Band Neutrophils % Nucleated RBC % (0.0-0.2) % Atypical Lymphocytes Platelet Estimate (Adequate) Schistocytes Sodium (137-145) mmol/L Potassium (3.4-5.0) mmol/L Chloride (98-107) mmol/L Carbon Dioxide (22-30) mmol/L Anion Gap (4-12) mmol/L BUN (9-20) mg/dL Creatinine (0.7-1.3) mg/dL Estim Creat Clear Calc ml/min Estimated GFR (59 - ) Glucose (65-110) mg/dL POC Capillary Glucose 177 H (65-105) mg/dl Hemoglobin A1c (<5.7) % Calcium (8.4-10.2) mg/dL Magnesium (1.6-2.3) mg/dL Total Bilirubin (0.2-1.3) mg/dL AST (17-59) U/L ALT (6-50) U/L Alkaline Phosphatase (38-126) U/L Total Protein (6.3-8.2) g/dL Albumin (3.5-5.1) g/dL Lipase (23-300) U/L Urine Color (Yellow) Urine Appearance (Clear) Urine pH (5.0-9.0) Ur Specific [place] (1.001-1.035) Urine Protein (Negative) mg/dL Urine Glucose (UA) (Negative) mg/dL Urine Ketones (Negative) mg/dL Ur Blood (Man) (Negative) Urine Nitrate (Negative) Urine Bilirubin (Negative) Urine Urobilinogen (<2.0) mg/dL Leukocyte Esterase Rfl (Negative) ILZABETH/UL Nasal MRSA (PCR) (NOT DETECTE) Influenza A (RT-PCR) (Negative) Influenza B (RT-PCR) (Negative) RSV (RT-PCR) (Negative) SARS-CoV-2 RNA (RT-PCR) (Negative) <Malachi Nguyen MD - Last Filed: 06/05/25 13:31> ABG Data ABG results: 06/04/25 19:54 Puncture Site Right radial ABG pH 7.492 H ABG pCO2 26.7 L ABG pO2 67.7 L ABG PO2/FiO2 Ratio 2.42 ABG HCO3 20.0 L ABG O2 Saturation 95.1 ABG O2 Content 18.3 ABG Base Excess -1.8 A-a Gradient 100.4 Oxyhemoglobin 93.0 Total Hemoglobin 14.0 O2 Delivery Device Nasal cannula O2 Liters/Min 2.0 FiO2 28 <Fabiana Jacobo PA-C - Last Filed: 06/05/25 10:53> 06/04/25 19:54 Puncture Site Right radial ABG pH 7.492 H ABG pCO2 26.7 L ABG pO2 67.7 L ABG PO2/FiO2 Ratio 2.42 ABG HCO3 20.0 L ABG O2 Saturation 95.1 ABG O2 Content 18.3 ABG Base Excess -1.8 A-a Gradient 100.4 Oxyhemoglobin 93.0 Total Hemoglobin 14.0 O2 Delivery Device Nasal cannula O2 Liters/Min 2.0 FiO2 28 <Malachi Nguyen MD - Last Filed: 06/05/25 13:31> Imaging Data Radiologist's impression: ITS Impressions Chest X-Ray 06/04/25 11:28 IMPRESSION: 1.The left hilum is prominent. Differential includes mass or adenopathy. A chest CT is recommended. 2.There is a 1.2 cm nodular density projecting over the right lower lung possibly a pulmonary nodule. A chest CT is recommended. 3. Small opacities in the lower lungs which represents atelectasis/scarring or infiltrates. Chest/Abdomen/Pelvis CT 06/04/25 12:13 IMPRESSION: 1. Grossly stable metastatic lymphadenopathy in the mediastinum and left hilum. 2. Status post left upper lobectomy 3. Thickening of the rivera of the descending and sigmoid colon. The findings are concerning for colitis. <Fabiana Jacobo PA-C - Last Filed: 06/05/25 10:53> ECG Data EKG #1: ECG completion date: 06/04/25 <Fabiana Jacobo PA-C - Last Filed: 06/05/25 10:53> EKG Interpretation: normal rate, sinus rhythm, RBBB and normal QT <SHALOM Gee Last Filed: 06/05/25 10:53> Critical Care Time Critical Care Time Critical Care Time: No <SHALOM Gee Last Filed: 06/05/25 10:53> Discharge Plan Discharge Clinical Impression: Colitis, COPD exacerbation, Acute hyponatremia Neutropenia Qualifiers: Neutropenia type: secondary to cancer chemotherapy Qualified Code(s): D70.1 - Agranulocytosis secondary to cancer chemotherapy Metastatic primary lung cancer Qualifiers: Laterality: unspecified laterality Qualified Code(s): C34.90 - Malignant neoplasm of unspecified part of unspecified bronchus or lung <Fabiana Jacobo PA-C - Last Filed: 06/05/25 10:53> Patient Disposition: Still a Patient <SHALOM Gee Last Filed: 06/05/25 10:53> Condition: Serious <SHALOM Gee Last Filed: 06/05/25 10:53>
[2025-06-04 10:24] LABS: Hematocrit 44.7 % (42.0-52.0); Hemoglobin 14.9 g/dL (14.0-18.0); Immature Granulocyte Percent A 0.8 % (0-0.5); Lymphocytes Absolute Auto 0.48 K/mm3 (0.9-3.2); Mean Corpuscular HGB Conc 33.3 g/dl (32-36); Mean Corpuscular Hemoglobin 28.7 pg (26-34); Mean Corpuscular Volume 86.0 fl (80-100); Nucleated Red Blood Cells Absolute Auto 0.000 K/mm3 (0.0-0.012); Nucleated Red Blood Cells Perc 0.0 % (0.0-0.2); Platelet Count Result 261 k/mm3 (150-375); Red Blood Count 5.20 M/mm3 (4.6-6.20)
[2025-06-04] MEDS: SODIUM CHLORIDE 0.9% IV 500 ML 999 ML IV CONT (10:34)
[2025-06-04] MEDS: FAMOTIDINE 20 MG/2 ML VIAL IV PUSH (10:35)
[2025-06-04] MEDS: ONDANSETRON INJ 4 MG/2 ML VIAL IV PUSH (10:35)
[2025-06-04 10:41] LABS: White Blood Count 1.2 K/mm3 (4.5-10.0)
[2025-06-04] MEDS: IPRATROPIUM 0.5 MG/ALBUTEROL SULFATE 2.5 MG AMPUL.NEB 3 ML INHALATION ×2 (10:43→19:03)
[2025-06-04] MEDS: MAGNESIUM SULF 2 GM/WATER 50ML 2 GM/50 ML BAG IVPB (10:46)
[2025-06-04 10:47] LABS: Alanine Aminotransferase 24 U/L (6-50); Albumin Level 3.6 g/dL (3.5-5.1); Alkaline Phosphatase 57 U/L (38-126); Anion Gap 11 mmol/L (4-12); Aspartate Amino Transferase 44 U/L (17-59); Bilirubin,Total 0.9 mg/dL (0.2-1.3); Blood Urea Nitrogen 32 mg/dL (9-20); Calcium 8.7 mg/dL (8.4-10.2); Carbon Dioxide 21 mmol/L (22-30); Chloride 96 mmol/L (98-107); Estimated CRCL calculation 49 ml/min; Estimated Glomerular Filt Rate > 60; Glucose 176 mg/dL (65-110); Lipase 29 U/L (23-300); Potassium 4.1 mmol/L (3.4-5.0); Sodium 128 mmol/L (137-145); Total Protein 6.5 g/dL (6.3-8.2)
--- OUTSIDE RECORDS SUMMARY | 2025-06-04 10:47 | XMS_ITS | Encounter Summary ---
Author Organization [facility] [employer] Address [address] [place] [address] Care Team Providers Care Battery Starter Name Role Phone Gamaliel Hinojosa MD Primary Care Provider Reason for Visit * Reason Onset Date Comments Vomiting 06/04/2025 Encounter Details Date Type Department Care Team (Late st Contact Info) Description 06/04/2025 Telephone [facility] - Chaitanya [address] [facility] [address] [place] [address] Mario Alberto Gomez MD [address] [facility] [employer] [address] [place] [address] Vomiting Social History Tobacco Use Types Packs/Day Years [...] on file documented as of this encounter Miscellaneous Notes * Telephone Encounter - Marry Lamb - 06/04/2025 9:14 AM CDT Patient called because he started a new chemotherapy on Wednesday and has not been feeling good since. He has been having diarrhea and vomiting. He said that he has been unable to keep anything down. He has tried antidiarrhea's with no help. He sounded pretty short of breath when speaking with him. Ilet him know that he really need to go to the ER for further evaluation since this has been going on 7 days and that he was most likely dehydrated. He agreed with the plan. No further questions at this time. documented in this encounter Plan of Treatment Upcoming Encounters Date Type Department Care Team (Late st Contact Info) Description 06/22/2025 8:30 AM CDT Office Visit [facility] - Chaitanya [address] [place] [address] Destiny Alaniz MD [address] [place] [address] documented as of this encounter Visit Diagnoses Not on filedocumented in this encounter Care Teams Battery Starter Relationship Specialty Start Date End Date Gamaliel Hinojosa MD [address] [facility] [address] [place] [id number] PCP - General Internal Medicine 12/27/19 documented as of this encounter
--- OUTSIDE RECORDS SUMMARY | 2025-06-04 10:48 | XMS_ITS | Clinical Summary ---
Author Organization [facility] Address [address] [place] [address] Phone Care Team Providers Care Physical Meteorologist Name Role Phone Gamaliel Hinojosa MD Primary Care Provider [phone] Allergies Active Allergy Reactions Criticality Noted Date [...] 06/03/2021, 12/27/2020, Additional history exists Influenza Immunization (#1) 06/18/202507/19, 08/01/2021, 07/29/2020, Additional history exists Pneumococcal Immunization [...] Relevant to Health Maintenance Results * (ABNORMAL) HEMOGLOBIN A1C W/ ESTIMATED GLUCOSE (05/03/2022 4:11 AM CDT) HGB-A1C 7.2(H) 4.0 - 6.0 % 05/03/2022 4:39 AM CDT [facility] Est Average Glucose 159.9 mg/dL 05/03/2022 4:39 AM CDT [facility] Blood Venipuncture / Unknown 05/03/2022 4:11 AM CDT 05/03/2022 4:11 AM CDT Narrative [facility] - 05/03/2022 4:39 AM CDT HEMOGLOBIN A1C: DIABETIC PATIENTS: WELL-CONTROLLED: 6.2 - 7.0 INTERMEDIATE WELL-CONTROLLED: 7.0 - 9.0 POORLY-CONTROLLED: >9.0 us Doretha Reeves MD CHEMISTRY ORDERABLES Final Result [facility] [address] [place] [address] * (ABNORMAL) CMP (COMPREHENSIVE METABOLIC PANEL) (05/02/2022 4:04 AM CDT) SODIUM 137 136 - 144 mmol/L 05/02/2022 4:34 AM CDT [facility] POTASSIUM 3.9 3.5 - 5.1 mmol/L 05/02/2022 4:34 AM CDT [facility] CHLORIDE 102 100 - 110 mmol/L 05/02/2022 4:34 AM CDT [facility] CO2, VENOUS 21(L) 22 - 32 mmol/L 05/02/2022 4:34 AM CDT [facility] ANION GAP 17.9 8.0 - 20.0 mmol/L 05/02/2022 4:34 AM CDT [facility] GLUCOSE 180(H) 70 - 99 mg/dL 05/02/2022 4:34 AM CDT [facility] BUN 21 8 - 23 mg/dL 05/02/2022 4:34 AM CDT [facility] CREATININE, BLOOD 0.90 0.80 - 1.30 mg/dL 05/02/2022 4:34 AM CDT [facility] BUN/CREATININE RATIO 23(H) 12 - 20 ratio 05/02/2022 4:34 AM CDT [facility] TOTAL PROTEIN 6.6 6.0 - 8.3 g/dL 05/02/2022 4:34 AM CDT [facility] ALBUMIN 3.6 3.5 - 5.2 g/dL 05/02/2022 4:34 AM CDT [facility] Comment: The colormetric methods used for the determination of Albumin may lead to falsely elevated test results in patients suffering from renal failure or insufficiency due to interference with other proteins. A/G RATIO 1.2 1.0 - 2.0 05/02/2022 4:34 AM CDT [facility] CALCIUM 9.0 8.9 - 10.3 mg/dL 05/02/2022 4:34 AM CDT [facility] T BILI 0.7 <=1.2 mg/dL 05/02/2022 4:34 AM CDT [facility] SGOT (AST) 17 <=40 U/L 05/02/2022 4:34 AM CDT [facility] SGPT (ALT) 16 <=41 U/L 05/02/2022 4:34 AM CDT [facility] ALKALINE PHOSPHATASE 55 40 - 130 U/L 05/02/2022 4:34 AM CDT [facility] GFR, EST. NONAFRICAN >60 >=60 05/02/2022 4:34 AM CDT [facility] GFR, EST. >60 >=60 022 4:34 AM CDT [facility] Comment: Creatinine Clearance is the preferred criteria for selecting drug dose adjustments in renally impaired patients. The GFR is provided as additional pertinent clinical information. GFR is reported in mL/min/1.73 sq m. Blood Venipuncture / Unknown 05/02/2022 4:04 AM CDT 05/02/2022 4:04 AM CDT Dale Morrison MD CHEMISTRY ORDERABLES Final Result [facility] [address] [place] [address] from Last 3 Months or Most Recently [...] measures to stabilize the patient. Care Teams Physical Meteorologist Relationship Specialty Start Date End Date Gamaliel Hinojosa MD PCP - General Internal Medicine 05/01/22
--- OUTSIDE RECORDS SUMMARY | 2025-06-04 10:48 | XMS_ITS | Clinical Summary ---
Author Organization [facility] [employer] Address [address] [place] [address] Care Team Providers Care Legal Process Specialist Name Role Phone Fabiana Bergman APRN-DAVE Primary Care Prov ider Unavailable Source Comments [facility] [employer],non-owned Affiliates and Associated Physician Practices is amultiple site organization consisting of ambulatory clinics and hospital sitesin [place], [place], [place] and [place]. This disclosure is being madepursuant to the Care Everywhere program and may not contain all information available regarding this patient. Last updated 18.[facility] [employer] Allergies Active Allergy Reactions Criticality Noted Date [...] on file Legal Sex Male 3:33 PM GLOBAL LOGISTICS ANALYST Gender Identity Not on file Sexual Orientation Not on file Last Filed Vital Signs Vital Sign Reading Time Taken Comments Blood Pressure 138/67 12/12/2019 2:30 PM GLOBAL LOGISTICS ANALYST Pulse 84 12/12/2019 2:30 PM GLOBAL LOGISTICS ANALYST Temperature 36.6 C (97.8 F) 12/12/2019 9:38 AM GLOBAL LOGISTICS ANALYST Respiratory Rate 22 12/12/2019 2:30 PM GLOBAL LOGISTICS ANALYST Oxygen Saturation 95% 12/12/2019 3:00 PM GLOBAL LOGISTICS ANALYST Inhaled Oxygen Concentration - - Weight 97.5 kg (215 lb) 12/12/2019 9:38 AM GLOBAL LOGISTICS ANALYST Height 177.8 cm (5' 10) 12/12/2019 9:54 AM GLOBAL LOGISTICS ANALYST Body Mass Index 30.85 12/12/2019 9:38 AM GLOBAL LOGISTICS ANALYST Plan of Treatment Health Maintenance Due Date Last Done Comments HEPATITIS C SCREENING 11/25/1963 DTAP/TDAP/TD VACCINES (1 - Tdap) 1965 PNEUMOCOCCAL VACCINE 50+ (1 of 1 - PCV) 1996 ZOSTER VACCINE (1 of 2) 1996 Respiratory Syncytial Virus (RSV) Vaccine Pt: or over 60 yrs (1 - 1-dose 75+ series) 2021 COVID-19 VACCINE (1 - 2023- season) 2024 DEPRESSION SCREENING 10/18/2024 INFLUENZA VACCINE (#1) 2025 0, 08/07/2019, 07/26/2019, Additional history exists HEPATITIS B [...] complete this topic Insurance [employer] Care Teams Legal Process Specialist Relationship Specialty Start Date End Date Fabiana Bergman APRN-DAVE Update Information PCP - General Nurse Practitioner 12/12/19
--- OUTSIDE RECORDS SUMMARY | 2025-06-04 10:49 | XMS_ITS | Clinical Summary ---
Author Organization [facility] Conchita ly Zistephaniepreet Address [address] [place] [address] Care Team Providers Care Deposition Operator Name Role Phone Gamaliel Hinojosa MD Primary Care Provider [phone] Allergies Active Allergy Reactions Criticality Noted Date [...] daily. Active fluticasone propionate (FLONASE) 50 mcg/spray [place], Suspension nasal inhaler fluticasone propionate 50 mcg/actuation [...] mouth daily in the morning. 023 Active megestroL (MEGACE) 400 mg/10 mL (40 mg/mL) suspensionIndic ations:Non-smal l cell cancer of left lung (CMS/HCC) TAKE 5 ML BY MOUTH DAILY. 180 mL 024 Active ondansetron (ZOFRAN ODT) 8 mg Tablet, Rapid DissolveIndicat ions:Non-small cell cancer of left lung (CMS/HCC) Dissolve 1 tablet on top of tongue then swallow with saliva every 8 hours as needed for nausea or vomiting 30 Tablet 1 025 Active lidocaine-prilo no (EMLA) 2.5-2.5 % CreamIndication s:Non-small cell cancer of left lung (CMS/HCC) Apply a quarter size amount to port site 30 minutes before access. 30 Gram 1 025 Active dexAMETHasone (DECADRON) 4 mg tabletIndicatio ns:Non-small cell cancer of left lung (CMS/HCC) Take 1 tablet by mouth BID day before treatment, day of treatment, and day after treatment with Docetaxel. 6 Tablet 3 025 Active ondansetron (ZOFRAN ODT) 8 mg Tablet, Rapid DissolveIndicat ions:Non-small cell cancer of left lung (CMS/HCC) Dissolve 1 tablet on top of tongue then swallow with saliva every 8 hours as needed for nausea or vomiting 30 Tablet 1 024 2024 Disconti nued(Reo rder) lidocaine-prilo no (EMLA) 2.5-2.5 % CreamIndication s:Non-small cell cancer of left lung (CMS/HCC) Apply to affected area see administration instructions. 30 Gram 1 024 2024 Disconti nued(Reo rder) dexAMETHasone (DECADRON) 4 mg tabletIndicatio ns:Non-small cell cancer of left lung (CMS/HCC) Take 1 tablet by mouth BID day before treatment, day of treatment, and day after treatment. 6 Tablet 3 024 2024 Disconti nued(Reo rder) Active Problems Problem Noted Date Diagnosed Date Non-small cell cancer of left lung 12/27/2019 Resolved Problems Problem Noted Date Diagnosed Date Resolved Date Protein-calorie malnutrition, moderate 02/08/2020 02/15/2020 Encounters Date Type Department Care Team Description 06/04/2025 Telephone [facility] Oncology and Hematology [facility] [address] [place] [phone] Mario Alberto Gomez MD Vomiting 05/29/2025 8:30 AM CDT Office Visit [facility] Oncology and Hematology [facility] [address] [place] [address] Mario Alberto Gomez MD Non-small cell cancer of left lung (CMS/HCC) (Primary Dx) 05/29/2025 External Device Data STL ABSTRACTION Provider, Abstract 05/29/2025 Orders Only [facility] Oncology and Hematology [facility] [address] [place] [address] Mario Alberto Gomez MD Non-small cell cancer of left lung (CMS/HCC) (Primary Dx) 05/28/2025 Orders Only [facility] Oncology and Hematology [facility] [address] [place] [address] Mario Alberto Gomez MD Non-small cell cancer of left lung (CMS/HCC); Benign hypertension 05/22/2025 Refill [facility] Oncology and Hematology [facility] [address] [place] [address] Mario Alberto Gomez MD Non-small cell cancer of left lung (CMS/HCC) 05/14/2025 Orders Only [facility] Oncology and Hematology - [place] [address] Mario Alberto Gomez MD Non-small cell cancer of left lung (CMS/HCC); Benign hypertension 05/02/2025 External Device Data STL ABSTRACTION Provider, Abstract 05/01/2025 External Device Data STL ABSTRACTION Provider, Abstract 04/30/2025 Orders Only [facility] Oncology and Hematology - [place] [address] [place] [phone] Mario Alberto Gomez MD Non-small cell cancer of left lung (CMS/HCC); Benign hypertension 04/27/2025 Abstract [facility] Oncology and Hematology [facility] [address] [place] [address] Mario Alberto Gomez MD 04/26/2025 10:00 AM CDT Office Visit [facility] Oncology and Hematology [facility] [address] [place] [address] Mario Alberto Gomez MD Non-small cell cancer of left lung (CMS/HCC) (Primary Dx) 04/16/2025 Orders Only [facility] Oncology and Hematology - [place] [address] [place] [address] Mario Alberto Gomez MD Non-small cell cancer of left lung (CMS/HCC); Benign hypertension 04/13/2025 Orders Only [facility] Oncology and Hematology - [place] [address] [place] [address] Mario Alberto Gomez MD 04/05/2025 9:15 AM CDT Office Visit [facility] Oncology and Hematology [facility] [address] [place] [address] Mario Alberto Gomez MD Non-small cell cancer of left lung (CMS/HCC) (Primary Dx) 04/05/2025 Orders Only [facility] Oncology and Hematology - [place] [address] [place] [address] Mario Alberto Gomez MD Non-small cell cancer of left lung (CMS/HCC) (Primary Dx) 04/02/2025 Orders Only [facility] Oncology and Hematology - [place] [address] [place] [address] Mario Alberto Gomez MD Non-small cell cancer of left lung (CMS/HCC); Benign hypertension 03/29/2025 Orders Only [facility] Oncology and Hematology - [place] [address] [place] [address] Mario Alberto Gomez MD 03/19/2025 Orders Only [facility] Oncology and Hematology - [place] [address] [place] [address] Mario Alberto Gomez MD Non-small cell cancer of left lung (CMS/HCC); Benign hypertension 03/15/2025 Orders Only [facility] Oncology and Hematology - [place] [address] [place] [address] Mario Alberto Gomez MD 03/06/2025 External Device Data STL ABSTRACTION Provider, Abstract 03/05/2025 Orders Only [facility] Oncology and Hematology - [place] [address] [place] [address] Mario Alberto Gomez MD Non-small cell cancer of left lung (CMS/HCC); Benign hypertension from Last 3 Months Immunizations Immunization Administration [...] Sign Reading Time Taken Comments Blood Pressure 146/75 05/29/2025 8:42 AM CDT Pulse 79 05/29/2025 8:39 AM CDT Temperature 36.3 C (97.4 F) 05/29/2025 8:39 AM CDT Respiratory Rate 16 05/29/2025 8:39 AM CDT Oxygen Saturation 96% 05/29/2025 8:39 AM CDT Inhaled Oxygen Concentration - - Weight 88.1 kg (194 lb 3.2 oz) 05/29/2025 8:39 A M CDT Height 177.8 cm (5' 10) 07/28/2022 9:55 AM CDT Body Mass Index 27.86 07/28/2022 9:55 AM CDT Plan of Treatment Upcoming Encounters Date Type Department Care Team (Late st Contact Info) Description 06/22/2025 8:30 AM CDT Office Visit [facility] Oncology and Hematology - [place] [address] [place] [address] Destiny Alaniz MD [address] [place] [address] Health Maintenance Due Date Last Done Comments DIABETES ANNUAL FOOT EXAM 1964 DIABETES ANNUAL RETINAL EXAM 1964 DIABETES MICROALBUMIN ANNUAL SCREEN 1964 LDL CHOLESTEROL ANNUAL 1964 DTAP/TDAP/TD VACCINES (1 - Tdap) 1965 ZOSTER VACCINE (2 of 3) 06/05/2013 04/10/2013 RSV VACCINE (60+ or ) (1 - 1-dose 75+ series) 2021 COVID-19 Vaccine (2023-2 5 season) 2024 06/15/2024, 07/15/2023, 07/27/2022, Additional history exists INFLUENZA VACCINE (#1) 2025 4, 07/30/2023, 07/27/2022, Additional history exists DIABETES HBA1C Q 6 MONTHS 11/21/20252024, 05/03/2022, 05/01/2022 PNEUMOCOCCAL VACCINE 50+ YEARS Completed 0 03/25/2016, 07/27/2014, 03/29/2013, Additional history exists [place] ([place]) Preventative Visit/Annual Wellness Visit Completed 01/16/2025, 09/20/2024, 06/13/2024, Additional history exists Medical Devices Implanted Type Area Terrazzo Worker Helper Device Identifier Shelf Expiration Date Model / Serial / Lot Sealant Progel Pleural 4ml [id number] - [id number] Implanted:Qty : 1 on 02/01/2020 by Denis Garcia MD at [facility] Tissue Left: Lung [employer] [id number] 05/18/2021 [id number] / / [id number] Sealant Progel Pleural 4ml [id number] - [id number] Implanted:Qty : 1 on 02/01/2020 by Denis Garcai MD at [facility] Tissue Left: Lung [employer] [id number] 05/18/2021 [id number] / / [id number] Procedures Procedure Name Priority Date/Time Associated Diagnosis Comments COMPREHENSIVE METABOLIC PANEL Routine 05/29/2025 1:09 PM CDT BASIC METABOLIC PANEL Routine 05/29/2025 1:08 PM CDT PET BONE IMG W CT SKL BSE MID THG Routine 04/12/2025 8:39 AM CDT GLUCOSE LEVEL Routine 04/12/2025 7:[address] CHEST ABDOMEN PELVIS W CONT Routine 03/29/2025 10:01 AM CDT COMPREHENSIVE METABOLIC PANEL Routine 03/15/2025 4:25 PM CDT BASIC METABOLIC PANEL Routine 03/15/2025 4:23 PM CDT COMPREHENSIVE METABOLIC PANEL Routine 03/15/2025 4:20 PM CDT from Last 3 Months Results * COMPREHENSIVE METABOLIC PANEL (05/29/2025 1:09 PM CDT) Only the most recent of3 resultswithin the time period is included. Blood us Mario Alberto Gomez MD CHEMISTRY ORDERABLES Final Resu lt * BASIC METABOLIC PANEL (05/29/2025 1:08 PM CDT) Only the most recent of2 resultswithin the time period is included. Blood us Mario Alberto Gomez MD CHEMISTRY ORDERABLES Final Resu lt * PET BONE IMG W CT SKB MDTH (04/12/2025 8:39 AM CDT) Anatomical Region Laterality Modality Positron Emissio n Tomography (PET) us Mario Alberto Gomez MD PE ORDERABLES Final Result * GLUCOSE LEVEL (04/12/2025 7:56 AM CDT) Blood us Mario Alberto Gomez MD CHEMISTRY ORDERABLES Final Resu lt * CT CHEST ABDOMEN PELVIS W CONT (03/29/2025 10:01 AM CDT) Anatomical Region Laterality Modality Chest Computed Tomogra phy us Mario Alberto Gomez MD CT ORDERABLES Final Result from Last 3 Months Insurance [facility] PPO MCR Advance Directives For more information, please contact: [phone] * Full Code (Latest Code Status on File) Date Activated Date Inactivated Comments 02/01/2020 5:32 AM 02/08/2020 6:20 PM Care Teams Deposition Operator Relationship Specialty Start Date End Date Gamaliel Hinojosa MD [address] [address] PCP - General Internal Medicine 12/27/19
[2025-06-04 10:51] LABS: Schistocytes None Seen
--- OUTSIDE RECORDS SUMMARY | 2025-06-04 11:14 | XMS_ITS | Encounter Summary ---
Author Organization [facility] Address [address] [place] [address] Care Team Providers Care Blintze Roller Name Role Phone Gamaliel Hinojosa MD Primary Care Provider [phone] Reason for Visit * Reason Onset Date Comments Vomiting 06/04/2025 Encounter Details Date Type Department Care Team (Late st Contact Info) Description 06/04/2025 Telephone [facility] Oncology and Hematology - [place] [address] [facility] [address] [place] [address] Mario Alberto Gomez MD [address] [facility] [address] [place] [address] Vomiting Social History Tobacco Use [...] Description 06/22/2025 8:30 AM CDT Office Visit [facility] Oncology and Hematology - [place] [address] [place] [address] Destiny Alaniz MD [address] [place] [address] documented as of this encounter Visit Diagnoses Not on filedocumented in this encounter Care Teams Blintze Roller Relationship Specialty Start Date End Date Gamaliel Hinojosa MD [address] [facility] [address] [place] [address] PCP - General Internal Medicine 12/27/19 documented as of this encounter
--- OUTSIDE RECORDS SUMMARY | 2025-06-04 11:14 | XMS_ITS | Clinical Summary ---
Author Organization [facility] Conchita ly Zistephaniepreet Address [address] [address] Care Team Providers Care Commercial Light Fixture Assembler Name Role Phone Gamaliel Hinojosa MD Primary Care Provider [phone] Allergies Active Allergy Reactions Criticality Noted Date [...] daily. Active fluticasone propionate (FLONASE) 50 mcg/spray [place], Suspension nasal inhaler fluticasone propionate 50 mcg/actuation [...] Type Department Care Team Description 06/04/2025 Telephone [facility] Oncology and Hematology [facility] [address] [place] [address] Mario Alberto Gomez MD Vomiting 05/29/2025 8:30 AM CDT Office Visit [facility] Oncology and Hematology [facility] [address] [place] [address] Mario Alberto Gomez MD Non-small cell cancer of left lung (CMS/HCC) (Primary Dx) 05/29/2025 External Device Data STL ABSTRACTION Provider, Abstract 05/29/2025 Orders Only [facility] Oncology and Hematology [facility] [address] [place] [address] Mario Alberto Gomez MD Non-small cell cancer of left lung (CMS/HCC) (Primary Dx) 05/28/2025 Orders Only [facility] Oncology and Hematology [facility] [address] [place] [address] Mario Alberto Gomez MD Non-small cell cancer of left lung (CMS/HCC); Benign hypertension 05/22/2025 Refill [facility] Oncology and Hematology [facility] [address] [place] [address] Mario Alberto Gomez MD Non-small cell cancer of left lung (CMS/HCC) 05/14/2025 Orders Only [facility] Oncology and Hematology - [place] [address] Mario Alberto Gomez MD Non-small cell cancer of left lung (CMS/HCC); Benign hypertension 05/02/2025 External Device Data STL ABSTRACTION Provider, Abstract 05/01/2025 External Device Data STL ABSTRACTION Provider, Abstract 04/30/2025 Orders Only [facility] Oncology and Hematology - [place] [address] [place] [address] Mario Alberto Gomez MD Non-small cell cancer of left lung (CMS/HCC); Benign hypertension 04/27/2025 Abstract [facility] Oncology and Hematology [facility] [address] [place] [address] Mario Alberto Gomez MD 04/26/2025 10:00 AM CDT Office Visit [facility] Oncology and Hematology [facility] [address] [place] [address] Mario Alberto Gomez MD Non-small cell cancer of left lung (CMS/HCC) (Primary Dx) 04/16/2025 Orders Only [facility] Oncology and Hematology - [place] [address] [place] [address] Mario Alberto Gomez MD Non-small cell cancer of left lung (CMS/HCC); Benign hypertension 04/13/2025 Orders Only [facility] Oncology and Hematology - [place] [address] [place] [address] Mario Alberto Gomez MD 04/05/2025 9:15 AM CDT Office Visit [facility] Oncology and Hematology [facility] [address] [place] [address] Mario Alberto Gomez MD Non-small cell cancer of left lung (CMS/HCC) (Primary Dx) 04/05/2025 Orders Only [facility] Oncology and Hematology - [place] [address] [place] [address] Mario Alberto Gomez MD Non-small cell cancer of left lung (CMS/HCC) (Primary Dx) 04/02/2025 Orders Only [facility] Oncology and Hematology - [place] [address] [place] [address] Mario Alberto Gomez MD Non-small cell cancer of left lung (CMS/HCC); Benign hypertension 03/29/2025 Orders Only [facility] Oncology and Hematology - [place] [address] [place] [address] Mario Alberto Gomez MD 03/19/2025 Orders Only [facility] Oncology and Hematology - [place] [address] [place] [address] Mario Alberto Gomez MD Non-small cell cancer of left lung (CMS/HCC); Benign hypertension 03/15/2025 Orders Only [facility] Oncology and Hematology - [place] [address] [place] [address] Mario Alberto Gomez MD 03/06/2025 External Device Data STL ABSTRACTION Provider, Abstract 03/05/2025 Orders Only [facility] Oncology and Hematology - [place] [address] [place] [address] Mario Alberto Gomez MD Non-small cell cancer [...] Description 06/22/2025 8:30 AM CDT Office Visit [facility] Oncology and Hematology - [place] [address] [place] [address] Destiny Alaniz MD [address] [place] [address] Health Maintenance Due Date Last [...] history exists Medical Devices Implanted Type Area Supervisor Painting Shipyard Device Identifier Shelf Expiration Date Model / Serial / Lot Sealant Progel Pleural 4ml [id number] - [id number] Implanted:Qty : 1 on 02/01/2020 by Denis Garcia MD at [facility] Tissue Left: Lung [employer] [id number] 05/18/2021 [id number] / / [id number] Sealant Progel Pleural 4ml [id number] - [id number] Implanted:Qty : 1 on 02/01/2020 by Denis Garcia MD at [facility] Tissue Left: Lung [employer] [id number] 05/18/2021 [id number] / / [id number] Procedures Procedure Name Priority Date/Time Associated Diagnosis [...] Final Result from Last 3 Months Insurance [facility] PPO MCR Advance Directives For more information, please contact: [phone] * Full Code (Latest Code Status on File) Date Activated Date Inactivated Comments 02/01/2020 5:32 AM 02/08/2020 6:20 PM Care Teams Commercial Light Fixture Assembler Relationship Specialty Start Date End Date Gamaliel Hinojosa MD [address] [address] PCP - General Internal Medicine 12/27/19
--- OUTSIDE RECORDS SUMMARY | 2025-06-04 11:14 | XMS_ITS | Clinical Summary ---
Author Organization [facility] Address [address] [place] [address] Phone Care Team Providers Care Community Health Nurse Supervisor Name Role Phone Gamaliel Hinojosa MD Primary Care Provider [phone] Allergies Active Allergy Reactions Criticality Noted Date [...] 6.0 % 05/03/2022 4:39 AM CDT [facility] Est Average Glucose 159.9 mg/dL 05/03/2022 4:39 AM CDT [facility] Blood Venipuncture / Unknown 05/03/2022 4:11 AM CDT 05/03/2022 4:11 AM CDT Narrative [facility] - 05/03/2022 4:39 AM CDT HEMOGLOBIN A1C: DIABETIC PATIENTS: WELL-CONTROLLED: 6.2 - 7.0 INTERMEDIATE WELL-CONTROLLED: 7.0 - 9.0 POORLY-CONTROLLED: >9.0 us Doretha Reeves MD CHEMISTRY ORDERABLES Final Result [facility] [address] [place] [address] * (ABNORMAL) CMP (COMPREHENSIVE METABOLIC PANEL) (05/02/2022 4:04 AM CDT) SODIUM 137 136 - 144 mmol/L 05/02/2022 4:34 AM CDT [facility] POTASSIUM 3.9 3.5 - 5.1 mmol/L 05/02/2022 4:34 AM CDT [facility] CHLORIDE 102 100 - 110 mmol/L 05/02/2022 4:34 AM CDT [facility] CO2, VENOUS 21(L) 22 - 32 mmol/L 05/02/2022 4:34 AM CDT [facility] ANION GAP 17.9 8.0 - 20.0 mmol/L 05/02/2022 4:34 AM CDT [facility] GLUCOSE 180(H) 70 - 99 mg/dL 05/02/2022 4:34 AM CDT [facility] BUN 21 8 - 23 mg/dL 05/02/2022 4:34 AM CDT [facility] CREATININE, BLOOD 0.90 0.80 - 1.30 mg/dL 05/02/2022 4:34 AM CDT [facility] BUN/CREATININE RATIO 23(H) 12 - 20 ratio 05/02/2022 4:34 AM CDT [facility] TOTAL PROTEIN 6.6 6.0 - 8.3 g/dL 05/02/2022 4:34 AM CDT [facility] ALBUMIN 3.6 3.5 - 5.2 g/dL 05/02/2022 4:34 AM CDT [facility] Comment: The colormetric methods used for the determination of Albumin may lead to falsely elevated test results in patients suffering from renal failure or insufficiency due to interference with other proteins. A/G RATIO 1.2 1.0 - 2.0 05/02/2022 4:34 AM CDT [facility] CALCIUM 9.0 8.9 - 10.3 mg/dL 05/02/2022 4:34 AM CDT [facility] T BILI 0.7 <=1.2 mg/dL 05/02/2022 4:34 AM CDT [facility] SGOT (AST) 17 <=40 U/L 05/02/2022 4:34 AM CDT [facility] SGPT (ALT) 16 <=41 U/L 05/02/2022 4:34 AM CDT [facility] ALKALINE PHOSPHATASE 55 40 - 130 U/L 05/02/2022 4:34 AM CDT [facility] GFR, EST. NONAFRICAN >60 >=60 05/02/2022 4:34 AM CDT [facility] GFR, EST. >60 >=60 022 4:34 AM CDT [facility] Comment: Creatinine Clearance is the preferred criteria for selecting drug dose adjustments in renally impaired patients. The GFR is provided as additional pertinent clinical information. GFR is reported in mL/min/1.73 sq m. Blood Venipuncture / Unknown 05/02/2022 4:04 AM CDT 05/02/2022 4:04 AM CDT Dale Morrison MD CHEMISTRY ORDERABLES Final Result [facility] [address] [place] [address] from Last 3 Months or Most Recently [...] measures to stabilize the patient. Care Teams Community Health Nurse Supervisor Relationship Specialty Start Date End Date Gamaliel Hinojosa MD PCP - General Internal Medicine 05/01/22
--- OUTSIDE RECORDS SUMMARY | 2025-06-04 11:14 | XMS_ITS | Clinical Summary ---
Author Organization [facility] Address [address] [facility] [place] [address] Care Team Providers Care Linoleum Tile Floor Layer Name Role Phone Fabiana Bergman APRN-DAVE Primary Care Prov ider Unavailable Source Comments [facility],non-owned Affiliates and Associated Physician Practices is amultiple site organization consisting of ambulatory clinics and hospital sitesin [place], [place], [place] and [place]. This disclosure is being madepursuant to the Care Everywhere program and may not contain all information available regarding this patient. Last updated 18.[facility] Allergies Active Allergy Reactions Criticality Noted Date [...] on file Legal Sex Male 3:33 PM AUTOMOTIVE ENGINEER Gender Identity Not on file Sexual Orientation Not on file Last Filed Vital Signs Vital Sign Reading Time Taken Comments Blood Pressure 138/67 12/12/2019 2:30 PM AUTOMOTIVE ENGINEER Pulse 84 12/12/2019 2:30 PM AUTOMOTIVE ENGINEER Temperature 36.6 C (97.8 F) 12/12/2019 9:38 AM AUTOMOTIVE ENGINEER Respiratory Rate 22 12/12/2019 2:30 PM AUTOMOTIVE ENGINEER Oxygen Saturation 95% 12/12/2019 3:00 PM AUTOMOTIVE ENGINEER Inhaled Oxygen Concentration - - Weight 97.5 kg (215 lb) 12/12/2019 9:38 AM AUTOMOTIVE ENGINEER Height 177.8 cm (5' 10) 12/12/2019 9:54 AM AUTOMOTIVE ENGINEER Body Mass Index 30.85 12/12/2019 9:38 AM AUTOMOTIVE ENGINEER Plan of Treatment Health Maintenance Due Date [...] complete this topic Insurance [employer] Care Teams Linoleum Tile Floor Layer Relationship Specialty Start Date End Date Fabiana Bergman APRN-DAVE Update Information PCP - General Nurse Practitioner 12/12/19
[2025-06-04] MEDS: SODIUM CHLORIDE 0.9% IV 1,000 ML 999 ML IV CONT (11:26)
[2025-06-04 11:59] LABS: Influenza A QL RT-PCR Negative (Negative); Influenza B QL RT-PCR Negative (Negative); RSV RNA, RT-PCR Negative (Negative); SARS-CoV-2 RNA PCR Negative (Negative)
[2025-06-04 12:37] LABS: Magnesium 2.2 mg/dL (1.6-2.3)
[2025-06-04 12:46] LABS: Add Urine Microscopic? NO; Appearance Urine Clear (Clear); Glucose Urine UA 3+ mg/dL (Negative); Leukocyte Esterase Ur Negative LEU/UL (Negative); Nitrate Urine Negative (Negative); Specific Grav Ur 1.033 (1.001-1.035)
[2025-06-04] MEDS: BELLADONNA ALK/PHENOB ELIX 10 ML, MAG HYDROX/ALUMINUM HYD/SIMETH 30 ML, LIDOCAINE 2% VI... PO (13:19)
[2025-06-04] MEDS: PIPERACILLIN/TAZOBACTAM SOD 3.375 GM in SODIUM CHLORIDE 0.9% IV 50 ML 100 ML IVPB ×2 (13:42→20:45)
--- NOTE | 2025-06-04 14:03 | P.HP_ITS ---
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 The patient presents here from home on 06/04 for further evaluation of generalized weakness, nausea, vomiting and diarrhea. He reports onset of sympto ms approximately 6 days ago. Patient has a hx of lung cancer with a soft tissue mass in the left groin/inguinal region that has been definitively treated with cancer and stable x3 months and immunotherapy. He follows with Patricia MOSES for his oncology care. Patient reports his symptoms were precipitated by a change in his immunotherapy on Wednesday (05/29) which he believed has caused his nausea, vomiti ng, and diarrhea. He reports he has been taking Lomotil for the diarrhea but it has not been effective. He contacted his oncologist today who advised him to come to the emergency department for further evaluation. He reports accompanying XX. Denies XX. He additionally reports mild shortness of breath and wheezing. He does have a history of COPD and reports he forgot to take his medications this AM. He reports/denies accompanying increased sputum production, fever, chills, or body aches? Initial VS at presentation: 97.6? F, HR 100, R 22, 115/59, and 97% on RA. ED workup showed: WBC 1.2, hemoglobin 14.9, platelet count within normal limits, who absolute neutrophils 0.3, sodium 128, creatinine 1.13 and GFR >60, glucose 176, normal LFTs and lipase. UA showed 3+ glucose and trace ketones otherwise unremarkable. Viral PCR negative. CXR showed a prominent left hilum, 1.2 cm nodular density projecting over the right lower lung, and small opacities in the lower lungs which could represent atelectasis/scarring or infiltrate. CT chest/abdomen/pelvis showed grossly stable metastatic lymphadenopathy in the mediastinum and left hilum, s/p left upper lobectomy, thickening of the rivera of the descending and sigmoid colon (findings concerning for colitis). 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, including hip Lung cancer Surgical History Surgical History (Updated 06/04/25 @ 14:34 by Jodie Ross APRN) History of inguinal hernia repair History of appendectomy Social History Social History Smoking packs per day: 1 Smoking cigarettes per day: 20.0 Years smoked: 40 Smoking pack-years: 40.00 Smoking status: Former smoker Second hand tobacco smoke exposure: No Additional smoking assessment comments: STATES SMOKED 1PK/DAY/30-40YRS/QUIT 2010~ Alcohol intake: current Drinks per week: 7 Alcohol use details: STATES DRINKS 3 OZ/NIGHT, (21 OZ/WEEK) Substance use: never Substance use type: does not use Lack of Transportation: No Lack of Food: Never True Current Housing: I Have Housing Concerned About Future Housing: No Difficulty Paying Gas/Electric Bills: No Difficulty Paying for Meds: No Currently Unemployed: No Education: High School Diploma/GED Difficulty w/ Childcare or Family Care: No Living arrangements: with family Spiritual care concerns: No Meds Home Medications and Allergies Home Medications ?Medication ?Instructions ?Recorded ?Confirmed ?Type ascorbic acid (vitamin C) 1,000 mg 1,000 mg PO DAILY 10/08/23 06/04/25 History tablet,extended release (Vitamin C ER) diphenhydramine HCl 12.5 mg/5 mL 12.5 mg PO QAM PRN allergy symptoms 10/08/23 06/04/25 History oral liquid (Benadryl Allergy) empagliflozin 10 mg tablet 10 mg PO DAILY 10/08/23 06/04/25 History (Jardiance) famotidine 20 mg tablet (Pepcid) 20 mg PO DAILY PRN acid reflux 10/08/23 06/04/25 History fenofibrate nanocrystallized 145 145 mg PO DAILY 10/08/23 06/04/25 History mg tablet fluticasone 250 mcg-salmeterol 50 1 inh inhalation Q12H 10/08/23 06/04/25 History mcg/dose blistr powdr for inhalation (Wixela Inhub) glimepiride 4 mg tablet 4 mg PO BID 10/08/23 06/04/25 History hydrochlorothiazide 25 mg tablet 25 mg PO DAILY 10/08/23 06/04/25 History metformin 500 mg tablet,extended 1,000 mg PO BID 10/08/23 06/04/25 History release 24 hr metoprolol tartrate 50 mg tablet 50 mg PO BID 10/08/23 06/04/25 History multivitamin 1 tablet PO DAILY 10/08/23 06/04/25 History simvastatin 20 mg tablet 20 mg PO DAILY 10/08/23 06/04/25 History tiotropium bromide 2.5 2 puff inhalation QAM 10/08/23 06/04/25 History mcg/actuation mist for inhalation (Spiriva Respimat) ibuprofen 600 mg tablet 600 mg PO Q6H PRN pain #14 tabs 10/14/23 06/04/25 Rx oxycodone-acetaminophen 5 mg-325 0.5 - 1 tablet PO Q6H PRN pain #10 10/14/23 06/04/25 Rx mg tablet tabs Allergies Allergy/AdvReac Type Severity Reaction Status Date / Time hydrocodone (From Vicodin) AdvReac Itching Verified 06/04/25 10:16 morphine AdvReac VIOLENT Verified 06/04/25 10:16 TREMORS Vital Signs Vital Signs - 24 hr 06/04/25 10:07 06/04/25 10:43 06/04/25 10:50 Temperature 97.6 F Pulse Rate 100 94 92 Respiratory Rate 22 H 22 H 16 Blood Pressure 115/59 L 133/61 Pulse Oximetry 97 100 Oxygen Delivery Room Air 06/04/25 10:55 Temperature Pulse Rate 96 Respiratory Rate 24 H Blood Pressure Pulse Oximetry Oxygen Delivery Exam Const: Other: Who mild discomfort noted and mild respiratory distress noted. Male, elderly, acute on chronic ill appearance. HENMT: Face/Nose/Sinus: Normal nares present Mouth: Yes moist mucous membranes Eyes: General: appearance normal, both eyes and all related structures Sclera: sclerae normal Pupils: Equal, round and reactive pupils present EOM: EOMs intact bilaterally Resp: Other: Tachypneic with accessory muscle use. Wheezing audible bilaterally, more coarse on the left. Cardio: Rate: tachycardic Rhythm: regular rhythm Other: S1-S2 present without murmur, rub, ectopy GI: Other: Abdomen soft and nondistended. Tender in the lower quadrants, primarily in the left lower quadrant. Normoactive bowel sounds in all quadrants. Skin: General skin exam: normal color and no rashes or lesions noted Wounds: no wounds Neuro: Speech: normal speech Motor exam (neuro): 5/5 motor strength present throughout Sensory Exam: normal sensation Other: Generalized weakness, A&O x4 Extrem: General: normal to inspection Psych: Mental Status: mental status grossly normal Affect: normal affect Other: Good insight and judgment, very pleasant H&P: Results Labs Labs: Short CBC 06/04/25 Range/Units 10:18 WBC 1.2 L* (4.5-10.0) K/mm3 Hgb 14.9 (14.0-18.0) g/dL Hct 44.7 (42.0-52.0) % Plt Count 261 (150-375) k/mm3 BMP 06/04/25 10:18 Sodium 128 L Potassium 4.1 Chloride 96 L Carbon Dioxide 21 L BUN 32 H Creatinine 1.13 Glucose 176 H Calcium 8.7 Liver Function 06/04/25 Range/Units 10:18 Total Bilirubin 0.9 (0.2-1.3) mg/dL AST 44 (17-59) U/L ALT 24 (6-50) U/L Alkaline Phosphatase 57 (38-126) U/L Albumin 3.6 (3.5-5.1) g/dL Urine 06/04/25 Range/Units 12:26 Urine Color Yellow (Yellow) Urine Appearance Clear (Clear) Urine pH 6.0 (5.0-9.0) Ur Specific [place] 1.033 (1.001-1.035) Urine Protein Negative (Negative) mg/dL Urine Glucose (UA) 3+ H (Negative) mg/dL Assessment and Plan Assessment and plan (1) Nausea vomiting and diarrhea: Code(s): R11.2 - Nausea with vomiting, unspecified; R19.7 - Diarrhea, unspecified Status: Acute Assessment and Plan: New immunotherapy prescribed on Wednesday, 05/29, which precipitated nausea, vomiting, diarrhea for the past 6 days (presentation on 06/04). CT also concerning for colitis, see plan below. - IV fluids: 2L -> 125 mL/hr - monitor electrolytes, correct as needed. Hyponatremia noted upon admission, see below. - started on antibiotics for colitis - check C diff and stool culture - blood cultures obtained on 06/04, follow - oncology consulted - antiemetics p.r.n. (2) Colitis: Code(s): K52.9 - Noninfective gastroenteritis and colitis, unspecified Status: Acute Assessment and Plan: - CT chest/abdomen/pelvis, 06/04: 1. Grossly stable metastatic lymphadenopathy in the mediastinum and left hilum. 2. Status post left upper lobectomy 3. Thickening of the rivera of the descending and sigmoid colon. The findings are concerning for colitis. - started on Zosyn on 06/04 - IV fluids: 2L bolus, now on 125 mL/hr - clear liquid diet - pain medication prn - daily clinical reassessment for improvement (3) Hyponatremia: Code(s): E87.1 - Hypo-osmolality and hyponatremia Status: Acute Assessment and Plan: Likely secondary to acute dehydration and N/V/D. - Na 128 - check serum osmolality, urine osmolality, urine sodium, protein to creatinine ratio, urine creatinine - bmp Q3H - trend renal function - no current alteration in mental status, monitor (4) COPD (chronic obstructive pulmonary disease): Code(s): J44.9 - Chronic obstructive pulmonary disease, unspecified Status: Acute Assessment and Plan: - arrived with wheezing and shortness of breath on 06/04, precipitated by missed AM meds. Given 2G of magnesium, Solu-Medrol, and a DuoNeb in the ED with improvement. - DuoNebs austyn - given Solu-Medrol in the ED, will continue as prednisone 40 mg daily - started on Zosyn due to concurrent colitis Despite additional DuoNeb treatment, Solu-Medrol, and home Wixela inhaler this evening the patient remains significantly dyspneic. Will start BiPAP and her reassess. Stat ABG. May need transfer to IMU for continuous BiPAP. 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 Seealiyah Gomez for his oncology care and previously saw Cr MOSES for radiation (now transitioned to PRN basis) - oncology consulted - reverse isolation in place (6) DM2 (diabetes mellitus, type 2): Qualifiers: Diabetes mellitus long filler cigar roller machine insulin use: without chcf use Diabetes mellitus complication status: without complication Qualified Code(s): E11.9 - Type 2 diabetes mellitus without complications Code(s): E11.9 - Type 2 diabetes mellitus without complications Status: Chronic Assessment and Plan: - hypoglycemia protocol - POC blood glucose ACHS - home medication: Continue Jardiance. Hold metformin and glimepiride. - correct regimen ordered - moderate dose TIDWM, based off BMI - A1C ordered (7) HTN (hypertension): Qualifiers: Hypertension type: primary hypertension Qualified Code(s): I10 - Essential (primary) hypertension Code(s): I10 - Essential (primary) hypertension Status: Chronic Assessment and Plan: - chronic, currently 142/64 - continue home medications: HCTZ, metoprolol - monitor Plan Diet: clear liquid GI Prophylaxis: PPI IV DVT Prophylaxis: Lovenox IV fluids: 2L -> 125 mL/hr Lines/Tubes: Peripheral IV Code Status: Full code Quality VTE Prophylaxis VTE prophylaxis: pharmacologic ordered Hospitalist [facility] Advance Care Plan I have confirmed that the patient's Advanced Care Plan is present, code status is documented, or surrogate decision maker is listed in patient medical record.: Yes Medication Reconciliation I have utilized all available resources to obtain, update and review the patients current medications (includes all prescriptions, OTC, herbals, cannabis, and nutritional supplements).: Yes
[2025-06-04] MEDS: SODIUM CHLORIDE 0.9% IV 1,000 ML 125 ML IV CONT ×2 (14:36→20:44)
--- NOTE | 2025-06-04 15:19 | ADMGEN ---
This patient, Forrest Otoole, was admitted to Medical Room 260-01. Patient/family oriented to hospital policies and general routines including ID bracelet, bed and alarms, visiting hours, pain management, procedures, bathroom and other care routines, personal items, smoking policy, room service/diet, and visiting hours. Information on how to activate the Rapid Response Team has been discussed. Patient/Family are encouraged to report perceived risks to care and to ask questions if they do not understand what they are told or what they should do.
[2025-06-04 19:09] LABS: Anion Gap 8 mmol/L (4-12); Blood Urea Nitrogen 24 mg/dL (9-20); Calcium 8.2 mg/dL (8.4-10.2); Carbon Dioxide 22 mmol/L (22-30); Chloride 99 mmol/L (98-107); Estimated CRCL calculation 62 ml/min; Estimated Glomerular Filt Rate > 60; Glucose 149 mg/dL (65-110); Potassium 4.3 mmol/L (3.4-5.0); Sodium 129 mmol/L (137-145)
--- NOTE | 2025-06-04 19:09 | P.CONONC_ITS ---
Assessment and Plan Assessment and plan (1) Non-small cell lung cancer: Code(s): C34.90 - Malignant neoplasm of unspecified part of unspecified bronchus or lung Status: Acute Assessment and Plan: Patient was diagnosed with metastatic stage I A lung cancer in February 01, 2020 and then subsequently diagnosed with metastatic lung cancer when found to have large groin mass. He was recently started on chemotherapy with site of the Taxotere on May 29 due to progressive disease on maintenance immunotherapy with Keytruda. I have reviewed the labs. We will start him on Neupogen for chemotherapy-induced neutropenia. He is already on antibiotics for colitis and possible pneumonia. Due to his significant shortness of breath I will give 1 time order of Solu-Medrol while waiting for breathing treatment. He will follow-up with us in the office for continuation of treatment once he recovered from this flare-up of COPD and colitis. HPI Data of Consult Date/Time: 06/04/25 19:09 Requesting Physician: Deborah Tyson MD Primary Care Provider: Gamaliel HinojosaMD Consult Narrative Narrative: Forrest Otoole is a 79 year old male with history of metastatic non-small cell lung cancer status post left inguinal soft tissue mass excision and biopsy done that came back compatible with lung cancer. He was initially diagnosed with stage IA cancer and had left upper lobe lobectomy done in January of 2020. Patient was on maintenance treatment with Keytruda until recently when due to progressive disease he was started on Taxotere and Cyramza and received chemotherapy on May 29 with cycle 1. He came into the hospital with generalized weakness nausea vomiting and diarrhea. He is quite short of breath during my examination today. Patient has a history of COPD. Chest x-ray showed prominent left hilar area with 1.2 cm nodular density over the right lower lung consistent with dense scarring/infiltrate. CT chest abdomen pelvis showed metastatic lymphadenopathy in the mediastinum and the left hilum. He was also diagnosed with colitis with diarrhea. He was started on IV fluid along with Zosyn. Labs showed hyponatremia and leukopenia. WBC was 1.2 with ANC of 300. No other new complaints. 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, including hip Lung cancer Surgical History Surgical History (Updated 06/04/25 @ 14:34 by Jodie Ross APRN) History of inguinal hernia repair History of appendectomy Social History Social History Smoking packs per day: 1 Smoking cigarettes per day: 20.0 Years smoked: 40 Smoking pack-years: 40.00 Smoking status: Former smoker Second hand tobacco smoke exposure: No Additional smoking assessment comments: STATES SMOKED 1PK/DAY/30-40YRS/QUIT 2010~ Alcohol intake: current Drinks per week: 7 Alcohol use details: STATES DRINKS 3 OZ/NIGHT, (21 OZ/WEEK) Substance use: never Substance use type: does not use Lack of Transportation: No Lack of Food: Never True Current Housing: I Have Housing Concerned About Future Housing: No Difficulty Paying Gas/Electric Bills: No Difficulty Paying for Meds: No Currently Unemployed: No Education: High School Diploma/GED Difficulty w/ Childcare or Family Care: No Living arrangements: with family Spiritual care concerns: No Meds Home Medications and Allergies Home Medications ?Medication ?Instructions ?Recorded ?Confirmed ?Type ascorbic acid (vitamin C) 1,000 mg 1,000 mg PO DAILY 10/08/23 06/04/25 History tablet,extended release (Vitamin C ER) diphenhydramine HCl 12.5 mg/5 mL 12.5 mg PO QAM PRN allergy symptoms 10/08/23 06/04/25 History oral liquid (Benadryl Allergy) empagliflozin 10 mg tablet 10 mg PO DAILY 10/08/23 06/04/25 History (Jardiance) famotidine 20 mg tablet (Pepcid) 20 mg PO DAILY PRN acid reflux 10/08/23 06/04/25 History fenofibrate nanocrystallized 145 145 mg PO DAILY 10/08/23 06/04/25 History mg tablet fluticasone 250 mcg-salmeterol 50 1 inh inhalation Q12H 10/08/23 06/04/25 History mcg/dose blistr powdr for inhalation (Wixela Inhub) glimepiride 4 mg tablet 4 mg PO BID 10/08/23 06/04/25 History hydrochlorothiazide 25 mg tablet 25 mg PO DAILY 10/08/23 06/04/25 History metformin 500 mg tablet,extended 1,000 mg PO BID 10/08/23 06/04/25 History release 24 hr metoprolol tartrate 50 mg tablet 50 mg PO BID 10/08/23 06/04/25 History multivitamin 1 tablet PO DAILY 10/08/23 06/04/25 History simvastatin 20 mg tablet 20 mg PO DAILY 10/08/23 06/04/25 History tiotropium bromide 2.5 2 puff inhalation QAM 10/08/23 06/04/25 History mcg/actuation mist for inhalation (Spiriva Respimat) ibuprofen 600 mg tablet 600 mg PO Q6H PRN pain #14 tabs 10/14/23 06/04/25 Rx oxycodone-acetaminophen 5 mg-325 0.5 - 1 tablet PO Q6H PRN pain #10 10/14/23 06/04/25 Rx mg tablet tabs Allergies Allergy/AdvReac Type Severity Reaction Status Date / Time hydrocodone (From Vicodin) AdvReac Itching Verified 06/04/25 10:16 morphine AdvReac VIOLENT Verified 06/04/25 10:16 TREMORS Vital Signs Vital Signs - 24 hr 06/04/25 10:07 06/04/25 10:43 06/04/25 10:50 Temperature 36.4 C Pulse Rate 100 94 92 Respiratory Rate 22 H 22 H 16 Blood Pressure 115/59 L 133/61 Pulse Oximetry 97 100 Oxygen Delivery Room Air Oxygen Flow Rate Fraction of Inspired Oxygen 06/04/25 10:55 06/04/25 11:00 06/04/25 11:30 Temperature Pulse Rate 96 98 99 Respiratory Rate 24 H 26 H 22 H Blood Pressure 129/50 L 135/77 Pulse Oximetry 99 97 Oxygen Delivery Oxygen Flow Rate Fraction of Inspired Oxygen 06/04/25 12:51 06/04/25 13:00 06/04/25 15:34 Temperature Pulse Rate 100 98 95 Respiratory Rate 18 18 20 Blood Pressure 136/63 142/64 H 149/51 H Pulse Oximetry 95 95 91 Oxygen Delivery Oxygen Flow Rate Fraction of Inspired Oxygen 06/04/25 15:49 06/04/25 19:04 06/04/25 19:04 Temperature Pulse Rate 114 H 120 H Respiratory Rate 20 20 Blood Pressure Pulse Oximetry 91 92 Oxygen Delivery Nasal Cannula Nasal Cannula Oxygen Flow Rate 3 2 Fraction of Inspired Oxygen 28 Exam 2 Narrative: Lungs patient has generalized bronchitis and wheezing and he looks quite short of breath Cardiovascular regular rate rhythm no murmurs Abdomen nontender nondistended bowel sounds are positive Extremities no edema Results Labs 06/04/25 10:18 06/04/25 10:18 Labs: Short CBC 06/04/25 Range/Units 10:18 WBC 1.2 L* (4.5-10.0) K/mm3 Hgb 14.9 (14.0-18.0) g/dL Hct 44.7 (42.0-52.0) % Plt Count 261 (150-375) k/mm3 BMP 06/04/25 10:18 Sodium 128 L Potassium 4.1 Chloride 96 L Carbon Dioxide 21 L BUN 32 H Creatinine 1.13 Glucose 176 H Calcium 8.7 Liver Function 06/04/25 Range/Units 10:18 Total Bilirubin 0.9 (0.2-1.3) mg/dL AST 44 (17-59) U/L ALT 24 (6-50) U/L Alkaline Phosphatase 57 (38-126) U/L Albumin 3.6 (3.5-5.1) g/dL Urine 06/04/25 Range/Units 12:26 Urine Color Yellow (Yellow) Urine Appearance Clear (Clear) Urine pH 6.0 (5.0-9.0) Ur Specific [place] 1.033 (1.001-1.035) Urine Protein Negative (Negative) mg/dL Urine Glucose (UA) 3+ H (Negative) mg/dL
[2025-06-04 20:10] LABS: Alveolar/Arterial O2 Gradient 100.4 mmHg; Fractional Inspired Oxygen 28 %; HCO3 ABG 20.0 mEq/l (22.0-26.0); Oxygen Content ABG 18.3 %vol (16.0-22.0); Oxygen Saturation ABG 95.1 % (95.0-100.0); PCO2 ABG 26.7 mmHg (35.0-45.0); PO2 ABG 67.7 mmHg (80.0-100.0); PO2 FiO2 Ratio Arterial Blood 2.42 %
[2025-06-04 20:18] LABS: Liters per Minute 2.0 LPM; Modified Allen's Test Pass; Site Drawn RIGHT RADIAL
--- NOTE | 2025-06-04 20:28 | PHAR ---
PT'S HOME MED WIXELA 250/50 MCG METERED DOSE INHALER VERIFIED BY PHARMACY
[2025-06-04] MEDS: SALMETEROL XINAFOATE INHALATION (20:30)
[2025-06-04] MEDS: [UNRECOGNIZED DRUG - OTHER] INHALATION (20:30)
[2025-06-04] MEDS: FLUTICASONE PROPIONATE INHALATION (20:30)
[2025-06-04] MEDS: METOPROLOL TARTRATE 50 MG TAB PO (20:43)
[2025-06-05] VITALS (20 sets, daily range): BP systolic 104–124; BP diastolic 43–83; PULSE 88–110; RESP 19–28; TEMP 36.4–37.2; O2SAT 94–100; BMI 27.0
[2025-06-05 00:12] LABS: Anion Gap 8 mmol/L (4-12); Blood Urea Nitrogen 25 mg/dL (9-20); Calcium 7.7 mg/dL (8.4-10.2); Carbon Dioxide 24 mmol/L (22-30); Chloride 99 mmol/L (98-107); Estimated CRCL calculation 56 ml/min; Estimated Glomerular Filt Rate > 60; Glucose 181 mg/dL (65-110); Potassium 3.9 mmol/L (3.4-5.0); Sodium 131 mmol/L (137-145)
[2025-06-05] MEDS: VANCOMYCIN 1,250 MG/NS 250 ML 1,250 MG/250 ML BAG 166.67 MG IVPB (00:35)
[2025-06-05] MEDS: IPRATROPIUM 0.5 MG/ALBUTEROL SULFATE 2.5 MG AMPUL.NEB 3 ML INHALATION ×4 (01:32→20:49)
[2025-06-05] MEDS: VANCOMYCIN HCL 1,000 MG in SODIUM CHLORIDE 0.9% IV 250 ML 250 MG IVPB (01:49)
[2025-06-05 02:07] LABS: MRSA (PCR) NOT DETECTED (NOT DETECTE)
[2025-06-05] MEDS: PIPERACILLIN/TAZOBACTAM SOD 3.375 GM in SODIUM CHLORIDE 0.9% IV 50 ML 100 ML IVPB ×4 (02:37→20:31)
[2025-06-05 05:14] LABS: Hematocrit 38.6 % (42.0-52.0); Hemoglobin 12.7 g/dL (14.0-18.0); Immature Granulocyte Percent A 0.8 % (0-0.5); Lymphocytes Absolute Auto 0.22 K/mm3 (0.9-3.2); Mean Corpuscular HGB Conc 32.9 g/dl (32-36); Mean Corpuscular Hemoglobin 29.3 pg (26-34); Mean Corpuscular Volume 88.9 fl (80-100); Nucleated Red Blood Cells Absolute Auto 0.000 K/mm3 (0.0-0.012); Nucleated Red Blood Cells Perc 0.0 % (0.0-0.2); Platelet Count Result 177 k/mm3 (150-375); Red Blood Count 4.34 M/mm3 (4.6-6.20)
[2025-06-05 05:34] LABS: Hemoglobin A1C 7.0 % (<5.7)
[2025-06-05 05:47] LABS: Anion Gap 9 mmol/L (4-12); Blood Urea Nitrogen 23 mg/dL (9-20); Calcium 7.6 mg/dL (8.4-10.2); Carbon Dioxide 20 mmol/L (22-30); Chloride 102 mmol/L (98-107); Estimated CRCL calculation 60 ml/min; Estimated Glomerular Filt Rate > 60; Glucose 178 mg/dL (65-110); Potassium 4.1 mmol/L (3.4-5.0); Sodium 131 mmol/L (137-145)
[2025-06-05 05:54] LABS: Alanine Aminotransferase 19 U/L (6-50); Albumin Level 2.9 g/dL (3.5-5.1); Alkaline Phosphatase 48 U/L (38-126); Anion Gap 5 mmol/L (4-12); Aspartate Amino Transferase 32 U/L (17-59); Bilirubin,Total 0.5 mg/dL (0.2-1.3); Blood Urea Nitrogen 22 mg/dL (9-20); Calcium 7.8 mg/dL (8.4-10.2); Carbon Dioxide 24 mmol/L (22-30); Chloride 102 mmol/L (98-107); Estimated CRCL calculation 59 ml/min; Estimated Glomerular Filt Rate > 60; Glucose 177 mg/dL (65-110); Magnesium 2.6 mg/dL (1.6-2.3); Potassium 4.2 mmol/L (3.4-5.0); Sodium 131 mmol/L (137-145); Total Protein 5.5 g/dL (6.3-8.2)
[2025-06-05 06:53] LABS: White Blood Count 1.2 K/mm3 (4.5-10.0)
[2025-06-05 06:55] LABS: Schistocytes None Seen
[2025-06-05] MEDS: MULTIVITAMINS THERAPEUTIC TAB (*BKC) 1 TABLET PO (08:34)
[2025-06-05] MEDS: ASCORBIC ACID 500 MG TABLET 1000 MG PO (08:34)
[2025-06-05] MEDS: METOPROLOL TARTRATE 50 MG TAB PO ×2 (08:35→20:29)
[2025-06-05] MEDS: EMPAGLIFLOZIN 10 MG TABLET PO (08:35)
[2025-06-05] MEDS: SIMVASTATIN 20 MG TABLET PO (08:35)
[2025-06-05] MEDS: FENOFIBRATE NANOCRYSTALLIZED 145 MG TABLET PO (08:35)
[2025-06-05] MEDS: ENOXAPARIN 40 MG/0.4 ML SYRINGE SUB-Q (08:37)
[2025-06-05] MEDS: PANTOPRAZOLE SODIUM IV 40 MG VIAL IV PUSH (08:37)
[2025-06-05] MEDS: FLUTICASONE PROPIONATE INHALATION ×2 (08:37→20:50)
[2025-06-05] MEDS: [UNRECOGNIZED DRUG - OTHER] INHALATION ×2 (08:37→20:50)
[2025-06-05] MEDS: SALMETEROL XINAFOATE INHALATION ×2 (08:37→20:50)
[2025-06-05] MEDS: FILGRASTIM-SNDZ 480 MCG/0.8 ML SYRINGE SUB-Q (08:39)
[2025-06-05] MEDS: DOXYCYCLINE IV 100 MG in SODIUM CHLORIDE 0.9% IV 100 ML IVPB ×2 (12:21→20:31)
[2025-06-05] MEDS: SODIUM CHLORIDE 0.9% IV 1,000 ML 125 ML IV CONT ×2 (12:24→20:41)
[2025-06-05] MEDS: CENTRAL LINE FLUSH 10 ML IV PUSH ×2 (14:03→20:35)
--- NOTE | 2025-06-05 14:39 | PM.IMPN ---
Progress Note: A&P Assessment and Plan (1) Nausea vomiting and diarrhea: Code(s): R11.2 - Nausea with vomiting, unspecified; R19.7 - Diarrhea, unspecified Status: Acute Assessment and Plan: New immunotherapy prescribed on Wednesday, 05/29, which precipitated nausea, vomiting, diarrhea for the past 6 days (presentation on 06/04). CT also concerning for colitis, see plan below. - IV fluids: 2L -> 125 mL/hr - monitor electrolytes, correct as needed. Hyponatremia noted upon admission, see below. - started on antibiotics for colitis - check C diff and stool culture - blood cultures obtained on 06/04, follow - oncology consulted - antiemetics p.r.n. (2) Colitis: Code(s): K52.9 - Noninfective gastroenteritis and colitis, unspecified Status: Acute Assessment and Plan: - CT chest/abdomen/pelvis, 06/04: 1. Grossly stable metastatic lymphadenopathy in the mediastinum and left hilum. 2. Status post left upper lobectomy 3. Thickening of the rivera of the descending and sigmoid colon. The findings are concerning for colitis. - started on Zosyn on 06/04 - IV fluids: 2L bolus, now on 125 mL/hr - clear liquid diet - pain medication prn - daily clinical reassessment for improvement (3) Hyponatremia: Code(s): E87.1 - Hypo-osmolality and hyponatremia Status: Acute Assessment and Plan: Likely secondary to acute dehydration and N/V/D. - Na 128 - check serum osmolality, urine osmolality, urine sodium, protein to creatinine ratio, urine creatinine - bmp Q3H - trend renal function - no current alteration in mental status, monitor (4) COPD (chronic obstructive pulmonary disease): Code(s): J44.9 - Chronic obstructive pulmonary disease, unspecified Status: Acute Assessment and Plan: - arrived with wheezing and shortness of breath on 06/04, precipitated by missed AM meds. Given 2G of magnesium, Solu-Medrol, and a DuoNeb in the ED with improvement. - DuoNebs austyn - given Solu-Medrol in the ED, will continue as prednisone 40 mg daily - started on Zosyn due to concurrent colitis Despite additional DuoNeb treatment, Solu-Medrol, and home Wixela inhaler this evening the patient remains significantly dyspneic. Will start BiPAP and reassess. Stat ABG. May need transfer to IMU for continuous BiPAP. 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 Seealiyah Gomez for his oncology care and previously saw Cr MOSES for radiation (now transitioned to PRN basis) - oncology consulted - reverse isolation in place (6) DM2 (diabetes mellitus, type 2): Qualifiers: Diabetes mellitus salvage determiner insulin use: without usp use Diabetes mellitus complication status: without complication Qualified Code(s): E11.9 - Type 2 diabetes mellitus without complications Code(s): E11.9 - Type 2 diabetes mellitus without complications Status: Chronic Assessment and Plan: - hypoglycemia protocol - POC blood glucose ACHS - home medication: Continue Jardiance. Hold metformin and glimepiride. - correct regimen ordered - moderate dose TIDWM, based off BMI - A1C -7 06/05/25 (7) HTN (hypertension): Qualifiers: Hypertension type: primary hypertension Qualified Code(s): I10 - Essential (primary) hypertension Code(s): I10 - Essential (primary) hypertension Status: Chronic Assessment and Plan: - chronic, currently 142/64 - continue home medications: HCTZ, metoprolol - monitor Plan Diet: clear liquid GI Prophylaxis: PPI IV DVT Prophylaxis: Lovenox IV fluids: 2L -> 125 mL/hr Lines/Tubes: Peripheral IV Code Status: Full code Time Spent With Patient Time with patient: 25 - 35 minutes Subjective Date/time seen: 06/05/25 14:39 Interval history: 79 y/o M with PMH of non-small cell lung cancer (adenocarcinoma, left upper lobe) s/p resection in 2019 with a soft tissue mass in the left groin/inguinal region (biopsy in 2022 -> 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 Oncology consulted. Pt was started on neupogen, antibiotics for colitis and possible pneumonia. Pt is on reverse iso Review of Systems Review of Systems: All systems reviewed & are unremarkable except as noted in HPI and below Exam Const: General: comfortable HENMT: Face/Nose/Sinus: Normal nares present Mouth: Yes moist mucous membranes Eyes: General: appearance normal, both eyes and all related structures Sclera: sclerae normal Pupils: Equal, round and reactive pupils present EOM: EOMs intact bilaterally Resp: Other: Tachypneic with accessory muscle use. Wheezing audible bilaterally, more coarse on the left. Cardio: Rate: tachycardic Rhythm: regular rhythm Other: S1-S2 present without murmur, rub, ectopy GI: Other: Abdomen soft and nondistended. Tender in the lower quadrants, primarily in the left lower quadrant. Normoactive bowel sounds in all quadrants. Skin: General skin exam: normal color and no rashes or lesions noted Wounds: no wounds Neuro: Cranial nerves: Yes Equal, round and reactive pupils present Speech: normal speech Motor exam (neuro): 5/5 motor strength present throughout Sensory Exam: normal sensation Other: Generalized weakness, A&O x4 Extrem: General: normal to inspection Psych: Mental Status: mental status grossly normal Affect: normal affect Other: Good insight and judgment, very pleasant Objective Data Vital Signs Vital Signs: Vital Signs - 24 hr 06/04/25 15:34 06/04/25 15:49 06/04/25 19:04 Temperature Pulse Rate 95 114 H Respiratory Rate 20 20 Blood Pressure 149/51 H Pulse Oximetry 91 91 Oxygen Delivery Nasal Cannula Oxygen Flow Rate 3 Fraction of Inspired Oxygen 06/04/25 19:04 06/04/25 20:00 06/04/25 20:05 Temperature 99.9 F H Pulse Rate 120 H 134 H 130 H Respiratory Rate 20 22 H 26 H Blood Pressure 118/47 L Pulse Oximetry 92 95 94 Oxygen Delivery Nasal Cannula BiPAP Oxygen Flow Rate 2 Fraction of Inspired Oxygen 28 06/04/25 20:43 06/04/25 20:45 06/05/25 00:00 Temperature 97.6 F Pulse Rate 134 H 134 H 98 Respiratory Rate 26 H 20 Blood Pressure 114/54 L Pulse Oximetry 94 96 Oxygen Delivery BiPAP Oxygen Flow Rate Fraction of Inspired Oxygen 06/05/25 01:32 06/05/25 01:36 06/05/25 04:00 Temperature 97.7 F Pulse Rate 100 110 H 110 H Respiratory Rate 25 H 25 H 20 Blood Pressure 124/56 L Pulse Oximetry 95 100 Oxygen Delivery BiPAP Oxygen Flow Rate Fraction of Inspired Oxygen 06/05/25 05:42 06/05/25 08:00 06/05/25 08:01 Temperature 98.6 F Pulse Rate 97 92 100 Respiratory Rate 28 H 19 25 H Blood Pressure 106/83 Pulse Oximetry 96 95 Oxygen Delivery BiPAP Oxygen Flow Rate Fraction of Inspired Oxygen 06/05/25 08:10 06/05/25 08:13 06/05/25 08:35 Temperature Pulse Rate 96 98 98 Respiratory Rate 25 H 25 H Blood Pressure Pulse Oximetry 97 Oxygen Delivery BiPAP Oxygen Flow Rate Fraction of Inspired Oxygen 06/05/25 08:35 06/05/25 12:00 Temperature 98.9 F Pulse Rate 93 Respiratory Rate 19 Blood Pressure 105/43 L Pulse Oximetry 96 94 Oxygen Delivery Nasal Cannula Oxygen Flow Rate 3 Fraction of Inspired Oxygen Intake/Output Intake/Output: Intake & Output 06/02/25 06/03/25 06/04/25 06/05/25 23:59 23:59 23:59 23:59 Intake Total 2706.7 2600 Output Total 75 Balance 2631.7 2600 Meds/Results Medications: Active Medications Generic Name Dose Route Start Last Admin Trade Name Freq PRN Reason Stop Dose Admin Acetaminophen 650 mg 06/04/25 14:29 Acetaminophen 325 Mg Tablet PO Q6H PRN Mild Pain (1-3) or Fever Albuterol/Ipratropium 3 ml 06/04/25 18:35 06/05/25 07:57 Ipratropium 0.5 Mg/Albuterol Sulfate 2.5 Mg Ampul.Neb 3 Ml INHALATION 3 ml Q6HRT AUSTYN Administration Ascorbic Acid 1,000 mg 06/05/25 09:00 06/05/25 08:34 Ascorbic Acid 500 Mg Tablet PO 1,000 mg DAILY AUSTYN Administration Dextrose 12.5 gm 06/04/25 14:36 Dextrose 50% 25 Gm/50 Ml Syringe IV PUSH PRN PRN Hypoglycemia Protocol Dicyclomine HCl 20 mg 06/04/25 14:28 Dicyclomine Hcl 10 Mg Capsule PO QID PRN Abdominal Cramping Diphenhydramine HCl 12.5 mg 06/04/25 18:18 Diphenhydramine Hcl Elixir 12.5 Mg/5 Ml Udc PO QAM PRN allergy symptoms Empagliflozin 10 mg 06/05/25 09:00 06/05/25 08:35 Empagliflozin 10 Mg Tablet PO 10 mg DAILY AUSTYN Administration Enoxaparin Sodium 40 mg 06/05/25 09:00 06/05/25 08:37 Enoxaparin 40 Mg/0.4 Ml Syringe SUB-Q 40 mg DAILY AUSTYN Administration Famotidine 20 mg 06/04/25 18:18 Famotidine 20 Mg Tablet PO DAILY PRN acid reflux Fenofibrate 145 mg 06/05/25 09:00 06/05/25 08:35 Fenofibrate Nanocrystallized 145 Mg Tablet PO 145 mg DAILY AUSTYN Administration Filgrastim-Sndz 480 mcg 06/05/25 09:00 06/05/25 08:39 Filgrastim-Sndz 480 Mcg/0.8 Ml Syringe SUB-Q 480 mcg DAILY AUSTYN Administration Glucagon 1 mg 06/04/25 14:36 Glucagon For Inj 1 Mg Vial IM PRN PRN Hypoglycemia Protocol Glucose 15 gm 06/04/25 14:36 Glucose Oral Gel 15 Gm Of Glucse In 37.5 Gm Tube PO PRN PRN Hypoglycemia Protocol Heparin Sodium (Porcine) 500 units 06/05/25 07:36 Heparin Sodium Lock Flush 500 Units/5 Ml Syringe IV PUSH PRN PRN see comments below Hydrochlorothiazide 25 mg 06/05/25 09:00 06/05/25 08:35 Hydrochlorothiazide 25 Mg Tablet PO 25 mg DAILY AUSTYN Administration Sodium Chloride 1,000 mls @ 125 mls/hr 06/04/25 14:10 06/05/25 12:24 Normal Saline Iv IV CONT 125 mls/hr .Q8H AUSTYN Administration Piperacillin Sod/Tazobactam 50 mls @ 100 mls/hr 06/04/25 20:00 06/05/25 14:03 Sod 3.375 gm/ Sodium Chloride IVPB 100 mls/hr Q6H [facility]YN Administration Dextrose 1,000 mls @ 100 mls/hr 06/04/25 14:36 Dextrose 5% 1,000 Ml IVPB PRN PRN Hypoglycemia Protocol Doxycycline Hyclate 100 mg/ 100 mls @ 100 mls/hr 06/05/25 11:30 06/05/25 13:41 Sodium Chloride IVPB 06/09/25 21:59 Infused Q12HR AUSTYN Infusion Ibuprofen 600 mg 06/04/25 14:29 Ibuprofen 600 Mg Tablet PO Q6H PRN Pain Rated 4-6 Insulin Aspart 3 - 6 units 06/04/25 17:00 06/05/25 12:12 Insulin Aspart (*Bkc) 100 Units/Ml SUB-Q Not Given TIDWM [facility] Protocol Metoprolol Tartrate 50 mg 06/04/25 21:00 06/05/25 08:35 Metoprolol Tartrate 50 Mg Tab PO 50 mg Q12HR [facility] Administration Multivitamins Therapeutic 1 tablet 06/05/25 09:00 06/05/25 08:34 Multivitamins Therapeutic Tab (*Bkc) PO 1 tablet DAILY A[facility]YN Administration Non-Formulary ( 0 each 06/04/25 20:30 06/05/25 08:37 Fluticasone INHALATION 07/04/25 20:29 1 each Propionate/ Q12HRT [facility]YN Administration Salmeterol Xinafoate 250 Mcg-50 Mcg/Dose Inh...) Ondansetron HCl 4 mg 06/04/25 14:29 Ondansetron Inj 4 Mg/2 Ml Vial IV PUSH Q4H PRN Nausea And Vomiting Pantoprazole Sodium 40 mg 06/05/25 09:00 06/05/25 08:37 Pantoprazole Sodium Iv 40 Mg Vial IV PUSH 40 mg QAM AUSTYN Administration Prednisone 40 mg 06/05/25 08:00 06/05/25 08:34 Prednisone 20 Mg Tablet PO 06/10/25 07:59 40 mg DAILY@0800 A[facility]YN Administration Simvastatin 20 mg 06/05/25 09:00 06/05/25 08:35 Simvastatin 20 Mg Tablet PO 20 mg DAILY [facility] Administration Sodium Chloride 10 ml 06/05/25 14:00 06/05/25 14:03 Central Line Flush IV PUSH 10 ml Q8HR [facility]YN Administration Umeclidinium Axtell 1 puff 06/05/25 09:00 Umeclidinium Axtell 62.5 Mcg Ellipta INHALATION DAILY [facility] Radiology Results: ITS Impressions Chest X-Ray 06/04/25 11:28 IMPRESSION: 1.The left hilum is prominent. Differential includes mass or adenopathy. A chest CT is recommended. 2.There is a 1.2 cm nodular density projecting over the right lower lung possibly a pulmonary nodule. A chest CT is recommended. 3. Small opacities in the lower lungs which represents atelectasis/scarring or infiltrates. Chest/Abdomen/Pelvis CT 06/04/25 12:13 IMPRESSION: 1. Grossly stable metastatic lymphadenopathy in the mediastinum and left hilum. 2. Status post left upper lobectomy 3. Thickening of the rivera of the descending and sigmoid colon. The findings are concerning for colitis. Labs Labs: Laboratory Results - last 24 hr 06/04/25 06/04/25 06/04/25 16:57 18:45 19:54 WBC RBC Hgb Hct MCV MCH MCHC RDW Plt Count MPV Immature Gran % (Auto) Neut % (Auto) Lymph % (Auto) [place] % (Auto) Eos % (Auto) Baso % (Auto) Lymph # (Auto) [place] # (Auto) Eos # (Auto) Baso # (Auto) Abs Immat Gran (auto) Absolute Neuts (auto) Absolute Nucleated RBC Band Neutrophils % Nucleated RBC % Platelet Estimate Schistocytes Puncture Site Right radial ABG pH 7.492 H ABG pCO2 26.7 L ABG pO2 67.7 L ABG PO2/FiO2 Ratio 2.42 ABG HCO3 20.0 L ABG O2 Saturation 95.1 ABG O2 Content 18.3 ABG Base Excess -1.8 A-a Gradient 100.4 Oxyhemoglobin 93.0 Total Hemoglobin 14.0 O2 Delivery Device Nasal cannula O2 Liters/Min 2.0 FiO2 28 Sodium 129 L Potassium 4.3 Chloride 99 Carbon Dioxide 22 Anion Gap 8 BUN 24 H Creatinine 0.89 Estim Creat Clear Calc 62 Estimated GFR > 60 Glucose 149 H POC Capillary Glucose 153 H Hemoglobin A1c Calcium 8.2 L Magnesium Total Bilirubin AST ALT Alkaline Phosphatase Total Protein Albumin Nasal MRSA (PCR) 06/04/25 06/04/25 06/05/25 20:20 22:55 00:34 WBC RBC Hgb Hct MCV MCH MCHC RDW Plt Count MPV Immature Gran % (Auto) Neut % (Auto) Lymph % (Auto) [place] % (Auto) Eos % (Auto) Baso % (Auto) Lymph # (Auto) [place] # (Auto) Eos # (Auto) Baso # (Auto) Abs Immat Gran (auto) Absolute Neuts (auto) Absolute Nucleated RBC Band Neutrophils % Nucleated RBC % Platelet Estimate Schistocytes Puncture Site ABG pH ABG pCO2 ABG pO2 ABG PO2/FiO2 Ratio ABG HCO3 ABG O2 Saturation ABG O2 Content ABG Base Excess A-a Gradient Oxyhemoglobin Total Hemoglobin O2 Delivery Device O2 Liters/Min FiO2 Sodium 131 L Potassium 3.9 Chloride 99 Carbon Dioxide 24 Anion Gap 8 BUN 25 H Creatinine 1.00 Estim Creat Clear Calc 56 Estimated GFR > 60 Glucose 181 H POC Capillary Glucose 174 H Hemoglobin A1c Calcium 7.7 L Magnesium Total Bilirubin AST ALT Alkaline Phosphatase Total Protein Albumin Nasal MRSA (PCR) Not detected 06/05/25 06/05/25 06/05/25 00:34 03:19 04:53 WBC 1.2 L* RBC 4.34 L Hgb 12.7 L Hct 38.6 L MCV 88.9 MCH 29.3 MCHC 32.9 RDW 15.1 H Plt Count 177 MPV 11.0 H Immature Gran % (Auto) 0.8 H Neut % (Auto) 18.4 L Lymph % (Auto) 18.3 [place] % (Auto) 61.7 H Eos % (Auto) 0.0 Baso % (Auto) 0.8 Lymph # (Auto) 0.22 L [place] # (Auto) 0.7 H Eos # (Auto) 0.0 Baso # (Auto) 0.0 Abs Immat Gran (auto) 0.01 Absolute Neuts (auto) 0.2 L* Absolute Nucleated RBC 0.000 Band Neutrophils % Not Reportable Nucleated RBC % 0.0 Platelet Estimate Adequate Schistocytes None seen Puncture Site ABG pH ABG pCO2 ABG pO2 ABG PO2/FiO2 Ratio ABG HCO3 ABG O2 Saturation ABG O2 Content ABG Base Excess A-a Gradient Oxyhemoglobin Total Hemoglobin O2 Delivery Device O2 Liters/Min FiO2 Sodium 131 L 131 L Potassium 4.1 4.2 Chloride 102 102 Carbon Dioxide 20 L 24 Anion Gap 9 5 BUN 23 H 22 H Creatinine 0.92 0.94 Estim Creat Clear Calc 60 59 Estimated GFR > 60 > 60 Glucose 178 H 177 H POC Capillary Glucose Hemoglobin A1c 7.0 H Calcium 7.6 L 7.8 L Magnesium 2.6 H Total Bilirubin 0.5 AST 32 ALT 19 Alkaline Phosphatase 48 Total Protein 5.5 L Albumin 2.9 L Nasal MRSA (PCR) Cancelled 06/05/25 06/05/25 08:00 12:00 WBC RBC Hgb Hct MCV MCH MCHC RDW Plt Count MPV Immature Gran % (Auto) Neut % (Auto) Lymph % (Auto) [place] % (Auto) Eos % (Auto) Baso % (Auto) Lymph # (Auto) [place] # (Auto) Eos # (Auto) Baso # (Auto) Abs Immat Gran (auto) Absolute Neuts (auto) Absolute Nucleated RBC Band Neutrophils % Nucleated RBC % Platelet Estimate Schistocytes Puncture Site ABG pH ABG pCO2 ABG pO2 ABG PO2/FiO2 Ratio ABG HCO3 ABG O2 Saturation ABG O2 Content ABG Base Excess A-a Gradient Oxyhemoglobin Total Hemoglobin O2 Delivery Device O2 Liters/Min FiO2 Sodium Potassium Chloride Carbon Dioxide Anion Gap BUN Creatinine Estim Creat Clear Calc Estimated GFR Glucose POC Capillary Glucose 177 H 198 H Hemoglobin A1c Calcium Magnesium Total Bilirubin AST ALT Alkaline Phosphatase Total Protein Albumin Nasal MRSA (PCR) Quality VTE Prophylaxis VTE prophylaxis: pharmacologic ordered
[2025-06-06] VITALS (26 sets, daily range): BP systolic 92–126; BP diastolic 50–95; PULSE 14–149; RESP 18–27; TEMP 36.4; O2SAT 93–99; BMI 28.3
[2025-06-06] MEDS: PIPERACILLIN/TAZOBACTAM SOD 3.375 GM in SODIUM CHLORIDE 0.9% IV 50 ML 100 ML IVPB ×4 (01:51→19:50)
[2025-06-06] MEDS: IPRATROPIUM 0.5 MG/ALBUTEROL SULFATE 2.5 MG AMPUL.NEB 3 ML INHALATION ×4 (02:20→20:17)
[2025-06-06] MEDS: CENTRAL LINE FLUSH 10 ML IV PUSH ×3 (05:03→20:57)
[2025-06-06] MEDS: SODIUM CHLORIDE 0.9% IV 1,000 ML 125 ML IV CONT (05:03)
--- NOTE | 2025-06-06 07:59 | P.PNIM_ITS ---
Progress Note: A&P Assessment and Plan (1) Atrial fibrillation with rapid ventricular response: Code(s): I48.91 - Unspecified atrial fibrillation Status: Acute Assessment and Plan: - Remains asymptomatic - TSH ordered to rule out metabolic cause for tachyarrhythmia - EKG: Afib RVR on 06/06 - Chadsvasc Score: 4 Anticoagulation: Eliquis 5 mg BID. Discussed the pros/cons and he is agreeable with this medication. - Given cancer history, new afib dx, and prior bipap requirement will obtain a CTA chest to rule out PE - Echo ordered - Telemetry - Cardiology consulted Call made to cardiology Dr. Roberson who recommended diltiazem however blood pressure was 101/[address] Roberson then recommended digoxin 500 mcg IV, given Per RN Dr. Roberson cardiology now starting patient on an amiodarone drip, confirmed on the DEC. (2) Nausea vomiting and diarrhea: Code(s): R11.2 - Nausea with vomiting, unspecified; R19.7 - Diarrhea, unspecified Status: Acute Assessment and Plan: New immunotherapy prescribed on Wednesday, 05/29, which precipitated nausea, vomiti ng, diarrhea for the past 6 days (presentation on 06/04). CT also concerning for colitis, see plan below. - monitor electrolytes, correct as needed. Hyponatremia noted upon admission, see below. - started on antibiotics for colitis - check C diff and stool culture - blood cultures obtained on 06/04, NGTD - oncology consulted, see lung cancer below - antiemetics p.r.n. Resolved. (3) Colitis: Code(s): K52.9 - Noninfective gastroenteritis and colitis, unspecified Status: Acute Assessment and Plan: - CT chest/abdomen/pelvis, 06/04: 1. Grossly stable metastatic lymphadenopathy in the mediastinum and left hilum. 2. Status post left upper lobectomy 3. Thickening of the rivera of the descending and sigmoid colon. The findings are concerning for colitis. - started on Zosyn on 06/04 - tolerating clear liquid diet, advance to low fiber - pain medication prn - Monitor vital signs, I&Os, track stool output, watch for bloody stools, neuro status and patient is a fall risk - Monitor serum electrolytes and CBC Denies nausea/vomiting/diarrhea and abdominal pain. Tolerating clear liquid diet. Will advance to low fiber at dinner. (4) COPD (chronic obstructive pulmonary disease): Code(s): J44.9 - Chronic obstructive pulmonary disease, unspecified Status: Acute Assessment and Plan: Arrived with wheezing and shortness of breath on 06/04, precipitated by missed AM meds. Given 2G of magnesium, Solu-Medrol, and a DuoNeb in the ED with improvement. - DuoNebs austyn - given Solu-Medrol in the ED, will continue as prednisone 40 mg daily - started on Zosyn due to concurrent colitis - stopped vanc (mrsa negative) and add doxy for atypical coverage Despite additional DuoNeb treatment, Solu-Medrol, and home Wixela inhaler this evening the patient remains significantly dyspneic. 06/04: ABG showed pH 7.493, pCO2 26.7, pO2 67.7, and HCO3 20. Placed on Bipap. 06/06: Patient was weaned back to baseline room air with stable oxygen saturations. He continues to endorse slight SOB but significantly improved. Continue treatment as above. (5) Hyponatremia: Code(s): E87.1 - Hypo-osmolality and hyponatremia Status: Acute Assessment and Plan: Likely secondary to acute dehydration secibdary to N/V/D. - Na 128 on admission. Improving on am labs, Na 133. 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 Seealiyah Gomez for his oncology care and previously saw Cr MOSES for radiation (now transitioned to PRN basis) - reverse isolation in place - oncology consulted Start him on Neupogen for chemotherapy-induced neutropenia. WBC improving on am labs. Continue antibiotics for colitis and possible pneumonia. Due to his significant shortness of breath given 1x order of Solu-Medrol while waiting for breathing treatment. He will follow-up with us in the office for continuation of treatment once he recovered from this flare-up of COPD and colitis. 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 Hold metformin and glimepiride. - correct regimen ordered - moderate dose TIDWM, based off BMI - A1C -7 06/05/25 Glucose levels remain stable. Continue to monitor. (8) HTN (hypertension): Qualifiers: Hypertension type: primary hypertension Qualified Code(s): I10 - Essential (primary) hypertension Code(s): I10 - Essential (primary) hypertension Status: Chronic Assessment and Plan: - chronic, continue home medications: HCTZ 25 mg daily and metoprolol 50 mg BID - blood pressures remain stable, continue to monitor Time Spent With Patient Time with patient: Greater than 35 minutes Subjective Date/time seen: 06/06/25 07:59 Interval history: 79 y/o M with PMH of non-small cell lung cancer (adenocarcinoma, left upper lobe) s/p resection in 2019 with a soft tissue mass in the left groin/inguinal region (biopsy in 2022 -> 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 Patient is pleasant sitting up comfortably in bed. He continues to endorse slight shortness of breath but notes that this has improved since admission. During assessment was able to wean patient back to baseline room air with spo2 93%. While patient was being weaned noted that patient would intermittently become tachycardic into the 140s during which time he remained asymptomatic denying chest pain and palpitations. Patient denies any history of arrhythmias. EKG obtained and showing sinus tachycardia. Patient placed on tele. Cardiology consulted. Patient remains on home metoprolol. Patient has no other complaints denying nausea/vomiting and abdominal pain. Received call from patients RN that he is now maintaining in the 140s on telemetry with tele reading afib. He again remains asymptomatic denying chest pain and palpitations. Repeat EKG confirms afib RVR. Given metoprolol 5 mg IV x1 without resolution of afib rvr. Call made to cardiology Dr. Roberson who recommended diltiazem however blood pressure was 101/[address] Roberson then recommended digoxin 500 mcg IV. Patient also started on eliquis 5 mg BID for anticoagulation, discussed the pros/cons and he is agreeable with this medication. Returned to patients room and HR remains in the 140s. Per RN Dr. Roberson cardiology now starting patient on an amiodarone drip, confirmed on the DEC. Patient remains asymptomatic denying chest pain and palpitations. Review of Systems Review of Systems: All systems reviewed & are unremarkable except as noted in HPI and below Exam Narrative: AF HR 97 RR 20 Spo2 93 RA BP 126/53 General: male in no acute respiratory distress who is nontoxic appearing, sitting up comfortably in bed. HEENT: Normocephalic. Atraumatic. Extraocular movement intact. Sclera clear and anicteric. No facial asymmetry. Chest: Lungs are diminished to auscultation bilaterally. CV: Heart was tachycardic with irregular rate. No murmurs, gallops, or rubs. Abd: Abdomen was soft. Nontender. Nondistended. Positive bowel sounds. Ext: No clubbing, cyanosis, or edema. DP pulses bilaterally. Neuro: Patient is alert and oriented x4. Speech is clear. Objective Data Vital Signs Vital Signs: Vital Signs - 24 hr 06/05/25 08:00 06/05/25 08:01 06/05/25 08:10 Temperature 98.6 F Pulse Rate 92 100 96 Respiratory Rate 19 25 H 25 H Blood Pressure 106/83 Pulse Oximetry 95 97 Oxygen Delivery BiPAP Oxygen Flow Rate Fraction of Inspired Oxygen 06/05/25 08:13 06/05/25 08:35 06/05/25 08:35 Temperature Pulse Rate 98 98 Respiratory Rate 25 H Blood Pressure Pulse Oximetry 96 Oxygen Delivery Nasal Cannula Oxygen Flow Rate 3 Fraction of Inspired Oxygen 06/05/25 12:00 06/05/25 14:42 06/05/25 14:50 Temperature 98.9 F Pulse Rate 93 99 101 H Respiratory Rate 19 23 H 23 H Blood Pressure 105/43 L Pulse Oximetry 94 Oxygen Delivery Oxygen Flow Rate Fraction of Inspired Oxygen 06/05/25 16:00 06/05/25 20:00 06/05/25 20:29 Temperature 97.8 F 98.1 F Pulse Rate 89 88 88 Respiratory Rate 19 20 Blood Pressure 108/68 111/59 L Pulse Oximetry 98 95 Oxygen Delivery Oxygen Flow Rate Fraction of Inspired Oxygen 06/05/25 20:52 06/05/25 20:52 06/05/25 20:52 Temperature Pulse Rate 106 H 106 H Respiratory Rate 26 H 26 H Blood Pressure Pulse Oximetry 98 97 Oxygen Delivery BiPAP BiPAP Oxygen Flow Rate Fraction of Inspired Oxygen 45 06/05/25 20:57 06/05/25 21:32 06/05/25 23:15 Temperature 98.4 F Pulse Rate 100 100 100 Respiratory Rate 28 H 20 20 Blood Pressure 104/48 L Pulse Oximetry 99 99 Oxygen Delivery BiPAP Oxygen Flow Rate Fraction of Inspired Oxygen 45 06/06/25 02:21 06/06/25 02:21 06/06/25 02:28 Temperature Pulse Rate 103 H 103 H 98 Respiratory Rate 22 H 22 H Blood Pressure Pulse Oximetry 95 Oxygen Delivery Nasal Cannula Oxygen Flow Rate Fraction of Inspired Oxygen 06/06/25 04:00 Temperature 97.6 F Pulse Rate 97 Respiratory Rate 18 Blood Pressure 110/60 Pulse Oximetry 96 Oxygen Delivery Oxygen Flow Rate Fraction of Inspired Oxygen Intake/Output Intake/Output: Intake & Output 06/03/25 06/04/25 06/05/25 06/06/25 23:59 23:59 23:59 23:59 Intake Total 2706.7 4900 1540 Output Total 75 1800 1 Balance 2631.7 3100 1539 Meds/Results Medications: Active Medications Generic Name Dose Route Start Last Admin Trade Name Freq PRN Reason Stop Dose Admin Acetaminophen 650 mg 06/04/25 14:29 Acetaminophen 325 Mg Tablet PO Q6H PRN Mild Pain (1-3) or Fever Albuterol/Ipratropium 3 ml 06/04/25 18:35 06/06/25 02:20 Ipratropium 0.5 Mg/Albuterol Sulfate 2.5 Mg Ampul.Neb 3 Ml INHALATION 3 ml Q6HRT AUSTYN Administration Ascorbic Acid 1,000 mg 06/05/25 09:00 06/05/25 08:34 Ascorbic Acid 500 Mg Tablet PO 1,000 mg DAILY AUSTYN Administration Dextrose 12.5 gm 06/04/25 14:36 Dextrose 50% 25 Gm/50 Ml Syringe IV PUSH PRN PRN Hypoglycemia Protocol Dicyclomine HCl 20 mg 06/04/25 14:28 Dicyclomine Hcl 10 Mg Capsule PO QID PRN Abdominal Cramping Diphenhydramine HCl 12.5 mg 06/04/25 18:18 Diphenhydramine Hcl Elixir 12.5 Mg/5 Ml Udc PO QAM PRN allergy symptoms Empagliflozin 10 mg 06/05/25 09:00 06/05/25 08:35 Empagliflozin 10 Mg Tablet PO 10 mg DAILY AUSTYN Administration Enoxaparin Sodium 40 mg 06/05/25 09:00 06/05/25 08:37 Enoxaparin 40 Mg/0.4 Ml Syringe SUB-Q 40 mg DAILY AUSTYN Administration Famotidine 20 mg 06/04/25 18:18 Famotidine 20 Mg Tablet PO DAILY PRN acid reflux Fenofibrate 145 mg 06/05/25 09:00 06/05/25 08:35 Fenofibrate Nanocrystallized 145 Mg Tablet PO 145 mg DAILY AUSTYN Administration Filgrastim-Sndz 480 mcg 06/05/25 09:00 06/05/25 08:39 Filgrastim-Sndz 480 Mcg/0.8 Ml Syringe SUB-Q 480 mcg DAILY AUSTYN Administration Glucagon 1 mg 06/04/25 14:36 Glucagon For Inj 1 Mg Vial IM PRN PRN Hypoglycemia Protocol Glucose 15 gm 06/04/25 14:36 Glucose Oral Gel 15 Gm Of Glucse In 37.5 Gm Tube PO PRN PRN Hypoglycemia Protocol Heparin Sodium (Porcine) 500 units 06/05/25 07:36 Heparin Sodium Lock Flush 500 Units/5 Ml Syringe IV PUSH PRN PRN see comments below Hydrochlorothiazide 25 mg 06/05/25 09:00 06/05/25 08:35 Hydrochlorothiazide 25 Mg Tablet PO 25 mg DAILY AUSTYN Administration Sodium Chloride 1,000 mls @ 125 mls/hr 06/04/25 14:10 06/06/25 05:03 Normal Saline Iv IV CONT 125 mls/hr .Q8H AUSTYN Administration Piperacillin Sod/Tazobactam 50 mls @ 100 mls/hr 06/04/25 20:00 06/06/25 01:51 Sod 3.375 gm/ Sodium Chloride IVPB 100 mls/hr Q6H AUSTYN Administration Dextrose 1,000 mls @ 100 mls/hr 06/04/25 14:36 Dextrose 5% 1,000 Ml IVPB PRN PRN Hypoglycemia Protocol Doxycycline Hyclate 100 mg/ 100 mls @ 100 mls/hr 06/05/25 11:30 06/05/25 21:36 Sodium Chloride IVPB 06/09/25 21:59 Infused Q12HR AUSTYN Infusion Ibuprofen 600 mg 06/04/25 14:29 Ibuprofen 600 Mg Tablet PO Q6H PRN Pain Rated 4-6 Insulin Aspart 3 - 6 units 06/04/25 17:00 06/05/25 17:34 Insulin Aspart (*Bkc) 100 Units/Ml SUB-Q Not Given TIDWM AUTSYN Protocol Metoprolol Tartrate 50 mg 06/04/25 21:00 06/05/25 20:29 Metoprolol Tartrate 50 Mg Tab PO 50 mg Q12HR AUSTYN Administration Multivitamins Therapeutic 1 tablet 06/05/25 09:00 06/05/25 08:34 Multivitamins Therapeutic Tab (*Bkc) PO 1 tablet DAILY AUSTYN Administration Non-Formulary ( 0 each 06/04/25 20:30 06/05/25 20:50 Fluticasone INHALATION 07/04/25 20:29 1 each Propionate/ Q12HRT AUSTYN Administration Salmeterol Xinafoate 250 Mcg-50 Mcg/Dose Inh...) Ondansetron HCl 4 mg 06/04/25 14:29 Ondansetron Inj 4 Mg/2 Ml Vial IV PUSH Q4H PRN Nausea And Vomiting Pantoprazole Sodium 40 mg 06/05/25 09:00 06/05/25 08:37 Pantoprazole Sodium Iv 40 Mg Vial IV PUSH 40 mg QAM AUSTYN Administration Prednisone 40 mg 06/05/25 08:00 06/05/25 08:34 Prednisone 20 Mg Tablet PO 06/10/25 07:59 40 mg DAILY@0800 AUSTYN Administration Simvastatin 20 mg 06/05/25 09:00 06/05/25 08:35 Simvastatin 20 Mg Tablet PO 20 mg DAILY AUSTYN Administration Sodium Chloride 10 ml 06/05/25 14:00 06/06/25 05:03 Central Line Flush IV PUSH 10 ml Q8HR AUSTYN Administration Umeclidinium [place] 1 puff 06/05/25 09:00 Umeclidinium [place] 62.5 Mcg Ellipta INHALATION DAILY AUSTYN Radiology Results: ITS Impressions Chest X-Ray 06/04/25 11:28 IMPRESSION: 1.The left hilum is prominent. Differential includes mass or adenopathy. A chest CT is recommended. 2.There is a 1.2 cm nodular density projecting over the right lower lung possibly a pulmonary nodule. A chest CT is recommended. 3. Small opacities in the lower lungs which represents atelectasis/scarring or infiltrates. Chest/Abdomen/Pelvis CT 06/04/25 12:13 IMPRESSION: 1. Grossly stable metastatic lymphadenopathy in the mediastinum and left hilum. 2. Status post left upper lobectomy 3. Thickening of the rivera of the descending and sigmoid colon. The findings are concerning for colitis. Labs Labs: Laboratory Results - last 24 hr 06/05/25 06/05/25 06/05/25 00:34 08:00 12:00 POC Capillary Glucose 177 H 198 H Nasal MRSA (PCR) Cancelled 06/05/25 06/05/25 06/06/25 17:32 20:33 07:52 POC Capillary Glucose 158 H 145 H 111 H Nasal MRSA (PCR) Quality VTE Prophylaxis VTE prophylaxis: pharmacologic ordered
[2025-06-06] MEDS: [UNRECOGNIZED DRUG - OTHER] INHALATION ×2 (08:10→20:17)
[2025-06-06] MEDS: SALMETEROL XINAFOATE INHALATION ×2 (08:10→20:17)
[2025-06-06] MEDS: FLUTICASONE PROPIONATE INHALATION ×2 (08:10→20:17)
[2025-06-06 08:32] LABS: Hematocrit 40.0 % (42.0-52.0); Hemoglobin 12.7 g/dL (14.0-18.0); Immature Granulocyte Percent A 1.1 % (0-0.5); Lymphocytes Absolute Auto 0.46 K/mm3 (0.9-3.2); Mean Corpuscular HGB Conc 31.8 g/dl (32-36); Mean Corpuscular Hemoglobin 28.9 pg (26-34); Mean Corpuscular Volume 91.1 fl (80-100); Nucleated Red Blood Cells Absolute Auto 0.000 K/mm3 (0.0-0.012); Nucleated Red Blood Cells Perc 0.0 % (0.0-0.2); Platelet Count Result 180 k/mm3 (150-375); Red Blood Count 4.39 M/mm3 (4.6-6.20); White Blood Count 4.4 K/mm3 (4.5-10.0)
[2025-06-06 08:56] LABS: Burr Cells 1+; Schistocytes None Seen
[2025-06-06 09:03] LABS: Alanine Aminotransferase 19 U/L (6-50); Albumin Level 2.7 g/dL (3.5-5.1); Alkaline Phosphatase 56 U/L (38-126); Anion Gap 7 mmol/L (4-12); Aspartate Amino Transferase 34 U/L (17-59); Bilirubin,Total 0.3 mg/dL (0.2-1.3); Blood Urea Nitrogen 26 mg/dL (9-20); Calcium 8.0 mg/dL (8.4-10.2); Carbon Dioxide 23 mmol/L (22-30); Chloride 103 mmol/L (98-107); Estimated CRCL calculation 53 ml/min; Estimated Glomerular Filt Rate > 60; Glucose 102 mg/dL (65-110); Potassium 3.9 mmol/L (3.4-5.0); Sodium 133 mmol/L (137-145); Total Protein 5.4 g/dL (6.3-8.2)
[2025-06-06] MEDS: PANTOPRAZOLE SODIUM IV 40 MG VIAL IV PUSH (09:26)
[2025-06-06] MEDS: ENOXAPARIN 40 MG/0.4 ML SYRINGE SUB-Q (09:26)
[2025-06-06] MEDS: FILGRASTIM-SNDZ 480 MCG/0.8 ML SYRINGE SUB-Q (09:27)
[2025-06-06] MEDS: MULTIVITAMINS THERAPEUTIC TAB (*BKC) 1 TABLET PO (09:28)
[2025-06-06] MEDS: SIMVASTATIN 20 MG TABLET PO (09:28)
[2025-06-06] MEDS: FENOFIBRATE NANOCRYSTALLIZED 145 MG TABLET PO (09:28)
[2025-06-06] MEDS: EMPAGLIFLOZIN 10 MG TABLET PO (09:28)
[2025-06-06] MEDS: ASCORBIC ACID 500 MG TABLET 1000 MG PO (09:29)
[2025-06-06] MEDS: METOPROLOL TARTRATE 50 MG TAB PO ×2 (09:29→20:03)
--- NOTE | 2025-06-06 10:39 | ECG_ITS ---
Test Date: 2025-06-06 10:58:43 Measurements Intervals [place] Rate: 103 P: 56 [place]: 146 QRS: 89 QRSD: 148 T: 12 QT: 333 QTc: 437 Interpretive Statements SINUS TACHYCARDIA WITH FREQUENT SUPRAVENTRICULAR PREMATURE COMPLEXES RIGHT BUNDLE BRANCH BLOCK BASELINE ARTIFACT- I, II, III, AVR, AVL, V3-V6 ABNORMAL ECG Compared to ECG 06/04/2025 10:28:49 ATRIAL PREMATURE COMPLEXES NOW PRESENT Electronically Signed On 06-06-2025 11:15:23 CDT by Cam Evans D.O.
[2025-06-06] MEDS: DOXYCYCLINE IV 100 MG in SODIUM CHLORIDE 0.9% IV 100 ML IVPB ×2 (10:47→20:52)
--- NOTE | 2025-06-06 13:39 | ECG_ITS ---
Test Date: 2025-06-06 13:53:00 Measurements Intervals [place] Rate: 138 P: 0 [place]: 0 QRS: 99 QRSD: 150 T: -9 QT: 346 QTc: 525 Interpretive Statements ATRIAL FIBRILLATION WITH RAPID VENTRICULAR RESPONSE RIGHT BUNDLE BRANCH BLOCK BASELINE ARTIFACT- I, II, III, AVF ABNORMAL ECG Compared to ECG 06/06/2025 10:58:43 Sinus tachycardia no longer present Electronically Signed On 06-06-2025 14:07:08 CDT by Cam Evans D.O.
[2025-06-06] MEDS: METOPROLOL TARTRATE INJ 5 MG/5 ML VIAL IV PUSH (14:01)
[2025-06-06] MEDS: DIGOXIN INJ 250 MCG/ML 2 ML AMP (*BKC) 500 MCG IV PUSH (15:35)
[2025-06-06 16:32] LABS: Thyroid Stimulating Hormone Reflex 0.501 uIU/mL (0.465-4.68)
--- NOTE | 2025-06-06 17:02 | PM.CNCAR ---
Assessment and Plan Assessment and plan (1) HTN (hypertension): Qualifiers: Hypertension type: primary hypertension Qualified Code(s): I10 - Essential (primary) hypertension Code(s): I10 - Essential (primary) hypertension Status: Chronic (2) Atrial fibrillation with rapid ventricular response: Code(s): I48.91 - Unspecified atrial fibrillation Status: Acute Plan 1. PAF -- CHADSVASC 4 2. HTN 3. HLD 4. COPD 5. NSCLC 6. DM - Difficult to control rate, soft BP. Discussed with the patient regarding initiation of amiodarone. Discussed the small but increased risk fo stroke while on amio. 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 Cardiology consulted for new onset atrial fibrillation. She was given AV sarah agents by the primary team,s till remains in Afib, BP soft b stable no recent bleeding from any where No prior CVA Review of Systems Review of Systems: Gen.: Denies fevers or chills Eyes: Denies eye pain or visual change ENT: Denies congestion Respiratory: As per HPI CV: Denies chest pain or palpitations GI: Denies abdominal pain nausea, emesis or diarrhea denies burning, urgency, frequency or hematuria Musculoskeletal: Denies back pain or muscle pain Neuro: Denies numbness, tingling, weakness or focal weakness Skin: Denies rash Except as documented, all other systems reviewed and negative All systems reviewed & are unremarkable except as noted in HPI and below PMFSH Past Medical History Medical History DM2 (diabetes mellitus, type 2) Arthritis GERD (gastroesophageal reflux disease) HLD (hyperlipidemia) HTN (hypertension) COPD (chronic obstructive pulmonary disease) 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, including hip Lung cancer Surgical History Surgical History History of inguinal hernia repair History of appendectomy Social History Social History Smoking packs per day: 1 Smoking cigarettes per day: 20.0 Years smoked: 40 Smoking pack-years: 40.00 Smoking status: Former smoker Second hand tobacco smoke exposure: No Additional smoking assessment comments: STATES SMOKED 1PK/DAY/30-40YRS/QUIT 2010~ Alcohol intake: current Drinks per week: 7 Alcohol use details: STATES DRINKS 3 OZ/NIGHT, (21 OZ/WEEK) Substance use: never Substance use type: does not use Lack of Transportation: No Lack of Food: Never True Current Housing: I Have Housing Concerned About Future Housing: No Difficulty Paying Gas/Electric Bills: No Difficulty Paying for Meds: No Currently Unemployed: No Education: High School Diploma/GED Difficulty w/ Childcare or Family Care: No Living arrangements: with family Spiritual care concerns: No Meds Home Medications and Allergies Home Medications ?Medication ?Instructions ?Recorded ?Confirmed ?Type ascorbic acid (vitamin C) 1,000 mg 1,000 mg PO DAILY 10/08/23 06/04/25 History tablet,extended release (Vitamin C ER) diphenhydramine HCl 12.5 mg/5 mL 12.5 mg PO QAM PRN allergy symptoms 10/08/23 06/04/25 History oral liquid (Benadryl Allergy) empagliflozin 10 mg tablet 10 mg PO DAILY 10/08/23 06/04/25 History (Jardiance) famotidine 20 mg tablet (Pepcid) 20 mg PO DAILY PRN acid reflux 10/08/23 06/04/25 History fenofibrate nanocrystallized 145 145 mg PO DAILY 10/08/23 06/04/25 History mg tablet fluticasone 250 mcg-salmeterol 50 1 inh inhalation Q12H 10/08/23 06/04/25 History mcg/dose blistr powdr for inhalation (Wixela Inhub) glimepiride 4 mg tablet 4 mg PO BID 10/08/23 06/04/25 History hydrochlorothiazide 25 mg tablet 25 mg PO DAILY 10/08/23 06/04/25 History metformin 500 mg tablet,extended 1,000 mg PO BID 10/08/23 06/04/25 History release 24 hr metoprolol tartrate 50 mg tablet 50 mg PO BID 10/08/23 06/04/25 History multivitamin 1 tablet PO DAILY 10/08/23 06/04/25 History simvastatin 20 mg tablet 20 mg PO DAILY 10/08/23 06/04/25 History tiotropium bromide 2.5 2 puff inhalation QAM 10/08/23 06/04/25 History mcg/actuation mist for inhalation (Spiriva Respimat) ibuprofen 600 mg tablet 600 mg PO Q6H PRN pain #14 tabs 10/14/23 06/04/25 Rx oxycodone-acetaminophen 5 mg-325 0.5 - 1 tablet PO Q6H PRN pain #10 10/14/23 06/04/25 Rx mg tablet tabs Held on 06/04/25. Instructions: Patient no longer taking Allergies Allergy/AdvReac Type Severity Reaction Status Date / Time hydrocodone (From Vicodin) AdvReac Itching Verified 06/04/25 10:16 morphine AdvReac VIOLENT Verified 06/04/25 10:16 TREMORS Vital Signs Vital Signs - 24 hr 06/05/25 20:00 06/05/25 20:29 06/05/25 20:52 Temperature 36.7 C Pulse Rate 88 88 106 H Respiratory Rate 20 26 H Blood Pressure 111/59 L Pulse Oximetry 95 98 Oxygen Delivery BiPAP Oxygen Flow Rate Fraction of Inspired Oxygen 06/05/25 20:52 06/05/25 20:52 06/05/25 20:57 Temperature Pulse Rate 106 H 100 Respiratory Rate 26 H 28 H Blood Pressure Pulse Oximetry 97 Oxygen Delivery BiPAP Oxygen Flow Rate Fraction of Inspired Oxygen 45 06/05/25 21:32 06/05/25 23:15 06/06/25 02:21 Temperature 36.9 C Pulse Rate 100 100 103 H Respiratory Rate 20 20 Blood Pressure 104/48 L Pulse Oximetry 99 99 95 Oxygen Delivery BiPAP Nasal Cannula Oxygen Flow Rate Fraction of Inspired Oxygen 45 06/06/25 02:21 06/06/25 02:28 06/06/25 04:00 Temperature 36.4 C Pulse Rate 103 H 98 97 Respiratory Rate 22 H 22 H 18 Blood Pressure 110/60 Pulse Oximetry 96 Oxygen Delivery Oxygen Flow Rate Fraction of Inspired Oxygen 06/06/25 08:00 06/06/25 08:34 06/06/25 08:38 Temperature 36.4 C Pulse Rate 102 H 97 Respiratory Rate 18 20 20 Blood Pressure 126/53 L Pulse Oximetry 96 97 Oxygen Delivery Nasal Cannula Oxygen Flow Rate 2 Fraction of Inspired Oxygen 28 06/06/25 09:29 06/06/25 10:50 06/06/25 12:00 Temperature 36.4 C Pulse Rate 97 144 H Respiratory Rate 18 Blood Pressure 116/56 L Pulse Oximetry 93 93 Oxygen Delivery Room Air Oxygen Flow Rate Fraction of Inspired Oxygen 06/06/25 13:45 06/06/25 13:45 06/06/25 14:01 Temperature Pulse Rate 103 H 14 L 149 H Respiratory Rate 20 Blood Pressure Pulse Oximetry 95 Oxygen Delivery Nasal Cannula Oxygen Flow Rate Fraction of Inspired Oxygen 06/06/25 15:21 06/06/25 15:35 06/06/25 16:00 Temperature 36.4 C Pulse Rate 148 H 139 H 139 H Respiratory Rate 20 Blood Pressure 92/57 L Pulse Oximetry 98 Oxygen Delivery Oxygen Flow Rate Fraction of Inspired Oxygen 06/06/25 16:00 Temperature Pulse Rate 139 H Respiratory Rate 20 Blood Pressure Pulse Oximetry 98 Oxygen Delivery Room Air Oxygen Flow Rate Fraction of Inspired Oxygen 28 Exam Narrative: AF HR 97 RR 20 Spo2 93 RA BP 126/53 General: male in no acute respiratory distress who is nontoxic appearing, sitting up comfortably in bed. HEENT: Normocephalic. Atraumatic. Extraocular movement intact. Sclera clear and anicteric. No facial asymmetry. Chest: Lungs are diminished to auscultation bilaterally. CV: Heart was tachycardic with irregular rate. No murmurs, gallops, or rubs. Abd: Abdomen was soft. Nontender. Nondistended. Positive bowel sounds. Ext: No clubbing, cyanosis, or edema. DP pulses bilaterally. Neuro: Patient is alert and oriented x4. Speech is clear. Const: General: comfortable Other: Who mild discomfort noted and mild respiratory distress noted. Male, elderly, acute on chronic ill appearance. HENMT: Face/Nose/Sinus: Normal nares present Mouth: Yes moist mucous membranes Eyes: General: appearance normal, both eyes and all related structures Sclera: sclerae normal Pupils: Equal, round and reactive pupils present EOM: EOMs intact bilaterally Resp: Other: Tachypneic with accessory muscle use. Wheezing audible bilaterally, more coarse on the left. Cardio: Rate: tachycardic Rhythm: regular rhythm Other: S1-S2 present without murmur, rub, ectopy GI: Other: Abdomen soft and nondistended. Tender in the lower quadrants, primarily in the left lower quadrant. Normoactive bowel sounds in all quadrants. Skin: General skin exam: normal color and no rashes or lesions noted Wounds: no wounds Neuro: Cranial nerves: Yes Equal, round and reactive pupils present Speech: normal speech Motor exam (neuro): 5/5 motor strength present throughout Sensory Exam: normal sensation Other: Generalized weakness, A&O x4 Extrem: General: normal to inspection Psych: Mental Status: mental status grossly normal Affect: normal affect Other: Good insight and judgment, very pleasant Results Labs and Meds 06/07/25 04:24 06/07/25 04:24 Lab results: Cardiac Enzymes 06/06/25 Range/Units 07:55 AST 34 (17-59) U/L CBC 06/06/25 Range/Units 07:55 WBC 4.4 L (4.5-10.0) K/mm3 RBC 4.39 L (4.6-6.20) M/mm3 Hgb 12.7 L (14.0-18.0) g/dL Hct 40.0 L (42.0-52.0) % Plt Count 180 (150-375) k/mm3 Lymph # (Auto) 0.46 L (0.9-3.2) K/mm3 [place] # (Auto) 1.2 H (0.1-0.6) K/mm3 Eos # (Auto) 0.0 (0-0.3) K/mm3 Baso # (Auto) 0.1 (0.0-0.1) K/mm3 Comprehensive Metabolic Panel 06/06/25 Range/Units 07:55 Sodium 133 L (137-145) mmol/L Potassium 3.9 (3.4-5.0) mmol/L Chloride 103 (98-107) mmol/L Carbon Dioxide 23 (22-30) mmol/L BUN 26 H (9-20) mg/dL Creatinine 1.05 (0.7-1.3) mg/dL Glucose 102 (65-110) mg/dL Calcium 8.0 L (8.4-10.2) mg/dL AST 34 (17-59) U/L ALT 19 (6-50) U/L Alkaline Phosphatase 56 (38-126) U/L Total Protein 5.4 L (6.3-8.2) g/dL Albumin 2.7 L (3.5-5.1) g/dL Intake and Output 06/06/25 06/06/25 06/06/25 07:59 15:59 23:59 Intake Total 1590 1870 Output Total 1 650 Balance 1589 1220 Intake: IV 1050 150 Sodium Chloride 0.9% IV 1,000 1000 ml @ 125 mls/hr IV CONT .Q8H PRECIOUS Rx#:[id number] Doxycycline IV 100 mg In Sodium 100 Chloride 0.9% IV 100 ml @ 100 mls/hr IVPB Q12HR [facility] Rx#: [id number] Piperacillin/Tazobactam Sod 3. 50 50 375 gm In Sodium Chloride 0.9% IV 50 ml @ 100 mls/hr IVPB Q6H PRECIOUS Rx#:[id number] Oral 540 1720 Output: Urine 650 Output, Urine/Stool Mix Amount 1 Other: Number of Bowel Movements Today 1 2 Patient Weight 06/06/25 23:59 Weight 89.5 kg
[2025-06-06] MEDS: APIXABAN 5 MG TABLET PO (20:03)
[2025-06-07] VITALS (31 sets, daily range): BP systolic 90–134; BP diastolic 47–61; PULSE 70–124; RESP 18–28; TEMP 36.3–36.7; O2SAT 93–100
--- NOTE | 2025-06-07 | ECHO_ITS ---
Patient Info Name: Forrest Otoole Age: 79 years : 1945 Gender: Male Ht: 70 in Wt: 197 lbs BSA: 2.12 m2 HR: 78 bpm BP: 101 / 55 mmHg Technical Quality: Good Exam Date: 06/07/2025 10:20 AM Patient Status: I Admit Date: 06/05/2025 Exam Type: CA echo doppler color flow Complete two-dimensional, color flow and Doppler transthoracic echocardiogram is performed. Staff Referring Physician: Delmi Su [employer]orer [employer]: Stephanie Ruano Attending Provider: Deborah Tyson MD Summary 1. Complete two-dimensional, color flow and Doppler transthoracic echocardiogram is performed. 2. Left ventricular systolic function is hyperdynamic, estimated at 65-70. 3. There is mildly increased left ventricular wall thickness. 4. The left ventricular diastolic function is indeterminate. 5. Left atrial chamber dimension is mildly enlarged. 6. There is trace tricuspid valve regurgitation. 7. Mild pulmonary hypertension, estimated pulmonary arterial systolic pressure is 38 mmHg. Left Ventricle Left ventricular chamber dimension is normal. Left ventricular systolic function is hyperdynamic, estimated at 65-70. There is mildly increased left ventricular wall thickness. Left ventricular septal wall motion is normal. The left ventricular diastolic function is indeterminate. Right Ventricle Right ventricular chamber dimension is normal. Right ventricular systolic function is normal. Left Atria Left atrial chamber dimension is mildly enlarged. Right Atria Right atrial chamber dimension is normal. Aortic Valve The aortic valve is trileaflet. There is mild aortic valve sclerosis. There is no aortic valve stenosis. There is no aortic valve regurgitation. Pulmonic Valve The pulmonic valve is normal. There is no pulmonic valve stenosis. There is no pulmonic regurgitation. Mitral Valve The mitral valve has normal leaflets. There is no mitral valve stenosis. There is trace mitral valve regurgitation. Tricuspid Valve The tricuspid valve leaflets are normal. There is no significant tricuspid valve stenosis. There is trace tricuspid valve regurgitation. Mild pulmonary hypertension, estimated pulmonary arterial systolic pressure is 38 mmHg. Pericardium/Pleural The pericardium appears normal. There is no pericardial effusion. Inferior Vena Cava Normal inferior vena cava with >50% collapse upon inspiration consistent with normal right atrial pressure, 5 mmHg. Aorta The aortic root size at the sinus of Valsalva is normal. The prox ascending aorta size is normal. Left Ventricular Outflow Tract Name Value Normal LVOT 2D LVOT Diameter 1.9 cm LVOT Doppler LVOT Peak Velocity 152 cm/s LVOT Peak Gradient 9 mmHg LVOT Mean Gradient 4 mmHg LVOT VTI 30 cm LVOT Stroke Volume 86 ml LVOT CO 6.7 l/min LVOT CI 3.2 l/min/m2 Pulmonic Valve Name Value Normal RVOT Doppler RVOT Peak Velocity 94 cm/s RVOT Peak Gradient 4 mmHg PV Doppler PV Peak Velocity 120 cm/s PV Peak Gradient 6 mmHg Mitral Valve Name Value Normal MV Diastolic Function MV E Peak Velocity 103 cm/s MV A Peak Velocity 77 cm/s MV E/A 1.3 MV Decel Time (PW) 251 ms MV Annular TDI MV E/e' (Septal) 11.3 MV E/e' (Lateral) 8.8 MV E/e' (Average) 10.1 Tricuspid Valve Name Value Normal TV Regurgitation Doppler TR Peak Velocity 288 cm/s TR Peak Gradient 33 mmHg Estimated PAP/RSVP RA Pressure 5 mmHg <=5 PA Systolic Pressure 38 mmHg <36 RV Systolic Pressure 38 mmHg <36 Aortic Valve Name Value Normal AV Doppler AV Peak Velocity 190 cm/s AV Peak Gradient 15 mmHg AV Area (Cont Eq Av) 2.3 cm2 AV DI (Av) 0.80 AV Regurgitation 2D LVOT Area 2.9 cm2 Ventricles Name Value Normal LV Dimensions 2D/MM IVS Diastolic Thickness (2D) 1.0 cm 0.6-1.0 LVID Diastole (2D) 4.2 cm 4.2-5.8 LVIW Diastolic Thickness (2D) 1.1 cm 0.6-1.0 LVID Systole (2D) 2.6 cm 2.5-4.0 LVOT Diameter 1.9 cm LV Mass (2D Cubed) 148.28 g 88.00-224.00 LV Mass Index (2D Cubed) 70 g/m2 49-115 Relative Wall Thickness (2D) 0.52 <=0.42 LV Fractional Shortening/Ejection Fraction 2D/MM LV Fractional Shortening (2D) 37 % 25-43 LV EF (2D Teichholz) 68 % LV Diastolic Volume (4C MOD) 109 ml LV EF (4C MOD) 62 % LV Diastolic Volume (2C MOD) 82 ml LV EF (2C MOD) 57 % LV Diastolic Volume (BP MOD) 94 ml 62-150 LV Diastolic Volume Index (BP MOD) 45 ml/m2 34-74 LV Systolic Volume (BP MOD) 39 ml 21-61 LV Systolic Volume Index (BP MOD) 18 ml/m2 11-31 LV EF (BP MOD) 59 % 52-72 LV Diastolic Length (4C) 8.3 cm LV Systolic Length (4C) 7.3 cm LV Stroke Volume (4C MOD) 67 ml Atria Name Value Normal LA Dimensions LA Volume (4C A-L) 63 ml LA Volume (BP A-L) 58 ml RA Dimensions RA Systolic Major [place] Length (4C) 6.0 cm 2.1-2.7 RA Area (4C) 19.2 cm2 <=18.0 Report Signatures
[2025-06-07] MEDS: IPRATROPIUM 0.5 MG/ALBUTEROL SULFATE 2.5 MG AMPUL.NEB 3 ML INHALATION ×4 (01:43→20:44)
[2025-06-07] MEDS: PIPERACILLIN/TAZOBACTAM SOD 3.375 GM in SODIUM CHLORIDE 0.9% IV 50 ML 100 ML IVPB ×4 (01:59→20:42)
[2025-06-07 04:28] LABS: Hematocrit 40.3 % (42.0-52.0); Hemoglobin 13.1 g/dL (14.0-18.0); Immature Granulocyte Percent A 4.4 % (0-0.5); Lymphocytes Absolute Auto 0.72 K/mm3 (0.9-3.2); Mean Corpuscular HGB Conc 32.5 g/dl (32-36); Mean Corpuscular Hemoglobin 28.7 pg (26-34); Mean Corpuscular Volume 88.4 fl (80-100); Nucleated Red Blood Cells Absolute Auto 0.030 K/mm3 (0.0-0.012); Nucleated Red Blood Cells Perc 0.2 % (0.0-0.2); Platelet Count Result 223 k/mm3 (150-375); Red Blood Count 4.56 M/mm3 (4.6-6.20); White Blood Count 17.0 K/mm3 (4.5-10.0)
[2025-06-07 04:57] LABS: Band Neutrophils Percent 0 % (0-6); Toxic Granulation Present
[2025-06-07 04:58] LABS: Schistocytes None Seen
[2025-06-07 05:00] LABS: Alanine Aminotransferase 26 U/L (6-50); Albumin Level 2.6 g/dL (3.5-5.1); Alkaline Phosphatase 85 U/L (38-126); Anion Gap 8 mmol/L (4-12); Aspartate Amino Transferase 37 U/L (17-59); Bilirubin,Total 0.4 mg/dL (0.2-1.3); Blood Urea Nitrogen 29 mg/dL (9-20); Calcium 8.1 mg/dL (8.4-10.2); Carbon Dioxide 23 mmol/L (22-30); Chloride 101 mmol/L (98-107); Estimated CRCL calculation 62 ml/min; Estimated Glomerular Filt Rate > 60; Glucose 121 mg/dL (65-110); Potassium 3.6 mmol/L (3.4-5.0); Sodium 132 mmol/L (137-145); Total Protein 5.2 g/dL (6.3-8.2)
[2025-06-07] MEDS: CENTRAL LINE FLUSH 10 ML IV PUSH ×3 (06:34→20:57)
--- NOTE | 2025-06-07 06:51 | P.PNIM_ITS ---
Progress Note: A&P Assessment and Plan (1) Atrial fibrillation with rapid ventricular response: Code(s): I48.91 - Unspecified atrial fibrillation Status: Acute Assessment and Plan: - Remains asymptomatic - TSH ordered to rule out metabolic cause for tachyarrhythmia - EKG: Afib RVR on 06/06 - Chadsvasc Score: 4 Anticoagulation: Eliquis 5 mg BID. Discussed the pros/cons and he is agreeable with this medication. - Given cancer history, new afib dx, and prior bipap requirement will obtain a CTA chest to rule out PE. Negative for PE. - Echo: LVEF 65-70% mild pulmonary htn - Telemetry - Cardiology consulted 06/06: Patient received metoprolol 5 mg IV x1 without resolution Call made to cardiology Dr. Roberson who recommended diltiazem however blood pressure was 101/[address] Roberson then recommended digoxin 500 mcg IV x1, again without resolution Per RN Dr. Roberson cardiology now starting patient on an amiodarone drip, confirmed on the DEC. 06/07: Patient has converted back to sinus rhythm and rate controlled. Transitioned per cardiology to amiodarone 200 mg PO BID. (2) Pneumonia: Code(s): J18.9 - Pneumonia, unspecified organism Status: Acute Assessment and Plan: Chest CTA: Patchy groundglass with mucous plugging left lower lobe. Differential diagnosis includes infectious bronchiolitis or pneumonia. Consider aspiration pneumonitis - Complicating Factors: COPD exacerbation - started on zosyn on 06/04 - Viral PCR: negative for Flu/COVID/RSV - Consider ordering legionella, mycoplasma and pneumococcal - no supplemental O2 requirement - Monitor vital signs, I&Os, neuro status and patient is a fall risk - Follow WBC, serum electrolytes, temperature curves and cultures - Speech consulted for bedside swallow study Bedside swallow unremarkable, no dietary changes recommended (3) Nausea vomiting and diarrhea: Code(s): R11.2 - Nausea with vomiting, unspecified; R19.7 - Diarrhea, unspecified Status: Acute Assessment and Plan: New immunotherapy prescribed on Wednesday, 05/29, which precipitated nausea, vomiting, diarrhea for the past 6 days (presentation on 06/04). CT also concerning for colitis, see plan below. - monitor electrolytes, correct as needed. Hyponatremia noted upon admission, see below. - started on antibiotics for colitis - check C diff and stool culture - blood cultures obtained on 06/04, NGTD - oncology consulted, see lung cancer below - antiemetics p.r.n. Resolved. (4) Colitis: Code(s): K52.9 - Noninfective gastroenteritis and colitis, unspecified Status: Acute Assessment and Plan: - CT chest/abdomen/pelvis, 06/04: 1. Grossly stable metastatic lymphadenopathy in the mediastinum and left hilum. 2. Status post left upper lobectomy 3. Thickening of the rivera of the descending and sigmoid colon. The findings are concerning for colitis. - started on Zosyn on 06/04 - tolerating clear liquid diet, advance to low fiber - pain medication prn - Monitor vital signs, I&Os, track stool output, watch for bloody stools, neuro status and patient is a fall risk - Monitor serum electrolytes and CBC Denies nausea/vomiting/diarrhea and abdominal pain. (5) COPD (chronic obstructive pulmonary disease): Code(s): J44.9 - Chronic obstructive pulmonary disease, unspecified Status: Acute Assessment and Plan: Arrived with wheezing and shortness of breath on 06/04, precipitated by missed AM meds. Given 2G of magnesium, Solu-Medrol, and a DuoNeb in the ED with improvement. - DuoNebs austyn - given Solu-Medrol in the ED, will continue as prednisone 40 mg daily - started on Zosyn due to concurrent colitis - stopped vanc (mrsa negative) and add doxy for atypical coverage Despite additional DuoNeb treatment, Solu-Medrol, and home Wixela inhaler this evening the patient remains significantly dyspneic. 06/04: ABG showed pH 7.493, pCO2 26.7, pO2 67.7, and HCO3 20. Placed on Bipap. Remains on room air. Slight shortness of breath and cough but continues to improve. (6) Hyponatremia: Code(s): E87.1 - Hypo-osmolality and hyponatremia Status: Acute Assessment and Plan: Likely secondary to acute dehydration secondary to N/V/D. - Na 128 on admission. Improving on am labs, Na remains stable in the lower 130s. 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 Sees Patricia for his oncology care and previously saw Cr MOSES for radiation (now transitioned to PRN basis) - reverse isolation in place - oncology consulted Start him on Neupogen for chemotherapy-induced neutropenia. WBC improving on am labs. Continue antibiotics for colitis and possible pneumonia. Due to his significant shortness of breath given 1x order of Solu-Medrol while waiting for breathing treatment. He will follow-up with us in the office for continuation of treatment once he recovered from this flare-up of COPD and colitis. (8) DM2 (diabetes mellitus, type 2): Qualifiers: Diabetes mellitus complication status: without complication Diabetes mellitus terminal make up operator insulin use: without terminal make up operator use Qualified Code(s): E11.9 - Type 2 diabetes mellitus without complications Code(s): E11.9 - Type 2 diabetes mellitus without complications Status: Chronic Assessment and Plan: - hypoglycemia protocol - POC blood glucose ACHS - home medication: Continue Jardiance. Hold metformin and glimepiride. - correct regimen ordered - moderate dose TIDWM, based off BMI - A1C -7 06/05/25 Glucose levels remain stable. Continue to monitor. (9) HTN (hypertension): Qualifiers: Hypertension type: primary hypertension Qualified Code(s): I10 - Essential (primary) hypertension Code(s): I10 - Essential (primary) hypertension Status: Chronic Assessment and Plan: - chronic, continue home medications: HCTZ 25 mg daily and metoprolol 50 mg BID - blood pressures remain stable, continue to monitor Time Spent With Patient Time with patient: 25 - 35 minutes Subjective Date/time seen: 06/07/25 06:51 Interval history: 79 y/o M with PMH of non-small cell lung cancer (adenocarcinoma, left upper lobe) s/p resection in 2019 with a soft tissue mass in the left groin/inguinal region (biopsy in 2022 -> 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 Patient is pleasant sitting up in bed. He continues to endorse slight shortness of breath and a cough but notes that this has much improved since admission. He has had a headache denies chest pain, palpitations, nausea/vomiting, abdominal pain, and dizziness/lightheadedness/weakness. Review of Systems Review of Systems: All systems reviewed & are unremarkable except as noted in HPI and below Exam Narrative: AF HR 75 RR 18 SpO2 98 BP 130/57 General: male in no acute respiratory distress who is nontoxic appearing, sitting up comfortably in bed. HEENT: Normocephalic. Atraumatic. Extraocular movement intact. Sclera clear and anicteric. No facial asymmetry. Chest: Lungs are slightly diminished to the bases on auscultation bilaterally. CV: Heart with regular rhythm and rate. No murmurs, gallops, or rubs. Abd: Abdomen was soft. Nontender. Nondistended. Positive bowel sounds. Ext: No clubbing, cyanosis, or edema. DP pulses bilaterally. Neuro: Patient is alert and oriented x4. Speech is clear. Objective Data Vital Signs Vital Signs: Vital Signs - 24 hr 06/06/25 08:00 06/06/25 08:34 06/06/25 08:38 Temperature 97.6 F Pulse Rate 102 H 97 Respiratory Rate 18 20 20 Blood Pressure 126/53 L Pulse Oximetry 96 97 Oxygen Delivery Nasal Cannula Oxygen Flow Rate 2 Fraction of Inspired Oxygen 28 06/06/25 09:29 06/06/25 10:50 06/06/25 12:00 Temperature 97.6 F Pulse Rate 97 144 H Respiratory Rate 18 Blood Pressure 116/56 L Pulse Oximetry 93 93 Oxygen Delivery Room Air Oxygen Flow Rate Fraction of Inspired Oxygen 06/06/25 12:00 06/06/25 13:45 06/06/25 13:45 Temperature Pulse Rate 129 H 103 H 14 L Respiratory Rate 20 Blood Pressure Pulse Oximetry 95 Oxygen Delivery Nasal Cannula Oxygen Flow Rate Fraction of Inspired Oxygen 06/06/25 14:01 06/06/25 15:21 06/06/25 15:35 Temperature 97.6 F Pulse Rate 149 H 148 H 139 H Respiratory Rate 20 Blood Pressure 92/57 L Pulse Oximetry 98 Oxygen Delivery Oxygen Flow Rate Fraction of Inspired Oxygen 06/06/25 16:00 06/06/25 16:00 06/06/25 17:07 Temperature Pulse Rate 139 H 139 H 130 H Respiratory Rate 20 Blood Pressure 112/95 H Pulse Oximetry 98 Oxygen Delivery Room Air Oxygen Flow Rate Fraction of Inspired Oxygen 28 06/06/25 17:07 06/06/25 18:00 06/06/25 19:32 Temperature 97.6 F Pulse Rate 129 H 112 H 131 H Respiratory Rate 20 Blood Pressure 112/95 H 95/51 L Pulse Oximetry 94 Oxygen Delivery Oxygen Flow Rate Fraction of Inspired Oxygen 06/06/25 20:00 06/06/25 20:00 06/06/25 20:03 Temperature Pulse Rate 137 H 126 H Respiratory Rate Blood Pressure Pulse Oximetry Oxygen Delivery Room Air Oxygen Flow Rate Fraction of Inspired Oxygen 06/06/25 20:19 06/06/25 20:20 06/06/25 20:29 Temperature Pulse Rate 91 99 92 Respiratory Rate 20 20 20 Blood Pressure Pulse Oximetry 99 Oxygen Delivery Room Air Oxygen Flow Rate Fraction of Inspired Oxygen 21 06/06/25 21:37 06/06/25 21:55 06/06/25 22:00 Temperature Pulse Rate 147 H 117 H 130 H Respiratory Rate Blood Pressure 112/50 L 106/57 L Pulse Oximetry Oxygen Delivery Oxygen Flow Rate Fraction of Inspired Oxygen 06/06/25 22:36 06/07/25 00:00 06/07/25 00:00 Temperature 97.6 F Pulse Rate 101 H 118 H Respiratory Rate 27 H 20 Blood Pressure 90/47 L Pulse Oximetry 95 100 Oxygen Delivery BiPAP Room Air Oxygen Flow Rate Fraction of Inspired Oxygen 06/07/25 00:00 06/07/25 00:00 06/07/25 01:43 Temperature Pulse Rate 118 H 124 H 123 H Respiratory Rate 25 H Blood Pressure 90/47 L Pulse Oximetry Oxygen Delivery Oxygen Flow Rate Fraction of Inspired Oxygen 06/07/25 01:44 06/07/25 02:04 06/07/25 02:39 Temperature Pulse Rate 120 H 117 H 104 H Respiratory Rate 25 H Blood Pressure 104/59 L Pulse Oximetry 95 Oxygen Delivery BiPAP Oxygen Flow Rate Fraction of Inspired Oxygen 06/07/25 03:53 06/07/25 04:00 06/07/25 04:00 Temperature 97.4 F L Pulse Rate 108 H Respiratory Rate 20 Blood Pressure 101/55 L Pulse Oximetry 95 99 Oxygen Delivery Room Air Oxygen Flow Rate Fraction of Inspired Oxygen 06/07/25 04:00 06/07/25 04:00 06/07/25 06:28 Temperature Pulse Rate 108 H 115 H 87 Respiratory Rate Blood Pressure 101/55 L 110/52 L Pulse Oximetry Oxygen Delivery Oxygen Flow Rate Fraction of Inspired Oxygen 06/07/25 06:28 06/07/25 06:30 Temperature Pulse Rate 83 83 Respiratory Rate Blood Pressure 110/52 L Pulse Oximetry Oxygen Delivery Oxygen Flow Rate Fraction of Inspired Oxygen Intake/Output Intake/Output: Intake & Output 06/04/25 06/05/25 06/06/25 06/07/25 23:59 23:59 23:59 23:59 Intake Total 2706.7 4900 3860 193.1 Output Total 75 1800 1301 700 Balance 2631.7 3100 2559 -506.9 Meds/Results Medications: Active Medications Generic Name Dose Route Start Last Admin Trade Name Freq PRN Reason Stop Dose Admin Acetaminophen 650 mg 06/04/25 14:29 Acetaminophen 325 Mg Tablet PO Q6H PRN Mild Pain (1-3) or Fever Albuterol/Ipratropium 3 ml 06/04/25 18:35 06/07/25 01:43 Ipratropium 0.5 Mg/Albuterol Sulfate 2.5 Mg Ampul.Neb 3 Ml INHALATION 3 ml Q6HRT AUSTYN Administration Apixaban 5 mg 06/06/25 21:00 06/06/25 20:03 Apixaban 5 Mg Tablet PO 5 mg Q12HR AUSTYN Administration Ascorbic Acid 1,000 mg 06/05/25 09:00 06/06/25 09:29 Ascorbic Acid 500 Mg Tablet PO 1,000 mg DAILY AUSTYN Administration Dextrose 12.5 gm 06/04/25 14:36 Dextrose 50% 25 Gm/50 Ml Syringe IV PUSH PRN PRN Hypoglycemia Protocol Dicyclomine HCl 20 mg 06/04/25 14:28 Dicyclomine Hcl 10 Mg Capsule PO QID PRN Abdominal Cramping Diphenhydramine HCl 12.5 mg 06/04/25 18:18 Diphenhydramine Hcl Elixir 12.5 Mg/5 Ml Udc PO QAM PRN allergy symptoms Empagliflozin 10 mg 06/05/25 09:00 06/06/25 09:28 Empagliflozin 10 Mg Tablet PO 10 mg DAILY AUSTYN Administration Famotidine 20 mg 06/04/25 18:18 Famotidine 20 Mg Tablet PO DAILY PRN acid reflux Fenofibrate 145 mg 06/05/25 09:00 06/06/25 09:28 Fenofibrate Nanocrystallized 145 Mg Tablet PO 145 mg DAILY AUSTYN Administration Filgrastim-Sndz 480 mcg 06/05/25 09:00 06/06/25 09:27 Filgrastim-Sndz 480 Mcg/0.8 Ml Syringe SUB-Q 480 mcg DAILY AUSTYN Administration Glucagon 1 mg 06/04/25 14:36 Glucagon For Inj 1 Mg Vial IM PRN PRN Hypoglycemia Protocol Glucose 15 gm 06/04/25 14:36 Glucose Oral Gel 15 Gm Of Glucse In 37.5 Gm Tube PO PRN PRN Hypoglycemia Protocol Heparin Sodium (Porcine) 500 units 06/05/25 07:36 Heparin Sodium Lock Flush 500 Units/5 Ml Syringe IV PUSH PRN PRN see comments below Hydrochlorothiazide 25 mg 06/05/25 09:00 06/06/25 09:28 Hydrochlorothiazide 25 Mg Tablet PO 25 mg DAILY AUSTYN Administration Piperacillin Sod/Tazobactam 50 mls @ 100 mls/hr 06/04/25 20:00 06/07/25 06:35 Sod 3.375 gm/ Sodium Chloride IVPB Infused Q6H AUSTYN Infusion Dextrose 1,000 mls @ 100 mls/hr 06/04/25 14:36 Dextrose 5% 1,000 Ml IVPB PRN PRN Hypoglycemia Protocol Doxycycline Hyclate 100 mg/ 100 mls @ 100 mls/hr 06/05/25 11:30 06/06/25 20:52 Sodium Chloride IVPB 06/09/25 21:59 100 mls/hr Q12HR A[place] Administration Amiodarone HCl/Dextrose 360 mg in 200 mls @ 16.667 mls/hr 06/06/25 22:08 06/07/25 06:30 Nexterone 360 Mg/D5w 200 Ml IV CONT 06/07/25 22:07 0.5 mg/min .Q12H AUSTYN 16.67 mls/hr Protocol Infusion 0.5 MG/MIN Ibuprofen 600 mg 06/04/25 14:29 Ibuprofen 600 Mg Tablet PO Q6H PRN Pain Rated 4-6 Insulin Aspart 3 - 6 units 06/04/25 17:00 06/06/25 16:28 Insulin Aspart (*Bkc) 100 Units/Ml SUB-Q Not Given TIDWM [facility] Protocol Metoprolol Tartrate 50 mg 06/04/25 21:00 06/06/25 20:03 Metoprolol Tartrate 50 Mg Tab PO 50 mg Q12HR AUSTYN Administration Multivitamins Therapeutic 1 tablet 06/05/25 09:00 06/06/25 09:28 Multivitamins Therapeutic Tab (*Bkc) PO 1 tablet DAILY AUSTYN Administration Non-Formulary ( 0 each 06/04/25 20:30 06/06/25 20:17 Fluticasone INHALATION 07/04/25 20:29 1 each Propionate/ Q12HRT AUSTYN Administration Salmeterol Xinafoate 250 Mcg-50 Mcg/Dose Inh...) Ondansetron HCl 4 mg 06/04/25 14:29 Ondansetron Inj 4 Mg/2 Ml Vial IV PUSH Q4H PRN Nausea And Vomiting Pantoprazole Sodium 40 mg 06/05/25 09:00 06/06/25 09:26 Pantoprazole Sodium Iv 40 Mg Vial IV PUSH 40 mg QAM AUSTYN Administration Perflutren Lipid Microsphere 0 ml 06/06/25 15:45 Perflutren Lipid Microspheres 1.5 Ml Vial Diluted To 10 Ml Total Volume IV PUSH 06/09/25 15:45 ONCE PRN adequate visualization Protocol Prednisone 40 mg 06/05/25 08:00 06/06/25 09:28 Prednisone 20 Mg Tablet PO 06/10/25 07:59 40 mg DAILY@0800 A[facility]YN Administration Simvastatin 20 mg 06/05/25 09:00 06/06/25 09:28 Simvastatin 20 Mg Tablet PO 20 mg DAILY A[place] Administration Sodium Chloride 10 ml 06/05/25 14:00 06/07/25 06:34 Central Line Flush IV PUSH 10 ml Q8HR AUSTYN Administration Umeclidinium [place] 1 puff 06/05/25 09:00 Umeclidinium [place] 62.5 Mcg Ellipta INHALATION DAILY [facility] Radiology Results: ITS Impressions Chest X-Ray 06/04/25 11:28 IMPRESSION: 1.The left hilum is prominent. Differential includes mass or adenopathy. A chest CT is recommended. 2.There is a 1.2 cm nodular density projecting over the right lower lung possibly a pulmonary nodule. A chest CT is recommended. 3. Small opacities in the lower lungs which represents atelectasis/scarring or infiltrates. Chest/Abdomen/Pelvis CT 06/04/25 12:13 IMPRESSION: 1. Grossly stable metastatic lymphadenopathy in the mediastinum and left hilum. 2. Status post left upper lobectomy 3. Thickening of the rivera of the descending and sigmoid colon. The findings are concerning for colitis. Chest CTA 06/06/25 18:11 IMPRESSION: 1. Patchy groundglass with mucous plugging left lower lobe. Differential diagnosis includes infectious bronchiolitis or pneumonia. Consider aspiration pneumonitis 2: Mediastinal lymphadenopathy, likely reactive. 3: Gallstones. Labs Labs: Laboratory Results - last 24 hr 06/06/25 06/06/25 06/06/25 07:52 07:55 11:32 WBC 4.4 L RBC 4.39 L Hgb 12.7 L Hct 40.0 L MCV 91.1 MCH 28.9 MCHC 31.8 L RDW 15.7 H Plt Count 180 MPV 11.5 H Immature Gran % (Auto) 1.1 H Neut % (Auto) 58.7 Lymph % (Auto) 10.4 L [place] % (Auto) 27.8 H Eos % (Auto) 0.0 Baso % (Auto) 2.0 H Lymph # (Auto) 0.46 L [place] # (Auto) 1.2 H Eos # (Auto) 0.0 Baso # (Auto) 0.1 Abs Immat Gran (auto) 0.05 H Absolute Neuts (auto) 2.6 Absolute Nucleated RBC 0.000 Band Neutrophils % Not Reportable Nucleated RBC % 0.0 Toxic Granulation Platelet Estimate Adequate [place] Cells 1+ Schistocytes None seen Sodium 133 L Potassium 3.9 Chloride 103 Carbon Dioxide 23 Anion Gap 7 BUN 26 H Creatinine 1.05 Estim Creat Clear Calc 53 Estimated GFR > 60 Glucose 102 POC Capillary Glucose 111 H 122 H Calcium 8.0 L Total Bilirubin 0.3 AST 34 ALT 19 Alkaline Phosphatase 56 Total Protein 5.4 L Albumin 2.7 L TSH (Reflex) 0.501 06/06/25 06/06/25 06/07/25 16:12 19:56 04:24 WBC 17.0 H RBC 4.56 L Hgb 13.1 L Hct 40.3 L MCV 88.4 MCH 28.7 MCHC 32.5 RDW 15.8 H Plt Count 223 MPV 11.1 H Immature Gran % (Auto) 4.4 H Neut % (Auto) 79.9 H Lymph % (Auto) 4.2 L [place] % (Auto) 11.1 H Eos % (Auto) 0.1 Baso % (Auto) 0.3 Lymph # (Auto) 0.72 L [place] # (Auto) 1.9 H Eos # (Auto) 0.0 Baso # (Auto) 0.1 Abs Immat Gran (auto) 0.74 H Absolute Neuts (auto) 13.6 H Absolute Nucleated RBC 0.030 H Band Neutrophils % 0 Nucleated RBC % 0.2 Toxic Granulation Present Platelet Estimate Adequate [place] Cells Schistocytes None seen Sodium 132 L Potassium 3.6 Chloride 101 Carbon Dioxide 23 Anion Gap 8 BUN 29 H Creatinine 0.89 Estim Creat Clear Calc 62 Estimated GFR > 60 Glucose 121 H POC Capillary Glucose 166 H 151 H Calcium 8.1 L Total Bilirubin 0.4 AST 37 ALT 26 Alkaline Phosphatase 85 Total Protein 5.2 L Albumin 2.6 L TSH (Reflex) Quality VTE Prophylaxis VTE prophylaxis: pharmacologic ordered
[2025-06-07] MEDS: DOXYCYCLINE IV 100 MG in SODIUM CHLORIDE 0.9% IV 100 ML IVPB (08:20)
[2025-06-07] MEDS: PANTOPRAZOLE SODIUM IV 40 MG VIAL IV PUSH (08:22)
[2025-06-07] MEDS: EMPAGLIFLOZIN 10 MG TABLET PO (08:23)
[2025-06-07] MEDS: SIMVASTATIN 20 MG TABLET PO (08:23)
[2025-06-07] MEDS: ASCORBIC ACID 500 MG TABLET 1000 MG PO (08:23)
[2025-06-07] MEDS: FENOFIBRATE NANOCRYSTALLIZED 145 MG TABLET PO (08:23)
[2025-06-07] MEDS: APIXABAN 5 MG TABLET PO ×2 (08:24→20:42)
[2025-06-07] MEDS: MULTIVITAMINS THERAPEUTIC TAB (*BKC) 1 TABLET PO (08:24)
[2025-06-07] MEDS: METOPROLOL TARTRATE 50 MG TAB PO ×2 (08:29→20:42)
[2025-06-07] MEDS: UMECLIDINIUM BROMIDE 62.5 MCG ELLIPTA 1 PUFF INHALATION (08:29)
--- NOTE | 2025-06-07 08:33 | PCSTNOTE ---
Please refer to the Bedside Swallow Evaluation in the EMR. Please note, silent aspiration cannot be ruled out at bedside. The patient is a 79 year old male admitted with the diagnosis COPD, Dehydration, and pneumonia. Orders received from physician to complete a BSE due to pneumonia diagnosis. The patient was seated at the edge of the bed and assessed with his morning meal. Regular diet and thin liquid consistencies. Oral Stage: The patient was viewed to have timely oral preparation and transit for all consistencies. Pharyngeal stage: The patient was viewed to have a timely swallow with good laryngeal elevation and no outward CSA for all consistencies presented. Recommend 1. Regular Diet / Level 7 and 2. Thin Liquid / Level 0
--- NOTE | 2025-06-07 10:08 | PM.PNCARD ---
Progress Note: A&P Assessment and Plan (1) HTN (hypertension): Qualifiers: Hypertension type: primary hypertension Qualified Code(s): I10 - Essential (primary) hypertension Code(s): I10 - Essential (primary) hypertension Status: Chronic (2) Atrial fibrillation with rapid ventricular response: Code(s): I48.91 - Unspecified atrial fibrillation Status: Acute Plan 1. PAF -- CHADSVASC 4 2. HTN 3. HLD 4. COPD 5. NSCLC 6. DM - Switch to oral amiodarone 200 mg PO BID for a week. then can take 200 mg PO OD - Amiodarone for a month, then can be discontinued in the cardiology clinic - Continue therapeutic anticoagulation Subjective Date/time seen: 06/07/25 10:08 Interval history: Currently in NSR On amio infusion Review of Systems Review of Systems: Gen.: Denies fevers or chills Eyes: Denies eye pain or visual change ENT: Denies congestion Respiratory: As per HPI CV: Denies chest pain or palpitations GI: Denies abdominal pain nausea, emesis or diarrhea denies burning, urgency, frequency or hematuria Musculoskeletal: Denies back pain or muscle pain Neuro: Denies numbness, tingling, weakness or focal weakness Skin: Denies rash Except as documented, all other systems reviewed and negative All systems reviewed & are unremarkable except as noted in HPI and below Exam Narrative: AF HR 97 RR 20 Spo2 93 RA BP 126/53 General: male in no acute respiratory distress who is nontoxic appearing, sitting up comfortably in bed. HEENT: Normocephalic. Atraumatic. Extraocular movement intact. Sclera clear and anicteric. No facial asymmetry. Chest: Lungs are diminished to auscultation bilaterally. CV: Heart was tachycardic with irregular rate. No murmurs, gallops, or rubs. Abd: Abdomen was soft. Nontender. Nondistended. Positive bowel sounds. Ext: No clubbing, cyanosis, or edema. DP pulses bilaterally. Neuro: Patient is alert and oriented x4. Speech is clear. Const: General: comfortable Other: Who mild discomfort noted and mild respiratory distress noted. Male, elderly, acute on chronic ill appearance. HENMT: Face/Nose/Sinus: Normal nares present Mouth: Yes moist mucous membranes Eyes: General: appearance normal, both eyes and all related structures Sclera: sclerae normal Pupils: Equal, round and reactive pupils present EOM: EOMs intact bilaterally Resp: Other: Tachypneic with accessory muscle use. Wheezing audible bilaterally, more coarse on the left. Cardio: Rate: tachycardic Rhythm: regular rhythm Other: S1-S2 present without murmur, rub, ectopy GI: Other: Abdomen soft and nondistended. Tender in the lower quadrants, primarily in the left lower quadrant. Normoactive bowel sounds in all quadrants. Skin: General skin exam: normal color and no rashes or lesions noted Wounds: no wounds Neuro: Cranial nerves: Yes Equal, round and reactive pupils present Speech: normal speech Motor exam (neuro): 5/5 motor strength present throughout Sensory Exam: normal sensation Other: Generalized weakness, A&O x4 Extrem: General: normal to inspection Psych: Mental Status: mental status grossly normal Affect: normal affect Other: Good insight and judgment, very pleasant Objective Data Vital Signs Vital Signs: Vital Signs - 24 hr 06/06/25 10:50 06/06/25 12:00 06/06/25 12:00 Temperature 36.4 C Pulse Rate 144 H 129 H Respiratory Rate 18 Blood Pressure 116/56 L Pulse Oximetry 93 93 Oxygen Delivery Room Air Fraction of Inspired Oxygen 06/06/25 13:45 06/06/25 13:45 06/06/25 14:01 Temperature Pulse Rate 103 H 14 L 149 H Respiratory Rate 20 Blood Pressure Pulse Oximetry 95 Oxygen Delivery Nasal Cannula Fraction of Inspired Oxygen 06/06/25 15:21 06/06/25 15:35 06/06/25 16:00 Temperature 36.4 C Pulse Rate 148 H 139 H 139 H Respiratory Rate 20 Blood Pressure 92/57 L Pulse Oximetry 98 Oxygen Delivery Fraction of Inspired Oxygen 06/06/25 16:00 06/06/25 17:07 06/06/25 17:07 Temperature Pulse Rate 139 H 130 H 129 H Respiratory Rate 20 Blood Pressure 112/95 H 112/95 H Pulse Oximetry 98 Oxygen Delivery Room Air Fraction of Inspired Oxygen 28 06/06/25 18:00 06/06/25 19:32 06/06/25 20:00 Temperature 36.4 C Pulse Rate 112 H 131 H Respiratory Rate 20 Blood Pressure 95/51 L Pulse Oximetry 94 Oxygen Delivery Room Air Fraction of Inspired Oxygen 06/06/25 20:00 06/06/25 20:03 06/06/25 20:19 Temperature Pulse Rate 137 H 126 H 91 Respiratory Rate 20 Blood Pressure Pulse Oximetry Oxygen Delivery Fraction of Inspired Oxygen 06/06/25 20:20 06/06/25 20:29 06/06/25 21:37 Temperature Pulse Rate 99 92 147 H Respiratory Rate 20 20 Blood Pressure 112/50 L Pulse Oximetry 99 Oxygen Delivery Room Air Fraction of Inspired Oxygen 21 06/06/25 21:55 06/06/25 22:00 06/06/25 22:36 Temperature Pulse Rate 117 H 130 H 101 H Respiratory Rate 27 H Blood Pressure 106/57 L Pulse Oximetry 95 Oxygen Delivery BiPAP Fraction of Inspired Oxygen 06/07/25 00:00 06/07/25 00:00 06/07/25 00:00 Temperature 36.4 C Pulse Rate 118 H 118 H Respiratory Rate 20 Blood Pressure 90/47 L 90/47 L Pulse Oximetry 100 Oxygen Delivery Room Air Fraction of Inspired Oxygen 06/07/25 00:00 06/07/25 01:43 06/07/25 01:44 Temperature Pulse Rate 124 H 123 H 120 H Respiratory Rate 25 H 25 H Blood Pressure Pulse Oximetry 95 Oxygen Delivery BiPAP Fraction of Inspired Oxygen 06/07/25 02:04 06/07/25 02:39 06/07/25 03:53 Temperature Pulse Rate 117 H 104 H Respiratory Rate Blood Pressure 104/59 L Pulse Oximetry 95 Oxygen Delivery Fraction of Inspired Oxygen 06/07/25 04:00 06/07/25 04:00 06/07/25 04:00 Temperature 36.3 C L Pulse Rate 108 H 108 H Respiratory Rate 20 Blood Pressure 101/55 L 101/55 L Pulse Oximetry 99 Oxygen Delivery Room Air Fraction of Inspired Oxygen 06/07/25 04:00 06/07/25 06:28 06/07/25 06:28 Temperature Pulse Rate 115 H 87 83 Respiratory Rate Blood Pressure 110/52 L Pulse Oximetry Oxygen Delivery Fraction of Inspired Oxygen 06/07/25 06:30 06/07/25 07:30 06/07/25 08:24 Temperature 36.6 C Pulse Rate 83 79 83 Respiratory Rate 20 20 Blood Pressure 110/52 L 118/52 L Pulse Oximetry 94 Oxygen Delivery Fraction of Inspired Oxygen 06/07/25 08:25 06/07/25 08:28 06/07/25 08:29 Temperature Pulse Rate 87 85 Respiratory Rate 20 Blood Pressure Pulse Oximetry 93 Oxygen Delivery Room Air Fraction of Inspired Oxygen Intake/Output Intake/Output: Intake & Output 06/04/25 06/05/25 06/06/25 06/07/25 23:59 23:59 23:59 23:59 Intake Total 2706.7 4900 3960 433.1 Output Total 75 1800 1301 700 Balance 2631.7 3100 2659 -266.9 Meds/Results Medications: Active Medications Generic Name Dose Route Start Last Admin Trade Name Freq PRN Reason Stop Dose Admin Acetaminophen 650 mg 06/04/25 14:29 Acetaminophen 325 Mg Tablet PO Q6H PRN Mild Pain (1-3) or Fever Albuterol/Ipratropium 3 ml 06/04/25 18:35 06/07/25 08:24 Ipratropium 0.5 Mg/Albuterol Sulfate 2.5 Mg Ampul.Neb 3 Ml INHALATION 3 ml Q6HRT PRECIOUS Administration Apixaban 5 mg 06/06/25 21:00 06/07/25 08:24 Apixaban 5 Mg Tablet PO 5 mg Q12HR PRECIOUS Administration Ascorbic Acid 1,000 mg 06/05/25 09:00 06/07/25 08:23 Ascorbic Acid 500 Mg Tablet PO 1,000 mg DAILY PRECIOUS Administration Dextrose 12.5 gm 06/04/25 14:36 Dextrose 50% 25 Gm/50 Ml Syringe IV PUSH PRN PRN Hypoglycemia Protocol Dicyclomine HCl 20 mg 06/04/25 14:28 Dicyclomine Hcl 10 Mg Capsule PO QID PRN Abdominal Cramping Diphenhydramine HCl 12.5 mg 06/04/25 18:18 Diphenhydramine Hcl Elixir 12.5 Mg/5 Ml Udc PO QAM PRN allergy symptoms Empagliflozin 10 mg 06/05/25 09:00 06/07/25 08:23 Empagliflozin 10 Mg Tablet PO 10 mg DAILY PRECIOUS Administration Famotidine 20 mg 06/04/25 18:18 Famotidine 20 Mg Tablet PO DAILY PRN acid reflux Fenofibrate 145 mg 06/05/25 09:00 06/07/25 08:23 Fenofibrate Nanocrystallized 145 Mg Tablet PO 145 mg DAILY PRECIOUS Administration Glucagon 1 mg 06/04/25 14:36 Glucagon For Inj 1 Mg Vial IM PRN PRN Hypoglycemia Protocol Glucose 15 gm 06/04/25 14:36 Glucose Oral Gel 15 Gm Of Glucse In 37.5 Gm Tube PO PRN PRN Hypoglycemia Protocol Heparin Sodium (Porcine) 500 units 06/05/25 07:36 Heparin Sodium Lock Flush 500 Units/5 Ml Syringe IV PUSH PRN PRN see comments below Hydrochlorothiazide 25 mg 06/05/25 09:00 06/07/25 08:21 Hydrochlorothiazide 25 Mg Tablet PO 25 mg DAILY PRECIOUS Administration Piperacillin Sod/Tazobactam 50 mls @ 100 mls/hr 06/04/25 20:00 06/07/25 08:22 Sod 3.375 gm/ Sodium Chloride IVPB 100 mls/hr Q6H PRECIOUS Administration Dextrose 1,000 mls @ 100 mls/hr 06/04/25 14:36 Dextrose 5% 1,000 Ml IVPB PRN PRN Hypoglycemia Protocol Doxycycline Hyclate 100 mg/ 100 mls @ 100 mls/hr 06/05/25 11:30 06/07/25 08:20 Sodium Chloride IVPB 06/09/25 21:59 100 mls/hr Q12HR PRECIOUS Administration Amiodarone HCl/Dextrose 360 mg in 200 mls @ 16.667 mls/hr 06/06/25 22:08 06/07/25 06:30 Nexterone 360 Mg/D5w 200 Ml IV CONT 06/07/25 22:07 0.5 mg/min .Q12H PRECIOUS 16.67 mls/hr Protocol Infusion 0.5 MG/MIN Ibuprofen 600 mg 06/04/25 14:29 Ibuprofen 600 Mg Tablet PO Q6H PRN Pain Rated 4-6 Insulin Aspart 3 - 6 units 06/04/25 17:00 06/07/25 08:43 Insulin Aspart (*Bkc) 100 Units/Ml SUB-Q Not Given TIDWM PRECIOUS Protocol Metoprolol Tartrate 50 mg 06/04/25 21:00 06/07/25 08:29 Metoprolol Tartrate 50 Mg Tab PO 50 mg Q12HR PRECIOUS Administration Multivitamins Therapeutic 1 tablet 06/05/25 09:00 06/07/25 08:24 Multivitamins Therapeutic Tab (*Bkc) PO 1 tablet DAILY PRECIOUS Administration Non-Formulary ( 0 each 06/04/25 20:30 06/06/25 20:17 Fluticasone INHALATION 07/04/25 20:29 1 each Propionate/ Q12HRT PRECIOUS Administration Salmeterol Xinafoate 250 Mcg-50 Mcg/Dose Inh...) Ondansetron HCl 4 mg 06/04/25 14:29 Ondansetron Inj 4 Mg/2 Ml Vial IV PUSH Q4H PRN Nausea And Vomiting Pantoprazole Sodium 40 mg 06/05/25 09:00 06/07/25 08:22 Pantoprazole Sodium Iv 40 Mg Vial IV PUSH 40 mg QAM PRECIOUS Administration Perflutren Lipid Microsphere 0 ml 06/06/25 15:45 Perflutren Lipid Microspheres 1.5 Ml Vial Diluted To 10 Ml Total Volume IV PUSH 06/09/25 15:45 ONCE PRN adequate visualization Protocol Prednisone 40 mg 06/05/25 08:00 06/07/25 08:23 Prednisone 20 Mg Tablet PO 06/10/25 07:59 40 mg DAILY@0800 PRECIOUS Administration Simvastatin 20 mg 06/05/25 09:00 06/07/25 08:23 Simvastatin 20 Mg Tablet PO 20 mg DAILY PRECIOUS Administration Sodium Chloride 10 ml 06/05/25 14:00 06/07/25 06:34 Central Line Flush IV PUSH 10 ml Q8HR PRECIOUS Administration Umeclidinium [place] 1 puff 06/05/25 09:00 06/07/25 08:29 Umeclidinium [place] 62.5 Mcg Ellipta INHALATION 1 puff DAILY PRECIOUS Administration Radiology Results: ITS Impressions Chest X-Ray 06/04/25 11:28 IMPRESSION: 1.The left hilum is prominent. Differential includes mass or adenopathy. A chest CT is recommended. 2.There is a 1.2 cm nodular density projecting over the right lower lung possibly a pulmonary nodule. A chest CT is recommended. 3. Small opacities in the lower lungs which represents atelectasis/scarring or infiltrates. Chest/Abdomen/Pelvis CT 06/04/25 12:13 IMPRESSION: 1. Grossly stable metastatic lymphadenopathy in the mediastinum and left hilum. 2. Status post left upper lobectomy 3. Thickening of the [place] of the descending and sigmoid colon. The findings are concerning for colitis. Chest CTA 06/06/25 18:11 IMPRESSION: 1. Patchy groundglass with mucous plugging left lower lobe. Differential diagnosis includes infectious bronchiolitis or pneumonia. Consider aspiration pneumonitis 2: Mediastinal lymphadenopathy, likely reactive. 3: Gallstones. Labs Labs: Laboratory Results - last 24 hr 06/06/25 06/06/25 06/06/25 07:55 11:32 16:12 WBC RBC Hgb Hct MCV MCH MCHC RDW Plt Count MPV Immature Gran % (Auto) Neut % (Auto) Lymph % (Auto) Barren % (Auto) Eos % (Auto) Baso % (Auto) Lymph # (Auto) Barren # (Auto) Eos # (Auto) Baso # (Auto) Abs Immat Gran (auto) Absolute Neuts (auto) Absolute Nucleated RBC Band Neutrophils % Nucleated RBC % Toxic Granulation Platelet Estimate Schistocytes Sodium Potassium Chloride Carbon Dioxide Anion Gap BUN Creatinine Estim Creat Clear Calc Estimated GFR Glucose POC Capillary Glucose 122 H 166 H Calcium Total Bilirubin AST ALT Alkaline Phosphatase Total Protein Albumin TSH (Reflex) 0.501 06/06/25 06/07/25 06/07/25 19:56 04:24 07:23 WBC 17.0 H RBC 4.56 L Hgb 13.1 L Hct 40.3 L MCV 88.4 MCH 28.7 MCHC 32.5 RDW 15.8 H Plt Count 223 MPV 11.1 H Immature Gran % (Auto) 4.4 H Neut % (Auto) 79.9 H Lymph % (Auto) 4.2 L Barren % (Auto) 11.1 H Eos % (Auto) 0.1 Baso % (Auto) 0.3 Lymph # (Auto) 0.72 L Barren # (Auto) 1.9 H Eos # (Auto) 0.0 Baso # (Auto) 0.1 Abs Immat Gran (auto) 0.74 H Absolute Neuts (auto) 13.6 H Absolute Nucleated RBC 0.030 H Band Neutrophils % 0 Nucleated RBC % 0.2 Toxic Granulation Present Platelet Estimate Adequate Schistocytes None seen Sodium 132 L Potassium 3.6 Chloride 101 Carbon Dioxide 23 Anion Gap 8 BUN 29 H Creatinine 0.89 Estim Creat Clear Calc 62 Estimated GFR > 60 Glucose 121 H POC Capillary Glucose 151 H 119 H Calcium 8.1 L Total Bilirubin 0.4 AST 37 ALT 26 Alkaline Phosphatase 85 Total Protein 5.2 L Albumin 2.6 L TSH (Reflex)
[2025-06-07 15:20] LABS: Toxigenic C. Diff POSITIVE (NEGATIVE)
[2025-06-07] MEDS: AMIODARONE HCL 200 MG TABLET PO (16:03)
[2025-06-07] MEDS: FIDAXOMICIN 200 MG TABLET PO (20:42)
[2025-06-07] MEDS: DOXYCYCLINE HYCLATE 100 MG TABLET PO (20:42)
[2025-06-08] VITALS (25 sets, daily range): BP systolic 114–132; BP diastolic 49–57; PULSE 79–96; RESP 16–26; TEMP 36.4–36.6; O2SAT 91–96
[2025-06-08] MEDS: PIPERACILLIN/TAZOBACTAM SOD 3.375 GM in SODIUM CHLORIDE 0.9% IV 50 ML 100 ML IVPB ×2 (02:33→08:20)
[2025-06-08] MEDS: IPRATROPIUM 0.5 MG/ALBUTEROL SULFATE 2.5 MG AMPUL.NEB 3 ML INHALATION ×4 (02:37→20:15)
[2025-06-08 03:26] LABS: Hematocrit 38.4 % (42.0-52.0); Hemoglobin 12.7 g/dL (14.0-18.0); Mean Corpuscular HGB Conc 33.1 g/dl (32-36); Mean Corpuscular Hemoglobin 29.1 pg (26-34); Mean Corpuscular Volume 87.9 fl (80-100); Platelet Count Result 234 k/mm3 (150-375); Red Blood Count 4.37 M/mm3 (4.6-6.20); White Blood Count 22.7 K/mm3 (4.5-10.0)
[2025-06-08 03:47] LABS: Alanine Aminotransferase 33 U/L (6-50); Albumin Level 2.6 g/dL (3.5-5.1); Alkaline Phosphatase 102 U/L (38-126); Anion Gap 4 mmol/L (4-12); Anisocytosis 1+; Aspartate Amino Transferase 40 U/L (17-59); Band Neutrophils Percent 3 % (0-6); Bilirubin,Total 0.4 mg/dL (0.2-1.3); Blood Urea Nitrogen 32 mg/dL (9-20); Calcium 7.7 mg/dL (8.4-10.2); Carbon Dioxide 25 mmol/L (22-30); Chloride 101 mmol/L (98-107); Estimated CRCL calculation 76 ml/min; Estimated Glomerular Filt Rate > 60; Glucose 124 mg/dL (65-110); Lymphocytes Absolute Manual 2.04 K/mm3 (1.1-4.5); Lymphocytes Percent Manual 9.0 % (18-44); Monocytes Absolute Manual 1.36 K/mm3 (0.1-0.90); Monocytes Percent Manual 6 % (3-9); Myelocytes Percent 1 %; Neutrophils Absolute Manual 19.06 K/mm3 (1.3-6.7); Neutrophils Percent Manual 81 % (46-73); Potassium 3.4 mmol/L (3.4-5.0); Sodium 130 mmol/L (137-145); Total Cells Counted 100; Total Protein 4.9 g/dL (6.3-8.2)
[2025-06-08 03:48] LABS: Hypochromasia 1+; Schistocytes None Seen
[2025-06-08] MEDS: CENTRAL LINE FLUSH 10 ML IV PUSH ×3 (04:27→20:32)
--- NOTE | 2025-06-08 07:39 | PM.IMPN ---
Progress Note: A&P Assessment and Plan (1) Atrial fibrillation with rapid ventricular response: Code(s): I48.91 - Unspecified atrial fibrillation Status: Acute Assessment and Plan: - Remains asymptomatic - TSH ordered to rule out metabolic cause for tachyarrhythmia - EKG: Afib RVR on 06/06 - Chadsvasc Score: 4 Anticoagulation: Eliquis 5 mg BID. Discussed the pros/cons and he is agreeable with this medication. - Given cancer history, new afib dx, and prior bipap requirement will obtain a CTA chest to rule out PE. Negative for PE. - Echo: LVEF 65-70% mild pulmonary htn - Telemetry - Cardiology consulted 06/06: Patient received metoprolol 5 mg IV x1 without resolution Call made to cardiology Dr. Roberson who recommended diltiazem however blood pressure was 101/[address] Roberson then recommended digoxin 500 mcg IV x1, again without resolution Per RN Dr. Roberson cardiology now starting patient on an amiodarone drip, confirmed on the DEC. 06/07: Patient has converted back to sinus rhythm and rate controlled. Transitioned per cardiology to amiodarone 200 mg PO BID. 06/08: cardiology is consulted. NOtes reviewed: Switch to oral amiodarone 200 mg PO BID for a week. then can take 200 mg PO OD - Amiodarone for a month, then can be discontinued in the cardiology clinic - Continue therapeutic anticoagulation (2) Pneumonia: Code(s): J18.9 - Pneumonia, unspecified organism Status: Acute Assessment and Plan: Chest CTA: Patchy groundglass with mucous plugging left lower lobe. Differential diagnosis includes infectious bronchiolitis or pneumonia. Consider aspiration pneumonitis - Complicating Factors: COPD exacerbation - started on zosyn on 06/04 - Viral PCR: negative for Flu/COVID/RSV - Consider ordering legionella, mycoplasma and pneumococcal - no supplemental O2 requirement - Monitor vital signs, I&Os, neuro status and patient is a fall risk - Follow WBC, serum electrolytes, temperature curves and cultures - Speech consulted for bedside swallow study Bedside swallow unremarkable, no dietary changes recommended -will stop zosyn ans pt positive for cdiff change to cefdinir 300 mg q12h 6 more doses - last date 06/10 (3) Nausea vomiting and diarrhea: Code(s): R11.2 - Nausea with vomiting, unspecified; R19.7 - Diarrhea, unspecified Status: Acute Assessment and Plan: New immunotherapy prescribed on Wednesday, 05/29, which precipitated nausea, vomiting, diarrhea for the past 6 days (presentation on 06/04). CT also concerning for colitis, see plan below. - monitor electrolytes, correct as needed. Hyponatremia noted upon admission, see below. - started on antibiotics for colitis - check C diff and stool culture - blood cultures obtained on 06/04, NGTD - oncology consulted, see lung cancer below - antiemetics p.r.n. Resolved. (4) Colitis: Code(s): K52.9 - Noninfective gastroenteritis and colitis, unspecified Status: Acute Assessment and Plan: - CT chest/abdomen/pelvis, 06/04: 1. Grossly stable metastatic lymphadenopathy in the mediastinum and left hilum. 2. Status post left upper lobectomy 3. Thickening of the rivera of the descending and sigmoid colon. The findings are concerning for colitis. - started on Zosyn on 06/04 - tolerating clear liquid diet, advance to low fiber - pain medication prn - Monitor vital signs, I&Os, track stool output, watch for bloody stools, neuro status and patient is a fall risk - Monitor serum electrolytes and CBC Denies nausea/vomiting/diarrhea and abdominal pain. Improving c diff colitis- will stop zosyn and change it to cefdinir no diarrheal stools so far (5) COPD (chronic obstructive pulmonary disease): Code(s): J44.9 - Chronic obstructive pulmonary disease, unspecified Status: Acute Assessment and Plan: Arrived with wheezing and shortness of breath on 06/04, precipitated by missed AM meds. Given 2G of magnesium, Solu-Medrol, and a DuoNeb in the ED with improvement. - DuoNebs austyn - given Solu-Medrol in the ED, will continue as prednisone 40 mg daily - started on Zosyn due to concurrent colitis - stopped vanc (mrsa negative) and add doxy for atypical coverage Despite additional DuoNeb treatment, Solu-Medrol, and home Wixela inhaler this evening the patient remains significantly dyspneic. 06/04: ABG showed pH 7.493, pCO2 26.7, pO2 67.7, and HCO3 20. Placed on Bipap. Remains on room air. Slight shortness of breath and cough but continues to improve. pt may need bipap - will consult pulm (6) Hyponatremia: Code(s): E87.1 - Hypo-osmolality and hyponatremia Status: Acute Assessment and Plan: Likely secondary to acute dehydration secondary to N/V/D. - Na 128 on admission. Improving on am labs, Na remains stable in the lower 130s. - trend renal function - no current alteration in mental status, monitor trends labs. 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 Seealiyah Gomez for his oncology care and previously saw Cr MOSES for radiation (now transitioned to PRN basis) - reverse isolation in place - oncology consulted Start him on Neupogen for chemotherapy-induced neutropenia. WBC improving on am labs. Continue antibiotics for colitis and possible pneumonia. Due to his significant shortness of breath given 1x order of Solu-Medrol while waiting for breathing treatment. He will follow-up with us in the office for continuation of treatment once he recovered from this flare-up of COPD and colitis. (8) DM2 (diabetes mellitus, type 2): Qualifiers: Diabetes mellitus complication status: without complication Diabetes mellitus halfway insulin use: without buttermaker helper use Qualified Code(s): E11.9 - Type 2 diabetes mellitus without complications Code(s): E11.9 - Type 2 diabetes mellitus without complications Status: Chronic Assessment and Plan: - hypoglycemia protocol - POC blood glucose ACHS - home medication: Continue Jardiance. Hold metformin and glimepiride. - correct regimen ordered - moderate dose TIDWM, based off BMI - A1C -7 06/05/25 Glucose levels remain stable. Continue to monitor. (9) HTN (hypertension): Qualifiers: Hypertension type: primary hypertension Qualified Code(s): I10 - Essential (primary) hypertension Code(s): I10 - Essential (primary) hypertension Status: Chronic Assessment and Plan: - chronic, continue home medications: HCTZ 25 mg daily and metoprolol 50 mg BID - blood pressures remain stable, continue to monitor reviewed-124/49 Time Spent With Patient Time with patient: 25 - 35 minutes Subjective Date/time seen: 06/08/25 07:39 Interval history: 79 y/o M with PMH of non-small cell lung cancer (adenocarcinoma, left upper lobe) s/p resection in 2019 with a soft tissue mass in the left groin/inguinal region (biopsy in 2022 -> 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 Assuming care. Pt is seen and examined. On iso for C diff. Pt reports some sob and cough, he used to follow with pulm at [place] but she left. She might be possibly be able to start seeing him at [place] but for now, he is following with noone. He reports no chest pain. Review of Systems Review of Systems: All systems reviewed & are unremarkable except as noted in HPI and below Exam Narrative: General: male in no acute respiratory distress who is nontoxic appearing, sitting up comfortably in bed. HEENT: Normocephalic. Atraumatic. Extraocular movement intact. Sclera clear and anicteric. No facial asymmetry. Chest: Lungs are slightly diminished to the bases on auscultation bilaterally. CV: Heart with regular rhythm and rate. No murmurs, gallops, or rubs. Abd: Abdomen was soft. Nontender. Nondistended. Positive bowel sounds. Ext: No clubbing, cyanosis, or edema. DP pulses bilaterally. Neuro: Patient is alert and oriented x4. Speech is clear. Const: General: comfortable Other: Who mild discomfort noted and mild respiratory distress noted. Male, elderly, acute on chronic ill appearance. HENMT: Face/Nose/Sinus: Normal nares present Mouth: Yes moist mucous membranes Eyes: General: appearance normal, both eyes and all related structures Sclera: sclerae normal Pupils: Equal, round and reactive pupils present EOM: EOMs intact bilaterally Resp: Other: Tachypneic with accessory muscle use. Wheezing audible bilaterally, more coarse on the left. Cardio: Rate: tachycardic Rhythm: regular rhythm Other: S1-S2 present without murmur, rub, ectopy GI: Other: Abdomen soft and nondistended. Tender in the lower quadrants, primarily in the left lower quadrant. Normoactive bowel sounds in all quadrants. Skin: General skin exam: normal color and no rashes or lesions noted Wounds: no wounds Neuro: Cranial nerves: Yes Equal, round and reactive pupils present Speech: normal speech Motor exam (neuro): 5/5 motor strength present throughout Sensory Exam: normal sensation Other: Generalized weakness, A&O x4 Extrem: General: normal to inspection Psych: Mental Status: mental status grossly normal Affect: normal affect Other: Good insight and judgment, very pleasant Objective Data Vital Signs Vital Signs: Vital Signs - 24 hr 06/07/25 08:00 06/07/25 08:00 06/07/25 08:24 Temperature Pulse Rate 79 83 83 Respiratory Rate 20 Blood Pressure 118/52 L Pulse Oximetry Oxygen Delivery 06/07/25 08:25 06/07/25 08:28 06/07/25 08:29 Temperature Pulse Rate 87 85 Respiratory Rate 20 Blood Pressure Pulse Oximetry 93 Oxygen Delivery Room Air 06/07/25 09:55 06/07/25 10:00 06/07/25 10:04 Temperature Pulse Rate 84 85 84 Respiratory Rate Blood Pressure 110/53 L 110/53 L Pulse Oximetry Oxygen Delivery 06/07/25 11:33 06/07/25 12:00 06/07/25 12:00 Temperature 98.1 F Pulse Rate 87 85 87 Respiratory Rate 20 Blood Pressure 130/57 L 130/57 L Pulse Oximetry 98 Oxygen Delivery 06/07/25 13:00 06/07/25 13:35 06/07/25 14:00 Temperature Pulse Rate 70 75 Respiratory Rate 18 18 Blood Pressure 110/54 L Pulse Oximetry Oxygen Delivery 06/07/25 14:00 06/07/25 14:00 06/07/25 15:34 Temperature Pulse Rate 85 82 Respiratory Rate Blood Pressure 110/54 L Pulse Oximetry Oxygen Delivery Room Air 06/07/25 16:00 06/07/25 16:00 06/07/25 16:03 Temperature 97.9 F Pulse Rate 83 87 85 Respiratory Rate 20 Blood Pressure 123/49 L Pulse Oximetry 96 Oxygen Delivery 06/07/25 18:00 06/07/25 20:00 06/07/25 20:00 Temperature 97.8 F Pulse Rate 80 90 Respiratory Rate 18 Blood Pressure 114/52 L Pulse Oximetry 96 Oxygen Delivery Room Air 06/07/25 20:00 06/07/25 20:42 06/07/25 20:44 Temperature Pulse Rate 90 83 92 Respiratory Rate 28 H Blood Pressure Pulse Oximetry Oxygen Delivery 06/07/25 22:00 06/07/25 23:28 06/07/25 23:55 Temperature 98.1 F Pulse Rate 90 88 Respiratory Rate 18 Blood Pressure 134/61 Pulse Oximetry 93 Oxygen Delivery Room Air 06/08/25 00:00 06/08/25 02:00 06/08/25 02:37 Temperature Pulse Rate 86 83 87 Respiratory Rate 16 Blood Pressure Pulse Oximetry Oxygen Delivery 06/08/25 02:46 06/08/25 03:30 06/08/25 03:52 Temperature 97.9 F Pulse Rate 80 81 Respiratory Rate 16 16 Blood Pressure 124/49 L Pulse Oximetry 91 Oxygen Delivery Room Air 06/08/25 04:00 06/08/25 05:50 Temperature Pulse Rate 79 81 Respiratory Rate Blood Pressure Pulse Oximetry Oxygen Delivery Intake/Output Intake/Output: Intake & Output 06/05/25 06/06/25 06/07/25 06/08/25 23:59 23:59 23:59 23:59 Intake Total 4900 3960 1615.5 600 Output Total 1800 1301 700 2 Balance 3100 2659 915.5 598 Meds/Results Medications: Active Medications Generic Name Dose Route Start Last Admin Trade Name Freq PRN Reason Stop Dose Admin Acetaminophen 650 mg 06/04/25 14:29 Acetaminophen 325 Mg Tablet PO Q6H PRN Mild Pain (1-3) or Fever Albuterol/Ipratropium 3 ml 06/04/25 18:35 06/08/25 02:37 Ipratropium 0.5 Mg/Albuterol Sulfate 2.5 Mg Ampul.Neb 3 Ml INHALATION 3 ml Q6HRT AUSTYN Administration Amiodarone HCl 200 mg 06/07/25 17:00 06/07/25 16:03 Amiodarone Hcl 200 Mg Tablet PO 200 mg BID AUSTYN Administration Apixaban 5 mg 06/06/25 21:00 06/07/25 20:42 Apixaban 5 Mg Tablet PO 5 mg Q12HR AUSTYN Administration Ascorbic Acid 1,000 mg 06/05/25 09:00 06/07/25 08:23 Ascorbic Acid 500 Mg Tablet PO 1,000 mg DAILY AUSTYN Administration Dextrose 12.5 gm 06/04/25 14:36 Dextrose 50% 25 Gm/50 Ml Syringe IV PUSH PRN PRN Hypoglycemia Protocol Dicyclomine HCl 20 mg 06/04/25 14:28 Dicyclomine Hcl 10 Mg Capsule PO QID PRN Abdominal Cramping Diphenhydramine HCl 12.5 mg 06/04/25 18:18 Diphenhydramine Hcl Elixir 12.5 Mg/5 Ml Udc PO QAM PRN allergy symptoms Doxycycline Hyclate 100 mg 06/07/25 21:00 06/07/25 20:42 Doxycycline Hyclate 100 Mg Tablet PO 06/09/25 21:01 100 mg Q12HR AUSTYN Administration Empagliflozin 10 mg 06/05/25 09:00 06/07/25 08:23 Empagliflozin 10 Mg Tablet PO 10 mg DAILY AUSTYN Administration Famotidine 20 mg 06/04/25 18:18 Famotidine 20 Mg Tablet PO DAILY PRN acid reflux Fenofibrate 145 mg 06/05/25 09:00 06/07/25 08:23 Fenofibrate Nanocrystallized 145 Mg Tablet PO 145 mg DAILY AUSTYN Administration Fidaxomicin 200 mg 06/07/25 21:00 06/07/25 20:42 Fidaxomicin 200 Mg Tablet PO 06/17/25 20:59 200 mg Q12HR AUSTYN Administration Glucagon 1 mg 06/04/25 14:36 Glucagon For Inj 1 Mg Vial IM PRN PRN Hypoglycemia Protocol Glucose 15 gm 06/04/25 14:36 Glucose Oral Gel 15 Gm Of Glucse In 37.5 Gm Tube PO PRN PRN Hypoglycemia Protocol Heparin Sodium (Porcine) 500 units 06/05/25 07:36 Heparin Sodium Lock Flush 500 Units/5 Ml Syringe IV PUSH PRN PRN see comments below Hydrochlorothiazide 25 mg 06/05/25 09:00 06/07/25 08:21 Hydrochlorothiazide 25 Mg Tablet PO 25 mg DAILY AUSTYN Administration Piperacillin Sod/Tazobactam 50 mls @ 100 mls/hr 06/04/25 20:00 06/08/25 03:03 Sod 3.375 gm/ Sodium Chloride IVPB Infused Q6H AUSTYN Infusion Dextrose 1,000 mls @ 100 mls/hr 06/04/25 14:36 Dextrose 5% 1,000 Ml IVPB PRN PRN Hypoglycemia Protocol Ibuprofen 600 mg 06/04/25 14:29 Ibuprofen 600 Mg Tablet PO Q6H PRN Pain Rated 4-6 Insulin Aspart 3 - 6 units 06/04/25 17:00 06/07/25 16:17 Insulin Aspart (*Bkc) 100 Units/Ml SUB-Q Not Given TIDWM AUSTYN Protocol Metoprolol Tartrate 50 mg 06/04/25 21:00 06/07/25 20:42 Metoprolol Tartrate 50 Mg Tab PO 50 mg Q12HR AUSTYN Administration Multivitamins Therapeutic 1 tablet 06/05/25 09:00 06/07/25 08:24 Multivitamins Therapeutic Tab (*Bkc) PO 1 tablet DAILY AUSTYN Administration Non-Formulary ( 0 each 06/04/25 20:30 06/06/25 20:17 Fluticasone INHALATION 07/04/25 20:29 1 each Propionate/ Q12HRT AUSTYN Administration Salmeterol Xinafoate 250 Mcg-50 Mcg/Dose Inh...) Ondansetron HCl 4 mg 06/04/25 14:29 Ondansetron Inj 4 Mg/2 Ml Vial IV PUSH Q4H PRN Nausea And Vomiting Pantoprazole Sodium 40 mg 06/05/25 09:00 06/07/25 08:22 Pantoprazole Sodium Iv 40 Mg Vial IV PUSH 40 mg QAM AUSTYN Administration Perflutren Lipid Microsphere 0 ml 06/06/25 15:45 Perflutren Lipid Microspheres 1.5 Ml Vial Diluted To 10 Ml Total Volume IV PUSH 06/09/25 15:45 ONCE PRN adequate visualization Protocol Prednisone 40 mg 06/05/25 08:00 06/07/25 08:23 Prednisone 20 Mg Tablet PO 06/10/25 07:59 40 mg DAILY@0800 AUSTYN Administration Simvastatin 20 mg 06/05/25 09:00 06/07/25 08:23 Simvastatin 20 Mg Tablet PO 20 mg DAILY AUSTYN Administration Sodium Chloride 10 ml 06/05/25 14:00 06/08/25 04:27 Central Line Flush IV PUSH 10 ml Q8HR AUSTYN Administration Umeclidinium [place] 1 puff 06/05/25 09:00 06/07/25 08:29 Umeclidinium [place] 62.5 Mcg Ellipta INHALATION 1 puff DAILY AUSTYN Administration Radiology Results: ITS Impressions Chest X-Ray 06/04/25 11:28 IMPRESSION: 1.The left hilum is prominent. Differential includes mass or adenopathy. A chest CT is recommended. 2.There is a 1.2 cm nodular density projecting over the right lower lung possibly a pulmonary nodule. A chest CT is recommended. 3. Small opacities in the lower lungs which represents atelectasis/scarring or infiltrates. Chest/Abdomen/Pelvis CT 06/04/25 12:13 IMPRESSION: 1. Grossly stable metastatic lymphadenopathy in the mediastinum and left hilum. 2. Status post left upper lobectomy 3. Thickening of the rivera of the descending and sigmoid colon. The findings are concerning for colitis. Chest CTA 06/06/25 18:11 IMPRESSION: 1. Patchy groundglass with mucous plugging left lower lobe. Differential diagnosis includes infectious bronchiolitis or pneumonia. Consider aspiration pneumonitis 2: Mediastinal lymphadenopathy, likely reactive. 3: Gallstones. Labs Labs: Laboratory Results - last 24 hr 06/07/25 06/07/25 06/07/25 07:23 11:26 13:47 WBC RBC Hgb Hct MCV MCH MCHC RDW Plt Count MPV Immature Gran % (Auto) Neut % (Auto) Lymph % (Auto) [place] % (Auto) Eos % (Auto) Baso % (Auto) Lymph # (Auto) [place] # (Auto) Eos # (Auto) Baso # (Auto) Abs Immat Gran (auto) Absolute Neuts (auto) Absolute Nucleated RBC Total Counted Neutrophils % (Manual) Band Neutrophils % Lymphocytes % (Manual) Monocytes % (Manual) Myelocytes % Nucleated RBC % Abs Neuts (Manual) Abs Lymphs (Manual) Abs Monocytes (Manual) Atypical Lymphocytes Platelet Estimate Large Platelets Hypochromasia Anisocytosis Schistocytes Sodium Potassium Chloride Carbon Dioxide Anion Gap BUN Creatinine Estim Creat Clear Calc Estimated GFR Glucose POC Capillary Glucose 119 H 130 H Calcium Total Bilirubin AST ALT Alkaline Phosphatase Total Protein Albumin C. difficile (PCR) Positive A* 06/07/25 06/07/25 06/08/25 16:08 19:50 03:19 WBC 22.7 H RBC 4.37 L Hgb 12.7 L Hct 38.4 L MCV 87.9 MCH 29.1 MCHC 33.1 RDW 16.0 H Plt Count 234 MPV 11.1 H Immature Gran % (Auto) Not Reportable Neut % (Auto) Not Reportable Lymph % (Auto) Not Reportable Brew[place] % (Auto) Not Reportable Eos % (Auto) Not Reportable Baso % (Auto) Not Reportable Lymph # (Auto) Not Reportable [place] # (Auto) Not Reportable Eos # (Auto) Not Reportable Baso # (Auto) Not Reportable Abs Immat Gran (auto) Not Reportable Absolute Neuts (auto) Not Reportable Absolute Nucleated RBC Not Reportable Total Counted 100 Neutrophils % (Manual) 81 H Band Neutrophils % 3 Lymphocytes % (Manual) 9.0 L Monocytes % (Manual) 6 Myelocytes % 1 Nucleated RBC % Not Reportable Abs Neuts (Manual) 19.06 H Abs Lymphs (Manual) 2.04 Abs Monocytes (Manual) 1.36 H Atypical Lymphocytes Present Platelet Estimate Increased Large Platelets Present Hypochromasia 1+ Anisocytosis 1+ Schistocytes None seen Sodium 130 L Potassium 3.4 Chloride 101 Carbon Dioxide 25 Anion Gap 4 BUN 32 H Creatinine 0.71 Estim Creat Clear Calc 76 Estimated GFR > 60 Glucose 124 H POC Capillary Glucose 189 H 235 H Calcium 7.7 L Total Bilirubin 0.4 AST 40 ALT 33 Alkaline Phosphatase 102 Total Protein 4.9 L Albumin 2.6 L C. difficile (PCR) Quality VTE Prophylaxis VTE prophylaxis: pharmacologic ordered
[2025-06-08] MEDS: METOPROLOL TARTRATE 50 MG TAB PO ×2 (08:20→20:31)
[2025-06-08] MEDS: PANTOPRAZOLE SODIUM IV 40 MG VIAL IV PUSH (08:20)
[2025-06-08] MEDS: ASCORBIC ACID 500 MG TABLET 1000 MG PO (08:21)
[2025-06-08] MEDS: APIXABAN 5 MG TABLET PO ×2 (08:21→20:31)
[2025-06-08] MEDS: DOXYCYCLINE HYCLATE 100 MG TABLET PO ×2 (08:21→20:31)
[2025-06-08] MEDS: MULTIVITAMINS THERAPEUTIC TAB (*BKC) 1 TABLET PO (08:21)
[2025-06-08] MEDS: SIMVASTATIN 20 MG TABLET PO (08:21)
[2025-06-08] MEDS: FIDAXOMICIN 200 MG TABLET PO ×2 (08:21→20:31)
[2025-06-08] MEDS: FENOFIBRATE NANOCRYSTALLIZED 145 MG TABLET PO (08:21)
[2025-06-08] MEDS: EMPAGLIFLOZIN 10 MG TABLET PO (08:22)
[2025-06-08] MEDS: AMIODARONE HCL 200 MG TABLET PO ×2 (08:22→16:20)
[2025-06-08] MEDS: [UNRECOGNIZED DRUG - OTHER] INHALATION (08:47)
[2025-06-08] MEDS: SALMETEROL XINAFOATE INHALATION (08:47)
[2025-06-08] MEDS: FLUTICASONE PROPIONATE INHALATION (08:47)
--- NOTE | 2025-06-08 08:49 | PM.PNCARD ---
Progress Note: A&P Assessment and Plan (1) HTN (hypertension): Qualifiers: Hypertension type: primary hypertension Qualified Code(s): I10 - Essential (primary) hypertension Code(s): I10 - Essential (primary) hypertension Status: Chronic (2) Atrial fibrillation with rapid ventricular response: Code(s): I48.91 - Unspecified atrial fibrillation Status: Acute Plan 1. PAF -- CHADSVASC 4 2. HTN 3. HLD 4. COPD 5. NSCLC 6. DM -continue oral amiodarone 200 mg PO BID for a week. then can take 200 mg PO OD - Amiodarone for a month, then can be discontinued in the cardiology clinic -continue metoprolol at current dose - Continue therapeutic anticoagulation -cardiology will sign off Subjective Date/time seen: 06/08/25 08:49 Interval history: Currently in NSR Review of Systems Review of Systems: Gen.: Denies fevers or chills Eyes: Denies eye pain or visual change ENT: Denies congestion Respiratory: As per HPI CV: Denies chest pain or palpitations GI: Denies abdominal pain nausea, emesis or diarrhea denies burning, urgency, frequency or hematuria Musculoskeletal: Denies back pain or muscle pain Neuro: Denies numbness, tingling, weakness or focal weakness Skin: Denies rash Except as documented, all other systems reviewed and negative Exam Narrative: AF HR 97 RR 20 Spo2 93 RA BP 126/53 General: male in no acute respiratory distress who is nontoxic appearing, sitting up comfortably in bed. HEENT: Normocephalic. Atraumatic. Extraocular movement intact. Sclera clear and anicteric. No facial asymmetry. Chest: Lungs are diminished to auscultation bilaterally. CV: Heart was tachycardic with irregular rate. No murmurs, gallops, or rubs. Abd: Abdomen was soft. Nontender. Nondistended. Positive bowel sounds. Ext: No clubbing, cyanosis, or edema. DP pulses bilaterally. Neuro: Patient is alert and oriented x4. Speech is clear. Const: Other: Who mild discomfort noted and mild respiratory distress noted. Male, elderly, acute on chronic ill appearance. Resp: Other: Tachypneic with accessory muscle use. Wheezing audible bilaterally, more coarse on the left. Cardio: Other: S1-S2 present without murmur, rub, ectopy GI: Other: Abdomen soft and nondistended. Tender in the lower quadrants, primarily in the left lower quadrant. Normoactive bowel sounds in all quadrants. Neuro: Other: Generalized weakness, A&O x4 Psych: Other: Good insight and judgment, very pleasant Objective Data Vital Signs Vital Signs: Vital Signs - 24 hr 06/07/25 09:55 06/07/25 10:00 06/07/25 10:04 Temperature Pulse Rate 84 85 84 Respiratory Rate Blood Pressure 110/53 L 110/53 L Pulse Oximetry Oxygen Delivery 06/07/25 11:33 06/07/25 12:00 06/07/25 12:00 Temperature 36.7 C Pulse Rate 87 85 87 Respiratory Rate 20 Blood Pressure 130/57 L 130/57 L Pulse Oximetry 98 Oxygen Delivery 06/07/25 13:00 06/07/25 13:35 06/07/25 14:00 Temperature Pulse Rate 70 75 Respiratory Rate 18 18 Blood Pressure 110/54 L Pulse Oximetry Oxygen Delivery 06/07/25 14:00 06/07/25 14:00 06/07/25 15:34 Temperature Pulse Rate 85 82 Respiratory Rate Blood Pressure 110/54 L Pulse Oximetry Oxygen Delivery Room Air 06/07/25 16:00 06/07/25 16:00 06/07/25 16:03 Temperature 36.6 C Pulse Rate 83 87 85 Respiratory Rate 20 Blood Pressure 123/49 L Pulse Oximetry 96 Oxygen Delivery 06/07/25 18:00 06/07/25 20:00 06/07/25 20:00 Temperature 36.6 C Pulse Rate 80 90 Respiratory Rate 18 Blood Pressure 114/52 L Pulse Oximetry 96 Oxygen Delivery Room Air 06/07/25 20:00 06/07/25 20:42 06/07/25 20:44 Temperature Pulse Rate 90 83 92 Respiratory Rate 28 H Blood Pressure Pulse Oximetry Oxygen Delivery 06/07/25 22:00 06/07/25 23:28 06/07/25 23:55 Temperature 36.7 C Pulse Rate 90 88 Respiratory Rate 18 Blood Pressure 134/61 Pulse Oximetry 93 Oxygen Delivery Room Air 06/08/25 00:00 06/08/25 02:00 06/08/25 02:37 Temperature Pulse Rate 86 83 87 Respiratory Rate 16 Blood Pressure Pulse Oximetry Oxygen Delivery 06/08/25 02:46 06/08/25 03:30 06/08/25 03:52 Temperature 36.6 C Pulse Rate 80 81 Respiratory Rate 16 16 Blood Pressure 124/49 L Pulse Oximetry 91 Oxygen Delivery Room Air 06/08/25 04:00 06/08/25 05:50 06/08/25 07:34 Temperature 36.6 C Pulse Rate 79 81 87 Respiratory Rate 20 Blood Pressure 120/54 L Pulse Oximetry 96 Oxygen Delivery 06/08/25 07:50 06/08/25 08:20 06/08/25 08:22 Temperature Pulse Rate 80 85 84 Respiratory Rate 16 Blood Pressure Pulse Oximetry Oxygen Delivery Intake/Output Intake/Output: Intake & Output 06/05/25 06/06/25 06/07/25 06/08/25 23:59 23:59 23:59 23:59 Intake Total 4900 3960 1615.5 1080 Output Total 1800 1301 700 2 Balance 3100 2659 915.5 1078 Meds/Results Medications: Active Medications Generic Name Dose Route Start Last Admin Trade Name Freq PRN Reason Stop Dose Admin Acetaminophen 650 mg 06/04/25 14:29 Acetaminophen 325 Mg Tablet PO Q6H PRN Mild Pain (1-3) or Fever Albuterol/Ipratropium 3 ml 06/04/25 18:35 06/08/25 07:50 Ipratropium 0.5 Mg/Albuterol Sulfate 2.5 Mg Ampul.Neb 3 Ml INHALATION 3 ml Q6HRT PRECIOUS Administration Amiodarone HCl 200 mg 06/07/25 17:00 06/08/25 08:22 Amiodarone Hcl 200 Mg Tablet PO 200 mg BID PRECIOUS Administration Apixaban 5 mg 06/06/25 21:00 06/08/25 08:21 Apixaban 5 Mg Tablet PO 5 mg Q12HR PRECIOUS Administration Ascorbic Acid 1,000 mg 06/05/25 09:00 06/08/25 08:21 Ascorbic Acid 500 Mg Tablet PO 1,000 mg DAILY PRECIOUS Administration Cefdinir 300 mg 06/08/25 09:00 Cefdinir 300 Mg Capsule PO 06/10/25 21:01 Q12HR PRECIOUS Dextrose 12.5 gm 06/04/25 14:36 Dextrose 50% 25 Gm/50 Ml Syringe IV PUSH PRN PRN Hypoglycemia Protocol Dicyclomine HCl 20 mg 06/04/25 14:28 Dicyclomine Hcl 10 Mg Capsule PO QID PRN Abdominal Cramping Diphenhydramine HCl 12.5 mg 06/04/25 18:18 Diphenhydramine Hcl Elixir 12.5 Mg/5 Ml Udc PO QAM PRN allergy symptoms Doxycycline Hyclate 100 mg 06/07/25 21:00 06/08/25 08:21 Doxycycline Hyclate 100 Mg Tablet PO 06/09/25 21:01 100 mg Q12HR PRECIOUS Administration Empagliflozin 10 mg 06/05/25 09:00 06/08/25 08:22 Empagliflozin 10 Mg Tablet PO 10 mg DAILY PRECIOUS Administration Famotidine 20 mg 06/04/25 18:18 Famotidine 20 Mg Tablet PO DAILY PRN acid reflux Fenofibrate 145 mg 06/05/25 09:00 06/08/25 08:21 Fenofibrate Nanocrystallized 145 Mg Tablet PO 145 mg DAILY PRECIOUS Administration Fidaxomicin 200 mg 06/07/25 21:00 06/08/25 08:21 Fidaxomicin 200 Mg Tablet PO 06/17/25 20:59 200 mg Q12HR PRECIOUS Administration Glucagon 1 mg 06/04/25 14:36 Glucagon For Inj 1 Mg Vial IM PRN PRN Hypoglycemia Protocol Glucose 15 gm 06/04/25 14:36 Glucose Oral Gel 15 Gm Of Glucse In 37.5 Gm Tube PO PRN PRN Hypoglycemia Protocol Heparin Sodium (Porcine) 500 units 06/05/25 07:36 Heparin Sodium Lock Flush 500 Units/5 Ml Syringe IV PUSH PRN PRN see comments below Hydrochlorothiazide 25 mg 06/05/25 09:00 06/08/25 08:21 Hydrochlorothiazide 25 Mg Tablet PO 25 mg DAILY PRECIOUS Administration Dextrose 1,000 mls @ 100 mls/hr 06/04/25 14:36 Dextrose 5% 1,000 Ml IVPB PRN PRN Hypoglycemia Protocol Ibuprofen 600 mg 06/04/25 14:29 Ibuprofen 600 Mg Tablet PO Q6H PRN Pain Rated 4-6 Insulin Aspart 3 - 6 units 06/04/25 17:00 06/08/25 08:22 Insulin Aspart (*Bkc) 100 Units/Ml SUB-Q Not Given TIDWM PRECIOUS Protocol Metoprolol Tartrate 50 mg 06/04/25 21:00 06/08/25 08:20 Metoprolol Tartrate 50 Mg Tab PO 50 mg Q12HR PRECIOUS Administration Multivitamins Therapeutic 1 tablet 06/05/25 09:00 06/08/25 08:21 Multivitamins Therapeutic Tab (*Bkc) PO 1 tablet DAILY PRECIOUS Administration Non-Formulary ( 0 each 06/04/25 20:30 06/08/25 08:47 Fluticasone INHALATION 07/04/25 20:29 250 each Propionate/ Q12HRT PRECIOUS Administration Salmeterol Xinafoate 250 Mcg-50 Mcg/Dose Inh...) Ondansetron HCl 4 mg 06/04/25 14:29 Ondansetron Inj 4 Mg/2 Ml Vial IV PUSH Q4H PRN Nausea And Vomiting Pantoprazole Sodium 40 mg 06/05/25 09:00 06/08/25 08:20 Pantoprazole Sodium Iv 40 Mg Vial IV PUSH 40 mg QAM PRECIOUS Administration Perflutren Lipid Microsphere 0 ml 06/06/25 15:45 Perflutren Lipid Microspheres 1.5 Ml Vial Diluted To 10 Ml Total Volume IV PUSH 06/09/25 15:45 ONCE PRN adequate visualization Protocol Prednisone 40 mg 06/05/25 08:00 06/08/25 08:21 Prednisone 20 Mg Tablet PO 06/10/25 07:59 40 mg DAILY@0800 PRECIOUS Administration Simvastatin 20 mg 06/05/25 09:00 06/08/25 08:21 Simvastatin 20 Mg Tablet PO 20 mg DAILY PRECIOUS Administration Sodium Chloride 10 ml 06/05/25 14:00 06/08/25 04:27 Central Line Flush IV PUSH 10 ml Q8HR PRECIOUS Administration Umeclidinium [place] 1 puff 06/05/25 09:00 06/07/25 08:29 Umeclidinium [place] 62.5 Mcg Ellipta INHALATION 1 puff DAILY PRECIOUS Administration Radiology Results: ITS Impressions Chest X-Ray 06/04/25 11:28 IMPRESSION: 1.The left hilum is prominent. Differential includes mass or adenopathy. A chest CT is recommended. 2.There is a 1.2 cm nodular density projecting over the right lower lung possibly a pulmonary nodule. A chest CT is recommended. 3. Small opacities in the lower lungs which represents atelectasis/scarring or infiltrates. Chest/Abdomen/Pelvis CT 06/04/25 12:13 IMPRESSION: 1. Grossly stable metastatic lymphadenopathy in the mediastinum and left hilum. 2. Status post left upper lobectomy 3. Thickening of the [place] of the descending and sigmoid colon. The findings are concerning for colitis. Chest CTA 06/06/25 18:11 IMPRESSION: 1. Patchy groundglass with mucous plugging left lower lobe. Differential diagnosis includes infectious bronchiolitis or pneumonia. Consider aspiration pneumonitis 2: Mediastinal lymphadenopathy, likely reactive. 3: Gallstones. Labs Labs: Laboratory Results - last 24 hr 06/07/25 06/07/25 06/07/25 11:26 13:47 16:08 WBC RBC Hgb Hct MCV MCH MCHC RDW Plt Count MPV Immature Gran % (Auto) Neut % (Auto) Lymph % (Auto) [place] % (Auto) Eos % (Auto) Baso % (Auto) Lymph # (Auto) [place] # (Auto) Eos # (Auto) Baso # (Auto) Abs Immat Gran (auto) Absolute Neuts (auto) Absolute Nucleated RBC Total Counted Neutrophils % (Manual) Band Neutrophils % Lymphocytes % (Manual) Monocytes % (Manual) Myelocytes % Nucleated RBC % Abs Neuts (Manual) Abs Lymphs (Manual) Abs Monocytes (Manual) Atypical Lymphocytes Platelet Estimate Large Platelets Hypochromasia Anisocytosis Schistocytes Sodium Potassium Chloride Carbon Dioxide Anion Gap BUN Creatinine Estim Creat Clear Calc Estimated GFR Glucose POC Capillary Glucose 130 H 189 H Calcium Total Bilirubin AST ALT Alkaline Phosphatase Total Protein Albumin C. difficile (PCR) Positive A* 06/07/25 06/08/25 06/08/25 19:50 03:19 07:39 WBC 22.7 H RBC 4.37 L Hgb 12.7 L Hct 38.4 L MCV 87.9 MCH 29.1 MCHC 33.1 RDW 16.0 H Plt Count 234 MPV 11.1 H Immature Gran % (Auto) Not Reportable Neut % (Auto) Not Reportable Lymph % (Auto) Not Reportable [place] % (Auto) Not Reportable Eos % (Auto) Not Reportable Baso % (Auto) Not Reportable Lymph # (Auto) Not Reportable [place] # (Auto) Not Reportable Eos # (Auto) Not Reportable Baso # (Auto) Not Reportable Abs Immat Gran (auto) Not Reportable Absolute Neuts (auto) Not Reportable Absolute Nucleated RBC Not Reportable Total Counted 100 Neutrophils % (Manual) 81 H Band Neutrophils % 3 Lymphocytes % (Manual) 9.0 L Monocytes % (Manual) 6 Myelocytes % 1 Nucleated RBC % Not Reportable Abs Neuts (Manual) 19.06 H Abs Lymphs (Manual) 2.04 Abs Monocytes (Manual) 1.36 H Atypical Lymphocytes Present Platelet Estimate Increased Large Platelets Present Hypochromasia 1+ Anisocytosis 1+ Schistocytes None seen Sodium 130 L Potassium 3.4 Chloride 101 Carbon Dioxide 25 Anion Gap 4 BUN 32 H Creatinine 0.71 Estim Creat Clear Calc 76 Estimated GFR > 60 Glucose 124 H POC Capillary Glucose 235 H 135 H Calcium 7.7 L Total Bilirubin 0.4 AST 40 ALT 33 Alkaline Phosphatase 102 Total Protein 4.9 L Albumin 2.6 L C. difficile (PCR)
[2025-06-08] MEDS: CEFDINIR 300 MG CAPSULE PO ×2 (10:45→20:31)
[2025-06-08] MEDS: INSULIN ASPART (*BKC) 100 UNITS/ML SUB-Q (16:20)
[2025-06-09] VITALS (12 sets, daily range): BP systolic 103–136; BP diastolic 52–53; PULSE 72–115; RESP 16–20; TEMP 36.6–36.8; O2SAT 95–100
[2025-06-09] MEDS: IPRATROPIUM 0.5 MG/ALBUTEROL SULFATE 2.5 MG AMPUL.NEB 3 ML INHALATION ×3 (02:26→13:22)
[2025-06-09 05:17] LABS: Hematocrit 40.4 % (42.0-52.0); Hemoglobin 13.2 g/dL (14.0-18.0); Mean Corpuscular HGB Conc 32.7 g/dl (32-36); Mean Corpuscular Hemoglobin 29.1 pg (26-34); Mean Corpuscular Volume 89.2 fl (80-100); Platelet Count Result 239 k/mm3 (150-375); Red Blood Count 4.53 M/mm3 (4.6-6.20); White Blood Count 21.2 K/mm3 (4.5-10.0)
[2025-06-09 05:37] LABS: Alanine Aminotransferase 34 U/L (6-50); Albumin Level 2.7 g/dL (3.5-5.1); Alkaline Phosphatase 133 U/L (38-126); Anion Gap 5 mmol/L (4-12); Aspartate Amino Transferase 52 U/L (17-59); Bilirubin,Total 0.4 mg/dL (0.2-1.3); Blood Urea Nitrogen 28 mg/dL (9-20); Calcium 7.9 mg/dL (8.4-10.2); Carbon Dioxide 27 mmol/L (22-30); Chloride 100 mmol/L (98-107); Estimated CRCL calculation 74 ml/min; Estimated Glomerular Filt Rate > 60; Glucose 123 mg/dL (65-110); Potassium 3.8 mmol/L (3.4-5.0); Sodium 132 mmol/L (137-145); Total Protein 4.8 g/dL (6.3-8.2)
[2025-06-09 05:52] LABS: Band Neutrophils Percent 6 % (0-6); Lymphocytes Absolute Manual 1.90 K/mm3 (1.1-4.5); Lymphocytes Percent Manual 9.0 % (18-44); Metamyelocytes Percent 3 %; Monocytes Absolute Manual 1.06 K/mm3 (0.1-0.90); Monocytes Percent Manual 5 % (3-9); Neutrophils Absolute Manual 17.59 K/mm3 (1.3-6.7); Neutrophils Percent Manual 77 % (46-73); Total Cells Counted 100
[2025-06-09 06:21] LABS: Schistocytes None Seen
[2025-06-09] MEDS: CENTRAL LINE FLUSH 10 ML IV PUSH (06:23)
--- NOTE | 2025-06-09 07:29 | PM.CNCAR ---
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, including hip Lung cancer Surgical History Surgical History History of inguinal hernia repair History of appendectomy Social History Social History Smoking packs per day: 1 Smoking cigarettes per day: 20.0 Years smoked: 40 Smoking pack-years: 40.00 Smoking status: Former smoker Second hand tobacco smoke exposure: No Additional smoking assessment comments: STATES SMOKED 1PK/DAY/30-40YRS/QUIT 2010~ Alcohol intake: current Drinks per week: 7 Alcohol use details: STATES DRINKS 3 OZ/NIGHT, (21 OZ/WEEK) Substance use: never Substance use type: does not use Lack of Transportation: No Lack of Food: Never True Current Housing: I Have Housing Concerned About Future Housing: No Difficulty Paying Gas/Electric Bills: No Difficulty Paying for Meds: No Currently Unemployed: No Education: High School Diploma/GED Difficulty w/ Childcare or Family Care: No Living arrangements: with family Spiritual care concerns: No Meds Home Medications and Allergies Home Medications ?Medication ?Instructions ?Recorded ?Confirmed ?Type ascorbic acid (vitamin C) 1,000 mg 1,000 mg PO DAILY 10/08/23 06/04/25 History tablet,extended release (Vitamin C ER) diphenhydramine HCl 12.5 mg/5 mL 12.5 mg PO QAM PRN allergy symptoms 10/08/23 06/04/25 History oral liquid (Benadryl Allergy) empagliflozin 10 mg tablet 10 mg PO DAILY 10/08/23 06/04/25 History (Jardiance) famotidine 20 mg tablet (Pepcid) 20 mg PO DAILY PRN acid reflux 10/08/23 06/04/25 History fenofibrate nanocrystallized 145 145 mg PO DAILY 10/08/23 06/04/25 History mg tablet fluticasone 250 mcg-salmeterol 50 1 inh inhalation Q12H 10/08/23 06/04/25 History mcg/dose blistr powdr for inhalation (Wixela Inhub) glimepiride 4 mg tablet 4 mg PO BID 10/08/23 06/04/25 History hydrochlorothiazide 25 mg tablet 25 mg PO DAILY 10/08/23 06/04/25 History metformin 500 mg tablet,extended 1,000 mg PO BID 10/08/23 06/04/25 History release 24 hr metoprolol tartrate 50 mg tablet 50 mg PO BID 10/08/23 06/04/25 History multivitamin 1 tablet PO DAILY 10/08/23 06/04/25 History simvastatin 20 mg tablet 20 mg PO DAILY 10/08/23 06/04/25 History tiotropium bromide 2.5 2 puff inhalation QAM 10/08/23 06/04/25 History mcg/actuation mist for inhalation (Spiriva Respimat) ibuprofen 600 mg tablet 600 mg PO Q6H PRN pain #14 tabs 10/14/23 06/04/25 Rx oxycodone-acetaminophen 5 mg-325 0.5 - 1 tablet PO Q6H PRN pain #10 10/14/23 06/04/25 Rx mg tablet tabs Held on 06/04/25. Instructions: Patient no longer taking Allergies Allergy/AdvReac Type Severity Reaction Status Date / Time hydrocodone (From Vicodin) AdvReac Itching Verified 06/04/25 10:16 morphine AdvReac VIOLENT Verified 06/04/25 10:16 TREMORS Vital Signs Vital Signs - 24 hr 06/08/25 07:34 06/08/25 07:50 06/08/25 08:00 Temperature 36.6 C Pulse Rate 87 80 86 Respiratory Rate 20 16 16 Blood Pressure 120/54 L Pulse Oximetry 96 Oxygen Delivery 06/08/25 08:00 06/08/25 08:20 06/08/25 08:22 Temperature Pulse Rate 86 85 84 Respiratory Rate Blood Pressure Pulse Oximetry Oxygen Delivery 06/08/25 10:00 06/08/25 12:00 06/08/25 12:00 Temperature 36.6 C Pulse Rate 96 88 90 Respiratory Rate 26 H Blood Pressure 126/56 L Pulse Oximetry 91 Oxygen Delivery 06/08/25 13:16 06/08/25 13:22 06/08/25 14:00 Temperature Pulse Rate 85 86 94 Respiratory Rate 16 16 Blood Pressure Pulse Oximetry Oxygen Delivery 06/08/25 14:15 06/08/25 15:20 06/08/25 16:00 Temperature 36.4 C L Pulse Rate 93 93 Respiratory Rate 22 H Blood Pressure 114/57 L Pulse Oximetry 94 Oxygen Delivery Room Air 06/08/25 16:20 06/08/25 20:00 06/08/25 20:16 Temperature Pulse Rate 93 91 86 Respiratory Rate 16 Blood Pressure Pulse Oximetry Oxygen Delivery 06/08/25 20:24 06/08/25 20:31 06/08/25 23:31 Temperature Pulse Rate 84 94 91 Respiratory Rate 16 20 Blood Pressure 132/56 L Pulse Oximetry Oxygen Delivery 06/09/25 00:00 06/09/25 02:26 06/09/25 02:34 Temperature Pulse Rate 88 79 80 Respiratory Rate 16 16 Blood Pressure Pulse Oximetry Oxygen Delivery 06/09/25 04:00 Temperature Pulse Rate 85 Respiratory Rate Blood Pressure Pulse Oximetry Oxygen Delivery Results Labs and Meds 06/09/25 05:11 06/09/25 05:11 Lab results: Cardiac Enzymes 06/09/25 Range/Units 05:11 AST 52 (17-59) U/L CBC 06/09/25 Range/Units 05:11 WBC 21.2 H (4.5-10.0) K/mm3 RBC 4.53 L (4.6-6.20) M/mm3 Hgb 13.2 L (14.0-18.0) g/dL Hct 40.4 L (42.0-52.0) % Plt Count 239 (150-375) k/mm3 Lymph # (Auto) Not Reportable [place] # (Auto) Not Reportable Eos # (Auto) Not Reportable Baso # (Auto) Not Reportable Comprehensive Metabolic Panel 06/09/25 Range/Units 05:11 Sodium 132 L (137-145) mmol/L Potassium 3.8 (3.4-5.0) mmol/L Chloride 100 (98-107) mmol/L Carbon Dioxide 27 (22-30) mmol/L BUN 28 H (9-20) mg/dL Creatinine 0.74 (0.7-1.3) mg/dL Glucose 123 H (65-110) mg/dL Calcium 7.9 L (8.4-10.2) mg/dL AST 52 (17-59) U/L ALT 34 (6-50) U/L Alkaline Phosphatase 133 H (38-126) U/L Total Protein 4.8 L (6.3-8.2) g/dL Albumin 2.7 L (3.5-5.1) g/dL Intake and Output 06/08/25 06/08/25 06/09/25 15:59 23:59 07:59 Intake Total 720 1580 350 Output Total 900 400 Balance 720 680 -50 Intake: Oral 480 1340 350 Oral Supplement 240 240 Output: Urine 900 400 Other: # Unmeasured Voids 2 Number of Bowel Movements Today 4
[2025-06-09] MEDS: UMECLIDINIUM BROMIDE 62.5 MCG ELLIPTA 1 PUFF INHALATION (08:15)
[2025-06-09] MEDS: METOPROLOL TARTRATE 50 MG TAB PO (08:55)
[2025-06-09] MEDS: SIMVASTATIN 20 MG TABLET PO (08:55)
[2025-06-09] MEDS: MULTIVITAMINS THERAPEUTIC TAB (*BKC) 1 TABLET PO (08:55)
[2025-06-09] MEDS: PANTOPRAZOLE SODIUM IV 40 MG VIAL IV PUSH (08:55)
[2025-06-09] MEDS: ASCORBIC ACID 500 MG TABLET 1000 MG PO (08:56)
[2025-06-09] MEDS: AMIODARONE HCL 200 MG TABLET PO (08:56)
[2025-06-09] MEDS: CEFDINIR 300 MG CAPSULE PO (08:56)
[2025-06-09] MEDS: APIXABAN 5 MG TABLET PO (08:56)
[2025-06-09] MEDS: FENOFIBRATE NANOCRYSTALLIZED 145 MG TABLET PO (08:56)
[2025-06-09] MEDS: FIDAXOMICIN 200 MG TABLET PO (08:56)
[2025-06-09] MEDS: DOXYCYCLINE HYCLATE 100 MG TABLET PO (08:56)
[2025-06-09] MEDS: EMPAGLIFLOZIN 10 MG TABLET PO (08:56)
--- NOTE | 2025-06-09 12:37 | PM.DS ---
DS: Admitting Diagnosis Discharge Date 06/09/25 Admitting Diagnosis colitis,sob DS: Discharge Diagnosis Discharge Diagnosis (1) Atrial fibrillation with rapid ventricular response: Code(s): I48.91 - Unspecified atrial fibrillation Status: Acute (2) Pneumonia: Code(s): J18.9 - Pneumonia, unspecified organism Status: Acute (3) Nausea vomiting and diarrhea: Code(s): R11.2 - Nausea with vomiting, unspecified; R19.7 - Diarrhea, unspecified Status: Acute (4) Colitis: Code(s): K52.9 - Noninfective gastroenteritis and colitis, unspecified Status: Acute (5) COPD (chronic obstructive pulmonary disease): Code(s): J44.9 - Chronic obstructive pulmonary disease, unspecified Status: Acute (6) Hyponatremia: Code(s): E87.1 - Hypo-osmolality and hyponatremia Status: Acute (7) Lung cancer: Qualifiers: Laterality: left Lung location: upper lobe of lung Qualified Code(s): C34.12 - Malignant neoplasm of upper lobe, left bronchus or lung Code(s): C34.90 - Malignant neoplasm of unspecified part of unspecified bronchus or lung Status: Chronic (8) DM2 (diabetes mellitus, type 2): Qualifiers: Diabetes mellitus detention insulin use: without technician terminal and repeater use Diabetes mellitus complication status: without complication Qualified Code(s): E11.9 - Type 2 diabetes mellitus without complications Code(s): E11.9 - Type 2 diabetes mellitus without complications Status: Chronic (9) HTN (hypertension): Qualifiers: Hypertension type: primary hypertension Qualified Code(s): I10 - Essential (primary) hypertension Code(s): I10 - Essential (primary) hypertension Status: Chronic DS: Summary Hospital Course Hospital Course: 79 y/o M with PMH of non-small cell lung cancer (adenocarcinoma, left upper lobe) s/p resection in 2019 with a soft tissue mass in the left groin/inguinal region (biopsy in 2022 -> 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 Several problems were addressed: # afib - Remains asymptomatic - TSH ordered to rule out metabolic cause for tachyarrhythmia - EKG: Afib RVR on 06/06 - Chadsvasc Score: 4 Anticoagulation: Eliquis 5 mg BID. Discussed the pros/cons and he is agreeable with this medication. - Given cancer history, new afib dx, and prior bipap requirement will obtain a CTA chest to rule out PE. Negative for PE. - Echo: LVEF 65-70% mild pulmonary htn - Telemetry - Cardiology consulted: -continue oral amiodarone 200 mg PO BID for a week. then can take 200 mg PO OD (start 06/16) - Amiodarone for a month, then can be discontinued in the cardiology clinic -continue metoprolol at current dose - Continue therapeutic anticoagulation # Pneumonia, unspecified organism Chest CTA: Patchy groundglass with mucous plugging left lower lobe. Differential diagnosis includes infectious bronchiolitis or pneumonia. Consider aspiration pneumonitis - Complicating Factors: COPD exacerbation - started on zosyn on 06/04 - Viral PCR: negative for Flu/COVID/RSV - Consider ordering legionella, mycoplasma and pneumococcal - no supplemental O2 requirement - Monitor vital signs, I&Os, neuro status and patient is a fall risk - Follow WBC, serum electrolytes, temperature curves and cultures - Speech consulted for bedside swallow study Bedside swallow unremarkable, no dietary changes recommended -will stop zosyn as pt positive for cdiff change to cefdinir 300 mg q12h 3 more doses - last date 06/10 one more dose for doxy left one more dose for prednisone left both sent to pharmacy # Colitis: - CT chest/abdomen/pelvis, 06/04: 1. Grossly stable metastatic lymphadenopathy in the mediastinum and left hilum. 2. Status post left upper lobectomy 3. Thickening of the rivera of the descending and sigmoid colon. The findings are concerning for colitis. - started on Zosyn on 06/04 - tolerating clear liquid diet, advance to low fiber - pain medication prn - Monitor vital signs, I&Os, track stool output, watch for bloody stools, neuro status and patient is a fall risk - Monitor serum electrolytes and CBC Denies nausea/vomiting/diarrhea and abdominal pain. Improving c diff colitis- will stop zosyn and change it to cefdinir conitnue difid total 10 days- last dose 06/17 at 9 pm # COPD (chronic obstructive pulmonary disease): Arrived with wheezing and shortness of breath on 06/04, precipitated by missed AM meds. Given 2G of magnesium, Solu-Medrol, and a DuoNeb in the ED with improvement. - DuoNebs austyn - given Solu-Medrol in the ED, will continue as prednisone 40 mg daily - started on Zosyn due to concurrent colitis - stopped vanc (mrsa negative) and add doxy for atypical coverage Despite additional DuoNeb treatment, Solu-Medrol, and home Wixela inhaler this evening the patient remains significantly dyspneic. 06/04: ABG showed pH 7.493, pCO2 26.7, pO2 67.7, and HCO3 20. Placed on Bipap. Remains on room air. Slight shortness of breath and cough but continues to improve. 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 # Hyponatremia: Likely secondary to acute dehydration secondary to N/V/D. -a 128 on admission. Improving on am labs, Na remains stable in the lower 130s. - trend renal function - no current alteration in mental status, monitor trends labs. 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 Seealiyah Gomez for his oncology care and previously saw Cr MOSES for radiation (now transitioned to PRN basis) - reverse isolation in place - oncology consulted Start him on Neupogen for chemotherapy-induced neutropenia. WBC improving on am labs. Continue antibiotics for colitis and possible pneumonia. Due to his significant shortness of breath given 1x order of Solu-Medrol while waiting for breathing treatment. He will follow-up with us in the office for continuation of treatment once he recovered from this flare-up of COPD and colitis. # DM2 (diabetes mellitus, type 2): - hypoglycemia protocol - POC blood glucose ACHS - home medication: Continue Jardiance. Hold metformin and glimepiride. - correct regimen ordered - moderate dose TIDWM, based off BMI - A1C -7 06/05/25 Glucose levels remain stable. Continue to monitor. Status at Discharge Functional status at discharge: independent ambulation Overall status at discharge: patient is progressing back to baseline Time Spent with Patient Time attestation: Total time spent providing and/or coordinating discharge services: Time spent: Greater than 30 minutes Exam Narrative: General: male in no acute respiratory distress who is nontoxic appearing, sitting up comfortably in chair HEENT: Normocephalic. Atraumatic. Extraocular movement intact. Sclera clear and anicteric. No facial asymmetry. Chest: Lungs are slightly diminished to the bases on auscultation bilaterally. CV: Heart with regular rhythm and rate. No murmurs, gallops, or rubs. Abd: Abdomen was soft. Nontender. Nondistended. Positive bowel sounds. Ext: No clubbing, cyanosis, or edema. DP pulses bilaterally. Neuro: Patient is alert and oriented x4. Speech is clear. Const: General: comfortable HENMT: Face/Nose/Sinus: Normal nares present Mouth: Yes moist mucous membranes Eyes: General: appearance normal, both eyes and all related structures Sclera: sclerae normal Pupils: Equal, round and reactive pupils present EOM: EOMs intact bilaterally Resp: Effort & Inspection: normal respiratory effort Other: no wheezing Cardio: Rate: regular rate Rhythm: regular rhythm GI: GI Palp: Yes Soft to palpation Auscultation: normal bowel sounds Skin: General skin exam: normal color and no rashes or lesions noted Wounds: no wounds Neuro: Cranial nerves: Yes Equal, round and reactive pupils present Speech: normal speech Motor exam (neuro): 5/5 motor strength present throughout Sensory Exam: normal sensation Other: Generalized weakness, A&O x4 Extrem: General: normal to inspection Psych: Mental Status: mental status grossly normal Affect: normal affect Other: Good insight and judgment, very pleasant DS: Data Data Completed and Pending Labs on day of discharge: Labs from last 24 hours 06/09/25 06/09/2525 11:23 07:42 05:11 WBC 21.2 H RBC 4.53 L Hgb 13.2 L Hct 40.4 L MCV 89.2 MCH 29.1 MCHC 32.7 RDW 16.1 H Plt Count 239 MPV 11.4 H Immature Gran % (Auto) Not Reportable Neut % (Auto) Not Reportable Lymph % (Auto) Not Reportable [place] % (Auto) Not Reportable Eos % (Auto) Not Reportable Baso % (Auto) Not Reportable Lymph # (Auto) Not Reportable [place] # (Auto) Not Reportable Eos # (Auto) Not Reportable Baso # (Auto) Not Reportable Abs Immat Gran (auto) Not Reportable Absolute Neuts (auto) Not Reportable Absolute Nucleated RBC Not Reportable Total Counted 100 Neutrophils % (Manual) 77 H Band Neutrophils % 6 Lymphocytes % (Manual) 9.0 L Monocytes % (Manual) 5 Metamyelocytes % 3 Nucleated RBC % Not Reportable Abs Neuts (Manual) 17.59 H Abs Lymphs (Manual) 1.90 Abs Monocytes (Manual) 1.06 H Platelet Estimate Adequate Schistocytes None seen Sodium 132 L Potassium 3.8 Chloride 100 Carbon Dioxide 27 Anion Gap 5 BUN 28 H Creatinine 0.74 Estim Creat Clear Calc 74 Estimated GFR > 60 Glucose 123 H POC Capillary Glucose 161 H 139 H Calcium 7.9 L Total Bilirubin 0.4 AST 52 ALT 34 Alkaline Phosphatase 133 H Total Protein 4.8 L Albumin 2.7 L 06/08/25 06/08/25 19:39 16:15 WBC RBC Hgb Hct MCV MCH MCHC RDW Plt Count MPV Immature Gran % (Auto) Neut % (Auto) Lymph % (Auto) [place] % (Auto) Eos % (Auto) Baso % (Auto) Lymph # (Auto) [place] # (Auto) Eos # (Auto) Baso # (Auto) Abs Immat Gran (auto) Absolute Neuts (auto) Absolute Nucleated RBC Total Counted Neutrophils % (Manual) Band Neutrophils % Lymphocytes % (Manual) Monocytes % (Manual) Metamyelocytes % Nucleated RBC % Abs Neuts (Manual) Abs Lymphs (Manual) Abs Monocytes (Manual) Platelet Estimate Schistocytes Sodium Potassium Chloride Carbon Dioxide Anion Gap BUN Creatinine Estim Creat Clear Calc Estimated GFR Glucose POC Capillary Glucose 240 H 205 H Calcium Total Bilirubin AST ALT Alkaline Phosphatase Total Protein Albumin Preliminary micro results at discharge 06/04/25 13:27 Blood Culture - Preliminary Blood 06/04/25 13:41 Blood Culture - Preliminary Blood Discharge Plan Discharge Attending physician on discharge: Chris Queen Consulting providers: Delmi Su; Mario Alberto Gomez; Kathy Roberson Discharging Clinician: Ngozi Collins Patient Disposition: Home Activity: may shower Diet: regular Discharge Instructions: For pneumonia- please take cefdinir 300 mg twice a day- you have 3 more doses-next one06/09 at 0900pm. doxy- 1 more dose today at 0900 pm Take dificid for c diff. last day 06/17 9 pm dose- you have 17 more total doses, next one 06/09 09 pm You were on prednisone- still have ONE MORE dose left to take , 06/10/25 in am to complete the treatment. cardiology saw you and these are recommendations: -continue oral amiodarone 200 mg PO BID for a week. then can take 200 mg PO OD (start 06/16) - Amiodarone for a month, then can be discontinued in the cardiology clinic -continue metoprolol at current dose - Continue therapeutic anticoagulation Patient Instructions: Metoprolol (By mouth), Doxycycline (By mouth), Prednisone (By mouth), Amiodarone (By mouth), Cefdinir (By mouth), Fidaxomicin (By mouth), Apixaban (By mouth), A-fib (Atrial Fibrillation) (DC), C. Diff (Clostridioides Difficile) Infection (DC), Help Prevent Suicide (DC), Safe Use of Anticoagulants (DC), Antibiotic Form Patient Language: Vincentian Stand Alone Forms: General Discharge Information Follow-up/Referrals: Mario Alberto Gomez MD [Physician, Hematology] - 2 Weeks Saba Nathan APN-C [Advanced Practice Nurse, Cardiology] - 4 Weeks Micaela,Gamaliel Lang MD [Primary Care Provider, Unknown] - 2 Weeks Discharge Medications: New amiodarone [Pacerone] 200 mg Tablet 200 mg PO BID Qty: 60 0RF cefdinir 300 mg Capsule 300 mg PO Q12HR Qty: 3 0RF doxycycline hyclate 100 mg Tablet 100 mg PO Q12HR Qty: 1 0RF Rx Instructions: please take your last dose tonight at 0900pm 06/09 Eliquis 5 mg Tablet 5 mg PO Q12HR Qty: 90 0RF fidaxomicin [Dificid] 200 mg Tablet 200 mg PO Q12HR Qty: 17 0RF Rx Instructions: last dose to complete the treatment is 06/17/25 0900pm prednisone 20 mg Tablet 40 mg PO DAILY@0800 Qty: 2 0RF Rx Instructions: take 40 mg 06/10/25 to complete the treatment Continued multivitamin Tablet 1 tablet PO DAILY Vitamin C 1,000 mg Tablet Extended Release 1,000 mg PO DAILY simvastatin 20 mg tablet 20 mg PO DAILY glimepiride 4 mg tablet 4 mg PO BID metoprolol tartrate 50 mg tablet 50 mg PO BID hydrochlorothiazide 25 mg tablet 25 mg PO DAILY metformin 500 mg tablet extended release 24 hr 1,000 mg PO BID fenofibrate nanocrystallized 145 mg tablet 145 mg PO DAILY Jardiance 10 mg tablet 10 mg PO DAILY diphenhydramine HCl [Benadryl Allergy] 12.5 mg/5 mL Liquid 12.5 mg PO QAM PRN (Reason: allergy symptoms) Patient Comments: . famotidine [Pepcid] 20 mg Tablet 20 mg PO DAILY PRN (Reason: acid reflux) fluticasone propion-salmeterol [Wixela Inhub] 250-50 mcg/dose Blister With Device 1 inh INHALATION Q12H Spiriva Respimat 2.5 mcg/actuation mist 2 puff INHALATION QAM ibuprofen 600 mg tablet 600 mg PO Q6H PRN (Reason: pain) Qty: 14 0RF Discontinued oxycodone-acetaminophen 5-325 mg tablet 0.5 - 1 tablet PO Q6H PRN (Reason: pain) Qty: 10 0RF Date of admission: 06/05/25 09:36 Primary Care Provider: MicaelaGamaliel Admitting Provider: Deborah Tyson Attending physician on admission: Deborah Tyson Condition: Serious Quality VTE Prophylaxis VTE prophylaxis: pharmacologic ordered Hospitalist MIPS Heart Failure (Exclusion) Patient has history of Heart Transplant or Left Ventricular Assistive Device?: No IF YES, STOP HERE Heart Failure (Qualifier) Patient has current or prior documentation of LVEF less than or equal to 40%, or mod/servere depressed LVSF?: No IF NO, STOP HERE
[2025-06-09] MEDS: [UNRECOGNIZED DRUG - OTHER] INHALATION (13:22)
[2025-06-09] MEDS: FLUTICASONE PROPIONATE INHALATION (13:22)
[2025-06-09] MEDS: SALMETEROL XINAFOATE INHALATION (13:22)
== END 2025-06-09 13:55 | disposition home or self-care (01) | DRG 371 ==
LOC: ANHED 10:20 → ANH2MED 15:16 → ANHIMU 06-07 21:12 → ANH2MED 06-11 08:09 → ANHIMU 06-11 08:09
PROVIDERS: Internal Medicine Hematology & Oncology; Student in an Organized Health Care Education/Training Program; Admitting Provider Family Medicine; Emergency Provider Physician Assistant; PCP Internal Medicine; Visit Provider Internal Medicine
DX: A04.72 Enterocolitis due to Clostridium difficile, not specified as recurrent (principal); J18.9 Pneumonia, unspecified organism; C34.12 Malignant neoplasm of upper lobe, left bronchus or lung; C79.89 Secondary malignant neoplasm of other specified sites; E87.1 Hypo-osmolality and hyponatremia; J44.0 Chronic obstructive pulmonary disease with (acute) lower respiratory infection; K52.9 Noninfective gastroenteritis and colitis, unspecified; E78.5 Hyperlipidemia, unspecified; E11.9 Type 2 diabetes mellitus without complications; E86.0 Dehydration; I10 Essential (primary) hypertension; K21.9 Gastro-esophageal reflux disease without esophagitis; M19.90 Unspecified osteoarthritis, unspecified site; Z90.49 Acquired absence of other specified parts of digestive tract; Z87.891 Personal history of nicotine dependence; Z79.84 Long term (current) use of oral hypoglycemic drugs; Z20.822 Contact with and (suspected) exposure to COVID-19; Z79.01 Long term (current) use of anticoagulants
CPT/HCPCS: 36415; 36600; 71045; 71260; 71275; 74177; 80048; 80053; 81003; 82805; 82948; 83036; 83690; 83735; 84443; 85018; 85025; 87040; 87045; 87046; 87427; 87493; 87637; 87641; 92610; 93005; 93306; 94002; 94003; 94640; 94660; 96365; 96366; 96367; 96375; 96376; 97161; 97165; 99285; A9270; G0378; J0282; J0616; J1160; J1650; J1815; J2405; J2470; J2543; J2919; J3373; J3475; J7030; J7040; J7050; J7512; Q5101; Q9967

== ENCOUNTER 2025-06-30 09:41 | Emergency (ER) | payer MEDICARE, SELFPAY ==
[2025-06-30 09:49] VITALS: BP 137/63; PULSE 92; RESP 18; O2SAT 93
[2025-06-30 10:00] VITALS: TEMP 36.6
[2025-06-30 10:08] LABS: Hematocrit 34.3 % (42.0-52.0); Hemoglobin 11.0 g/dL (14.0-18.0); Immature Granulocyte Percent A 1.3 % (0-0.5); Lymphocytes Absolute Auto 0.39 K/mm3 (0.9-3.2); Mean Corpuscular HGB Conc 32.1 g/dl (32-36); Mean Corpuscular Hemoglobin 29.2 pg (26-34); Mean Corpuscular Volume 91.0 fl (80-100); Nucleated Red Blood Cells Absolute Auto 0.000 K/mm3 (0.0-0.012); Nucleated Red Blood Cells Perc 0.0 % (0.0-0.2); Platelet Count Result 240 k/mm3 (150-375); Red Blood Count 3.77 M/mm3 (4.6-6.20); White Blood Count 7.1 K/mm3 (4.5-10.0)
--- NOTE | 2025-06-30 10:16 | ED.GENADULT ---
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 Patient denies any fever or chills, chest pain or abdominal pain or headache. Patient reports loose stool on average 3 to 4 times a day, vomiting on average once, maximum twice a day. Patient main complaint in the ED is generally weak and tired Related Data Home Medications ?Medication ?Instructions ?Recorded ?Confirmed ?Last Taken ?Type ascorbic acid (vitamin C) 1,000 mg 1,000 mg PO DAILY 10/08/23 06/30/25 06/03/25 History tablet,extended release (Vitamin C ER) diphenhydramine HCl 12.5 mg/5 mL 12.5 mg PO QAM PRN allergy symptoms 10/08/23 06/04/25 Unknown History oral liquid (Benadryl Allergy) empagliflozin 10 mg tablet 10 mg PO DAILY 10/08/23 06/30/25 06/03/25 History (Jardiance) famotidine 20 mg tablet (Pepcid) 20 mg PO DAILY PRN acid reflux 10/08/23 06/04/25 Unknown History fenofibrate nanocrystallized 145 145 mg PO DAILY 10/08/23 06/30/25 06/03/25 History mg tablet fluticasone 250 mcg-salmeterol 50 1 inh inhalation Q12H 10/08/23 06/04/25 06/03/25 History mcg/dose blistr powdr for inhalation (Wixela Inhub) glimepiride 4 mg tablet 4 mg PO BID 10/08/23 06/30/25 06/03/25 History hydrochlorothiazide 25 mg tablet 25 mg PO DAILY 10/08/23 06/30/25 06/03/25 History metformin 500 mg tablet,extended 1,000 mg PO BID 10/08/23 06/04/25 06/03/25 History release 24 hr metoprolol tartrate 50 mg tablet 50 mg PO BID 10/08/23 06/30/25 06/03/25 History multivitamin 1 tablet PO DAILY 10/08/23 06/30/25 06/03/25 History simvastatin 20 mg tablet 20 mg PO DAILY 10/08/23 06/30/25 06/03/25 History tiotropium bromide 2.5 2 puff inhalation QAM 10/08/23 06/30/25 06/03/25 History mcg/actuation mist for inhalation (Spiriva Respimat) Allergies Allergy/AdvReac Type Severity Reaction Status Date / Time hydrocodone (From Vicodin) AdvReac Itching Verified 06/30/25 09:48 morphine AdvReac VIOLENT Verified 06/30/25 09:48 TREMORS Review of Systems Review of Systems: All systems reviewed & are unremarkable except as noted in HPI and below PMFSH Past Medical History Medical History DM2 (diabetes mellitus, type 2) Arthritis GERD (gastroesophageal reflux disease) HLD (hyperlipidemia) HTN (hypertension) COPD (chronic obstructive pulmonary disease) 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, including hip Lung cancer Surgical History Surgical History History of inguinal hernia repair History of appendectomy Social History Social History Smoking packs per day: 1 Smoking cigarettes per day: 20.0 Years smoked: 40 Smoking pack-years: 40.00 Smoking status: Former smoker Second hand tobacco smoke exposure: No Additional smoking assessment comments: STATES SMOKED 1PK/DAY/30-40YRS/QUIT 2010~ Alcohol intake: current Drinks per week: 7 Alcohol use details: STATES DRINKS 3 OZ/NIGHT, (21 OZ/WEEK) Substance use: never Substance use type: does not use Lack of Transportation: No Lack of Food: Never True Current Housing: I Have Housing Concerned About Future Housing: No Difficulty Paying Gas/Electric Bills: No Difficulty Paying for Meds: No Currently Unemployed: No Education: High School Diploma/GED Difficulty w/ Childcare or Family Care: No Living arrangements: with family Spiritual care concerns: No Exam Narrative: General appearance: Well-developed, well-nourished, looks tired and depressed Skin: Normal color Head: Normocephalic, nontraumatic Eyes: Clear conjunctiva ENT: Oropharynx normal, ears normal, nose normal Neck: Supple, nontender Chest and respiratory: Airway patent, no respiratory distress, no accessory muscle use Heart: Regular rate/rhythm Abdomen: Soft, nontender, no organomegaly, quiet bowel sounds Vascular: Normal peripheral pulses, normal capillary refill. Musculoskeletal: Normal range of motion, nontender back Neurologic: Alert and oriented ?3, [place] [employer] is normal as tested, no gross motor deficit Course Vital Signs Vital signs: Vital Signs Pulse Rate 92 06/30/25 09:49 Respiratory Rate 18 06/30/25 09:49 Blood Pressure 137/63 06/30/25 09:49 Pulse Oximetry 93 06/30/25 09:49 Temperature 36.6 C 06/30/25 10:00 Pulse Rate 92 06/30/25 11:47 Respiratory Rate 22 H 06/30/25 11:47 Blood Pressure 134/57 L 06/30/25 11:47 Pulse Oximetry 90 06/30/25 11:47 Medical Decision Making MDM Narrative Medical decision making narrative: Patient came with general weakness, last chemotherapy 6 days ago, nausea vomiting and diarrhea 3 days ago Vital signs are stable Physical examination showing depressed tired looking patient otherwise insignificant Differential diagnosis include chemotherapy side effect, dehydration, electrolyte imbalance, urinary tract infection Blood workup today includes CBC, CMP, CPK showed sodium 130, glucose 183, otherwise insignificant Urinalysis showed no evidence of infection Diagnosis general weakness secondary to chemotherapy treatment. The pt was discharged to home.the pt,s condition upon discharge was fair,education was provided to the pt in reference to the final impression,discharge study results,treatment,prognosis and need for follow up . Vital Signs Vital Signs: Vital Signs Pulse Rate 92 06/30/25 09:49 Respiratory Rate 18 06/30/25 09:49 Blood Pressure 137/63 06/30/25 09:49 Pulse Oximetry 93 06/30/25 09:49 Temperature 36.6 C 06/30/25 10:00 Pulse Rate 92 06/30/25 11:47 Respiratory Rate 22 H 06/30/25 11:47 Blood Pressure 134/57 L 06/30/25 11:47 Pulse Oximetry 90 06/30/25 11:47 Lab Data 06/30/25 10:02 06/30/25 10:02 Labs: Lab Results 06/30/25 06/30/25 Range/Units 10:02 11:35 WBC 7.1 (4.5-10.0) K/mm3 RBC 3.77 L (4.6-6.20) M/mm3 Hgb 11.0 L (14.0-18.0) g/dL Hct 34.3 L (42.0-52.0) % MCV 91.0 (80-100) fl MCH 29.2 (26-34) pg MCHC 32.1 (32-36) g/dl RDW 17.0 H (11.5-14.5) % Plt Count 240 (150-375) k/mm3 MPV 11.9 H (7.4-10.4) fl Immature Gran % (Auto) 1.3 H (0-0.5) % Neut % (Auto) 79.4 H (45.5-73.1) % Lymph % (Auto) 5.5 L (18.3-44.2) % [place] % (Auto) 10.4 H (2.6-8.5) % Eos % (Auto) 2.7 (0-4.4) % Baso % (Auto) 0.7 (0.2-1.2) % Lymph # (Auto) 0.39 L (0.9-3.2) K/mm3 [place] # (Auto) 0.7 H (0.1-0.6) K/mm3 Eos # (Auto) 0.2 (0-0.3) K/mm3 Baso # (Auto) 0.1 (0.0-0.1) K/mm3 Abs Immat Gran (auto) 0.09 H (0.00-0.031) K/mm3 Absolute Neuts (auto) 5.7 (1.3-6.7) K/mm3 Absolute Nucleated RBC 0.000 (0.0-0.012) K/mm3 Nucleated RBC % 0.0 (0.0-0.2) % Sodium 130 L (137-145) mmol/L Potassium 4.2 (3.4-5.0) mmol/L Chloride 96 L (98-107) mmol/L Carbon Dioxide 26 (22-30) mmol/L Anion Gap 8 (4-12) mmol/L BUN 24 H (9-20) mg/dL Creatinine 1.06 (0.7-1.3) mg/dL Estim Creat Clear Calc 53 ml/min Estimated GFR > 60 (59 - ) Glucose 183 H (65-110) mg/dL Calcium 8.3 L (8.4-10.2) mg/dL Total Bilirubin 0.8 (0.2-1.3) mg/dL AST 36 (17-59) U/L ALT 19 (6-50) U/L Alkaline Phosphatase 92 (38-126) U/L Total Protein 6.1 L (6.3-8.2) g/dL Albumin 3.4 L (3.5-5.1) g/dL Lipase 25 (23-300) U/L Urine Color Yellow (Yellow) Urine Appearance Clear (Clear) Urine pH 5.5 (5.0-9.0) Ur Specific [place] 1.028 (1.001-1.035) Urine Protein Negative (Negative) mg/dL Urine Glucose (UA) 3+ H (Negative) mg/dL Urine Ketones Trace H (Negative) mg/dL Ur Blood (Man) Negative (Negative) Urine Nitrate Negative (Negative) Urine Bilirubin Negative (Negative) Urine Urobilinogen 1.0 (<2.0) mg/dL Leukocyte Esterase Rfl Negative (Negative) LIZABETH/UL Discharge Plan Discharge Clinical Impression: Weakness, Chemotherapy induced nausea and vomiting Patient Disposition: Home Condition: Stable Instructions: Weakness (ED), Chemo Induced Nausea and Vomiting (ED) Additional Instructions: Return if symptoms are worsening , call your family physician for appointment, take Tylenol as as needed for aches and pain, continue home medications., encourage fluid intake Patient Language: [place] Islander Prescriptions: New ondansetron 4 mg tablet,disintegrating 4 mg PO Q4H PRN (Reason: nausea and vomiting) Qty: 10 0RF No Action multivitamin Tablet 1 tablet PO DAILY Vitamin C 1,000 mg Tablet Extended Release 1,000 mg PO DAILY simvastatin 20 mg tablet 20 mg PO DAILY glimepiride 4 mg tablet 4 mg PO BID metoprolol tartrate 50 mg tablet 50 mg PO BID hydrochlorothiazide 25 mg tablet 25 mg PO DAILY metformin 500 mg tablet extended release 24 hr 1,000 mg PO BID fenofibrate nanocrystallized 145 mg tablet 145 mg PO DAILY Jardiance 10 mg tablet 10 mg PO DAILY diphenhydramine HCl [Benadryl Allergy] 12.5 mg/5 mL Liquid 12.5 mg PO QAM PRN (Reason: allergy symptoms) Patient Comments: . famotidine [Pepcid] 20 mg Tablet 20 mg PO DAILY PRN (Reason: acid reflux) fluticasone propion-salmeterol [Wixela Inhub] 250-50 mcg/dose Blister With Device 1 inh INHALATION Q12H Spiriva Respimat 2.5 mcg/actuation mist 2 puff INHALATION QAM ibuprofen 600 mg tablet 600 mg PO Q6H PRN (Reason: pain) Qty: 14 0RF amiodarone [Pacerone] 200 mg Tablet 200 mg PO BID Qty: 60 0RF Patient Comments: . cefdinir 300 mg Capsule 300 mg PO Q12HR Qty: 3 0RF doxycycline hyclate 100 mg Tablet 100 mg PO Q12HR Qty: 1 0RF Rx Instructions: please take your last dose tonight at 0900pm 06/09 Eliquis 5 mg Tablet 5 mg PO Q12HR Qty: 90 0RF fidaxomicin [Dificid] 200 mg Tablet 200 mg PO Q12HR Qty: 17 0RF Rx Instructions: last dose to complete the treatment is 06/17/25 0900pm Follow-up/Referrals: Micaela,Gamaliel Lang MD [Primary Care Provider, Unknown]
[2025-06-30 10:21] LABS: Alanine Aminotransferase 19 U/L (6-50); Albumin Level 3.4 g/dL (3.5-5.1); Alkaline Phosphatase 92 U/L (38-126); Anion Gap 8 mmol/L (4-12); Aspartate Amino Transferase 36 U/L (17-59); Bilirubin,Total 0.8 mg/dL (0.2-1.3); Blood Urea Nitrogen 24 mg/dL (9-20); Calcium 8.3 mg/dL (8.4-10.2); Carbon Dioxide 26 mmol/L (22-30); Chloride 96 mmol/L (98-107); Estimated CRCL calculation 53 ml/min; Estimated Glomerular Filt Rate > 60; Glucose 183 mg/dL (65-110); Lipase 25 U/L (23-300); Potassium 4.2 mmol/L (3.4-5.0); Sodium 130 mmol/L (137-145); Total Protein 6.1 g/dL (6.3-8.2)
[2025-06-30 11:42] LABS: Add Urine Microscopic? NO; Appearance Urine Clear (Clear); Glucose Urine UA 3+ mg/dL (Negative); Leukocyte Esterase Ur Negative LEU/UL (Negative); Nitrate Urine Negative (Negative); Specific Grav Ur 1.028 (1.001-1.035)
[2025-06-30] MEDS: ONDANSETRON INJ 4 MG/2 ML VIAL IV PUSH (11:45)
[2025-06-30] MEDS: SODIUM CHLORIDE 0.9% IV 1,000 ML 999 ML IV CONT (11:45)
[2025-06-30 11:47] VITALS: BP 134/57; PULSE 92; RESP 22; O2SAT 90
[2025-06-30] MEDS: HEPARIN SODIUM LOCK FLUSH 500 UNITS/5 ML SYRINGE IV PUSH (12:54)
[2025-06-30 12:55] VITALS: BP 136/65; PULSE 88; RESP 21; O2SAT 96
[2025-06-30 13:09] VITALS: TEMP 36.8
== END 2025-06-30 13:10 | disposition home or self-care (01) ==
PROVIDERS: Student in an Organized Health Care Education/Training Program; Emergency Provider Emergency Medicine; PCP Internal Medicine
DX: R53.1 Weakness (principal); R11.2 Nausea with vomiting, unspecified; T45.1X5A Adverse effect of antineoplastic and immunosuppressive drugs, initial encounter; E11.9 Type 2 diabetes mellitus without complications; E78.5 Hyperlipidemia, unspecified; I10 Essential (primary) hypertension; J44.9 Chronic obstructive pulmonary disease, unspecified; Z85.118 Personal history of other malignant neoplasm of bronchus and lung; Z79.899 Other long term (current) drug therapy; Z87.891 Personal history of nicotine dependence
CPT/HCPCS: 36415; 80053; 81003; 83690; 85025; 96361; 96374; 99284; J2405; J7030

== ENCOUNTER 2025-07-06 02:09 | Observation (INO) | payer MEDICARE, SELFPAY ==
[2025-07-06] VITALS (10 sets, daily range): BP systolic 116–163; BP diastolic 50–78; PULSE 65–104; RESP 16–22; TEMP 36.4–36.7; O2SAT 94–98; BMI 31.3
--- NOTE | ~2025-07-06 | XR_ITS ---
EXAMINATION: XR chest 1V portable COMPARISON: No comparisons available. HISTORY: Leukocytosis ? Pneumonia FINDINGS: Small basilar interstitial airspace opacities. No pneumothorax. Heart is normal size. Mediastinal and hilar contours are within normal limits. Bony thorax no acute abnormality. Miscellaneous: Left Mediport. Impression: Probable viral pneumonitis Reviewed, dictated and finalized at location A. Impression: Probable viral pneumonitis
[2025-07-06] MEDS: DEXTROSE 10% 500 ML 120 ML IV CONT ×2 (03:15→11:17)
[2025-07-06 04:37] LABS: Alanine Aminotransferase 24 U/L (6-50); Albumin Level 3.3 g/dL (3.5-5.1); Alkaline Phosphatase 100 U/L (38-126); Anion Gap 6 mmol/L (4-12); Aspartate Amino Transferase 47 U/L (17-59); Bilirubin,Total 0.2 mg/dL (0.2-1.3); Blood Urea Nitrogen 23 mg/dL (9-20); Calcium 8.1 mg/dL (8.4-10.2); Carbon Dioxide 28 mmol/L (22-30); Chloride 99 mmol/L (98-107); Estimated Glomerular Filt Rate > 60; Hematocrit 36.7 % (42.0-52.0); Hemoglobin 11.7 g/dL (14.0-18.0); Immature Granulocyte Percent A 2.0 % (0-0.5); Lymphocytes Absolute Auto 0.64 K/mm3 (0.9-3.2); Mean Corpuscular HGB Conc 31.9 g/dl (32-36); Mean Corpuscular Hemoglobin 29.3 pg (26-34); Mean Corpuscular Volume 92.0 fl (80-100); Nucleated Red Blood Cells Absolute Auto 0.110 K/mm3 (0.0-0.012); Nucleated Red Blood Cells Perc 0.7 % (0.0-0.2); Platelet Count Result 242 k/mm3 (150-375); Potassium 3.7 mmol/L (3.4-5.0); Red Blood Count 3.99 M/mm3 (4.6-6.20); Sodium 133 mmol/L (137-145); Total Protein 6.1 g/dL (6.3-8.2); White Blood Count 16.0 K/mm3 (4.5-10.0)
[2025-07-06 04:41] LABS: Glucose 43 mg/dL (65-110)
--- NOTE | 2025-07-06 04:45 | ED.NAVMDI ---
HPI - Nausea/Vomiting/Diarrhea General Chief complaint: Recheck/Abnormal Lab/Rx Stated complaint: Hypoglycemia Time Seen by Provider: 07/06/25 04:50 History of Present Illness HPI Narrative: Patient is on chemotherapy for lung cancer, has been having diarrhea, he has been trying to keep up with eating and drinking but his blood sugars keep dropping, EMS already called out earlier and he was feeling better but starting to feel sick again. Blood sugar was low despite him trying to eat and drink Related Data Home Medications ?Medication ?Instructions ?Recorded ?Confirmed ?Last Taken ?Type ascorbic acid (vitamin C) 1,000 mg 1,000 mg PO DAILY 10/08/23 06/30/25 06/03/25 History tablet,extended release (Vitamin C ER) diphenhydramine HCl 12.5 mg/5 mL 12.5 mg PO QAM PRN allergy symptoms 10/08/23 06/04/25 Unknown History oral liquid (Benadryl Allergy) empagliflozin 10 mg tablet 10 mg PO DAILY 10/08/23 06/30/25 06/03/25 History (Jardiance) famotidine 20 mg tablet (Pepcid) 20 mg PO DAILY PRN acid reflux 10/08/23 06/04/25 Unknown History fenofibrate nanocrystallized 145 145 mg PO DAILY 10/08/23 06/30/25 06/03/25 History mg tablet fluticasone 250 mcg-salmeterol 50 1 inh inhalation Q12H 10/08/23 06/04/25 06/03/25 History mcg/dose blistr powdr for inhalation (Wixela Inhub) glimepiride 4 mg tablet 4 mg PO BID 10/08/23 06/30/25 06/03/25 History hydrochlorothiazide 25 mg tablet 25 mg PO DAILY 10/08/23 06/30/25 06/03/25 History metformin 500 mg tablet,extended 1,000 mg PO BID 10/08/23 06/04/25 06/03/25 History release 24 hr metoprolol tartrate 50 mg tablet 50 mg PO BID 10/08/23 06/30/25 06/03/25 History multivitamin 1 tablet PO DAILY 10/08/23 06/30/25 06/03/25 History simvastatin 20 mg tablet 20 mg PO DAILY 10/08/23 06/30/25 06/03/25 History tiotropium bromide 2.5 2 puff inhalation QAM 10/08/23 06/30/25 06/03/25 History mcg/actuation mist for inhalation (Spiriva Respimat) Allergies Allergy/AdvReac Type Severity Reaction Status Date / Time hydrocodone (From Vicodin) AdvReac Itching Verified 07/06/25 05:14 morphine AdvReac VIOLENT Verified 07/06/25 05:14 TREMORS Review of Systems Review of Systems: All systems reviewed & are unremarkable except as noted in HPI and below PMFSH Past Medical History Medical History DM2 (diabetes mellitus, type 2) Arthritis GERD (gastroesophageal reflux disease) HLD (hyperlipidemia) HTN (hypertension) COPD (chronic obstructive pulmonary disease) 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, including hip Lung cancer Surgical History Surgical History History of inguinal hernia repair History of appendectomy Social History Social History Smoking packs per day: 1 Smoking cigarettes per day: 20.0 Years smoked: 40 Smoking pack-years: 40.00 Smoking status: Former smoker Second hand tobacco smoke exposure: No Additional smoking assessment comments: STATES SMOKED 1PK/DAY/30-40YRS/QUIT 2010~ Alcohol intake: current Drinks per week: 7 Alcohol use details: STATES DRINKS 3 OZ/NIGHT, (21 OZ/WEEK) Substance use: never Substance use type: does not use Lack of Transportation: No Lack of Food: Never True Current Housing: I Have Housing Concerned About Future Housing: No Difficulty Paying Gas/Electric Bills: No Difficulty Paying for Meds: No Currently Unemployed: No Education: High School Diploma/GED Difficulty w/ Childcare or Family Care: No Living arrangements: with family Spiritual care concerns: No Exam Narrative: EXAMINATION OF ORGAN SYSTEMS/BODY AREAS: Constitutional: Vital signs per nursing GENERAL:[No acute distress, non-toxic appearing.] HEAD: Normal with no signs of head trauma. EYES: EOMI, conjunctiva normal ENT: Hearing grossly intact LUNGS: Nonlabored breathing. HEART: [Regular rate and rhythm] ABD: [Soft], [nontender to palpation] EXT: Normal range of motion SKIN: [No rashes or lesions.] NEURO: [Alert and oriented x 3. No gross focal sensory or strength deficits.] PSYCH: Normal affect Course Vital Signs Vital signs: Vital Signs Temperature 97.8 F 07/06/25 02:09 Pulse Rate 68 07/06/25 02:09 Respiratory Rate 18 07/06/25 02:09 Blood Pressure 128/73 07/06/25 02:09 Pulse Oximetry 98 07/06/25 02:09 Oxygen Delivery Room Air 07/06/25 02:09 Temperature 97.8 F 07/06/25 02:09 Pulse Rate 65 07/06/25 06:00 Respiratory Rate 18 07/06/25 06:00 Blood Pressure 132/78 07/06/25 06:00 Pulse Oximetry 97 07/06/25 06:00 Oxygen Delivery Room Air 07/06/25 02:09 MDM - Nausea/Vomiting/Diarrhea MDM Narrative Medical decision making narrative: Patient is on chemotherapy for lung cancer, has been having diarrhea, he has been trying to keep up with eating and drinking but his blood sugars keep dropping, EMS already called out earlier and he was feeling better but starting to feel sick again. Blood sugar was low despite him trying to eat and drink found to have critically low blood sugar here in the 40s, after eating something here, it only went up to the 60s, at this point I do feel he needs to be started on dextrose containing fluids, D10 water started, with improvement of his glucose, and of his symptoms. In discussion with the patient family at bedside, will be admitting him at this time and he is agreeable to the plan. Lab Data 07/06/25 03:15 07/06/25 03:15 Labs: Lab Results 07/06/25 Range/Units 03:15 WBC 16.0 H (4.5-10.0) K/mm3 RBC 3.99 L (4.6-6.20) M/mm3 Hgb 11.7 L (14.0-18.0) g/dL Hct 36.7 L (42.0-52.0) % MCV 92.0 (80-100) fl MCH 29.3 (26-34) pg MCHC 31.9 L (32-36) g/dl RDW 18.6 H (11.5-14.5) % Plt Count 242 (150-375) k/mm3 MPV 12.0 H (7.4-10.4) fl Immature Gran % (Auto) 2.0 H (0-0.5) % Neut % (Auto) 86.3 H (45.5-73.1) % Lymph % (Auto) 4.0 L (18.3-44.2) % [place] % (Auto) 6.9 (2.6-8.5) % Eos % (Auto) 0.1 (0-4.4) % Baso % (Auto) 0.7 (0.2-1.2) % Lymph # (Auto) 0.64 L (0.9-3.2) K/mm3 [place] # (Auto) 1.1 H (0.1-0.6) K/mm3 Eos # (Auto) 0.0 (0-0.3) K/mm3 Baso # (Auto) 0.1 (0.0-0.1) K/mm3 Abs Immat Gran (auto) 0.32 H (0.00-0.031) K/mm3 Absolute Neuts (auto) 13.8 H (1.3-6.7) K/mm3 Absolute Nucleated RBC 0.110 H (0.0-0.012) K/mm3 Nucleated RBC % 0.7 H (0.0-0.2) % Sodium 133 L (137-145) mmol/L Potassium 3.7 (3.4-5.0) mmol/L Chloride 99 (98-107) mmol/L Carbon Dioxide 28 (22-30) mmol/L Anion Gap 6 (4-12) mmol/L BUN 23 H (9-20) mg/dL Creatinine 0.97 (0.7-1.3) mg/dL Estim Creat Clear Calc Not Reportable Estimated GFR > 60 (59 - ) Glucose 43 L* (65-110) mg/dL Calcium 8.1 L (8.4-10.2) mg/dL Total Bilirubin 0.2 (0.2-1.3) mg/dL AST 47 (17-59) U/L ALT 24 (6-50) U/L Alkaline Phosphatase 100 (38-126) U/L Total Protein 6.1 L (6.3-8.2) g/dL Albumin 3.3 L (3.5-5.1) g/dL Critical Care Time Critical Care Time Critical Care Time: Yes Total Critical Care Time: 31 Discharge Plan Discharge Clinical Impression: Hypoglycemia Patient Disposition: Still a Patient Condition: Stable
--- NOTE | 2025-07-06 05:09 | PC.NURSE ---
0215 orange jucie given to patient 0300 BS 69 0315 D10 ordered and started at 120ml/hr 0402 BS 96
--- NOTE | 2025-07-06 05:40 | PC.NURSE ---
BS 111
--- NOTE | 2025-07-06 05:53 | ADMGEN ---
This patient, Forrest Otoole, was admitted to [facility] Surg Room 329-01. Patient/family oriented to hospital policies and general routines including ID bracelet, bed and alarms, visiting hours, pain management, procedures, bathroom and other care routines, personal items, smoking policy, room service/diet, and visiting hours. Information on how to activate the Rapid Response Team has been discussed. Patient/Family are encouraged to report perceived risks to care and to ask questions if they do not understand what they are told or what they should do.
[2025-07-06 09:03] LABS: Hemoglobin A1C 6.7 % (<5.7)
[2025-07-06] MEDS: DEXTROSE 50% 25 GM/50 ML SYRINGE IV PUSH (11:10)
--- NOTE | 2025-07-06 13:35 | PM.IMHP ---
H&P: HPI History of Present Illness Date/Time: 07/06/25 13:35 Chief Complaint: hypoglycemia Narrative: 79 yo male with PMH of Lung cancer, C diff and DM2, COPD and Afib, patient stated he just received hsi last chemo on Wednesday and since then has been having vomiging and diarrhea with attendant poor oral intake. thus the past few days he has been having low blood sugar whcih was prompted presentation to the ER. Patient denies any loss of consdciousness or chest pain, abd pain. Noted diarrhea has resolved yesterday adn no diarrhea since today. ER eval notable for stable vital signs within normal limits. Labs notable for BG 43, WBC 16. 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, including hip Lung cancer Surgical History Surgical History History of inguinal hernia repair History of appendectomy Social History Social History Smoking packs per day: 1 Smoking cigarettes per day: 20.0 Years smoked: 40 Smoking pack-years: 40.00 Smoking status: Former smoker Tobacco type: cigarettes Second hand tobacco smoke exposure: Yes Additional smoking assessment comments: STATES SMOKED 1PK/DAY/30-40YRS/QUIT 2010~ Alcohol intake: current Drinks per week: 7 Alcohol use details: STATES DRINKS 3 OZ/NIGHT, (21 OZ/WEEK) Substance use: former Substance use type: does not use Lack of Transportation: No Lack of Food: Never True Current Housing: I Have Housing Concerned About Future Housing: No Difficulty Paying Gas/Electric Bills: No Difficulty Paying for Meds: No Currently Unemployed: No Education: High School Diploma/GED Difficulty w/ Childcare or Family Care: No Living arrangements: with family Spiritual care concerns: No Meds Home Medications and Allergies Home Medications ?Medication ?Instructions ?Recorded ?Confirmed ?Type ascorbic acid (vitamin C) 1,000 mg 1,000 mg PO DAILY 10/08/23 07/06/25 History tablet,extended release (Vitamin C ER) diphenhydramine HCl 12.5 mg/5 mL 12.5 mg PO QAM PRN allergy symptoms 10/08/23 07/06/25 History oral liquid (Benadryl Allergy) empagliflozin 10 mg tablet 10 mg PO DAILY 10/08/23 07/06/25 History (Jardiance) famotidine 20 mg tablet (Pepcid) 20 mg PO DAILY PRN acid reflux 10/08/23 07/06/25 History fenofibrate nanocrystallized 145 145 mg PO DAILY 10/08/23 07/06/25 History mg tablet fluticasone 250 mcg-salmeterol 50 1 inh inhalation Q12H 10/08/23 07/06/25 History mcg/dose blistr powdr for inhalation (Wixela Inhub) glimepiride 4 mg tablet 4 mg PO BID 10/08/23 07/06/25 History hydrochlorothiazide 25 mg tablet 25 mg PO DAILY 10/08/23 07/06/25 History metformin 500 mg tablet,extended 1,000 mg PO BID 10/08/23 07/06/25 History release 24 hr metoprolol tartrate 50 mg tablet 50 mg PO BID 10/08/23 07/06/25 History multivitamin 1 tablet PO DAILY 10/08/23 07/06/25 History simvastatin 20 mg tablet 20 mg PO DAILY 10/08/23 07/06/25 History tiotropium bromide 2.5 2 puff inhalation QAM 10/08/23 07/06/25 History mcg/actuation mist for inhalation (Spiriva Respimat) amiodarone 200 mg tablet (Pacerone) 200 mg PO BID #60 tabs 06/09/25 07/06/25 Rx apixaban 5 mg tablet (Eliquis) 5 mg PO Q12HR #90 tabs 06/09/25 07/06/25 Rx cefdinir 300 mg capsule 300 mg PO Q12HR #3 caps 06/09/25 07/06/25 Rx doxycycline hyclate 100 mg tablet 100 mg PO Q12HR #1 tablet 06/09/25 07/06/25 Rx ondansetron 4 mg disintegrating 4 mg PO Q4H PRN nausea and 06/30/25 07/06/25 Rx tablet vomiting #10 tabs Allergies Allergy/AdvReac Type Severity Reaction Status Date / Time hydrocodone (From Vicodin) AdvReac Itching Verified 07/06/25 05:14 morphine AdvReac VIOLENT Verified 07/06/25 05:14 TREMORS Vital Signs Vital Signs - 24 hr 07/06/25 02:09 07/06/25 05:08 07/06/25 06:00 Temperature 97.8 F Pulse Rate 68 84 65 Respiratory Rate 18 18 18 Blood Pressure 128/73 116/50 L 132/78 Pulse Oximetry 98 96 97 Oxygen Delivery Room Air 07/06/25 06:08 07/06/25 08:00 07/06/25 11:40 Temperature 97.6 F Pulse Rate 87 87 Respiratory Rate 18 18 Blood Pressure 134/63 Pulse Oximetry 97 97 97 Oxygen Delivery Room Air Room Air Exam Narrative: General: alert and comfortable Eyes: EOMI, PERRLA ENNT External ears normal, Neck is supple, no masses, Respiratory systems: Clear to auscultation Cardiovascular S1, S2, normal rhythm, no murmur, rub, or gallop; no thrill or palpable murmurs on palpation. Gastrointestinal: soft, non-tender, and non-distended abdomen with no masses; BS present Skin: no rash, lesions, ulcerations, subcutaneous nodules or induration Musculoskeletal: no abnormality and no tenderness, normal ROM Neurologic: Alert and oriented x3, non focal Mental Status Exam: normal affect H&P: Results Labs Labs: Short CBC 07/06/25 Range/Units 03:15 WBC 16.0 H (4.5-10.0) K/mm3 Hgb 11.7 L (14.0-18.0) g/dL Hct 36.7 L (42.0-52.0) % Plt Count 242 (150-375) k/mm3 BMP 07/06/25 03:15 Sodium 133 L Potassium 3.7 Chloride 99 Carbon Dioxide 28 BUN 23 H Creatinine 0.97 Glucose 43 L* Calcium 8.1 L Liver Function 07/06/25 Range/Units 03:15 Total Bilirubin 0.2 (0.2-1.3) mg/dL AST 47 (17-59) U/L ALT 24 (6-50) U/L Alkaline Phosphatase 100 (38-126) U/L Albumin 3.3 L (3.5-5.1) g/dL Assessment and Plan Assessment and plan (1) Hypoglycemia: Code(s): E16.2 - Hypoglycemia, unspecified Status: Acute (2) Pneumonia: Code(s): J18.9 - Pneumonia, unspecified organism Status: Acute Plan Nausea/Vomiting and diarrhea Likely from [facility] Patinet noted symptoms started after chemotherapy improving, no vomiting or diarrhea today, C diff ordered montior Hypoglycemia Patient on glimepiride and will recent poor oral intake On Dextrose infusion, and stop Glimepiride Dietitian consulted Pneumonitis CXR reviewed Blood and sputum cultures, MRSA On Levaquin DM2 Hold antidiabetics monitor Lung cancer on Chemo COntinue Oncology follow up DVT prophylaxis on Sq Lovenox Full code SDM: Acacia Guanyovaan Hospitalist [facility] Advance Care Plan I have confirmed that the patient's Advanced Care Plan is present, code status is documented, or surrogate decision maker is listed in patient medical record.: Yes Medication Reconciliation I have utilized all available resources to obtain, update and review the patients current medications (includes all prescriptions, OTC, herbals, cannabis, and nutritional supplements).: Yes
[2025-07-06] MEDS: CEFEPIME 2 GM in SODIUM CHLORIDE 0.9% IV 50 ML 100 ML IVPB (14:46)
[2025-07-06] MEDS: DOXYCYCLINE IV 100 MG in SODIUM CHLORIDE 0.9% IV 100 ML IVPB (15:34)
[2025-07-06] MEDS: AMIODARONE HCL 200 MG TABLET PO (16:35)
[2025-07-06 16:37] LABS: MRSA (PCR) NOT DETECTED (NOT DETECTE)
[2025-07-06] MEDS: APIXABAN 5 MG TABLET PO (20:43)
[2025-07-06 21:08] LABS: Toxigenic C. Diff POSITIVE (NEGATIVE)
[2025-07-06] MEDS: VANCOMYCIN HCL 125 MG ORAL CAPSULE PO (23:06)
[2025-07-06] MEDS: CALCIUM CARBONATE (TUMS) 500 MG (200 MG ELEMENTAL) PO (23:17)
[2025-07-07] MEDS: CEFEPIME 2 GM in SODIUM CHLORIDE 0.9% IV 50 ML 100 ML IVPB (02:38)
[2025-07-07] MEDS: DOXYCYCLINE IV 100 MG in SODIUM CHLORIDE 0.9% IV 100 ML IVPB (03:39)
[2025-07-07] MEDS: VANCOMYCIN HCL 125 MG ORAL CAPSULE PO (05:48)
[2025-07-07 06:00] VITALS: BP 154/60; PULSE 102; RESP 16; TEMP 36.5; O2SAT 95
[2025-07-07 06:20] LABS: Hematocrit 36.3 % (42.0-52.0); Hemoglobin 11.3 g/dL (14.0-18.0); Immature Granulocyte Percent A 6.2 % (0-0.5); Lymphocytes Absolute Auto 1.11 K/mm3 (0.9-3.2); Mean Corpuscular HGB Conc 31.1 g/dl (32-36); Mean Corpuscular Hemoglobin 28.9 pg (26-34); Mean Corpuscular Volume 92.8 fl (80-100); Nucleated Red Blood Cells Absolute Auto 0.120 K/mm3 (0.0-0.012); Nucleated Red Blood Cells Perc 1.1 % (0.0-0.2); Platelet Count Result 217 k/mm3 (150-375); Red Blood Count 3.91 M/mm3 (4.6-6.20); White Blood Count 10.8 K/mm3 (4.5-10.0)
[2025-07-07 06:56] LABS: Alanine Aminotransferase 20 U/L (6-50); Albumin Level 3.1 g/dL (3.5-5.1); Alkaline Phosphatase 114 U/L (38-126); Anion Gap 6 mmol/L (4-12); Aspartate Amino Transferase 36 U/L (17-59); Bilirubin,Total 0.2 mg/dL (0.2-1.3); Blood Urea Nitrogen 13 mg/dL (9-20); Calcium 8.5 mg/dL (8.4-10.2); Carbon Dioxide 25 mmol/L (22-30); Chloride 101 mmol/L (98-107); Estimated CRCL calculation 83 ml/min; Estimated Glomerular Filt Rate > 60; Glucose 141 mg/dL (65-110); Magnesium 1.9 mg/dL (1.6-2.3); Potassium 4.3 mmol/L (3.4-5.0); Sodium 132 mmol/L (137-145); Total Protein 5.8 g/dL (6.3-8.2)
[2025-07-07] MEDS: ASCORBIC ACID 500 MG TABLET 1000 MG PO (08:06)
[2025-07-07] MEDS: APIXABAN 5 MG TABLET PO (08:06)
[2025-07-07 08:15] VITALS: PULSE 104
[2025-07-07] MEDS: EMPAGLIFLOZIN 10 MG TABLET PO (08:15)
[2025-07-07] MEDS: AMIODARONE HCL 200 MG TABLET PO (08:15)
--- NOTE | 2025-07-07 11:11 | P.DS_ITS ---
DS: Admitting Diagnosis Discharge Date 07/07/2025 Admitting Diagnosis hypoglycemia DS: Discharge Diagnosis Discharge Diagnosis (1) Hypoglycemia: Code(s): E16.2 - Hypoglycemia, unspecified Status: Acute (2) Colitis: Code(s): K52.9 - Noninfective gastroenteritis and colitis, unspecified Status: Acute DS: Summary Hospital Course Hospital Course: 79 yo male with PMH of Lung cancer, C diff and DM2, COPD and Afib, patient stated he just received his last chemo on Wednesday and since then has been having vomiging and diarrhea with attendant poor oral intake. thus the past few days he has been having low blood sugar whcih was prompted presentation to the ER. Patient denies any loss of consciousness or chest pain, abd pain. Noted diarrhea has resolved yesterday adn no diarrhea since today. ER eval notable for stable vital signs within normal limits. Labs notable for BG 43, WBC 16. CXR showed pneumonitis Patient was managed for C diff colitis, Stool positive for C diff, today diarrhea has resolved. discharged on Dificid x 10 days, also probiotics. Hypoglycemia resolved and Glimepiride discontinued. I counseled patient to discontinue Glimepride, continue Jardiance and Metformin and follow up with PCP. ALso CXR showed possible viral pneumonitis however given that patient is on chemo thus was placed on Cefdinir and Doxycycline x 5 days F/u with PCP in 3-5 days COntineu follow up with oncology for lung cancer treatment Time Spent with Patient Time attestation: Total time spent providing and/or coordinating discharge services: DS: Data Data Completed and Pending Labs on day of discharge: Labs from last 24 hours 07/07/25 07/07/25 07/06/25 07:53 05:37 21:14 WBC 10.8 H RBC 3.91 L Hgb 11.3 L Hct 36.3 L MCV 92.8 MCH 28.9 MCHC 31.1 L RDW 18.7 H Plt Count 217 MPV 11.5 H Immature Gran % (Auto) 6.2 H Neut % (Auto) 72.0 Lymph % (Auto) 10.3 L [place] % (Auto) 10.5 H Eos % (Auto) 0.2 Baso % (Auto) 0.8 Lymph # (Auto) 1.11 [place] # (Auto) 1.1 H Eos # (Auto) 0.0 Baso # (Auto) 0.1 Abs Immat Gran (auto) 0.67 H Absolute Neuts (auto) 7.7 H Absolute Nucleated RBC 0.120 H Nucleated RBC % 1.1 H Sodium 132 L Potassium 4.3 Chloride 101 Carbon Dioxide 25 Anion Gap 6 BUN 13 D Creatinine 0.75 Estim Creat Clear Calc 83 Estimated GFR > 60 Glucose 141 H POC Capillary Glucose 178 H 172 H Calcium 8.5 Magnesium 1.9 Total Bilirubin 0.2 AST 36 ALT 20 Alkaline Phosphatase 114 Total Protein 5.8 L Albumin 3.1 L Nasal MRSA (PCR) C. difficile (PCR) 07/06/25 07/06/25 07/06/25 19:12 16:33 15:19 WBC RBC Hgb Hct MCV MCH MCHC RDW Plt Count MPV Immature Gran % (Auto) Neut % (Auto) Lymph % (Auto) [place] % (Auto) Eos % (Auto) Baso % (Auto) Lymph # (Auto) [place] # (Auto) Eos # (Auto) Baso # (Auto) Abs Immat Gran (auto) Absolute Neuts (auto) Absolute Nucleated RBC Nucleated RBC % Sodium Potassium Chloride Carbon Dioxide Anion Gap BUN Creatinine Estim Creat Clear Calc Estimated GFR Glucose POC Capillary Glucose 197 H Calcium Magnesium Total Bilirubin AST ALT Alkaline Phosphatase Total Protein Albumin Nasal MRSA (PCR) Not detected C. difficile (PCR) Positive A* 07/06/25 07/06/25 07/06/25 14:28 12:45 11:42 WBC RBC Hgb Hct MCV MCH MCHC RDW Plt Count MPV Immature Gran % (Auto) Neut % (Auto) Lymph % (Auto) [place] % (Auto) Eos % (Auto) Baso % (Auto) Lymph # (Auto) [place] # (Auto) Eos # (Auto) Baso # (Auto) Abs Immat Gran (auto) Absolute Neuts (auto) Absolute Nucleated RBC Nucleated RBC % Sodium Potassium Chloride Carbon Dioxide Anion Gap BUN Creatinine Estim Creat Clear Calc Estimated GFR Glucose POC Capillary Glucose 175 H 105 137 H Calcium Magnesium Total Bilirubin AST ALT Alkaline Phosphatase Total Protein Albumin Nasal MRSA (PCR) C. difficile (PCR) 07/06/25 07/06/25 11:23 11:06 WBC RBC Hgb Hct MCV MCH MCHC RDW Plt Count MPV Immature Gran % (Auto) Neut % (Auto) Lymph % (Auto) [place] % (Auto) Eos % (Auto) Baso % (Auto) Lymph # (Auto) [place] # (Auto) Eos # (Auto) Baso # (Auto) Abs Immat Gran (auto) Absolute Neuts (auto) Absolute Nucleated RBC Nucleated RBC % Sodium Potassium Chloride Carbon Dioxide Anion Gap BUN Creatinine Estim Creat Clear Calc Estimated GFR Glucose POC Capillary Glucose 221 H 34 L* Calcium Magnesium Total Bilirubin AST ALT Alkaline Phosphatase Total Protein Albumin Nasal MRSA (PCR) C. difficile (PCR) Discharge Plan Discharge Attending physician on discharge: Chris Queen Discharging Clinician: Chris Queen Anticipated Discharge Date/Time: 07/07/25 10:57 Patient Disposition: Home Activity: as tolerated Diet: as tolerated and regular Patient Instructions: Antibiotic Form Patient Language: Italian Stand Alone Forms: General Discharge Information Follow-up/Referrals: Micaela,Gamaliel Lang MD [Primary Care Provider, Unknown] Referral Note: F/u with PCP in 3-5 days Discharge Medications: New cefdinir 300 mg capsule 300 mg PO Q12H 5 Days Qty: 10 0RF doxycycline hyclate 100 mg tablet,delayed release (DR/EC) 100 mg PO BID 5 Days Qty: 10 0RF fidaxomicin [Dificid] 200 mg tablet 200 mg PO Q12H 10 Days Qty: 20 0RF Saccharomyces boulardii [Florastor] 250 mg capsule 250 mg PO BID 30 Days Qty: 60 0RF Continued ondansetron 4 mg tablet,disintegrating 4 mg PO Q4H PRN (Reason: nausea and vomiting) Qty: 10 0RF multivitamin Tablet 1 tablet PO DAILY Patient Comments: Mens Silver Vitamin C 1,000 mg Tablet Extended Release 1,000 mg PO DAILY simvastatin 20 mg tablet 20 mg PO DAILY metoprolol tartrate 50 mg tablet 50 mg PO BID hydrochlorothiazide 25 mg tablet 25 mg PO DAILY metformin 500 mg tablet extended release 24 hr 1,000 mg PO BID fenofibrate nanocrystallized 145 mg tablet 145 mg PO DAILY Jardiance 10 mg tablet 10 mg PO DAILY diphenhydramine HCl [Benadryl Allergy] 12.5 mg/5 mL Liquid 12.5 mg PO QAM PRN (Reason: allergy symptoms) Patient Comments: . famotidine [Pepcid] 20 mg Tablet 20 mg PO DAILY PRN (Reason: acid reflux) Patient Comments: 40 mg Daily - per pt fluticasone propion-salmeterol [Wixela Inhub] 250-50 mcg/dose Blister With Device 1 inh INHALATION Q12H Spiriva Respimat 2.5 mcg/actuation mist 2 puff INHALATION QAM amiodarone [Pacerone] 200 mg Tablet 200 mg PO BID Qty: 60 0RF Patient Comments: . cefdinir 300 mg Capsule 300 mg PO Q12HR Qty: 3 0RF doxycycline hyclate 100 mg Tablet 100 mg PO Q12HR Qty: 1 0RF Rx Instructions: please take your last dose tonight at 0900pm 06/09 Eliquis 5 mg Tablet 5 mg PO Q12HR Qty: 90 0RF Discontinued glimepiride 4 mg tablet 4 mg PO BID Date of admission: 07/06/25 04:49 Primary Care Provider: Micaela,Gamaliel Lang Admitting Provider: Chris Queen Attending physician on admission: Chris Queen Condition: Stable
== END 2025-07-07 12:00 | disposition home or self-care (01) ==
LOC: ANHED 04:50 → ANH3MEDSUR 05:21
PROVIDERS: Nurse Practitioner; Physician Assistant; Admitting Provider Internal Medicine; Emergency Provider Emergency Medicine; PCP Internal Medicine; Visit Provider Internal Medicine
DX: E11.649 Type 2 diabetes mellitus with hypoglycemia without coma (principal); K52.9 Noninfective gastroenteritis and colitis, unspecified; C34.90 Malignant neoplasm of unspecified part of unspecified bronchus or lung; Z79.69 Long term (current) use of other immunomodulators and immunosuppressants; K21.9 Gastro-esophageal reflux disease without esophagitis; E78.5 Hyperlipidemia, unspecified; I10 Essential (primary) hypertension; J44.9 Chronic obstructive pulmonary disease, unspecified; I48.91 Unspecified atrial fibrillation; Z85.831 Personal history of malignant neoplasm of soft tissue; Z87.891 Personal history of nicotine dependence; Z79.01 Long term (current) use of anticoagulants
CPT/HCPCS: 36415; 71045; 80053; 82948; 83036; 83735; 85025; 87040; 87070; 87077; 87186; 87205; 87493; 87641; 96365; 96366; 96367; 96368; 99285; A9270; G0378; J0692

== ENCOUNTER 2025-09-25 08:55 | Outpatient (CLI) | payer MEDICARE, SELFPAY ==
--- NOTE | ~2025-09-25 | CT_ITS ---
EXAM/PROCEDURE: CT chest abdomen pelvis w con HISTORY: non-small cell cancer of left lung COMPARISON: June 06, 2025 TECHNIQUE: IV contrast enhanced CT of the chest abdomen and pelvis FINDINGS: No consolidation effusion or pneumothorax. Heart and great vessels not clearly changed with no thoracic lytic aneurysm, dissection or central/large pulmonary emboli. Surgical changes left side with partial resection of left lung. 2 cm right. Midline precarinal lymph node not clearly changed. Other smaller, probably reactive lymph nodes are present as well as the paratracheal region. Bones appear stable. In the abdomen and pelvis, strandy changes are present about the gastric antrum and proximal duodenum. No clear perforation, free air free fluid seen. No pneumatosis seen. There is also mildly thickened appearance of several loops of proximal small bowel in the left hemiabdomen. The bowel gas pattern is nonobstructive with no free air free fluid or pneumatosis seen. Moderate amount of stool extends to the cecum. No grossly inflamed appendix. Numerous bilateral renal cysts with no hydroureteronephrosis. Mild aneurysmal dilatation of the infrarenal abdominal aorta with moderately severe atherosclerotic disease. No dissection or acute convocation. Extensive vascular calcification in the origin of the mesenteric and renal arteries but no acute arterial occlusion seen. Extensive aphthous chronic ossification also throughout the pelvic inflow and outflow arteries. Urinary bladder mildly distended but otherwise unremarkable. Prostate slightly enlarged. No bulky mesenteric or retroperitoneal lymphadenopathy or masses seen. Degenerative changes throughout the bones which otherwise appear intact. No gross mesenteric or retroperitoneal lymphadenopathy or masses. IMPRESSION: 1. Mediastinal lymphadenopathy not clearly changed. Continued surveillance recommended. 2. Strandy changes in the gastric antrum and proximal duodenum could be associated with duodenitis/gastritis. Septic ulcer disease could potentially have a similar appearance. 3. Scattered loops of fluid-filled small bowel with mild wall thickening could be associated with inflammatory or infectious enteritis. 4. Other chronic findings as above. Reviewed, dictated and finalized at location A. ASSISTANT MANAGER IMPRESSION: 1. Mediastinal lymphadenopathy not clearly changed. Continued surveillance dung mmended. 2. Strandy changes in the gastric antrum and proximal duodenum could be associa chirag with duodenitis/gastritis. Septic ulcer disease could potentially have a si milar appearance. 3. Scattered loops of fluid-filled small bowel with mild wall thickening could be associated with inflammatory or infectious enteritis. 4. Other chronic findings as above.
== END 2025-09-25 08:56 | disposition home or self-care (01) ==
PROVIDERS: PCP Internal Medicine; Visit Provider Internal Medicine Hematology & Oncology
DX: C34.92 Malignant neoplasm of unspecified part of left bronchus or lung (principal)
CPT/HCPCS: 71260; 74177; Q9967